=== PATIENT | male | born 1960 | race Caucasian/White ===

== ENCOUNTER 2023-08-04 08:33 | Emergency (ER) | payer BC, SELFPAY ==
[2023-08-04] VITALS (23 sets, daily range): BP systolic 127–156; BP diastolic 93–113; PULSE 116–134; RESP 20; TEMP 37.1; O2SAT 94–96; BMI 32.3
--- NOTE | 2023-08-04 09:11 | ED_ITS ---
HPI - Arrhythmia/Palpitations General Time Seen by Provider: 09:12 <Ena Yadav Filed: 08/04/23 13:41> Date Seen: 08/04/23 <Ena Yadav Filed: 08/04/23 13:41> Chief Complaint: Arrhythmia/Palpitations <Ena Yadav Filed: 08/04/23 13:41> Stated Complaint: irregular heartbeat,shortness of breath <Ena Yadav Filed: 08/04/23 13:41> Time Seen by Provider: 08/04/23 08:59 <Ena Yadav Filed: 08/04/23 13:41> Source: patient <Ena Yadav Filed: 08/04/23 13:41> Mode of arrival: ambulatory <Ena Yadav Filed: 08/04/23 13:41> Limitations: no limitations <Ena Yadav Filed: 08/04/23 13:41> History of Present Illness HPI narrative: Patient presents with sudden, consistent palpitations beginning this morning at 12:00 a.m, which are accompanied by shortness of breath and lightheadedness. He was not able to fall back asleep after this onset. Of note, patient had a positive at home COVID test 2 days ago and has had a productive cough and nasal/chest congestion since then. He notes 1 episode of pleuritic chest pain approximately 2 nights ago, which lasted from 10PM - 2 AM, but has since subsided. Patient denies any current chest pain, abdominal pain, fever, chills, unexpected weight loss, weakness, lower extremity swelling, nausea, vomiting, hematemesis, urinary changes, bowel changes, or any other complaints at this time. No syncopal events. He is not anticoagulated, but does have a history of cardioversion. He states he has not taken his blood pressure medication for 4 days. He is unsure what medication he is on. <Ena Yadav Filed: 08/04/23 13:41> Related Data Home Medications: Home Medications Medication Instructions Recorded Confirmed mirtazapine 7.5 mg tablet 7.5 mg PO QPM 08/04/23 08/04/23 sertraline 25 mg tablet 25 mg PO 08/04/23 tamsulosin 0.4 mg capsule 0.4 mg PO DAILY 08/04/23 08/04/23 Previous Rx's Medication Instructions Recorded nirmatrelvir 300 mg (150 mg See Rx Instructions PO .COMPLEX 08/04/23 x2)-ritonavir 100 mg tablet,dose #30 ea pack (Paxlovid) <[employer]Pixel Filed: 08/04/23 13:41> Allergies/Adverse Reactions: Allergies Allergy/AdvReac Type Severity Reaction Status Date / Time No Known Drug Allergies Allergy Verified 08/04/23 08:46 <[employer] Filed: 08/04/23 13:41> Review of Systems Status of ROS: Reports: 10 or more systems reviewed and unremarkable except as noted in History and below <[employer] Filed: 08/04/23 13:41> Const: Denies: fever, chills, fatigue or night sweats <[employer] Filed: 08/04/23 13:41> Eyes: Denies: change in vision or blurry vision <Remote Assistant Filed: 08/04/23 13:41> ENMT: Denies: throat pain, neck pain, throat swelling or difficulty swallowing <Remote Assistant Filed: 08/04/23 13:41> Cardio: Reports: chest pain, palpitations, lightheadedness, shortness of breath with exertion and shortness of breath when lying down; Denies: edema, swelling of feet/ankles or leg pain with exertion <[employer]Front [employer] Filed: 08/04/23 13:41> Resp: Reports: shortness of breath, cough (productive), pain on inspiration and chest congestion; Denies: wheezing, stridor, change in phlegm color or coughing up blood <Remote Assistant Filed: 08/04/23 13:41> GI: Denies: abdominal pain, nausea, vomiting, heartburn, diarrhea, constipation, difficulty swallowing, blood in stool or mucus in stool <[employer] Last Filed: 08/04/23 13:41> : Denies: painful urination, urinary frequency, urinary urgency or blood in urine <Remote Assistant Last Filed: 08/04/23 13:41> Musculo: Denies: back pain, neck pain, extremity pain or extremity swelling <Ena Hargrove Filed: 08/04/23 13:41> Integ/Breast: Denies: rash <Ena Hargrove Filed: 08/04/23 13:41> Neuro: Denies: headache, numbness in extremities, weakness in extremities or dizziness <Ena Hargrove Last Filed: 08/04/23 13:41> Psych: Denies: anxiety <Ena Hargrove Filed: 08/04/23 13:41> Endo: Denies: fatigue <Ena Hargrove Filed: 08/04/23 13:41> Allergy/Immuno: Denies: throat swelling or wheezing <Ena Hargrove Filed: 08/04/23 13:41> [facility] Social History: Social History Smoking Status: Never smoker Do you use any of these nicotine containing products: None How often do you have a drink containing alcohol: never How often do you have six or more drinks on one occasion: Never AUDIT-C Alcohol total score: 0 Non-prescribed substance use: denies use service: No <Ena Hargrove Filed: 08/04/23 13:41> Exam Narrative: Exam Narrative: General: Healthy-appearing, well-nourished with above average body (BMI 32.3) habitus, in no apparent distress. Able to answer questions without difficulty. HENMT: Normocephalic, atraumatic. Hearing grossly normal bilaterally. Moist oral mucous membranes with some nasal congestion. Face symmetric bilaterally. Eye: PERRL. EOMs intact bilaterally. Conjunctivae normal. Neck: Supple, no lymphadenopathy. No JVD. Full ROM. Chest/Cardio: Inspection normal. No tenderness to palpation. Tachycardic with normal rhythm, S1 and S2. No clicks, gallops, or murmurs noted. 2+ peripheral pulses bilaterally. Lung: No increased effort. No retractions, no use of accessory muscles. Clear auscultation bilaterally. GI: Normal to inspection. Normoactive bowel sounds. Soft, nontender, nondistended. No rebound tenderness or guarding. : No CVA tenderness. Extremities: Full range of motion. No pedal edema or unilateral swelling. Normal capillary refill. No calf tenderness. Neuro: No focal motor or sensory deficits noted. A&Ox3. Psych: Cooperative. Thought process normal. Speech appropriate. <Ena Yadav Filed: 08/04/23 13:41> Const: Vital Signs, click to edit/add: Vital Signs - 24 hr 08/04/23 08:38 08/04/23 10:55 08/04/23 11:00 Temperature 98.7 F Pulse Rate 124 H 123 H Pulse Rate [Pulse Oximeter] 134 H Respiratory Rate 20 Blood Pressure Blood Pressure [Le ft Upper Arm] 133/113 H Pulse Oximetry 95 95 94 Oxygen Delivery Me thod Room Air 08/04/23 11:02 08/04/23 11:15 08/04/23 11:30 Temperature Pulse Rate 116 H 125 H 127 H Pulse Rate [Pulse Oximeter] Respiratory Rate Blood Pressure 156/102 H Blood Pressure [Le ft Upper Arm] Pulse Oximetry 95 95 95 Oxygen Delivery Me thod 08/04/23 11:31 08/04/23 11:45 08/04/23 12:00 Temperature Pulse Rate 127 H 126 H 126 H Pulse Rate [Pulse Oximeter] Respiratory Rate Blood Pressure 127/93 H Blood Pressure [Le ft Upper Arm] Pulse Oximetry 96 95 94 Oxygen Delivery Me thod 08/04/23 12:01 08/04/23 12:15 08/04/23 12:30 Temperature Pulse Rate 126 H 120 H 124 H Pulse Rate [Pulse Oximeter] Respiratory Rate Blood Pressure 131/95 H Blood Pressure [Le ft Upper Arm] Pulse Oximetry 95 95 94 Oxygen Delivery Me thod 08/04/23 12:31 08/04/23 12:45 08/04/23 13:00 Temperature Pulse Rate 120 H 123 H Pulse Rate [Pulse Oximeter] Respiratory Rate Blood Pressure 139/113 H Blood Pressure [Le ft Upper Arm] Pulse Oximetry 95 95 Oxygen Delivery Me thod 08/04/23 13:05 08/04/23 13:15 08/04/23 13:30 Temperature Pulse Rate 122 H 117 H 123 H Pulse Rate [Pulse Oximeter] Respiratory Rate Blood Pressure Blood Pressure [Le ft Upper Arm] Pulse Oximetry 95 95 94 Oxygen Delivery Me thod 08/04/23 13:35 Temperature Pulse Rate 126 H Pulse Rate [Pulse Oximeter] Respiratory Rate Blood Pressure Blood Pressure [Le ft Upper Arm] Pulse Oximetry 95 Oxygen Delivery Me thod <Ena Gall - Last Filed: 08/04/23 13:41> Vital Signs, click to edit/add: Vital Signs - 24 hr 08/04/23 08:38 08/04/23 10:55 08/04/23 11:00 Temperature 98.7 F Pulse Rate 124 H 123 H Pulse Rate [Pulse Oximeter] 134 H Respiratory Rate 20 Blood Pressure Blood Pressure [Le ft Upper Arm] 133/113 H Pulse Oximetry 95 95 94 Oxygen Delivery Me thod Room Air 08/04/23 11:02 08/04/23 11:15 08/04/23 11:30 Temperature Pulse Rate 116 H 125 H 127 H Pulse Rate [Pulse Oximeter] Respiratory Rate Blood Pressure 156/102 H Blood Pressure [Le ft Upper Arm] Pulse Oximetry 95 95 95 Oxygen Delivery Me thod 08/04/23 11:31 08/04/23 11:45 08/04/23 12:00 Temperature Pulse Rate 127 H 126 H 126 H Pulse Rate [Pulse Oximeter] Respiratory Rate Blood Pressure 127/93 H Blood Pressure [Le ft Upper Arm] Pulse Oximetry 96 95 94 Oxygen Delivery Me thod 08/04/23 12:01 08/04/23 12:15 08/04/23 12:30 Temperature Pulse Rate 126 H 120 H 124 H Pulse Rate [Pulse Oximeter] Respiratory Rate Blood Pressure 131/95 H Blood Pressure [Le ft Upper Arm] Pulse Oximetry 95 95 94 Oxygen Delivery Me thod 08/04/23 12:31 08/04/23 12:45 08/04/23 13:00 Temperature Pulse Rate 120 H 123 H Pulse Rate [Pulse Oximeter] Respiratory Rate Blood Pressure 139/113 H Blood Pressure [Le ft Upper Arm] Pulse Oximetry 95 95 Oxygen Delivery Me thod 08/04/23 13:05 08/04/23 13:15 08/04/23 13:30 Temperature Pulse Rate 122 H 117 H 123 H Pulse Rate [Pulse Oximeter] Respiratory Rate Blood Pressure Blood Pressure [Le ft Upper Arm] Pulse Oximetry 95 95 94 Oxygen Delivery Me thod 08/04/23 13:35 Temperature Pulse Rate 126 H Pulse Rate [Pulse Oximeter] Respiratory Rate Blood Pressure Blood Pressure [Le ft Upper Arm] Pulse Oximetry 95 Oxygen Delivery Me thod <Rickey Mesa MD - Last Filed: 08/04/23 14:38> Documenting provider has reviewed patient's vital signs: yes <Ena Hargrove Tocagen Leif Filed: 08/04/23 13:41> Course Reevaluation(s) Time of Reevaluation #1: 11:18 <Ena Yadav Filed: 08/04/23 13:41> Reevaluation #1: Updated the patient on his lab and imaging results. He is doing well and is in no acute distress. He is accompanied by his son. Discussed how we will be doing a CTA based on his D-dimer results. Also discussed that his tachycardia could be result of his COVID, but wanted to r/o DVT/PE. <Ena Hargrove Tocagen Leif Filed: 08/04/23 13:41> Vital Signs Vital signs: Initial Vital Signs Temperature 98.7 F 08/04/23 08:38 Temperature Source Temporal Artery Scan 08/04/23 08:38 Pulse Rate 134 H 08/04/23 08:38 Respiratory Rate 20 08/04/23 08:38 Blood Pressure 133/113 H 08/04/23 08:38 Blood Pressure Mean 119 H 08/04/23 08:38 Blood Pressure Position Sitting 08/04/23 08:38 Pulse Oximetry 95 08/04/23 08:38 Oxygen Delivery Method Room Air 08/04/23 08:38 Vital Signs Temperature 98.7 F 08/04/23 08:38 Pulse Rate 134 H 08/04/23 08:38 Respiratory Rate 20 08/04/23 08:38 Blood Pressure 133/113 H 08/04/23 08:38 Pulse Oximetry 95 08/04/23 08:38 Oxygen Delivery Method Room Air 08/04/23 08:38 Temperature 98.7 F 08/04/23 08:38 Pulse Rate 126 H 08/04/23 13:35 Respiratory Rate 20 08/04/23 08:38 Blood Pressure 139/113 H 08/04/23 12:31 Pulse Oximetry 95 08/04/23 13:35 Oxygen Delivery Method Room Air 08/04/23 08:38 <Ena Hargrove Tocagen Leif Filed: 08/04/23 13:41> Initial Vital Signs Temperature 98.7 F 08/04/23 08:38 Temperature Source Temporal Artery Scan 08/04/23 08:38 Pulse Rate 134 H 08/04/23 08:38 Respiratory Rate 20 08/04/23 08:38 Blood Pressure 133/113 H 08/04/23 08:38 Blood Pressure Mean 119 H 08/04/23 08:38 Blood Pressure Position Sitting 08/04/23 08:38 Pulse Oximetry 95 08/04/23 08:38 Oxygen Delivery Method Room Air 08/04/23 08:38 Vital Signs Temperature 98.7 F 08/04/23 08:38 Pulse Rate 134 H 08/04/23 08:38 Respiratory Rate 20 08/04/23 08:38 Blood Pressure 133/113 H 08/04/23 08:38 Pulse Oximetry 95 08/04/23 08:38 Oxygen Delivery Method Room Air 08/04/23 08:38 Temperature 98.7 F 08/04/23 08:38 Pulse Rate 126 H 08/04/23 13:35 Respiratory Rate 20 08/04/23 08:38 Blood Pressure 139/113 H 08/04/23 12:31 Pulse Oximetry 95 08/04/23 13:35 Oxygen Delivery Method Room Air 08/04/23 08:38 <Rickey Mesa MD - Last Filed: 08/04/23 14:38> MDM - Arrhythmia/Palpitations MDM Narrative Medical decision making narrative: Patient is a 63-year-old male who presents with sudden palpitations beginning this morning at 12:00 a.m. with associated shortness of breath and lightheadedness. Patient notes 1 episode of pleuritic chest pain 2 nights ago, lasting approximately 4 hours, which has since subsided. Denies calf pain, unilateral lower extremity swelling, or any syncopal events. He was cardioverted approximately 3 years ago, he is not anticoagulated. Of note, patient had a positive at home COVID test approximately 2 days ago and has been having some associated nasal congestion, chest congestion, and a productive cough. On exam, patient is afebrile, tachycardic with a pulse of 134, and hypertensive at 133/113. Normal rhythm, no murmurs or gallops. No chest tenderness to palpation. No JVD. Lungs clear to auscultation bilaterally. Mildly tachypneic with respiratory rate of 20, no increased effort or retractions. No lower extremity swelling or calf tenderness. Physical exam is otherwise unremarkable. Per the Laclede Score patient is moderate risk group with result of 5. Workup will include BMP, CBC, D-dimer, EKG, POC troponin, and chest x-ray. Will repeat a viral swab of COVID/flu today, to confirm. Differential diagnosis includes, but is not limited to, palpitations, anxiety, sinus tachycardia, atrial fibrillation, SVT, IA, CAD, GERD, PUD, PE, DVT, viral upper respiratory infection, pneumonia, COPD, bronchitis, pericarditis, myocarditis, chest wall pain. Patient stopped taking his blood pressure medication approximately 4 days ago, he is unsure what medication he is on. We discussed how his tachycardia could very well be a side effect of stopping his blood pressure medication if he is normally on a beta-yolanda. Discussed the plan with the patient and his . They understand and are in agreement. IV placed. Point of care troponin was 0.00. CBC shows a mildly elevated hemoglobin, otherwise unremarkable. BMP shows an elevated nonfasting glucose, otherwise unremarkable. Chest x-ray shows no acute cardiopulmonary process; however, COVID is positive and D-dimer is elevated at 1.16, so subsequent CTA chest ordered, per PE protocol. Creatinine is within normal limits. Updated the patient on his lab and imaging results. Discussed further testing. Patient and his son, who is now accompanying him, understand and are in agreement. Repeat vitals show patient is still tachycardic with a pulse of 125 and he is still hypertensive with a similar blood pressure 156/102. <Ena Hargrove - Last Filed: 08/04/23 13:41> Patient is a 63-year-old male who presents with sudden palpitations beginning this morning at 12:00 a.m. with associated shortness of breath and lightheadedness. Patient notes 1 episode of pleuritic chest pain 2 nights ago, lasting approximately 4 hours, which has since subsided. Denies calf pain, unilateral lower extremity swelling, or any syncopal events. He was cardioverted approximately 3 years ago, he is not anticoagulated. Of note, patient had a positive at home COVID test approximately 2 days ago and has been having some associated nasal congestion, chest congestion, and a productive cough. On exam, patient is afebrile, tachycardic with a pulse of 134, and hypertensive at 133/113. Normal rhythm, no murmurs or gallops. No chest tenderness to palpation. No JVD. Lungs clear to auscultation bilaterally. Mildly tachypneic with respiratory rate of 20, no increased effort or retractions. No lower extremity swelling or calf tenderness. Physical exam is otherwise unremarkable. Per the Laclede Score patient is moderate risk group with result of 5. Workup will include BMP, CBC, D-dimer, EKG, POC troponin, and chest x-ray. Will repeat a viral swab of COVID/flu today, to confirm. Differential diagnosis includes, b ut is not limited to, palpitations, anxiety, sinus tachycardia, atrial fibrillation, SVT, IA, CAD, GERD, PUD, PE, DVT, viral upper respiratory infection, pneumonia, COPD, bronchitis, pericarditis, myocarditis, chest wall pain. Patient stopped taking his blood pressure medication approximately 4 days ago, he is unsure what medication he is on. We discussed how his tachycardia could very well be a side effect of stopping his blood pressure medication if he is normally on a beta-yolanda. Discussed the plan with the patient and his . They understand and are in agreement. IV placed. Point of care troponin was 0.00. CBC shows a mildly elevated hemoglobin, otherwise unremarkable. BMP shows an elevated nonfasting glucose, otherwise unremarkable. Chest x-ray shows no acute cardiopulmonary process; however, COVID is positive and D-dimer is elevated at 1.16, so subsequent CTA chest ordered, per PE protocol. Creatinine is within normal limits. Updated the patient on his lab and imaging results. Discussed further testing. Patient and his son, who is now accompanying him, understand and are in agreement. Repeat vitals show patient is still tachycardic with a pulse of 125 and he is still hypertensive with a similar blood pressure 156/102. Lab and imaging results are essentially unremarkable except for positive COVID test. His tachycardia has improved but he remains to be resting heart rate greater than 120. He is not showing any signs of respiratory distress or use of accessory muscles. I did discuss hospitalization but indicated no beds are available here and in most other places in the vicinity. The patient feels okay to return home. He did receive an IV dose of dexamethasone 10 mg. He was also prescribed Paxlovid. <Rickey Mesa MD - Last Filed: 08/04/23 14:38> Differential Diagnosis Differential diagnosis: Likely palpitations, anxiety, sinus tachycardia, artial fibrillation, ventricular premature beats, supraventricular tachycardia and WPW <Ena Hargrove - Last Filed: 08/04/23 13:41> Medical Records Attestation: I reviewed the patient's medical records. <Ena Hargrove - Last Filed: 08/04/23 13:41> Lab Data Attestation: I reviewed the patient's lab results. <Ena Hargrove - Last Filed: 08/04/23 13:41> Labs: Lab Results 08/04/23 08/04/23 Range/Units 09:14 09:28 WBC 9.16 (4.50-11.00) K/uL RBC 5.42 (4.30-5.90) m/uL Hgb 17.7 H (13.5-17.5) gm/dL Hct 52.5 (37.0-53.0) % MCV 97 (80-100) fL MCH 33 (26-34) pg MCHC 34 (32-36) gm/dL RDW Coeff of Nafisa 12.0 (11.5-15.5) % Plt Count 264 (140-440) K/uL Neut % (Auto) 70.7 (42.0-72.0) % Lymph % (Auto) 17.2 L (20-44) % Rosebud % (Auto) 11.0 (0.0-11.0) % Eos % (Auto) 0.3 (0.0-7.0) % Baso % (Auto) 0.3 (0.0-3.0) % Neut # (Auto) 6.46 (1.7-7.0) K/uL Lymph # (Auto) 1.60 (0.90-2.90) K/uL Rosebud # (Auto) 1.00 H (0.00-0.90) K/UL Eos # (Auto) 0.03 (0.00-0.50) K/uL Baso # (Auto) 0.03 (0.00-0.30) K/uL Abs Immat Gran (auto) 0.05 (0.00-0.30) K/uL Imm/Tot Granulo (auto) 0.5 % D-Dimer Quant (PE/DVT) 1.16 H (0.00-0.50) ug/ml Sodium 140 (135-149) mmol/L Potassium 3.8 (3.6-5.1) mmol/L Chloride 103 (96-114) mmol/L Carbon Dioxide 27 (20-32) mmol/L Anion Gap 10 (7-15) mEq/L BUN 15 (7-30) mg/dL Creatinine 1.1 (0.5-1.5) mg/dL Estimated Creat Clear 70.05 Estimated GFR 75 ml/min Glucose 142 H (60-115) mg/dL Calcium 9.5 (8.4-10.6) mg/dL SARS-CoV-2 (PCR) POSITIVE SARS-CoV-2 A (Negative) Influenza Type A (PCR) Negative PCR FLU A (Negative) Influenza Type B (PCR) Negative PCR FLU B (Negative) POC Troponin I 0.00 L (0.01-0.04) ng/ml <Ena Beena - Last Filed: 08/04/23 13:41> Lab Results 08/04/23 08/04/23 Range/Units 09:14 09:28 WBC 9.16 (4.50-11.00) K/uL RBC 5.42 (4.30-5.90) m/uL Hgb 17.7 H (13.5-17.5) gm/dL Hct 52.5 (37.0-53.0) % MCV 97 (80-100) fL MCH 33 (26-34) pg MCHC 34 (32-36) gm/dL RDW Coeff of Nafisa 12.0 (11.5-15.5) % Plt Count 264 (140-440) K/uL Neut % (Auto) 70.7 (42.0-72.0) % Lymph % (Auto) 17.2 L (20-44) % Rosebud % (Auto) 11.0 (0.0-11.0) % Eos % (Auto) 0.3 (0.0-7.0) % Baso % (Auto) 0.3 (0.0-3.0) % Neut # (Auto) 6.46 (1.7-7.0) K/uL Lymph # (Auto) 1.60 (0.90-2.90) K/uL Rosebud # (Auto) 1.00 H (0.00-0.90) K/UL Eos # (Auto) 0.03 (0.00-0.50) K/uL Baso # (Auto) 0.03 (0.00-0.30) K/uL Abs Immat Gran (auto) 0.05 (0.00-0.30) K/uL Imm/Tot Granulo (auto) 0.5 % D-Dimer Quant (PE/DVT) 1.16 H (0.00-0.50) ug/ml Sodium 140 (135-149) mmol/L Potassium 3.8 (3.6-5.1) mmol/L Chloride 103 (96-114) mmol/L Carbon Dioxide 27 (20-32) mmol/L Anion Gap 10 (7-15) mEq/L BUN 15 (7-30) mg/dL Creatinine 1.1 (0.5-1.5) mg/dL Estimated Creat Clear 70.05 Estimated GFR 75 ml/min Glucose 142 H (60-115) mg/dL Calcium 9.5 (8.4-10.6) mg/dL SARS-CoV-2 (PCR) POSITIVE SARS-CoV-2 A (Negative) Influenza Type A (PCR) Negative PCR FLU A (Negative) Influenza Type B (PCR) Negative PCR FLU B (Negative) POC Troponin I 0.00 L (0.01-0.04) ng/ml <Rickey Mesa MD - Last Filed: 08/04/23 14:38> Imaging Data Chest x-ray: Attestation: I have reviewed the pertinent imaging results. <Ena Hargrove - Last Filed: 08/04/23 13:41> Radiologist's impression: No acute cardiopulmonary process. <Rickey Mesa MD - Last Filed: 08/04/23 14:38> CT scan - chest: Radiologist's impression: No pulmonary embolism. No focal consolidations. <Rickey Mesa MD - Last Filed: 08/04/23 14:38> ECG Data Attestation: I personally reviewed and interpreted this ECG as follows: <Ena Hargrove - Last Filed: 08/04/23 13:41> ECG interpretation date: 08/04/23 <Ena Hargrove - Last Filed: 08/04/23 13:41> ECG interpretation time: 09:00 <Ena Hargrove - Last Filed: 08/04/23 13:41> Discharge Plan Discharge Clinical Impression: COVID-19, Tachycardia <Ena Hargrove - Last Filed: 08/04/23 13:41> Patient Disposition: Home, Self-Care <Ena Steve Last Filed: 08/04/23 13:41> Condition: Stable <Ena Hargrove Filed: 08/04/23 13:41> Additional Instructions: Take Paxlovid as prescribed and hold tamsulosin while taking this medicine. Use [id number] medicines as needed and directed. Follow up with MD return if worsening symptoms happen. <Ena Hargrove Last Filed: 08/04/23 13:41> Prescriptions: New Paxlovid 300 mg (150 mg x 2)-100 mg tablets,dose pack See Rx Instructions PO .COMPLEX Qty: 30 0RF Rx Instructions: take TWO 150 mg tablets of nirmatrelvir with ONE 100 mg tablet of ritonavir twice daily for 5 days No Action tamsulosin 0.4 mg capsule 0.4 mg PO DAILY sertraline 25 mg tablet 25 mg PO mirtazapine 7.5 mg tablet 7.5 mg PO QPM <Ena Hargrove Filed: 08/04/23 13:41> Follow Up/Referrals: Blane Peres MD [Primary Care Provider] - <Ena Steve Filed: 08/04/23 13:41> Stand Alone Forms: MyHealth Info Instructions <Ena Hargrove Filed: 08/04/23 13:41>
--- NOTE | 2023-08-04 09:12 | CRLHL7_ITS ---
For Patients: As a result of the Century Cures Act, medical imaging exams and procedure reports are released immediately into your electronic medical record. You may view this report before your referring provider. If you have questions, please contact your health care provider. INDICATION: Cough TECHNIQUE: Chest 2 views. COMPARISON: CTA chest report on 12/19/2020 FINDINGS: Cardiovascular and mediastinum: Heart size and vasculature are normal in caliber and appearance. Lungs and pleural spaces: No focal airspace consolidation, pleural effusion, or pneumothorax. Trace left lateral mid lung zone atelectasis/scarring. Bones and soft tissues: No significant findings. IMPRESSION: No acute cardiopulmonary process. Dictated by Mustapha Lawson MD @ 08/04/2023 9:55:22 AM (Electronically Signed)
[2023-08-04 09:43] LABS: Basophils Absolute Auto 0.03 K/uL (0.00-0.30); Basophils Percent Auto 0.3 % (0.0-3.0); Eosinophils Absolute Auto 0.03 K/uL (0.00-0.50); Eosinophils Percent Auto 0.3 % (0.0-7.0); Hematocrit 52.5 % (37.0-53.0); Hemoglobin* 17.7 gm/dL (13.5-17.5); Immature Granulocytes Abs Auto 0.05 K/uL (0.00-0.30); Immature Granulocytes Pct Auto 0.5 %; Lymphocytes Percent Auto 17.2 % (20-44); Mean Corpuscular HGB Conc 34 gm/dL (32-36); Mean Corpuscular Hemoglobin 33 pg (26-34); Mean Corpuscular Volume 97 fL (80-100); Neutrophils Absolute Auto 6.46 K/uL (1.7-7.0); Neutrophils Percent Auto 70.7 % (42.0-72.0); Platelet Count* 264 K/uL (140-440); Red Blood Count 5.42 m/uL (4.30-5.90); White Blood Count* 9.16 K/uL (4.50-11.00)
[2023-08-04 09:52] LABS: Slide Review Reflex No
[2023-08-04 10:11] LABS: Chloride* 103 mmol/L (96-114); Sodium* 140 mmol/L (135-149)
[2023-08-04 10:12] LABS: Potassium* 3.8 mmol/L (3.6-5.1)
[2023-08-04 10:14] LABS: Creatinine* 1.1 mg/dL (0.5-1.5); Est. Creatinine Clearance* 70.05; Estimated Glomerular Filt Rate 75 ml/min
[2023-08-04 10:15] LABS: Anion Gap 10 mEq/L (7-15); Blood Urea Nitrogen* 15 mg/dL (7-30); Calcium* 9.5 mg/dL (8.4-10.6); Carbon Dioxide* 27 mmol/L (20-32); Glucose* 142 mg/dL (60-115)
[2023-08-04 10:18] LABS: D Dimer Quantitative* 1.16 ug/ml (0.00-0.50)
[2023-08-04 10:21] LABS: PCR FLU A Negative PCR FLU A (Negative); PCR FLU B Negative PCR FLU B (Negative)
[2023-08-04 10:28] LABS: SARS PCR* POSITIVE SARS-CoV-2 (Negative)
--- NOTE | 2023-08-04 10:57 | CRLHL7_ITS ---
For Patients: As a result of the Century Cures Act, medical imaging exams and procedure reports are released immediately into your electronic medical record. You may view this report before your referring provider. If you have questions, please contact your health care provider. INDICATION: Elevated D-dimer. TECHNIQUE: CT chest PE was acquired with 95 cc Isovue 370 IV contrast. COMPARISON: None. FINDINGS: Heart and vasculature: Contrast opacification of the pulmonary arterial tree is adequate. No sign of pulmonary embolism. Heart size is normal. Coronary artery calcifications. Thoracic aorta and pulmonary artery are normal in caliber. Lungs and pleura: No suspicious nodules or infiltrates. No pleural effusions, pleural thickening, or pneumothorax. Lymph nodes/mediastinum: No mediastinal, hilar, or axillary adenopathy. Chest wall: No masses. Upper abdomen: No acute or significant findings. Bones: Unremarkable for age. IMPRESSION: No pulmonary embolism. No focal consolidations. Please note that all CT scans at this facility use dose modulation, iterative reconstruction, and/or weight-based dosing when appropriate to reduce radiation dose to as low as reasonably achievable. Dictated by Jaziel Ac MD @ 08/04/2023 1:52:37 PM (Electronically Signed)
[2023-08-04] MEDS: dexAMETHasone 4 MG/ML VIAL 10 MG IV (14:35)
== END 2023-08-04 14:49 | disposition home or self-care (01) ==
PROVIDERS: Emergency Provider Emergency Medicine Emergency Medical Services; PCP Surgery
DX: U07.1 COVID-19 (principal); R00.0 Tachycardia, unspecified
CPT/HCPCS: 36415; 71046; 71275; 80048; 84484; 85025; 85379; 87631; 99284; J1100; Q9967

== ENCOUNTER 2023-08-24 17:15 | Outpatient (CLI) | payer BC, SELFPAY | END 2023-08-24 17:16 | disposition home or self-care (01) | LOC: AMB 08-26 10:18 | PROVIDERS: PCP Surgery; Visit Provider Family Medicine | DX: R42 Dizziness and giddiness (principal) | CPT/HCPCS: A0425; A0427 ==

== ENCOUNTER 2023-08-24 17:49 | Inpatient (IN) | payer BC, SELFPAY ==
[2023-08-24] VITALS (31 sets, daily range): BP systolic 75–161; BP diastolic 50–111; PULSE 119–132; RESP 18–20; TEMP 36.5–37.1; O2SAT 90–96; BMI 26.6; BMI 33.9
--- NOTE | 2023-08-24 18:08 | CRLHL7_ITS ---
For Patients: As a result of the Century Cures Act, medical imaging exams and procedure reports are released immediately into your electronic medical record. You may view this report before your referring provider. If you have questions, please contact your health care provider. INDICATION: Syncope. TECHNIQUE: Portable AP chest. COMPARISON: 08/04/2023 chest x-ray. FINDINGS: Mild scarring in the mid left lung. Lungs otherwise clear. Normal heart size and pulmonary vascularity. No pleural effusion or pneumothorax. No acute findings and no significant change. Dictated by Jean Minor MD @ 08/24/2023 8:11:45 PM (Electronically Signed)
--- NOTE | 2023-08-24 18:08 | CRLHL7_ITS ---
For Patients: As a result of the Century Cures Act, medical imaging exams and procedure reports are released immediately into your electronic medical record. You may view this report before your referring provider. If you have questions, please contact your health care provider. INDICATION: Syncope TECHNIQUE: Head CT without contrast. COMPARISON: None FINDINGS: CSF spaces: Within normal limits for age. Brain parenchyma and extra-axial spaces: There are nonspecific low attenuation white matter changes consistent with chronic microvascular disease. No sign of mass, hemorrhage, or midline shift. Skull base and calvarium: The visualized paranasal sinuses and mastoid air cells demonstrate no acute or significant findings. The visualized orbits are grossly unremarkable. No skull fractures. IMPRESSION: No acute intracranial findings. Please note that all CT scans at this facility use dose modulation, iterative reconstruction, and/or weight-based dosing when appropriate to reduce radiation dose to as low as reasonably achievable. Dictated by Jean Minor MD @ 08/24/2023 7:24:27 PM (Electronically Signed)
[2023-08-24] MEDS: 0.9 % SODIUM CHLORIDE 1000 ml 1,000 ML IV ×2 (18:10→19:06)
--- NOTE | 2023-08-24 18:10 | ED.DIZZY ---
HPI - Dizziness General Chief Complaint: Syncope/Fainted Stated Complaint: Syncope Time Seen by Provider: 08/24/23 18:00 History of Present Illness HPI Narrative: Patient is a 63-year-old gentleman who has history of paroxysmal atrial fibrillation he not on anticoagulation who presents after feeling lightheaded this afternoon. Today is Linda stay in the patient was looking to get some early evening pudding as a snack. He in route to the kitchen became extremely lightheaded. Family caught him before he fell and helped him to the floor. Patient stated that he felt fine leading up to this event. He now feels fine although he has a pulse of 125 and a blood pressure of 74/40. Patient had COVID-19 approximately a month ago. He states that he is on stable medications including carvedilol mirtazapine sertraline and tamsulosin. No other recent symptoms. Patient describes no chest pain orthopnea no PND no nausea no vomiting. Related Data Home Medications Medication Instructions Recorded Confirmed mirtazapine 7.5 mg tablet 7.5 mg PO QPM 08/04/23 08/24/23 sertraline 25 mg tablet 25 mg PO 08/04/23 tamsulosin 0.4 mg capsule 0.4 mg PO DAILY 08/04/23 08/04/23 carvedilol 6.25 mg tablet 6.25 mg PO BID 08/24/23 08/24/23 Previous Rx's Medication Instructions Recorded nirmatrelvir 300 mg (150 mg See Rx Instructions PO .COMPLEX 08/04/23 x2)-ritonavir 100 mg tablet,dose #30 ea pack (Paxlovid) Allergies Allergy/AdvReac Type Severity Reaction Status Date / Time No Known Drug Allergies Allergy Verified 08/24/23 17:57 Review of Systems Status of ROS: Reports: 10 or more systems reviewed and unremarkable except as noted in History and below [facility] Medical History (Updated 08/24/23 @ 19:00 by Dom Osorio MD) BPH (benign prostatic hyperplasia) ?N40.0 - Benign prostatic hyperplasia without lower urinary tract symptoms (ICD-10) Paroxysmal atrial fibrillation ?I48.0 - Paroxysmal atrial fibrillation (ICD-10) Hypertension ?I10 - Essential (primary) hypertension (ICD-10) Social History Smoking Status: Never smoker Do you use any of these nicotine containing products: None How often do you have a drink containing alcohol: never How often do you have six or more drinks on one occasion: Never AUDIT-C Alcohol total score: 0 Non-prescribed substance use: marijuana (any form) service: No Exam Narrative: Exam Narrative: EXAM GENERAL: Patient appears comfortable and well although he is hypotensive and tachycardic. He is overweight. EYES: No scleral icterus. LYMPH: No supraclavicular or cervical lymphadenopathy. SKIN: Visible skin seen during exam normal or with benign process only. EXT: No dependent lower extremity pedal edema. HEART: Irregular tachycardic distant heart tones. LUNGS: Normal breath sounds bilaterally no wheezes crackles or rhonchi. ABD: Soft, non tender, non distended. PSYCH: Good eye contact, speech is not pressured. Const: Vital Signs, click to edit/add: Vital Signs - 24 hr 08/24/23 17:53 08/24/23 18:15 08/24/23 18:16 Temperature 98.8 F Pulse Rate 126 H 127 H Pulse Rate [Right Pulse Oximeter] 125 H Respiratory Rate 20 Blood Pressure 89/60 L Blood Pressure [Le ft Upper Arm] 75/50 L Pulse Oximetry 90 94 94 Oxygen Delivery Me thod Room Air 08/24/23 18:17 08/24/23 18:21 08/24/23 18:45 Temperature Pulse Rate 128 H Pulse Rate [Right Pulse Oximeter] 127 H Respiratory Rate 18 Blood Pressure 81/65 L Blood Pressure [Le ft Upper Arm] 106/62 Pulse Oximetry 94 93 94 Oxygen Delivery Me thod Room Air Course Course ED Course: Patient seen examined. 1 L normal saline given. CBC CMP troponin D-dimer lactate chest x-ray urinalysis urine drug screen ETOH collected. Vital Signs Vital signs: Initial Vital Signs Temperature 98.8 F 08/24/23 17:53 Temperature Source Temporal Artery Scan 08/24/23 17:53 Pulse Rate 125 H 08/24/23 17:53 Pulse Rhythm Regular 08/24/23 17:53 Respiratory Rate 20 08/24/23 17:53 Blood Pressure 75/50 L 08/24/23 17:53 Blood Pressure Mean 58 L 08/24/23 17:53 Blood Pressure Position Right Lateral 08/24/23 17:53 Pulse Oximetry 90 08/24/23 17:53 Oxygen Delivery Method Room Air 08/24/23 17:53 Vital Signs Temperature 98.8 F 08/24/23 17:53 Pulse Rate 125 H 08/24/23 17:53 Respiratory Rate 20 08/24/23 17:53 Blood Pressure 75/50 L 08/24/23 17:53 Pulse Oximetry 90 08/24/23 17:53 Oxygen Delivery Method Room Air 08/24/23 17:53 Temperature 98.8 F 08/24/23 17:53 Pulse Rate 127 H 08/24/23 18:45 Respiratory Rate 18 08/24/23 18:45 Blood Pressure 106/62 08/24/23 18:45 Pulse Oximetry 94 08/24/23 18:45 Oxygen Delivery Method Room Air 08/24/23 18:45 Medications Administered Medications: Generic Name Dose Route Start Last Admin Trade Name Freq PRN Reason Stop Dose Admin Sodium Chloride 1,000 mls @ 1,000 mls/hr 08/24/23 18:14 08/24/23 18:10 0.9 % Sodium Chloride 1000 Ml IV 08/24/23 19:13 1,000 mls/hr .Q1H CATRACHO Administration MDM - Dizziness MDM Narrative Medical decision making narrative: Patient is a 63-year-old gentleman who had a near syncopal episode at home. Patient has a history of atrial flutter as well as tachycardia induced cardiomyopathy. His most recent EF that I can find is in 2020 which was 45%. Patient arrived to the emergency room atrial flutter with rate of 130. He was hypotensive with a blood pressure of 70/40. After L and half normal saline he is now 108/60 as far as blood pressure but his pulse remained 130. I did call and consult with Dr. Seymour at [facility] due to the patient's history of cardiomyopathy and decreased ejection fraction he did not recommend consideration of cardioversion electronically except for the most extreme circumstances. He did recommend admitting the patient hospital with a digoxin bolus is 0.5 mg as well as 0.25 mg every 6 hours. He also recommended apixaban for anticoagulation. Depending on patient's blood pressure he may be a good candidate for Cardizem for rate control verses increasing his dose of Coreg. Care discussed with hospitalist patient admitted for further evaluation workup to this point has been unremarkable with the exception of the increasing creatinine from 1-2. Differential Diagnosis Differential diagnosis: Likely adverse reaction to drug, benign paroxysmal positional vertigo, orthostatic hypotension, vertebral basilar insufficiency, cerebrovascular accident, acute vestibular neuronitis and transient cerebral ischemia Lab Data Labs: Lab Results 08/24/23 Range/Units 18:10 WBC 9.30 (4.50-11.00) K/uL RBC 4.16 L (4.30-5.90) m/uL Hgb 13.5 (13.5-17.5) gm/dL Hct 41.0 (37.0-53.0) % MCV 99 (80-100) fL MCH 33 (26-34) pg MCHC 33 (32-36) gm/dL RDW Coeff of Nafisa 12.4 (11.5-15.5) % Plt Count 275 (140-440) K/uL Neut % (Auto) 82.0 H (42.0-72.0) % Lymph % (Auto) 11.5 L (20-44) % [place] % (Auto) 5.8 (0.0-11.0) % Eos % (Auto) 0.1 (0.0-7.0) % Baso % (Auto) 0.1 (0.0-3.0) % Neut # (Auto) 7.60 H (1.7-7.0) K/uL Lymph # (Auto) 1.10 (0.90-2.90) K/uL [place] # (Auto) 0.50 (0.00-0.90) K/UL Eos # (Auto) 0.01 (0.00-0.50) K/uL Baso # (Auto) 0.01 (0.00-0.30) K/uL Abs Immat Gran (auto) 0.05 (0.00-0.30) K/uL Imm/Tot Granulo (auto) 0.5 % D-Dimer Quant (PE/DVT) 0.64 H (0.00-0.50) ug/ml Sodium 137 (135-149) mmol/L Potassium 3.9 (3.6-5.1) mmol/L Chloride 100 (96-114) mmol/L Carbon Dioxide 21 (20-32) mmol/L Anion Gap 16 H (7-15) mEq/L BUN 29 (7-30) mg/dL Creatinine 2.0 H (0.5-1.5) mg/dL Estimated Creat Clear 36.10 Estimated GFR 37 ml/min Glucose 133 H (60-115) mg/dL Calcium 8.6 (8.4-10.6) mg/dL Total Bilirubin 0.4 (0.1-1.5) mg/dL AST 25 (12-35) U/L ALT 22 (4-50) U/L Alkaline Phosphatase 60 (40-150) U/L Troponin I 0.02 (0.01-0.04) ng/mL Total Protein 6.7 (6.0-8.3) g/dL Albumin 4.0 (3.3-5.0) g/dL Ethyl Alcohol 0.09 H (0.01-0.03) % POC Troponin I 0.02 (0.01-0.04) ng/ml Discharge Plan Discharge Clinical Impression: Atrial flutter Patient Disposition: Admitted As Inpatient Condition: Stable Activity Level: No Restrictions Discharge Diet: Regular Prescriptions: No Action tamsulosin 0.4 mg capsule 0.4 mg PO DAILY sertraline 25 mg tablet 25 mg PO mirtazapine 7.5 mg tablet 7.5 mg PO QPM Paxlovid 300 mg (150 mg x 2)-100 mg tablets,dose pack See Rx Instructions PO .COMPLEX Qty: 30 0RF Rx Instructions: take TWO 150 mg tablets of nirmatrelvir with ONE 100 mg tablet of ritonavir twice daily for 5 days carvedilol 6.25 mg tablet 6.25 mg PO BID Follow Up/Referrals: Blane Peres MD [Primary Care Provider] -
[2023-08-24 18:21] LABS: Basophils Absolute Auto 0.01 K/uL (0.00-0.30); Basophils Percent Auto 0.1 % (0.0-3.0); Eosinophils Absolute Auto 0.01 K/uL (0.00-0.50); Eosinophils Percent Auto 0.1 % (0.0-7.0); Hemoglobin* 13.5 gm/dL (13.5-17.5); Immature Granulocytes Abs Auto 0.05 K/uL (0.00-0.30); Immature Granulocytes Pct Auto 0.5 %; Lymphocytes Percent Auto 11.5 % (20-44); Mean Corpuscular HGB Conc 33 gm/dL (32-36); Mean Corpuscular Hemoglobin 33 pg (26-34); Mean Corpuscular Volume 99 fL (80-100); Monocytes Percent Auto 5.8 % (0.0-11.0); Platelet Count* 275 K/uL (140-440); RDW Coefficient of Variation % 12.4 % (11.5-15.5); Red Blood Count 4.16 m/uL (4.30-5.90)
[2023-08-24 18:23] LABS: Slide Review Reflex No
[2023-08-24 18:27] LABS: Troponin, Point-of-Care* 0.02 ng/ml (0.01-0.04)
[2023-08-24 18:40] LABS: Chloride* 100 mmol/L (96-114); Potassium* 3.9 mmol/L (3.6-5.1); Sodium* 137 mmol/L (135-149)
[2023-08-24 18:41] LABS: D Dimer Quantitative* 0.64 ug/ml (0.00-0.50)
[2023-08-24 18:42] LABS: Bilirubin Total* 0.4 mg/dL (0.1-1.5); Estimated Glomerular Filt Rate 37 ml/min
[2023-08-24 18:43] LABS: Alanine Aminotransferase* 22 U/L (4-50); Alkaline Phosphatase* 60 U/L (40-150); Anion Gap 16 mEq/L (7-15); Aspartate Amino Transferase* 25 U/L (12-35); Blood Urea Nitrogen* 29 mg/dL (7-30); Calcium* 8.6 mg/dL (8.4-10.6); Carbon Dioxide* 21 mmol/L (20-32); Glucose* 133 mg/dL (60-115); Total Protein* 6.7 g/dL (6.0-8.3)
[2023-08-24 18:44] LABS: Ethanol* 0.09 % (0.01-0.03)
[2023-08-24 18:54] LABS: Troponin I* 0.02 ng/mL (0.01-0.04)
--- NOTE | 2023-08-24 19:03 | ED.NURSE ---
Pt report given to oncdiana RN
--- NOTE | 2023-08-24 19:19 | ED.NURSE ---
patient going to CCU 2. nurse to nurse report given to kirk
[2023-08-24] MEDS: DIGOXIN 250 MCG/ML inj 500 MCG IV (19:33)
[2023-08-24] MEDS: APIXABAN 5 MG TABLET PO (19:33)
[2023-08-24 20:41] LABS: Appearance Urine Clear (Clear); Bilirubin Urine Negative (Negative); Blood Urine Negative (Negative); Color Urine Yellow (Yellow); Glucose Urine Negative (Negative); Ketones Urine Negative (Negative); Leukocyte Esterase Urine Negative (Negative); Nitrite Urine Negative (Negative); Protein Urine Negative (Negative); Urobilinogen Urine 0.2 (0.2-1.0)
[2023-08-24 20:52] LABS: Amphetamine Screen Urine Negative (Negative); Barbiturate Screen Urine Negative (Negative); Benzodiazepines Screen Urine Negative (Negative); Cannabinoid Screen Urine POSITIVE (Negative); Cocaine Screen Urine Negative (Negative); Methadone Screen Urine Negative (Negative); Methamphetamines Screen Urine Negative (Negative); Opiate Screen Urine Negative (Negative); Oxycodone Screen Urine Negative (Negative); Phencyclidine Screen Urine Negative (Negative); Tricyclic Antidepressant Urine Negative (Negative)
--- NOTE | 2023-08-24 20:56 | PM.IMHP1 ---
Hospitalist- H&P: HPI History of Present Illness Date Seen: 08/24/23 Chief complaint: Syncope Narrative: Antonio Sanatcruz is a 63 year old male with h/o afib for which he had an ablation, alcohol abuse who came down with covid 3 weeks ago and has had a HR in the 120s since then. At the time of covid diagnosis he was in the ER and a CTA chest was done (08/04/23); it showed no PE. EKG showed sinus tachycardia. He was started on Paxlovid, which he completed and followed up with a doctor at [facility]. He was still tachycardic in the 120s at that visit and had wheezes for which he was started on coreg and prednisone for those respective diagnoses. His other antihypertensive was discontinued. He continued to have fatigue, intolerance of any exertion, and occasional chest pain. His HR continued to be in the 120s despite taking these medications. He complains of chronic insomnia that was much worse over the past two days due to holiday travel and nocturia. Today he was celebrating Linda with his family and was woozy and almost fainted from standing in the kitchen. He felt very tired and laid down to nap for 45 minutes. When he got up, his daughter witnessed him become woozy, put his arms out to the wall to catch himself and then his eyes glazed over and he seemed to faint. Antonio says he did not lose consciousness, but his family says that with both episodes, he was not responding to them for a time. Notably, they describe his eyes open and glazed over. Antonio smoked pot with his son today and drank his usual amount of alcohol, about 5-6 eight ounce glasses of vodka. Antonio is not having any chest pain or SOB at present. He says he just feels very dry and exhausted. Review of Systems Status of ROS: Reports: 10 or more systems reviewed and unremarkable except as noted in History and below [facility] Medical History (Updated 08/24/23 @ 23:41 by Fiorella Lin MD) Abnormal echocardiogram ?R93.1 - Abnormal findings on diagnostic imaging of heart and coronary circulation (ICD-10) COVID-19 (~08/04/23) ?U07.1 - COVID-19 (ICD-10) Nonischemic cardiomyopathy ?I42.8 - Other cardiomyopathies (ICD-10) Chronic obstructive pulmonary disease ?J44.9 - Chronic obstructive pulmonary disease, unspecified (ICD-10) Chronic insomnia ?F51.04 - Psychophysiologic insomnia (ICD-10) SONIA (obstructive sleep apnea) ?G47.33 - Obstructive sleep apnea (adult) (pediatric) (ICD-10) Closed fracture of hyoid bone ?S12.8XXA - Fracture of other parts of neck, initial encounter (ICD-10) Alcohol abuse ?F10.10 - Alcohol abuse, uncomplicated (ICD-10) Anxiety ?F41.9 - Anxiety disorder, unspecified (ICD-10) Adenomatous colon polyp ?D12.6 - Benign neoplasm of colon, unspecified (ICD-10) Dysthymia ?F34.1 - Dysthymic disorder (ICD-10) Esophageal reflux ?K21.9 - Gastro-esophageal reflux disease without esophagitis (ICD-10) Diverticulosis of colon (without mention of hemorrhage) ?K57.30 - Diverticulosis of large intestine without perforation or abscess without bleeding (ICD-10) BPH (benign prostatic hyperplasia) ?N40.0 - Benign prostatic hyperplasia without lower urinary tract symptoms (ICD-10) Paroxysmal atrial fibrillation ?I48.0 - Paroxysmal atrial fibrillation (ICD-10) Hypertension ?I10 - Essential (primary) hypertension (ICD-10) Surgical History (Updated 08/24/23 @ 21:23 by Fiorella Lin MD) History of partial colectomy ?Z90.49 - Acquired absence of other specified parts of digestive tract (ICD-10) H/O esophagogastroduodenoscopy ?Z98.890 - Other specified postprocedural states (ICD-10) Hx of colonoscopy ?Z98.890 - Other specified postprocedural states (ICD-10) Family History (Updated 08/24/23 @ 21:28 by Fiorella Lin MD) Aunt Breast cancer Father Coronary artery disease Diabetes Blood clot in vein Sister Fibromyalgia Brother Blood clot in vein Social History (Updated 08/24/23 @ 21:32 by Fiorella Lin MD) Narrative: . Lives independently with . Three grown children. Drinks 5-6 glasses of vodka a day, 8oz vodka in each glass. Quit smoking in 2000. Smokes marijuana daily, sometimes several times a day. Last smoked marijuana today. Denies any other recreational drugs recently. Wishes to be FULL CODE. What is your current living situation?: I presently have a place to live Problems where you live: no known problems Problems where you live details: N/A In the past 12 months, utilities in danger of being shut off: no In past 12 months, lack of transportation kept you from medical appts, meetings, work, or getting things needed for daily living: no In the past 12 mos, have been you worried that your food would run out before you had money to buy more?: never true In the past 12 mos, the food you bought just didn't last and you didn't have money to buy more?: never true Smoking Status: Former smoker Do you use any of these nicotine containing products: None How often do you have a drink containing alcohol: 2-3 times a week Alcohol type: hard liquor How often do you have six or more drinks on one occasion: Weekly AUDIT-C Alcohol total score: 6 Non-prescribed substance use: marijuana (any form) Caffeine: No How often does anyone, including family, friends and others, physically hurt you: never How often does anyone, including family, friends and others, insult or talk down to you: never How often does anyone, including family, friends and others, threaten you with harm: never How often does anyone, including family, friends and others, scream or curse at you: never Gender Identity: male service: No Meds Home Medications and Allergies Home Medications Medication Instructions Recorded Confirmed Type mirtazapine 7.5 mg tablet 7.5 mg PO QPM 08/04/23 08/24/23 History sertraline 25 mg tablet 25 mg PO DAILY 08/04/23 08/24/23 History tamsulosin 0.4 mg capsule 0.4 mg PO DAILY 08/04/23 08/24/23 History carvedilol 6.25 mg tablet 6.25 mg PO BID 08/24/23 08/24/23 History gabapentin 300 mg capsule 300 mg PO BID 08/24/23 08/24/23 History Home Medication Comments: Patient and his family do not know his medications. List was obtained from [facility] medical record. Allergies Allergy/AdvReac Type Severity Reaction Status Date / Time No Known Drug Allergies Allergy Verified 08/24/23 17:57 Exam Narrative: Exam Narrative: General: Laying on his left side in the gurney, letting is family answer all the questions. Flushed. No respiratory distress. Awake alert oriented x3. HEENT: Normocephalic atraumatic, pupils equally round and reactive to light and accommodation. Oropharynx clear. Mucous membranes are moist. No cervical lymphadenopathy, thyromegaly or carotid bruits. No JVD. Cardiovascular: Tachycardic, regular. No murmurs, gallops, or rubs. Chest: No increased work of breathing. Clear to auscultation bilaterally. No crackles or wheezes. Abdomen: Bowel sounds present. Soft, protuberant, nontender. Difficult to palpate for hepatosplenomegaly or masses due to body habitus. Extremities: No edema, no cyanosis or clubbing. Legs are nontender to palpation. Skin: 2 linear abrasions with ecchymosis on right upper lateral arm. No jaundice, no pallor. Neuro: Grossly intact. No focal deficits. Const: Vital Signs, click to edit/add: Vital Signs - 24 hr 08/24/23 17:53 08/24/23 18:15 08/24/23 18:16 Temperature 98.8 F Pulse Rate 126 H 127 H Pulse Rate [Pulse Oximeter] Pulse Rate [Right Pulse Oximeter] 125 H Respiratory Rate 20 Blood Pressure 89/60 L Blood Pressure [Le ft Arm] Blood Pressure [Le ft Upper Arm] 75/50 L Pulse Oximetry 90 94 94 Oxygen Delivery Me thod Room Air 08/24/23 18:17 08/24/23 18:21 08/24/23 18:22 Temperature Pulse Rate 128 H 127 H Pulse Rate [Pulse Oximeter] Pulse Rate [Right Pulse Oximeter] Respiratory Rate Blood Pressure 81/65 L Blood Pressure [Le ft Arm] Blood Pressure [Le ft Upper Arm] Pulse Oximetry 94 93 93 Oxygen Delivery Me thod 08/24/23 18:44 08/24/23 18:45 08/24/23 18:45 Temperature Pulse Rate 128 H Pulse Rate [Pulse Oximeter] Pulse Rate [Right Pulse Oximeter] 127 H Respiratory Rate 18 Blood Pressure 82/55 L 106/62 Blood Pressure [Le ft Arm] Blood Pressure [Le ft Upper Arm] 106/62 Pulse Oximetry 94 94 Oxygen Delivery Me thod Room Air 08/24/23 18:46 08/24/23 18:51 08/24/23 18:52 Temperature Pulse Rate 128 H 132 H 124 H Pulse Rate [Pulse Oximeter] Pulse Rate [Right Pulse Oximeter] Respiratory Rate Blood Pressure 111/76 Blood Pressure [Le ft Arm] Blood Pressure [Le ft Upper Arm] Pulse Oximetry 95 94 95 Oxygen Delivery Me thod 08/24/23 19:00 08/24/23 19:01 08/24/23 19:11 Temperature Pulse Rate 131 H 129 H 124 H Pulse Rate [Pulse Oximeter] Pulse Rate [Right Pulse Oximeter] Respiratory Rate Blood Pressure 110/78 108/78 Blood Pressure [Le ft Arm] Blood Pressure [Le ft Upper Arm] Pulse Oximetry 95 94 93 Oxygen Delivery Me thod 08/24/23 19:15 08/24/23 19:21 08/24/23 19:30 Temperature Pulse Rate 123 H 124 H 125 H Pulse Rate [Pulse Oximeter] Pulse Rate [Right Pulse Oximeter] Respiratory Rate Blood Pressure 106/78 Blood Pressure [Le ft Arm] Blood Pressure [Le ft Upper Arm] Pulse Oximetry 94 94 94 Oxygen Delivery Me thod 08/24/23 19:32 08/24/23 19:33 08/24/23 19:41 Temperature Pulse Rate 125 H 124 H 125 H Pulse Rate [Pulse Oximeter] Pulse Rate [Right Pulse Oximeter] Respiratory Rate Blood Pressure 120/80 120/87 Blood Pressure [Le ft Arm] Blood Pressure [Le ft Upper Arm] Pulse Oximetry 94 93 Oxygen Delivery Me thod 08/24/23 19:53 Temperature 98.6 F Pulse Rate Pulse Rate [Pulse Oximeter] 124 H Pulse Rate [Right Pulse Oximeter] Respiratory Rate 20 Blood Pressure Blood Pressure [Le ft Arm] 134/106 H Blood Pressure [Le ft Upper Arm] Pulse Oximetry 92 Oxygen Delivery Me thod Room Air Hospitalist - H&P: Result Labs Labs: Short CBC 08/24/23 Range/Units 18:10 WBC 9.30 (4.50-11.00) K/uL Hgb 13.5 (13.5-17.5) gm/dL Hct 41.0 (37.0-53.0) % Plt Count 275 (140-440) K/uL BMP 08/24/23 18:10 Sodium 137 Potassium 3.9 Chloride 100 Carbon Dioxide 21 BUN 29 Creatinine 2.0 H Glucose 133 H Calcium 8.6 Cardiac Enzymes 08/24/23 Range/Units 18:10 Troponin I 0.02 (0.01-0.04) ng/mL Liver Function 08/24/23 Range/Units 18:10 Total Bilirubin 0.4 (0.1-1.5) mg/dL AST 25 (12-35) U/L ALT 22 (4-50) U/L Alkaline Phosphatase 60 (40-150) U/L Albumin 4.0 (3.3-5.0) g/dL Urine 08/24/23 Range/Units 20:24 Urine Color Yellow (Yellow) Urine Appearance Clear (Clear) Urine pH 6.0 (5.0-8.5) Ur Specific [place] 1.020 (1.000-1.030) Urine Protein Negative (Negative) Urine Glucose (UA) Negative (Negative) 08/24/23 6:07 p.m. EKG: Atrial flutter with 2:[address] depression, probably normal. 08/24/23 8:42 p.m. EKG: Atrial flutter with 2:1 AV conduction. Incomplete right bundle-branch block. Nonspecific ST abnormality. Ordering Physician: Dom Osorio M.D. Date of Service: 08/24/23 Procedure(s): XR chest 1V Accession Number(s): [id number] cc: Blane Peres M.D.; Dom sOorio M.D.~ For Patients: As a result of the Cures Act, medical imaging exams and procedure reports are released immediately into your electronic medical record. You may view this report before your referring provider. If you have questions, please contact your health care provider. INDICATION: Syncope. TECHNIQUE: Portable AP chest. COMPARISON: 08/04/2023 chest x-ray. FINDINGS: Mild scarring in the mid left lung. Lungs otherwise clear. Normal heart size and pulmonary vascularity. No pleural effusion or pneumothorax. No acute findings and no significant change. Dictated by Jean Minor MD @ 08/24/2023 8:11:45 PM (Electronically Signed) Ordering Physician: Dom Osorio M.D. Date of Service: 08/24/23 Procedure(s): CT head/brain wo con Accession Number(s): [id number] cc: Blane Peres M.D.; Dom Osorio M.D.~ For Patients: As a result of the 21st Century Cures Act, medical imaging exams and procedure reports are released immediately into your electronic medical record. You may view this report before your referring provider. If you have questions, please contact your health care provider. INDICATION: Syncope TECHNIQUE: Head CT without contrast. COMPARISON: None FINDINGS: CSF spaces: Within normal limits for age. Brain parenchyma and extra-axial spaces: There are nonspecific low attenuation white matter changes consistent with chronic microvascular disease. No sign of mass, hemorrhage, or midline shift. Skull base and calvarium: The visualized paranasal sinuses and mastoid air cells demonstrate no acute or significant findings. The visualized orbits are grossly unremarkable. No skull fractures. IMPRESSION: No acute intracranial findings. Please note that all CT scans at this facility use dose modulation, iterative reconstruction, and/or weight-based dosing when appropriate to reduce radiation dose to as low as reasonably achievable. Dictated by Jean Minor MD @ 08/24/2023 7:24:27 PM (Electronically Signed) Assessment and Plan Assessment and plan (1) Atrial flutter with rapid ventricular response: Problem comment: - 08/18/23 TSH was 6.95, repeat today 08/24 is wnl at 3.19. - This began with Covid diagnosis, but CTA chest at that time was negative for PE. May be worth repeating this when Cr is better, but he will be on apixaban for aflutter now anyway. - h/o low EF. Started digoxin in ER with no change in HR yet. BP has improved. Tried a diltiazem gtt briefly, but no change in HR and BP declined, so this was stopped. Continue with digoxin load, will need oral digoxin ordered for the next day. Will also try IV metoprolol as BP will allow. If cardioversion needed, he will need transfer for JUNI since he has not been on anticoagulation until today. Status: Acute (2) VERONICA (acute kidney injury): Problem comment: - 05/30/2020 Cr 0.91 - 08/04/2023 Cr 1.1 - 08/24/2023 Cr 2, suspect cardiorenal syndrome from chronic tachycardia/RVR and volume depletion. Giving gentle IVF, recheck in am. Status: Acute (3) Pre-syncope: Problem comment: - I suspect this was orthostatic due to tachycardia/RVR, volume depletion, heavy alcohol use and THC. Treat arrhythmia, start CIWA, give gentle IVF. Status: Acute (4) Alcohol abuse: Problem comment: - CIWA per protocol with IV/PO ativan. Status: Chronic (5) Alcohol intoxication: Problem comment: - 08/24/23 EDDIE 0.09% Status: Acute (6) SONIA (obstructive sleep apnea): Problem comment: 08/10/2019 AHI-36 Status: Chronic (7) Left hip pain: Problem comment: - Recently started gabapentin for this. - I have increased gabapentin since he was having more pain in the hip today. I have ordered Xray for tomorrow morning (waiting until he stabilizes). Status: Chronic (8) Left leg swelling: Problem comment: - Family reports this, but none seen on today's exam. He is started on apixaban for aflutter, so I think an US for DVT would be low yield and would not change plan of care. Status: Acute (9) Volume depletion: Problem comment: Giving cautious IVF due to h/o low EF. Status: Acute (10) COVID-19: Problem comment: - 08/04/2023 Covid 19 PCR positive, complete course of paxlovid Status: Resolved
[2023-08-24 21:47] LABS: INR 0.89 (0.91-1.10); Prothrombin Time 12.6 Seconds
[2023-08-24] MEDS: dilTIAZem HCL 125 MG in 0.9 % SODIUM CHLORIDE 100 ml 100 ML IVPB (21:47)
[2023-08-24] MEDS: SODIUM CHLORIDE 0.9 % (FLUSH) 10 ML SYRINGE 5 ML IVF (21:59)
[2023-08-24] MEDS: THIAMINE 250 MG in 0.9 % SODIUM CHLORIDE 100 ml 100 ML 102.5 MG IVPB (22:11)
[2023-08-24] MEDS: LACTATED RINGERS 1000 ML 1,000 ML 75 ML IV (22:11)
[2023-08-24] MEDS: THIAMINE 100 MG TABLET PO (22:13)
--- NOTE | 2023-08-24 23:09 | PC.NURSE ---
Admission-- Pleasant and cooperative, alert and oriented patient was admitted to med-surg from ED. Tachycardic with HR in 120s. Initially hypertensive but B/P currently WNL. Eupneic. Afebrile. SPO2 maintained >90% on RA. He denied any chest pain. Telemetry appeared regular and MD notified. EKG completed showing atrial flutter with RVR. Occasional scattered expiratory wheezes auscultated in lungs and pt c/o SOB that worsens with exertion. He denied nausea but has been NPO per MD. He was up to bedside with SBA and tolerated it well. He denied any dizziness. Diltiazem drip initiated at 5mg/hr with little change to HR noted and was increased to 10mg/hr then stopped per MD order. Pt voided approximately 500ml of clear yellow urine since arrival. Family was at bedside at admission and appear loving and supportive. Report to Tamy ZHOU.
[2023-08-24] MEDS: LACTATED RINGERS 1000 ML 1,000 ML 500 ML IV (23:46)
[2023-08-24] MEDS: METOPROLOL TARTRATE 1 MG/ML inj 5 MG IVP (23:57)
[2023-08-25] VITALS (19 sets, daily range): BP systolic 109–143; BP diastolic 79–98; PULSE 81–122; RESP 20; TEMP 36.2–36.9; O2SAT 94–99
[2023-08-25] MEDS: DIGOXIN 250 MCG/ML inj IV ×2 (00:53→06:39)
--- NOTE | 2023-08-25 06:00 | CRLHL7_ITS ---
For Patients: As a result of the Century Cures Act, medical imaging exams and procedure reports are released immediately into your electronic medical record. You may view this report before your referring provider. If you have questions, please contact your health care provider. Indication: Hip pain Technique: Pelvis and left hip 3 views Comparison: None Findings: No fracture is present. Mild narrowing and spurring of the left hip joint. Small chronic density adjacent to the greater trochanter. Intact pubic rami. Impression: Mild degenerative joint disease left hip. No fracture. Dictated by Adrián Shoemaker MD @ 08/25/2023 10:36:56 AM (Electronically Signed)
[2023-08-25 06:26] LABS: Basophils Absolute Auto 0.02 K/uL (0.00-0.30); Basophils Percent Auto 0.2 % (0.0-3.0); Eosinophils Absolute Auto 0.06 K/uL (0.00-0.50); Eosinophils Percent Auto 0.7 % (0.0-7.0); Hematocrit 39.6 % (37.0-53.0); Immature Granulocytes Pct Auto 1.2 %; Lymphocytes Absolute Auto 1.93 K/uL (0.90-2.90); Lymphocytes Percent Auto 24.1 % (20-44); Mean Corpuscular HGB Conc 33 gm/dL (32-36); Mean Corpuscular Hemoglobin 33 pg (26-34); Mean Corpuscular Volume 99 fL (80-100); Neutrophils Absolute Auto 5.11 K/uL (1.7-7.0); Neutrophils Percent Auto 63.8 % (42.0-72.0); Platelet Count* 208 K/uL (140-440); RDW Coefficient of Variation % 12.3 % (11.5-15.5); Red Blood Count 3.99 m/uL (4.30-5.90); White Blood Count* 8.02 K/uL (4.50-11.00)
[2023-08-25 06:41] LABS: Slide Review Reflex No
[2023-08-25 06:42] LABS: Albumin* 3.4 g/dL (3.3-5.0); Chloride* 106 mmol/L (96-114); Sodium* 136 mmol/L (135-149)
[2023-08-25 06:44] LABS: Creatinine* 1.1 mg/dL (0.5-1.5); Est. Creatinine Clearance* 67.84; Estimated Glomerular Filt Rate 75 ml/min
[2023-08-25 06:45] LABS: Alanine Aminotransferase* 20 U/L (4-50); Alkaline Phosphatase* 59 U/L (40-150); Anion Gap 9 mEq/L (7-15); Aspartate Amino Transferase* 23 U/L (12-35); Bilirubin Total* 0.6 mg/dL (0.1-1.5); Blood Urea Nitrogen* 23 mg/dL (7-30); Carbon Dioxide* 21 mmol/L (20-32); Glucose* 89 mg/dL (60-115); Total Protein* 6.1 g/dL (6.0-8.3)
--- NOTE | 2023-08-25 06:59 | PC.NURSE ---
[id number]: Patient talkative and cooperative. Denies chest pain. Acknowledges intermittent SOB that lasts for 4-5 breaths. Patient reports this is chronic. Horizon updated at 0145 regarding HR and MD verbally okayed a HR <120 for remainder of shift. HR jumped around from 90-120 throughout shift. CIWAs unremarkable. Denies dizziness. Utilized urinal to void to decrease movements. Intermittent chronic intermittent cough.
[2023-08-25 07:01] LABS: Calcium* 7.9 mg/dL (8.4-10.6)
[2023-08-25] MEDS: METOPROLOL TARTRATE 1 MG/ML inj 5 MG IVP (07:43)
[2023-08-25] MEDS: GABAPENTIN 300 MG CAPSULE PO ×2 (08:42→13:34)
[2023-08-25] MEDS: carvediloL 6.25 MG TABLET PO (08:42)
[2023-08-25] MEDS: SERTRALINE 50 MG TABLET 25 MG PO (08:42)
[2023-08-25] MEDS: APIXABAN 5 MG TABLET PO (08:43)
[2023-08-25] MEDS: FOLIC ACID 1 MG TABLET PO (08:43)
[2023-08-25] MEDS: MULTIVITAMIN/MINERALS 1 TABLET 1 TAB PO (08:43)
[2023-08-25] MEDS: TAMSULOSIN HCL 0.4 MG CAPSULE PO (08:43)
[2023-08-25] MEDS: SODIUM CHLORIDE 0.9 % (FLUSH) 10 ML SYRINGE 5 ML IVF (08:44)
--- NOTE | 2023-08-25 10:17 | P.DS_ITS ---
DS: Providers Provider Date Seen: 08/25/23 Date of admission: 08/24/23 21:02 Primary care physician: Blane Peres MD Admitting Clinician: Fiorella Lin MD Consults: 08/24/23 21:02 Consult to Occupational Therapy [CONS] Routine Comment: Reason(s) for OT Consult:: Evaluate and Treat Any Restrictions?:: No Restrictions Comment: MOCA Consult to Physical Therapy [CONS] Routine Comment: Reason(s) for PT Consult:: Evaluate and Treat Any Restrictions?:: No Restrictions Consult to Amusement Park Entertainer [CONS] Routine Comment: Reason for Consult:: Substance Abuse Screening Attending Physician on discharge: Aida Clark MD [facility] Date of Discharge: 08/25/23 DS: Diagnosis Discharge Diagnosis (1) Atrial flutter: Status: Acute Problem details: -digoxin loaded 08/24-08/25, improved rate control, improved blood pressure. would rx this for oral dosing at discharge -2 one-time doses of metoprolol added -restarted home Coreg dose am of 08/25 - gave a bump of 3.125mg in the afternoon of 08/26 -ECHO: Final Impressions: 1. Technically limited exam. 2. Normal LV size, mildly increased wall thickness, mildly reduced global systolic function with an estimated EF of 45 - 50%. The LV systolic function appears normal on longer RR intervals. 3. Right ventricular cavity size is normal, global systolic RV function is borderline reduced. 4. No significant functional valve disease detected. 5. The inferior vena cava is dilated, respiratory size variation greater than 50%. -anticoagulation initiated with apixaban 5 mg b.i.d. on 08/24 -etiologies: previous history with recent COVID infection, alcohol abuse with intoxication, dehydration, physical and emotional stress -discussed discharge planning while still in AFib as long as he is rate controlled with a normal blood pressure and anticoagulated. Outpatient cardioversion versus rate control can be discussed outside of the hospital. (2) VERONICA (acute kidney injury): Status: Acute Problem details: -back to baseline 08/25 (3) Alcohol abuse: Status: Chronic Problem details: - CIWA score has been negligible - admitted with etoh level of 0.09. hx of heavy alcohol use (daily vodka) -discussion regarding alcohol abstinence or harm reduction with decreased alcohol intake stressed to the patient and . (4) Pre-syncope: Status: Acute Problem details: - suspect this was orthostatic due to tachycardia/RVR, volume depletion, heavy alcohol use and THC. Treat arrhythmia, start CIWA, give gentle IVF. (5) Left hip pain: Status: Chronic Problem details: -xray reveals degenerative changes in the joint. No acute findings. -agree with increased with gabapentin (6) Volume depletion: Status: Acute Problem details: Euvolemic by assessment on 08/25. Creatinine has returned to normal. Patient feels much improved. (7) COVID-19: Status: Resolved Problem details: - 08/04/2023 Covid 19 PCR positive, complete course of paxlovid DS: Summary Hospital Course Hospital Course: FINAL DIAGNOSIS/FOLLOW UP ISSUES: 1. Discharge with rate controlled atrial flutter. He is on anticoagulation. Further management can be completed as an outpatient. Does he need cardioversion? Continued rate control with anticoagulation? [facility] consult placed. Last saw Dr. Paige in 01/18. Until then continue new meds: Digoxin, apixaban. Continue current dose of carvedilol 2. Alcohol abuse. Emphatically explain the importance of alcohol abstinence and harm reduction with limited alcohol intake. BRIEF HOSPITAL COURSE: Patient was admitted overnight. Synopsis of acute inpatient issues are outlined above. Chronic medical conditions with notable findings outlined above. He was much better rate controlled with stable blood pressure after interventions from the emergency room and our admitting hospitalist. Creatinine returned to normal. His heart rate was under 100. He remained in atrial flutter. He was anticoagulated. His echo showed . The question will he spontaneously convert back to sinus or will he need an outpatient cardioversion after adequate anticoagulation and/or continue rate control going forward. DISCHARGE MEDICATIONS: See Reconciled list - SIGNIFICANT CHANGES: Digoxin daily - 250mcg Apixaban 5 mg b.i.d. Continue Coreg 6.25mg BID all other meds the same Specific instructions to the patient and follow-up are outlined below. REVIEW OF SYSTEMS No new chest pain or dyspnea Pain controlled No voiding difficulties Tolerating diet challenge PHYSICAL EXAM: CONSTITUTIONAL: still mildly dyspneic with conversation. However much improved overnight. VITAL SIGNS: see record. HEENT: Normocephalic, atraumatic. PERRL, EOMI, conjunctivae pink, no scleral icterus. Ears and nose externally normal. Pharynx normal. NECK: No JVD. No carotid bruit, no thyromegaly, no adenopathy. CHEST: Clear to auscultation bilaterally. HEART: S1 and S2 normal. Irregularly irregular. Edema trace, 1+. ABDOMEN: Soft, nontender. Normal bowel sounds. MUSCULOSKELETAL: No gross joint deformity or swelling. NEURO: Cranial nerves intact. Grossly intact. No asymmetric findings. SKIN: No rashes, petechiae, concerning changes PSYCHIATRIC: Mood euthymic. DISPOSITION: Home with . Time spent on discharge 37 minutes. Alcohol 96187 >30 mins. We went over all the stigmata of alcoholism I see in this patient. I discussed the effects of chronic alcohol on the brain, liver, and heart. I recommended complete abstinence from alcohol and instructed on programs available at discharge from acute care. Status at Discharge Overall status at discharge: patient is not back to baseline Time Spent with Patient Time attestation: Total time spent providing and/or coordinating discharge services: Exam Const: Vital Signs, click to edit/add: Vital Signs - 24 hr 08/24/23 17:53 08/24/23 18:15 08/24/23 18:16 Temperature 98.8 F Pulse Rate 126 H 127 H Pulse Rate [Left P ulse Oximeter] Pulse Rate [Pulse Oximeter] Pulse Rate [Right Pulse Oximeter] 125 H Pulse Rate [Right Radial] Pulse Rate [orthos tatic lying Left P ulse Oximeter] Pulse Rate [orthos tatic sitting Puls e Oximeter] Respiratory Rate 20 Blood Pressure 89/60 L Blood Pressure [Le ft Arm] Blood Pressure [Le ft Upper Arm] 75/50 L Blood Pressure [or thostatic lying Le ft Arm] Blood Pressure [or thostatic sitting Left Arm] Blood Pressure [or thostatic standing Left Arm] Pulse Oximetry 90 94 94 Oxygen Delivery Me thod Room Air 08/24/23 18:17 08/24/23 18:21 08/24/23 18:22 Temperature Pulse Rate 128 H 127 H Pulse Rate [Left P ulse Oximeter] Pulse Rate [Pulse Oximeter] Pulse Rate [Right Pulse Oximeter] Pulse Rate [Right Radial] Pulse Rate [orthos tatic lying Left P ulse Oximeter] Pulse Rate [orthos tatic sitting Puls e Oximeter] Respiratory Rate Blood Pressure 81/65 L Blood Pressure [Le ft Arm] Blood Pressure [Le ft Upper Arm] Blood Pressure [or thostatic lying Le ft Arm] Blood Pressure [or thostatic sitting Left Arm] Blood Pressure [or thostatic standing Left Arm] Pulse Oximetry 94 93 93 Oxygen Delivery Me thod 08/24/23 18:44 08/24/23 18:45 08/24/23 18:45 Temperature Pulse Rate 128 H Pulse Rate [Left P ulse Oximeter] Pulse Rate [Pulse Oximeter] Pulse Rate [Right Pulse Oximeter] 127 H Pulse Rate [Right Radial] Pulse Rate [orthos tatic lying Left P ulse Oximeter] Pulse Rate [orthos tatic sitting Puls e Oximeter] Respiratory Rate 18 Blood Pressure 82/55 L 106/62 Blood Pressure [Le ft Arm] Blood Pressure [Le ft Upper Arm] 106/62 Blood Pressure [or thostatic lying Le ft Arm] Blood Pressure [or thostatic sitting Left Arm] Blood Pressure [or thostatic standing Left Arm] Pulse Oximetry 94 94 Oxygen Delivery Me thod Room Air 08/24/23 18:46 08/24/23 18:51 08/24/23 18:52 Temperature Pulse Rate 128 H 132 H 124 H Pulse Rate [Left P ulse Oximeter] Pulse Rate [Pulse Oximeter] Pulse Rate [Right Pulse Oximeter] Pulse Rate [Right Radial] Pulse Rate [orthos tatic lying Left P ulse Oximeter] Pulse Rate [orthos tatic sitting Puls e Oximeter] Respiratory Rate Blood Pressure 111/76 Blood Pressure [Le ft Arm] Blood Pressure [Le ft Upper Arm] Blood Pressure [or thostatic lying Le ft Arm] Blood Pressure [or thostatic sitting Left Arm] Blood Pressure [or thostatic standing Left Arm] Pulse Oximetry 95 94 95 Oxygen Delivery Me thod 08/24/23 19:00 08/24/23 19:01 08/24/23 19:11 Temperature Pulse Rate 131 H 129 H 124 H Pulse Rate [Left P ulse Oximeter] Pulse Rate [Pulse Oximeter] Pulse Rate [Right Pulse Oximeter] Pulse Rate [Right Radial] Pulse Rate [orthos tatic lying Left P ulse Oximeter] Pulse Rate [orthos tatic sitting Puls e Oximeter] Respiratory Rate Blood Pressure 110/78 108/78 Blood Pressure [Le ft Arm] Blood Pressure [Le ft Upper Arm] Blood Pressure [or thostatic lying Le ft Arm] Blood Pressure [or thostatic sitting Left Arm] Blood Pressure [or thostatic standing Left Arm] Pulse Oximetry 95 94 93 Oxygen Delivery Me thod 08/24/23 19:15 08/24/23 19:21 08/24/23 19:30 Temperature Pulse Rate 123 H 124 H 125 H Pulse Rate [Left P ulse Oximeter] Pulse Rate [Pulse Oximeter] Pulse Rate [Right Pulse Oximeter] Pulse Rate [Right Radial] Pulse Rate [orthos tatic lying Left P ulse Oximeter] Pulse Rate [orthos tatic sitting Puls e Oximeter] Respiratory Rate Blood Pressure 106/78 Blood Pressure [Le ft Arm] Blood Pressure [Le ft Upper Arm] Blood Pressure [or thostatic lying Le ft Arm] Blood Pressure [or thostatic sitting Left Arm] Blood Pressure [or thostatic standing Left Arm] Pulse Oximetry 94 94 94 Oxygen Delivery Me thod 08/24/23 19:32 08/24/23 19:33 08/24/23 19:41 Temperature Pulse Rate 125 H 124 H 125 H Pulse Rate [Left P ulse Oximeter] Pulse Rate [Pulse Oximeter] Pulse Rate [Right Pulse Oximeter] Pulse Rate [Right Radial] Pulse Rate [orthos tatic lying Left P ulse Oximeter] Pulse Rate [orthos tatic sitting Puls e Oximeter] Respiratory Rate Blood Pressure 120/80 120/87 Blood Pressure [Le ft Arm] Blood Pressure [Le ft Upper Arm] Blood Pressure [or thostatic lying Le ft Arm] Blood Pressure [or thostatic sitting Left Arm] Blood Pressure [or thostatic standing Left Arm] Pulse Oximetry 94 93 Oxygen Delivery Me thod 08/24/23 19:52 08/24/23 19:53 08/24/23 20:25 Temperature 98.6 F Pulse Rate 120 H Pulse Rate [Left P ulse Oximeter] Pulse Rate [Pulse Oximeter] 124 H Pulse Rate [Right Pulse Oximeter] Pulse Rate [Right Radial] Pulse Rate [orthos tatic lying Left P ulse Oximeter] Pulse Rate [orthos tatic sitting Puls e Oximeter] Respiratory Rate 20 20 Blood Pressure Blood Pressure [Le ft Arm] 134/106 H Blood Pressure [Le ft Upper Arm] Blood Pressure [or thostatic lying Le ft Arm] Blood Pressure [or thostatic sitting Left Arm] Blood Pressure [or thostatic standing Left Arm] Pulse Oximetry 92 92 Oxygen Delivery Me thod Room Air Room Air 08/24/23 21:05 08/24/23 21:30 08/24/23 22:00 Temperature 98.6 F Pulse Rate Pulse Rate [Left P ulse Oximeter] Pulse Rate [Pulse Oximeter] 122 H Pulse Rate [Right Pulse Oximeter] Pulse Rate [Right Radial] 121 H Pulse Rate [orthos tatic lying Left P ulse Oximeter] Pulse Rate [orthos tatic sitting Puls e Oximeter] Respiratory Rate 18 20 Blood Pressure Blood Pressure [Le ft Arm] 121/75 124/94 H Blood Pressure [Le ft Upper Arm] Blood Pressure [or thostatic lying Le ft Arm] Blood Pressure [or thostatic sitting Left Arm] Blood Pressure [or thostatic standing Left Arm] Pulse Oximetry 96 92 95 Oxygen Delivery Ar thod Room Air Room Air 08/24/23 22:00 08/24/23 22:15 08/24/23 22:30 Temperature 98.6 F 98.6 F Pulse Rate Pulse Rate [Left P ulse Oximeter] 125 H Pulse Rate [Pulse Oximeter] 121 H 121 H Pulse Rate [Right Pulse Oximeter] Pulse Rate [Right Radial] Pulse Rate [orthos tatic lying Left P ulse Oximeter] 123 H Pulse Rate [orthos tatic sitting Puls e Oximeter] 119 H Respiratory Rate 20 20 Blood Pressure Blood Pressure [Le ft Arm] 137/99 H 161/111 H Blood Pressure [Le ft Upper Arm] Blood Pressure [or thostatic lying Le ft Arm] 157/96 H Blood Pressure [or thostatic sitting Left Arm] 117/92 H Blood Pressure [or thostatic standing Left Arm] 129/90 H Pulse Oximetry 96 96 Oxygen Delivery Ar thod Room Air Room Air 08/24/23 22:45 08/24/23 23:00 08/24/23 23:00 Temperature Pulse Rate Pulse Rate [Left P ulse Oximeter] Pulse Rate [Pulse Oximeter] 124 H Pulse Rate [Right Pulse Oximeter] Pulse Rate [Right Radial] 122 H Pulse Rate [orthos tatic lying Left P ulse Oximeter] Pulse Rate [orthos tatic sitting Puls e Oximeter] Respiratory Rate 20 20 Blood Pressure Blood Pressure [Le ft Arm] 135/91 H Blood Pressure [Le ft Upper Arm] Blood Pressure [or thostatic lying Le ft Arm] Blood Pressure [or thostatic sitting Left Arm] Blood Pressure [or thostatic standing Left Arm] Pulse Oximetry 94 96 Oxygen Delivery Me thod Room Air Room Air 08/24/23 23:48 08/25/23 00:00 08/25/23 00:24 Temperature 97.7 F 97.7 F Pulse Rate 97 Pulse Rate [Left P ulse Oximeter] Pulse Rate [Pulse Oximeter] 121 H Pulse Rate [Right Pulse Oximeter] Pulse Rate [Right Radial] 122 H Pulse Rate [orthos tatic lying Left P ulse Oximeter] Pulse Rate [orthos tatic sitting Puls e Oximeter] Respiratory Rate 20 20 Blood Pressure Blood Pressure [Le ft Arm] 117/82 117/83 Blood Pressure [Le ft Upper Arm] Blood Pressure [or thostatic lying Le ft Arm] Blood Pressure [or thostatic sitting Left Arm] Blood Pressure [or thostatic standing Left Arm] Pulse Oximetry 94 95 Oxygen Delivery Me thod Room Air Room Air 08/25/23 00:53 08/25/23 01:21 08/25/23 01:58 Temperature 97.8 F 97.8 F Pulse Rate 120 H Pulse Rate [Left P ulse Oximeter] Pulse Rate [Pulse Oximeter] 98 98 Pulse Rate [Right Pulse Oximeter] Pulse Rate [Right Radial] 122 H Pulse Rate [orthos tatic lying Left P ulse Oximeter] Pulse Rate [orthos tatic sitting Puls e Oximeter] Respiratory Rate 20 20 Blood Pressure Blood Pressure [Le ft Arm] 134/94 H 134/94 H Blood Pressure [Le ft Upper Arm] Blood Pressure [or thostatic lying Le ft Arm] Blood Pressure [or thostatic sitting Left Arm] Blood Pressure [or thostatic standing Left Arm] Pulse Oximetry 96 96 Oxygen Delivery Me thod Room Air Room Air 08/25/23 03:03 08/25/23 03:10 08/25/23 03:21 Temperature 98.1 F Pulse Rate 106 H Pulse Rate [Left P ulse Oximeter] Pulse Rate [Pulse Oximeter] Pulse Rate [Right Pulse Oximeter] Pulse Rate [Right Radial] 100 100 Pulse Rate [orthos tatic lying Left P ulse Oximeter] Pulse Rate [orthos tatic sitting Puls e Oximeter] Respiratory Rate 20 Blood Pressure Blood Pressure [Le ft Arm] 135/87 Blood Pressure [Le ft Upper Arm] Blood Pressure [or thostatic lying Le ft Arm] Blood Pressure [or thostatic sitting Left Arm] Blood Pressure [or thostatic standing Left Arm] Pulse Oximetry 94 Oxygen Delivery Me thod Room Air 08/25/23 03:23 08/25/23 05:40 08/25/23 06:00 Temperature 98.1 F 97.2 F L 97.2 F L Pulse Rate Pulse Rate [Left P ulse Oximeter] Pulse Rate [Pulse Oximeter] 98 98 Pulse Rate [Right Pulse Oximeter] Pulse Rate [Right Radial] 100 118 H 118 H Pulse Rate [orthos tatic lying Left P ulse Oximeter] Pulse Rate [orthos tatic sitting Puls e Oximeter] Respiratory Rate 20 20 20 Blood Pressure Blood Pressure [Le ft Arm] 135/87 143/98 H 143/98 H Blood Pressure [Le ft Upper Arm] Blood Pressure [or thostatic lying Le ft Arm] Blood Pressure [or thostatic sitting Left Arm] Blood Pressure [or thostatic standing Left Arm] Pulse Oximetry 94 97 97 Oxygen Delivery Ar thod Room Air Room Air Room Air 08/25/23 06:39 08/25/23 07:00 08/25/23 07:00 Temperature Pulse Rate 107 H 106 H Pulse Rate [Left P ulse Oximeter] Pulse Rate [Pulse Oximeter] 106 H Pulse Rate [Right Pulse Oximeter] Pulse Rate [Right Radial] Pulse Rate [orthos tatic lying Left P ulse Oximeter] Pulse Rate [orthos tatic sitting Puls e Oximeter] Respiratory Rate 20 Blood Pressure Blood Pressure [Le ft Arm] Blood Pressure [Le ft Upper Arm] Blood Pressure [or thostatic lying Le ft Arm] Blood Pressure [or thostatic sitting Left Arm] Blood Pressure [or thostatic standing Left Arm] Pulse Oximetry Oxygen Delivery Me thod 08/25/23 07:00 08/25/23 08:00 Temperature 97.9 F Pulse Rate Pulse Rate [Left P ulse Oximeter] Pulse Rate [Pulse Oximeter] 106 H Pulse Rate [Right Pulse Oximeter] Pulse Rate [Right Radial] 106 H Pulse Rate [orthos tatic lying Left P ulse Oximeter] Pulse Rate [orthos tatic sitting Puls e Oximeter] Respiratory Rate 20 20 Blood Pressure Blood Pressure [Le ft Arm] 124/92 H Blood Pressure [Le ft Upper Arm] Blood Pressure [or thostatic lying Le ft Arm] Blood Pressure [or thostatic sitting Left Arm] Blood Pressure [or thostatic standing Left Arm] Pulse Oximetry 96 96 Oxygen Delivery Me thod Room Air Room Air DS: Data Data Completed and Pending Labs on day of discharge: Labs from last 24 hours 08/25/23 08/24/23 08/24/23 05:36 21:09 20:24 WBC 8.02 RBC 3.99 L Hgb 13.0 L Hct 39.6 MCV 99 MCH 33 MCHC 33 RDW Coeff of Nafisa 12.3 Plt Count 208 Neut % (Auto) 63.8 Lymph % (Auto) 24.1 [place] % (Auto) 10.0 Eos % (Auto) 0.7 Baso % (Auto) 0.2 Neut # (Auto) 5.11 Lymph # (Auto) 1.93 [place] # (Auto) 0.80 Eos # (Auto) 0.06 Baso # (Auto) 0.02 Abs Immat Gran (auto) 0.10 Imm/Tot Granulo (auto) 1.2 INR D-Dimer Quant (PE/DVT) Sodium 136 Potassium 4.0 Chloride 106 Carbon Dioxide 21 Anion Gap 9 BUN 23 Creatinine 1.1 Estimated Creat Clear 67.84 Estimated GFR 75 Glucose 89 Calcium 7.9 L Total Bilirubin 0.6 AST 23 ALT 20 Alkaline Phosphatase 59 Troponin I Total Protein 6.1 Albumin 3.4 TSH Urine Color Yellow Urine Appearance Clear Urine pH 6.0 Ur Specific [place] 1.020 Urine Protein Negative Urine Glucose (UA) Negative Urine Ketones Negative Urine Blood Negative Urine Nitrite Negative Urine Bilirubin Negative Urine Urobilinogen 0.2 Ur Leukocyte Esterase Negative Urine Opiates Screen Negative Ur Oxycodone Screen Negative Urine Methadone Screen Negative Ur Propoxyphene Screen Negative Ur Barbiturates Screen Negative U Tricyclic Antidepress Negative Ur Phencyclidine Scrn Negative Ur Amphetamines Screen Negative U Methamphetamines Scrn Negative U Benzodiazepines Scrn Negative Urine Cocaine Screen Negative U Marijuana (THC) Screen POSITIVE A Ur Drug Screen Comment See Note Ethyl Alcohol Lab Acknowledgement Test Added POC Troponin I 08/24/23 18:10 WBC 9.30 RBC 4.16 L Hgb 13.5 Hct 41.0 MCV 99 MCH 33 MCHC 33 RDW Coeff of Nafisa 12.4 Plt Count 275 Neut % (Auto) 82.0 H Lymph % (Auto) 11.5 L [place] % (Auto) 5.8 Eos % (Auto) 0.1 Baso % (Auto) 0.1 Neut # (Auto) 7.60 H Lymph # (Auto) 1.10 [place] # (Auto) 0.50 Eos # (Auto) 0.01 Baso # (Auto) 0.01 Abs Immat Gran (auto) 0.05 Imm/Tot Granulo (auto) 0.5 INR 0.89 L D-Dimer Quant (PE/DVT) 0.64 H Sodium 137 Potassium 3.9 Chloride 100 Carbon Dioxide 21 Anion Gap 16 H BUN 29 Creatinine 2.0 H Estimated Creat Clear 36.10 Estimated GFR 37 Glucose 133 H Calcium 8.6 Total Bilirubin 0.4 AST 25 ALT 22 Alkaline Phosphatase 60 Troponin I 0.02 Total Protein 6.7 Albumin 4.0 TSH 3.190 Urine Color Urine Appearance Urine pH Ur Specific [place] Urine Protein Urine Glucose (UA) Urine Ketones Urine Blood Urine Nitrite Urine Bilirubin Urine Urobilinogen Ur Leukocyte Esterase Urine Opiates Screen Ur Oxycodone Screen Urine Methadone Screen Ur Propoxyphene Screen Ur Barbiturates Screen U Tricyclic Antidepress Ur Phencyclidine Scrn Ur Amphetamines Screen U Methamphetamines Scrn U Benzodiazepines Scrn Urine Cocaine Screen U Marijuana (THC) Screen Ur Drug Screen Comment Ethyl Alcohol 0.09 H Lab Acknowledgement POC Troponin I 0.02 Discharge Plan Discharge Disposition: Home, Self-Care Date of Admission: 08/24/23 21:02 Primary Care Provider: Blane Peres Condition: Stable Anticipated Discharge Date/Time: 08/25/23 15:36 Discharge Medications: New gabapentin 300 mg Capsule 300 mg PO TID Qty: 30 0RF Eliquis 5 mg Tablet 5 mg PO BID Qty: 60 0RF folic acid 1 mg Tablet 1 mg PO DAILY Qty: 30 0RF digoxin 250 mcg (0.25 mg) tablet 250 mcg PO DAILY Qty: 30 2RF Continued tamsulosin 0.4 mg capsule 0.4 mg PO DAILY sertraline 25 mg tablet 50 mg PO DAILY Patient Comments: Patient now up to 50 mg daily mirtazapine 7.5 mg tablet 7.5 mg PO QPM carvedilol 6.25 mg tablet 6.25 mg PO BID gabapentin 300 mg capsule 300 mg PO BID Discharge Orders: Discharge Order (Routine); Ordered 08/25/23 Ordered By: Aida Clark Patient Education: Atrial Flutter (DC), Alcohol Dependence (DC), Blood Thinners (DC) Additional Instructions: 1. Back off your alcohol. Your limit is two 1.5oz shots a day or 24 ounces of beer daily @ a MAX. Try drinking only 2-3 days a week. 2. Take good care of yourself - good sleep, good hydration, eat a well balanced diet. 3. Take your new Atrial Flutter rate medication (DIGOXIN) daily until told otherwise. 4. Take your new blood thinner (to prevent stroke from atrial flutter) daily until told otherwise. 5. I've added folic acid daily for good health. It is a supplement. 6. Let's get you in with a Sales Special Agent so we can determine next steps (are you out of AFib/flutter? are you on the right for future control?) Activity Level: Activity as Tolerated Discharge Diet: Regular Follow Up Appointments: No [place] [Other] - 09/02/23 10:00 am [facility] [place] [Provider Group] - 09/08/23 (Re-establish care with Cardiology. Last seen by Dr. Paige in December 2020. Cardioverted in December 2020. Let's see if he can get in with someone in [place] or [place] in the next 1-3 weeks. ) Blane Peres MD [Primary Care Provider] - None (Is not available) Paramjit Riddle MD [Referring] - None () Berta Montano DO [Staff Physician] - 09/03/23 8:45 am Forms: [employer] [facility] Info Instructions
[2023-08-25] MEDS: carvediloL 6.25 MG TABLET 3.125 MG PO (14:21)
--- NOTE | 2023-08-25 15:10 | PC.NURSE ---
End of shift: patient alert and oriented x4. up independently in room to BR. ambulates hallway w/spouse at bedside. Tolerating a reg. diet. Patient 98% on RA. LS-inspiratory and expiratory wheezes heard on ausculatation. Patient voiding and had 2 bowel movements during shift. Patient off unit at 0930 and patient is showing A-Fib on Tele. BP elevated this AM and a one time dose of Metoprolol administered IVP with relief.
--- NOTE | 2023-08-25 17:12 | PC.NURSE ---
Patient discharged home self care accompanied by his via wheelchair. Patient denies any pain, nausea or SOB at time of discharge. Pt is afebrile, ambulatory and VSS with exception to elevated HR in the 100s-120s. TELE continues to read A. Fib. Pt independent in his room with BRP. Pt reports x2 bowel movements today. Discharge education and medication instructions reviewed with patient and his who both verbalized understanding. BP, HR and symptom monitoring education given with strict instruction to return to ED for worsening of symptoms. Patient was escorted to ER entrance door via wheelchair and assisted into his vehicle.
== END 2023-08-25 16:30 | disposition home or self-care (01) | DRG 201 ==
LOC: ED 19:00 → MEDSURG 19:47
PROVIDERS: Admitting Provider Family Medicine; Emergency Provider Internal Medicine; PCP Surgery; Visit Provider Family Medicine
DX: I48.92 Unspecified atrial flutter (principal); N17.9 Acute kidney failure, unspecified; F10.129 Alcohol abuse with intoxication, unspecified; Y90.4 Blood alcohol level of 80-99 mg/100 ml; F12.90 Cannabis use, unspecified, uncomplicated; G47.33 Obstructive sleep apnea (adult) (pediatric); I48.20 Chronic atrial fibrillation, unspecified; I95.1 Orthostatic hypotension; Z86.16 Personal history of COVID-19; M25.552 Pain in left hip; E86.9 Volume depletion, unspecified; J44.9 Chronic obstructive pulmonary disease, unspecified; Z79.01 Long term (current) use of anticoagulants; I42.8 Other cardiomyopathies; I10 Essential (primary) hypertension; F41.9 Anxiety disorder, unspecified; S40.811A Abrasion of right upper arm, initial encounter; N40.0 Benign prostatic hyperplasia without lower urinary tract symptoms
CPT/HCPCS: 36415; 70450; 71045; 73502; 80053; 80306; 81003; 82077; 84443; 84484; 85025; 85379; 85610; 93005; 93306; 94761; 97116; 97161; 99283; 99285; G0378; A9153; A9270; J1160; J3411; J3490; J7030; J7120

== ENCOUNTER 2023-09-08 02:19 | Emergency (ER) | payer OTHER, SELFPAY ==
[2023-09-08] VITALS (28 sets, daily range): BP systolic 125–176; BP diastolic 68–88; PULSE 58–82; RESP 18–28; TEMP 36.7; O2SAT 87–94; BMI 33.0
--- NOTE | 2023-09-08 02:27 | CRLHL7_ITS ---
For Patients: As a result of the Cures Act, medical imaging exams and procedure reports are released immediately into your electronic medical record. You may view this report before your referring provider. If you have questions, please contact your health care provider. INDICATION: Chest pain, shortness of breath off. TECHNIQUE: Chest 1 view. COMPARISON: 08/24/2023. FINDINGS: Cardiovascular and mediastinum: Stable cardiomediastinal silhouette. Lungs and pleural spaces: Left mid lung scarring, unchanged. No new focal consolidation. No pleural effusions or pneumothorax. Bones and soft tissues: No significant findings. IMPRESSION: No acute pulmonary process. Dictated by Pedro Yousif MD @ 09/08/2023 3:21:59 AM (Electronically Signed)
--- NOTE | 2023-09-08 02:29 | ED_ITS ---
HPI - General Adult General Date Seen: 09/08/23 Chief complaint: Chest Pain Stated complaint: Chest pain Time Seen by Provider: 09/08/23 02:21 Source: patient and family Mode of arrival: ambulatory Limitations: no limitations History of Present Illness HPI narrative: Patient is a 63-year-old male with a history of paroxysmal AFib on Eliquis, hypertension, COPD presenting to the emergency department for chest pain and shortness of breath. Symptoms started suddenly about 22:00. Since then they have been consistent with no changes in his symptoms. States this difficult for him to lie down because since makes him even more short of breath and states chest pain is a a pressure sensation in the midsternal chest. Denies ever having symptoms like this before. Does note he had COVID back in and has had 2 episodes of paroxysmal AFib. He has seen his shot hole shooter last week it sounds like he has seen an director of special events sometime later this month. Has not smoked in 30 years. Denies fevers, chills, lightheadedness, dizziness, abdominal pain, lower extremity edema, numbness, weakness. States this not feel like his COPD. No history of coronary artery disease. Related Data Home Medications Medication Instructions Recorded Confirmed mirtazapine 7.5 mg tablet 7.5 mg PO QPM 08/04/23 08/24/23 sertraline 25 mg tablet 50 mg PO DAILY 08/04/23 09/08/23 tamsulosin 0.4 mg capsule 0.4 mg PO DAILY 08/04/23 09/08/23 carvedilol 6.25 mg tablet 6.25 mg PO BID 08/24/23 09/08/23 gabapentin 300 mg capsule 300 mg PO BID 08/24/23 09/08/23 Previous Rx's Medication Instructions Recorded apixaban 5 mg tablet (Eliquis) 5 mg PO BID #60 tabs 08/25/23 digoxin 250 mcg (0.25 mg) tablet 250 mcg PO DAILY #30 tabs 08/25/23 folic acid 1 mg tablet 1 mg PO DAILY #30 tabs 08/25/23 gabapentin 300 mg capsule 300 mg PO TID #30 caps 08/25/23 prednisone 50 mg tablet 50 mg PO DAILY #5 tabs 09/08/23 Allergies Allergy/AdvReac Type Severity Reaction Status Date / Time No Known Drug Allergies Allergy Verified 08/24/23 17:57 Review of Systems Status of ROS: Reports: 10 or more systems reviewed and unremarkable except as noted in History and below [facility] Medical History Abnormal echocardiogram ?R93.1 - Abnormal findings on diagnostic imaging of heart and coronary circulation (ICD-10) COVID-19 (~08/04/23) ?U07.1 - COVID-19 (ICD-10) Nonischemic cardiomyopathy ?I42.8 - Other cardiomyopathies (ICD-10) Chronic obstructive pulmonary disease ?J44.9 - Chronic obstructive pulmonary disease, unspecified (ICD-10) Chronic insomnia ?F51.04 - Psychophysiologic insomnia (ICD-10) SONIA (obstructive sleep apnea) ?G47.33 - Obstructive sleep apnea (adult) (pediatric) (ICD-10) Closed fracture of hyoid bone ?S12.8XXA - Fracture of other parts of neck, initial encounter (ICD-10) Alcohol abuse ?F10.10 - Alcohol abuse, uncomplicated (ICD-10) Anxiety ?F41.9 - Anxiety disorder, unspecified (ICD-10) Adenomatous colon polyp ?D12.6 - Benign neoplasm of colon, unspecified (ICD-10) Dysthymia ?F34.1 - Dysthymic disorder (ICD-10) Esophageal reflux ?K21.9 - Gastro-esophageal reflux disease without esophagitis (ICD-10) Diverticulosis of colon (without mention of hemorrhage) ?K57.30 - Diverticulosis of large intestine without perforation or abscess without bleeding (ICD-10) BPH (benign prostatic hyperplasia) ?N40.0 - Benign prostatic hyperplasia without lower urinary tract symptoms (ICD-10) Paroxysmal atrial fibrillation ?I48.0 - Paroxysmal atrial fibrillation (ICD-10) Hypertension ?I10 - Essential (primary) hypertension (ICD-10) Surgical History History of partial colectomy ?Z90.49 - Acquired absence of other specified parts of digestive tract (ICD- 10) H/O esophagogastroduodenoscopy ?Z98.890 - Other specified postprocedural states (ICD-10) Hx of colonoscopy ?Z98.890 - Other specified postprocedural states (ICD-10) Family History Aunt Breast cancer Father Coronary artery disease Diabetes Blood clot in vein Sister Fibromyalgia Brother Blood clot in vein Social History Narrative: . Lives independently with . Three grown children. Drinks 5-6 glasses of vodka a day, 8oz vodka in each glass. Quit smoking in 2000. Smokes marijuana daily, sometimes several times a day. Last smoked marijuana today. Denies any other recreational drugs recently. Wishes to be FULL CODE. What is your current living situation?: I presently have a place to live Problems where you live: no known problems Problems where you live details: N/A In the past 12 months, utilities in danger of being shut off: no In past 12 months, lack of transportation kept you from medical appts, meetings, work, or getting things needed for daily living: no In the past 12 mos, have been you worried that your food would run out before you had money to buy more?: never true In the past 12 mos, the food you bought just didn't last and you didn't have money to buy more?: never true Smoking Status: Former smoker Do you use any of these nicotine containing products: None How often do you have a drink containing alcohol: 2-3 times a week Alcohol type: hard liquor How often do you have six or more drinks on one occasion: Weekly AUDIT-C Alcohol total score: 6 Non-prescribed substance use: marijuana (any form) Caffeine: No How often does anyone, including family, friends and others, physically hurt you : never How often does anyone, including family, friends and others, insult or talk down to you: never How often does anyone, including family, friends and others, threaten you with harm: never How often does anyone, including family, friends and others, scream or curse at you: never Gender Identity: male Exam Narrative: Exam Narrative: Const: Well-nourished, Well-developed, in moderate distress Eyes: PERRL, no conjunctival injection, and symmetrical lids HENT: Atraumatic external nose and ears. Moist mucous membranes. Neck: Symmetric, trachea midline, No thyromegaly. CVS: RRR, No murmurs or gallops. Peripheral pulses 2+ and equal in all extremities RESP: Increased respiratory effort. Mild wheezing throughout GI: Nontender/Nondistended, No rebound or guarding. MSK:Extremities w/o deformity, Normal Active ROM Skin: Warm, Dry. No rashes or lesions. Neuro: Normal Muscle tone, No focal neurological deficits. Psych: Awake, Alert, & Oriented x3. Appropriate mood and affect. Const: Vital Signs, click to edit/add: Vital Signs - 24 hr 09/08/23 02:36 09/08/23 02:37 09/08/23 02:37 Temperature 98.1 F Pulse Rate 74 80 Pulse Rate [Pulse Oximeter] 73 Respiratory Rate 28 H Blood Pressure 165/88 H Blood Pressure [Ri ght Upper Arm] 176/88 H Pulse Oximetry 91 93 92 [facility] 09/08/23 02:41 09/08/23 02:45 09/08/23 02:52 Temperature Pulse Rate 80 82 Pulse Rate [Pulse Oximeter] Respiratory Rate Blood Pressure 125/88 149/81 H Blood Pressure [Ri ght Upper Arm] Pulse Oximetry 91 94 [facility] 09[facility]08/[facility] 03:00 09/08/23 03:02 09/08/23 03:12 Temperature Pulse Rate 65 58 L 64 Pulse Rate [Pulse Oximeter] Respiratory Rate Blood Pressure 145/74 H 139/70 Blood Pressure [Ri ght Upper Arm] Pulse Oximetry 91 92 88 [facility] 09[facility]08/23 03:15 09/08/23 03:22 09/08/23 03:35 Temperature Pulse Rate 64 61 73 Pulse Rate [Pulse Oximeter] Respiratory Rate Blood Pressure 134/75 Blood Pressure [Ri ght Upper Arm] Pulse Oximetry 88 89 87 L [facility] 09[facility]08/23 03:45 09/08/23 04:00 09/08/23 04:04 Temperature Pulse Rate 69 72 70 Pulse Rate [Pulse Oximeter] Respiratory Rate Blood Pressure 151/83 H Blood Pressure [Ri ght Upper Arm] Pulse Oximetry 90 90 91 [facility] 09[facility]08/23 04:12 09/08/23 04:15 09/08/23 04:22 Temperature Pulse Rate 71 70 68 Pulse Rate [Pulse Oximeter] Respiratory Rate Blood Pressure 139/72 136/76 Blood Pressure [Ri ght Upper Arm] Pulse Oximetry 90 92 89 Oxygen Delivery Me thod 09/08/23 04:30 09/08/23 04:32 09/08/23 04:41 Temperature Pulse Rate 70 66 66 Pulse Rate [Pulse Oximeter] Respiratory Rate Blood Pressure 130/79 142/75 H Blood Pressure [Ri ght Upper Arm] Pulse Oximetry 92 93 91 Oxygen Delivery Me thod 09/08/23 04:45 09/08/23 04:52 09/08/23 05:00 Temperature Pulse Rate 67 67 70 Pulse Rate [Pulse Oximeter] Respiratory Rate Blood Pressure 127/73 Blood Pressure [Ri ght Upper Arm] Pulse Oximetry 90 92 89 Oxygen Delivery Me thod 09/08/23 05:02 09/08/23 05:03 09/08/23 05:16 Temperature Pulse Rate 70 69 67 Pulse Rate [Pulse Oximeter] Respiratory Rate Blood Pressure 129/68 Blood Pressure [Ri ght Upper Arm] Pulse Oximetry 89 91 91 Oxygen Delivery Me thod 09/08/23 05:25 09/08/23 05:30 Temperature Pulse Rate 67 62 Pulse Rate [Pulse Oximeter] Respiratory Rate Blood Pressure Blood Pressure [Ri ght Upper Arm] Pulse Oximetry 93 91 Oxygen Delivery Me thod Course Vital Signs Vital signs: Initial Vital Signs Pulse Rate 74 09/08/23 02:36 Blood Pressure 165/88 H 09/08/23 02:36 Blood Pressure Mean 113 H 09/08/23 02:36 Pulse Oximetry 91 09/08/23 02:36 Vital Signs Pulse Rate 74 09/08/23 02:36 Blood Pressure 165/88 H 09/08/23 02:36 Pulse Oximetry 91 09/08/23 02:36 Temperature 98.1 F 09/08/23 02:37 Pulse Rate 62 09/08/23 05:30 Respiratory Rate 28 H 09/08/23 02:37 Blood Pressure 129/68 09/08/23 05:02 Pulse Oximetry 91 09/08/23 05:30 Oxygen Delivery Method Room Air 09/08/23 02:37 Medications Administered Medications: Discontinued Medications Generic Name Dose Route Start Last Admin Trade Name Freq PRN Reason Stop Dose Admin Albuterol 2.5 mg 09/08/23 02:27 09/08/23 02:36 Albuterol Sulfate 2.5 Mg/3 Ml Vial.Neb NEB 09/08/23 02:28 2.5 mg ONCE ONE Administration Ketorolac Tromethamine 15 mg 09/08/23 03:43 09/08/23 04:04 Ketorolac 15 Mg/Ml Inj IVP 09/08/23 03:44 15 mg ONCE ONE Administration Morphine Sulfate 4 mg 09/08/23 02:53 09/08/23 03:00 Morphine 4 Mg/Ml Inj IVP 09/08/23 02:54 4 mg ONCE ONE Administration Nitroglycerin 0.4 mg 09/08/23 02:27 09/08/23 02:36 Nitroglycerin 0.4 Mg Tab.Subl SUBLINGUAL 09/08/23 02:28 0.4 mg ONCE ONE Administration Ondansetron HCl 4 mg 09/08/23 02:43 09/08/23 02:48 Ondansetron 2 Mg/Ml Inj IVP 09/08/23 02:44 4 mg ONCE ONE Administration Medical Decision Making MDM Narrative Medical decision making narrative: Patient is a 63-year-old male presenting to the emergency department for chest pain and shortness of breath. With based on his initial presentation my biggest concern is ACS. Initial EKG did not show obvious signs of a STEMI. Will order a chest pain workup including CBC, CMP, chest x-ray, troponin. Patient given nitro to see if it helps with pain. Will also order a BNP. He is on Eliquis but I am concerned for a PE considered his presentation and recent COVID diagnosis. He does have some mild wheezing increased respiratory effort so a COPD exacerbation is possible. Albuterol ordered. Seems unlikely to be aortic dissection at this time but it is on my differential chest x-ray ordered will help look for signs of pneumonia or pneumothorax. All his lab work returned showing no concerning abnormalities. EKG is also normal. Is not clear exactly was causing symptoms at this time. He I did do a CTA of the chest and the only abnormalities seen where a slightly enlarged heart and a small pericardial effusion. He did state that his chest pain did improve sitting up and leaning forward. Repeat troponin showed no concerning findings. With the small pericardial effusion and improvement with positioning I do believe he is having pericarditis. The morphine did not help the pain at all but the Toradol did. This further makes me think it is pericarditis and he states his symptoms are 90% improved. Of note I did not hear the friction rub. Patient will be discharged home told to take ibuprofen. I was unable is prescribed him colchicine because it states he we need a prior authorization. He was given steroids. He was informed to follow-up with his shot hole shooter in the morning. Him and his family are agreeable to this plan. Lab Data Labs: Lab Results 09/08/23 09/08/23 09/08/23 Range/Units 02:25 02:30 02:50 WBC 11.23 H (4.50-11.00) K/uL RBC 4.47 (4.30-5.90) m/uL Hgb 14.4 (13.5-17.5) gm/dL Hct 43.3 (37.0-53.0) % MCV 97 (80-100) fL MCH 32 (26-34) pg MCHC 33 (32-36) gm/dL RDW Coeff of Nafisa 12.0 (11.5-15.5) % Plt Count 292 (140-440) K/uL Neut % (Auto) 79.1 H (42.0-72.0) % Lymph % (Auto) 10.9 L (20-44) % [place] % (Auto) 8.0 (0.0-11.0) % Eos % (Auto) 1.1 (0.0-7.0) % Baso % (Auto) 0.4 (0.0-3.0) % Neut # (Auto) 8.90 H (1.7-7.0) K/uL Lymph # (Auto) 1.20 (0.90-2.90) K/uL [place] # (Auto) 0.90 (0.00-0.90) K/UL Eos # (Auto) 0.10 (0.00-0.50) K/uL Baso # (Auto) 0.00 (0.00-0.30) K/uL Abs Immat Gran (auto) 0.10 (0.00-0.30) K/uL Imm/Tot Granulo (auto) 0.5 % ESR 16 H (2-15) mm/hr VBG pH (7.32-7.43) VBG pCO2 (40-50) mmHG VBG pO2 (25-47) mmHG VBG HCO3 (21-28) mmol/L Sodium 143 (135-149) mmol/L Potassium 4.0 (3.6-5.1) mmol/L Chloride 108 (96-114) mmol/L Carbon Dioxide 23 (20-32) mmol/L Anion Gap 12 (7-15) mEq/L BUN 7 (7-30) mg/dL Creatinine 0.8 (0.5-1.5) mg/dL Estimated Creat Clear 77.06 Estimated GFR 99 ml/min Glucose 152 H (60-115) mg/dL Calcium 9.0 (8.4-10.6) mg/dL Total Bilirubin 0.5 (0.1-1.5) mg/dL AST 29 (12-35) U/L ALT 34 (4-50) U/L Alkaline Phosphatase 93 (40-150) U/L Troponin I < 0.01 L (0.01-0.04) ng/mL C-Reactive Protein 1.3 H (0.5-1.0) mg/dL NT-Pro-B Natriuret Pep 242 pg/mL Total Protein 7.2 (6.0-8.3) g/dL Albumin 4.2 (3.3-5.0) g/dL SARS-CoV-2 (PCR) Negative SARS-CoV-2 (Negative) Influenza Type A (PCR) Negative PCR FLU A (Negative) Influenza Type B (PCR) Negative PCR FLU B (Negative) RSV (PCR) Negative PCR RSV (Negative) Lab Acknowledgement POC Creatinine 0.9 (0.6-1.3) mg/dl POC Troponin I 0.00 L (0.01-0.04) ng/ml 09/08/23 09/08/23 09/08/23 Range/Units 03:20 03:48 04:35 WBC (4.50-11.00) K/uL RBC (4.30-5.90) m/uL Hgb (13.5-17.5) gm/dL Hct (37.0-53.0) % MCV (80-100) fL MCH (26-34) pg MCHC (32-36) gm/dL RDW Coeff of Nafisa (11.5-15.5) % Plt Count (140-440) K/uL Neut % (Auto) (42.0-72.0) % Lymph % (Auto) (20-44) % [place] % (Auto) (0.0-11.0) % Eos % (Auto) (0.0-7.0) % Baso % (Auto) (0.0-3.0) % Neut # (Auto) (1.7-7.0) K/uL Lymph # (Auto) (0.90-2.90) K/uL [place] # (Auto) (0.00-0.90) K/UL Eos # (Auto) (0.00-0.50) K/uL Baso # (Auto) (0.00-0.30) K/uL Abs Immat Gran (auto) (0.00-0.30) K/uL Imm/Tot Granulo (auto) % ESR (2-15) mm/hr VBG pH 7.392 (7.32-7.43) VBG pCO2 45 (40-50) mmHG VBG pO2 31.8 (25-47) mmHG VBG HCO3 28 (21-28) mmol/L Sodium (135-149) mmol/L Potassium (3.6-5.1) mmol/L Chloride (96-114) mmol/L Carbon Dioxide (20-32) mmol/L Anion Gap (7-15) mEq/L BUN (7-30) mg/dL Creatinine (0.5-1.5) mg/dL Estimated Creat Clear Estimated GFR ml/min Glucose (60-115) mg/dL Calcium (8.4-10.6) mg/dL Total Bilirubin (0.1-1.5) mg/dL AST (12-35) U/L ALT (4-50) U/L Alkaline Phosphatase (40-150) U/L Troponin I < 0.01 L (0.01-0.04) ng/mL C-Reactive Protein (0.5-1.0) mg/dL NT-Pro-B Natriuret Pep pg/mL Total Protein (6.0-8.3) g/dL Albumin (3.3-5.0) g/dL SARS-CoV-2 (PCR) (Negative) Influenza Type A (PCR) (Negative) Influenza Type B (PCR) (Negative) RSV (PCR) (Negative) Lab Acknowledgement Test Added POC Creatinine (0.6-1.3) mg/dl POC Troponin I (0.01-0.04) ng/ml Imaging Data Chest x-ray: Radiologist's impression: No acute pulmonary process. Dictated by Pedro Yousif MD @ 09/08/2023 3:21:59 AM CTA chest: Radiologist's impression: 1. No evidence of pulmonary embolus. No focal consolidation. 2. Moderate cardiomegaly. Coronary artery calcifications. 3. Small pericardial effusion. 4. Mild diffuse bronchial wall thickening, similar to prior exams. Please note that all CT scans at this facility use dose modulation, iterative reconstruction, and/or weight-based dosing when appropriate to reduce radiation dose to as low as reasonably achievable. Dictated by Ambrose Barnett MD @ 09/08/2023 4:10:13 AM ECG Data Attestation: I personally reviewed and interpreted this ECG as follows: Prior ECG tracings: available for review Interpretation: Normal sinus rhythm with a rate of 77 beats per minute, normal intervals, normal axis, no ST or T-wave abnormalities. Previous EKG showed a flutter, which is not seen on today's EKG Discharge Plan Discharge Clinical Impression: Pericarditis Qualifiers: Pericarditis type: unspecified type Chronicity: acute Qualified Code(s): I30.9 - Acute pericarditis, unspecified Patient Disposition: Home, Self-Care Condition: Improved Instructions: Acute Pericarditis (ED) Additional Instructions: Take ibuprofen 600 mg every 8 hours. If that is not helping add on colchicine 0.6 mg twice a day in addition to the ibuprofen. If that is not working switched to the steroid Call your heart doctor in the morning and let them know you were diagnosed with pericarditis in the emergency department and let him know you are unable to get prescribed colchicine because he needed a prior authorization in our system Prescriptions: New prednisone 50 mg tablet 50 mg PO DAILY Qty: 5 0RF No Action tamsulosin 0.4 mg capsule 0.4 mg PO DAILY sertraline 25 mg tablet 50 mg PO DAILY Patient Comments: Patient now up to 50 mg daily mirtazapine 7.5 mg tablet 7.5 mg PO QPM carvedilol 6.25 mg tablet 6.25 mg PO BID gabapentin 300 mg capsule 300 mg PO BID gabapentin 300 mg Capsule 300 mg PO TID Qty: 30 0RF Eliquis 5 mg Tablet 5 mg PO BID Qty: 60 0RF folic acid 1 mg Tablet 1 mg PO DAILY Qty: 30 0RF digoxin 250 mcg (0.25 mg) tablet 250 mcg PO DAILY Qty: 30 2RF Follow Up/Referrals: Blane Peres MD [Primary Care Provider] - Stand Alone Forms: [employer] Info Instructions
[2023-09-08] MEDS: NITROGLYCERIN 0.4 MG TAB.SUBL SUBLINGUAL (02:36)
[2023-09-08] MEDS: ALBUTEROL SULFATE 2.5 MG/3 ML VIAL.NEB NEB (02:36)
[2023-09-08 02:37] LABS: Basophils Percent Auto 0.4 % (0.0-3.0); Eosinophils Percent Auto 1.1 % (0.0-7.0); Hematocrit 43.3 % (37.0-53.0); Hemoglobin* 14.4 gm/dL (13.5-17.5); Immature Granulocytes Pct Auto 0.5 %; Lymphocytes Percent Auto 10.9 % (20-44); Mean Corpuscular HGB Conc 33 gm/dL (32-36); Mean Corpuscular Hemoglobin 32 pg (26-34); Mean Corpuscular Volume 97 fL (80-100); Neutrophils Percent Auto 79.1 % (42.0-72.0); Platelet Count* 292 K/uL (140-440); Red Blood Count 4.47 m/uL (4.30-5.90); White Blood Count* 11.23 K/uL (4.50-11.00)
[2023-09-08 02:38] LABS: Slide Review Reflex No
[2023-09-08] MEDS: ONDANSETRON 2 MG/ML inj 4 MG IVP (02:48)
[2023-09-08 02:50] LABS: Albumin* 4.2 g/dL (3.3-5.0); Chloride* 108 mmol/L (96-114)
[2023-09-08 02:51] LABS: Sodium* 143 mmol/L (135-149)
[2023-09-08 02:53] LABS: Creatinine, Point-of-Care* 0.9 mg/dl (0.6-1.3)
[2023-09-08 02:53] LABS: Anion Gap 12 mEq/L (7-15); Aspartate Amino Transferase* 29 U/L (12-35); Bilirubin Total* 0.5 mg/dL (0.1-1.5); Carbon Dioxide* 23 mmol/L (20-32); Creatinine* 0.8 mg/dL (0.5-1.5); Est. Creatinine Clearance* 77.06; Estimated Glomerular Filt Rate 99 ml/min; Total Protein* 7.2 g/dL (6.0-8.3)
--- NOTE | 2023-09-08 02:53 | CRLHL7_ITS ---
For Patients: As a result of the Century Cures Act, medical imaging exams and procedure reports are released immediately into your electronic medical record. You may view this report before your referring provider. If you have questions, please contact your health care provider. INDICATION: chest pain, sob TECHNIQUE: CT chest PE was acquired with 95 cc Isovue 370 IV contrast. COMPARISON: CT angio chest August 04, 2023. FINDINGS: Heart and vasculature: Contrast opacification of the pulmonary arterial tree is adequate. No sign of pulmonary embolism. Moderate cardiomegaly. Small pericardial effusion, measuring up to 4 mm. Thoracic aorta and pulmonary artery are normal in caliber. Coronary artery calcifications. Lungs and pleural: No suspicious nodules or infiltrates. Linear atelectasis within the left upper lobe is again noted. No pleural effusions, pleural thickening, or pneumothorax. Mild diffuse bronchial wall thickening, similar to prior exams. Lymph nodes/mediastinum: No mediastinal, hilar, or axillary adenopathy. Chest wall: No masses. Upper abdomen: No acute or significant findings. Bones: Mild multilevel degenerative spondylosis without acute fracture or aggressive osseous lesion. IMPRESSION: 1. No evidence of pulmonary embolus. No focal consolidation. 2. Moderate cardiomegaly. Coronary artery calcifications. 3. Small pericardial effusion. 4. Mild diffuse bronchial wall thickening, similar to prior exams. Please note that all CT scans at this facility use dose modulation, iterative reconstruction, and/or weight-based dosing when appropriate to reduce radiation dose to as low as reasonably achievable. Dictated by Ambrose Barnett MD @ 09/08/2023 4:10:13 AM (Electronically Signed)
[2023-09-08 02:54] LABS: Alanine Aminotransferase* 34 U/L (4-50); Alkaline Phosphatase* 93 U/L (40-150); Blood Urea Nitrogen* 7 mg/dL (7-30); Glucose* 152 mg/dL (60-115)
[2023-09-08] MEDS: MORPHINE 4 MG/ML INJ IVP (03:00)
[2023-09-08 03:04] LABS: NT Pro B Type NatriureticPept* 242 pg/mL
[2023-09-08 03:06] LABS: Troponin I* < 0.01 ng/mL (0.01-0.04)
[2023-09-08 03:24] LABS: HCO3 VBG 28 mmol/L (21-28); PCO2 VBG 45 mmHG (40-50); PO2 VBG 31.8 mmHG (25-47); pH VBG 7.392 (7.32-7.43)
[2023-09-08 03:34] LABS: PCR FLU A Negative PCR FLU A (Negative); PCR FLU B Negative PCR FLU B (Negative); PCR RSV Negative PCR RSV (Negative); SARS PCR* Negative SARS-CoV-2 (Negative)
--- OUTSIDE RECORDS SUMMARY | 2023-09-08 03:42 | XMS_ITS | Clinical Summary ---
Author Name Unknown Organization [facility] Address [place], [place] [address] Care Team Providers Care Cloth Mercerizer Back Tender Name Role Phone Blane Peres MD Primary Care Provider [phone] Allergies No known active allergies Medications Medication Sig Dispensed Refills Start Date End Date Status CPAPIndications:SONIA (obstructive sleep apnea) CPAP machine for home use at pressure 8 cmw, full face mask x1/3month with a full face cushion x1/mo 1 Each 11 04/30/2021 Active albuterol HFA (PRO-AIR; VENTOLIN; PROVENTIL) 90 mcg/actuation inhaler Inhale 1-2 Puffs by mouth every 4 hours if needed. 0 09/21/2020 Active mirtazapine (REMERON) 7.5 mg tabletIndications:C hronic insomnia Take 1 pill orally at night 10 hours before planning on waking up 90 Tablet 3 09/24/2022 Active tamsulosin (FLOMAX) 0.4 mg capsuleIndications: BPH with urinary obstruction TAKE 1 CAPSULE(0.4 MG) BY MOUTH EVERY DAY AFTER A MEAL 90 Capsule 0 06/18/2023 Active sertraline (ZOLOFT) 25 mg tabletIndications:C hronic insomnia Take 1 Tablet (25 mg) by mouth once daily. This may be increased to 2 pills or 50mg after 4 weeks 90 Tablet 1 07/13/2023 Active fluticasone propion-salmeteroL (Advair Diskus) 250-50 mcg/Dose diskus inhalerIndications: Chronic obstructive pulmonary disease, unspecified COPD type (HC) Inhale 1 Puff by mouth two times daily. 0 08/18/2023 Active gabapentin (NEURONTIN) 300 mg capsuleIndications: Hip pain, left Take 1 Capsule (300 mg) by mouth two times daily. 60 Capsule 2 08/18/2023 Active folic acid 1 mg tablet Take 1 mg by mouth once daily. 0 08/25/2023 Active Eliquis 5 mg tabletIndications:P aroxysmal atrial fibrillation (HC) Take 1 Tablet (5 mg) by mouth two times daily. 180 Tablet 2 09/02/2023 Active digoxin (LANOXIN) 250 mcg (0.25 mg) tabletIndications:P aroxysmal atrial fibrillation (HC) Take 1 Tablet (250 mcg) by mouth every morning. and every evening 30 Tablet 4 09/02/2023 Active sildenafiL, pulm.hypertension, (REVATIO) 20 mg tabletIndications:E rectile dysfunction, unspecified erectile dysfunction type Take 1 Tablet (20 mg) by mouth once daily if needed (sexual activity). Take 1-5 pills (start at lower dose and increase next time if needed) 30 mins prior to sexual intercourse 30 Tablet 1 09/03/2023 Active carvediloL (Coreg) 3.125 mg tabletIndications:P aroxysmal atrial fibrillation (HC),Nonischemic cardiomyopathy (HC) Take 1 Tablet (3.125 mg) by mouth two times daily. 180 Tablet 2 09/04/2023 Active sildenafiL, pulm.hypertension, (REVATIO) 20 mg tabletIndications:E rectile dysfunction, unspecified erectile dysfunction type Take 1-5 pills (start at lower dose and increase next time if needed) 30 mins prior to sexual intercourse 30 Tablet 1 04/04/2021 08/18/20 23 Discontinue d(*Patient states no longer taking) predniSONE (DELTASONE) 20 mg tabletIndications:C hronic obstructive pulmonary disease, unspecified COPD type (HC) Take 2 Tablets (40 mg) by mouth once daily with a meal for 5 days. 10 Tablet 0 08/18/2023 08/23/20 23 carvediloL (COREG) 6.25 mg tabletIndications:S inus tachycardia,Hyperte nsion Take 1 Tablet (6.25 mg) by mouth two times daily with meals. 60 Tablet 0 08/18/2023 09/02/19 24 Discontinue d(*Medicati on adjustment) Eliquis 5 mg tablet Take 5 mg by mouth two times daily. 0 08/25/2023 09/02/19 24 Discontinue d(Reorder (E-cancel not sent)) digoxin (LANOXIN) 250 mcg (0.25 mg) tablet Take 250 mcg by mouth every morning. and every evening 0 08/25/2023 09/02/19 24 Discontinue d(Reorder (E-cancel not sent)) carvediloL (Coreg) 3.125 mg tabletIndications:P aroxysmal atrial fibrillation (HC),Nonischemic cardiomyopathy (HC) Take 1 Tablet (3.125 mg) by mouth two times daily. 90 Tablet 2 09/02/2023 09/04/19 24 Discontinue d(Reorder (E-cancel not sent)) sildenafiL, pulm.hypertension, (REVATIO) 20 mg tabletIndications:E rectile dysfunction, unspecified erectile dysfunction type Take 1 Tablet (20 mg) by mouth once daily if needed (sexual activity). Take 1-5 pills (start at lower dose and increase next time if needed) 30 mins prior to sexual intercourse 30 Tablet 1 09/03/2023 09/03/19 24 Discontinue d(*Medicati on adjustment) Active Problems Problem Noted Date Diagnosed Date Nonischemic cardiomyopathy 08/18/2023 Paroxysmal atrial fibrillation 02/25/2021 Chronic obstructive pulmonary disease 10/12/2020 Chronic insomnia 10/17/2019 SONIA 08/10/2019 AHI-36 08/15/2019 Closed fracture of hyoid bone 08/27/2015 Hypertension 03/16/2014 Alcohol abuse, in remission 03/16/2014 Anxiety 12/01/2013 Adenomatous colon polyp 06/06/2013 Overview: Colonoscopy 05/2013 polyp repeat in 5 years Colonoscopy 10/2018 polyp, repeat in 5 years Dysthymia 04/12/2012 Diverticulosis of colon (without mention of hemo rrhage) 01/09/2009 Overview: Colonoscopy 12/2008 diverticulosis repeat in 10 years Esophageal reflux 01/09/2009 Overview: EGD 12/2008 reflux Encounters Date Type Department Care Team Description 09/04/2023 Telephone [email or web address] [address] [place] [address] Antoine Gardner MD Refill Request (Coreg - 90 day request) 09/03/2023 8:45 AM BRICK CATCHER Office Visit [facility] [address] [place] [address] Berta Montano, Follow Up (heart condition (a-fib). had one episode of syncope on 08/24) 09/02/2023 10:00 AM BRICK CATCHER Office Visit [facility] [address] [facility] [address] [place] [address] Antoine Gardner MD CV General Cardiology Est (F/U; ECHO 08/25 /Post ED [facility] /DX: I48.91 (ICD-10-CM) - Atrial fibrillation with RVR (HC) //PCP: Blane Peres MD/) 09/02/2023 Telephone [facility] [address] [facility] [address] [place] [phone] Antoine Gardner MD Appointment (EP Consult, KETAN) 09/02/2023 Travel 08/25/2023 1:00 PM BRICK CATCHER Orders Only [facility] [address] [place] [address] 2 scans: (2-Ord) ECHO TTE COMPLETE WO CONTRAST ([id number]) 08/25/2023 Orders Only [facility] Scanner 1 scan: (1-Ord) [facility], XR HIP LT MIN 2V, 08/25/2023 08/24/2023 Orders Only [facility] Scanner 1 scan: (1-Ord) [facility], CHEST, 08/24/2023 08/24/2023 Orders Only [facility] Scanner 1 scan: (1-Ord) [facility], HEAD/BRAIN WO CONTRAST, 08/24/2023 08/19/2023 Telephone [facility] [address] [place] [address] Paramjit Riddle MD Results 08/18/2023 3:45 PM BRICK CATCHER Office Visit [facility] [address] [place] [address] Paramjit Riddle MD Heart Problem (Heart rate fast) 08/18/2023 Travel 08/04/2023 Orders Only [facility] Scanner 1 scan: [facility]Ord[facility] ANGIO CHEST PE PROTOCOL, 08/04/2023 08/04/2023 Orders Only [facility] Scanner 1 scan: (1-Ord) [facility], XR CHEST 2V, 08/04/2023 07/27/2023 Nurse Triage [facility] [address] [place] [address] Yanci Molina, RN Refill Request (Triage requested for refill request from patient for Gabapentin. Can't Walk) 07/27/2023 Nurse Triage [facility] [address] [place] [address] Blane Peres MD Concerns 07/27/2023 Refill [facility] [address] [place] [address] Blane Peres MD Refill Request (gabapentin (NEURONTIN) 300 mg capsule ) 07/16/2023 Telephone [facility] [address] [place] [address] Fabian Samson MD Prior Authorization (sertraline (ZOLOFT) 25 mg tablet (PA NOT NEEDED/ NOT REQUIRED)) 07/13/[address] [address] Fabian Samson MD Refill Request (Sertraline) 06/18/2023 Refill [facility] [address] [place] [address] Farida Sanderson DO Refill Request (Tamsulosin) from Last 3 Months Immunizations Name Administration Dates Next Due COVID-19 vaccine (Moderna 100mcg/0.5mL) PFMDV 01/18/2021,12/20/2020 Td (Age >=7 Years) 10/05/2018 Tdap 03/01/2008 Family History Medical History Relation Name Comments Good Health Brother 2 Good Health Daughter 3 Good Health Daughter 4 Coronary artery disease Father Diabetes Father Cancer-breast Maternal Aunt Good Health Mother Other Sister 2 fibromyalgia Good Health Son 2 Relation Name Status Comments Brother 1 Alive Brother 2 Daughter 1 Alive Daughter 2 Alive Daughter 3 Daughter 4 Father Alive Maternal Aunt Mother Alive Sister 1 Alive Sister 2 Son 1 Alive Son 2 Social History Tobacco Use Types Packs/Day Years Used Date Smoking Tobacco: Former Cigarettes Q uit: 05/27/2001 Smokeless Tobacco: Never Tobacco Cessation:Counseling Given: Yes Alcohol Use Standard Drinks/Week Comments Not Currently 20 (1 standard drink = 0.6 oz pu re alcohol) none x 1 months PHQ-2 Answer Date Recorded PHQ-2 TOTAL SCORE 0 04/25/2021 Social Connections Answer Date Recorded Frequency of Communication with Friends and Fami ly 0 09/03/2023 Financial Resource Strain Answer Date R ecorded Difficulty of Paying Living Expenses 3 09/03/2023 Difficulty of Paying Living Expenses Not on file 09/03/2023 Food Insecurity Answer Date Recorded Worried About Running Out of Food in the Last Ye ar 1 09/03/2023 Transportation Needs Answer Date Record ed Lack of Transportation (Medical) 1 09/03/2023 Housing Stability Answer Date Recorded Unable to Pay for Housing in the Last Year 1 09/03/2023 Sex and Gender Information Value Date Recorded Sex Assigned at Not on file Gender Identity Not on file Sexual Orientation Not on file Obstetrics History Last Filed Vital Signs Vital Sign Reading Time Taken Comments Blood Pressure 146/88 09/03/2023 8:53 AM BRICK CATCHER Pulse 56 09/03/2023 9:00 AM BRICK CATCHER Temperature 36.7 ??C (98 ??F) 11/19/2021 9:40 AM CDT Respiratory Rate 18 11/19/2021 9:40 AM CDT Oxygen Saturation 96% 09/03/2023 8:53 AM BRICK CATCHER Inhaled Oxygen Concentration - - Weight 101.2 kg (223 lb) 09/03/2023 8:53 AM BRICK CATCHER Height 177.8 cm (5' 10) 09/02/2023 10:02 AM BRICK CATCHER Body Mass Index 32 09/02/2023 10:02 AM BRICK CATCHER Plan of Treatment Upcoming Encounters Date Type Department Care Team (Late st Contact Info) Description 11/10/2023 8:00 AM CDT Office Visit [facility] [address] [place] [address] Curtis Simeon MD [address] [place] [address] 11/20/2023 10:00 AM CDT Office Visit [facility] [address] [place] [phone] Antoine Gardner MD [address] [place] [address] Health Maintenance Due Date Last Done Comments Pneumococcal series for age 6-64 (1 of 2 - PCV) 1965 HIV for age 15-65 1974 Zoster (shingles) series for age 50+ (1 of 2) 2009 Depression screening for age 12+ 04/25/2022 04/25/2021, 01/04/2021, 01/01/2021, Additional history exists COVID-19 vaccine series (2022- season) 2023 05/22/2022, 01/18/2021, 12/20/2020 Influenza for age 50-64 05/01/2023 Lipids for age 45-75 10/05/2023 10/05/2018, 07/17/2017, 05/15/2016, Additional history exists Colonoscopy through age 75 11/17/202311/16, 11/15/2018, 11/15/2018, Additional history exists BMI (ht and wt on same day) for age 18+ 09/02/2024 09/02/2023, 09/24/2022, 11/19/2021, Additional history exists Tetanus booster 10/05/2028 10/05/2018, 03/01/2008 Tdap Completed 03/01/2008 Hepatitis C screening for ag e 18-79 Completed 05/15/2016 Procedures Procedure Name Priority Date/Time Associated Diagnosis Comments ECHO TTE COMPLETE WO CONTRAST Routine 08/25/2023 1:15 PM BRICK CATCHER Atrial fibrillation with RVR (HC) SCAN-RADIOLOGY REPORT 08/25/2023 12:00 AM BRICK CATCHER SCAN-RADIOLOGY REPORT 08/24/2023 12:00 AM BRICK CATCHER SCAN-CT INTERPRETATION 12:00 AM BRICK CATCHER T4,FREE Routine 08/18/2023 4:42 PM BRICK CATCHER Paroxysmal atrial fibrillation (HC) CBC WITH AUTO DIFFERENTIAL Routine 08/18/2023 4:42 PM BRICK CATCHER Paroxysmal atrial fibrillation (HC) CBC WITH AUTO DIFFERENTIAL Routine 08/18/2023 4:42 PM BRICK CATCHER Paroxysmal atrial fibrillation (HC) TSH WITH REFLEX Routine 08/18/2023 4:42 PM BRICK CATCHER Paroxysmal atrial fibrillation (HC) SCAN-CT INTERPRETATION 12:00 AM BRICK CATCHER SCAN-RADIOLOGY REPORT 08/04/2023 12:00 AM BRICK CATCHER from Last 3 Months Results * ECHO TTE COMPLETE WO CONTRAST (08/25/2023 1:15 PM BRICK CATCHER) AORTIC VALVE MEAN PG 4 mmHg EJECTION FRACTION 46 % LVEDD 5.1 cm EJECTION FRACTION 45 - 50% Anatomical Region Laterality Modality Ultrasound 08/25/2023 12:4 1 PM BRICK CATCHER Narrative 08/25/2023 2:21 PM BRICK CATCHER ECHOCARDIOGRAM ANTONIO MURGUIA ? Accession#: ?? [id number] : ?1960 63 years Study Date: ?? 08/25/2023 12:41:46 PM Gender: M ?BP: ? 131/96 mmHg Height: 178.00 cm ?BSA: ?2.20 m? ? ? Weight: 103.00 kg ?Tech: ? MHR ? Referring MD: LORENZA MARTIN Site: ? [facility] Reading Location: [facility] Patient Location: Inpatient. Procedure: 2D, Color Doppler and Spectral Doppler. Indication for study: atrial fibrillation w/ RVR Cardiac Rhythm: Atrial fibrillation.Study quality: Technically limited. Final Impressions: 1. Technically limited exam. 2. Normal LV size, mildly increased wall thickness, mildly reduced global systolic function with an estimated EF of 45 - 50%. The LV systolic function appears normal on longer RR intervals. 3. Right ventricular cavity size is normal, global systolic RV function is borderline reduced. 4. No significant functional valve disease detected. 5. The inferior vena cava is dilated, respiratory size variation greater than 50%. Comparison When compared to the prior study of 01/17/21, the patient is in atrial fibrillation. Chamber Sizes and Function Normal left ventricular size, mildly increased wall thickness, mildly reduced global systolic function with an estimated EF of 45 - 50%. Left atrial size is normal. Right ventricular cavity size is normal, global systolic RV function is borderline reduced. RV wall thickness is normal. The right atrium is moderately enlarged. Right atrial volume index is 17 ml/m? ? ?. Right atrial area is 13 cm? ? ?. The pulmonary artery is of normal size and origin. The sinus of Valsalva is normal sized. The ascending aorta is normal sized. Valves, RV Pressures and Diastolic Function The aortic valve is not well visualized , no stenosis and no regurgitation. The mitral valve is normal in structure, no mitral regurgitation. Indeterminate pattern of LV diastolic filling. The tricuspid valve is normal in structure. Tricuspid regurgitation is regurgitation is not evident. Unable to assess right ventricular systolic pressure. The pulmonic valve is not well visualized. No pulmonary regurgitation. Masses, Effusion, Shunts There is no pericardial effusion. The inferior vena cava is dilated, respiratory size variation greater than 50%. No left to right shunting was detected by limited color flow Doppler interrogation of the interatrial septum. MEASUREMENTS AND CALCULATIONS 2-D Measurements and LV Function: LVID (d) ?5.1 cm LV FS% (2D) ?? 13 % LVID (s) ?4.4 cm LVOT diameter 2.2 cm IVS (d) ? 1.2 cm HR ?91 bpm LVPW (d) ?1.6 cm LA Vol index ??22 ml/m2 Ao Sinus ?3.6 cm RA Vol index ??17 ml/m2 Ao ST junct 3.0 cm RA area ? 13 cm? ? ? Asc Ao ?3.3 cm RV Max 4C (d) 2.8 cm LA ?3.7 cm Aortic Valve: Vmax ? 1.3 m/s ??DIRK (V) ?? 1.97 cm? ? ? VTI ?0.21 m ?? DIRK (I) ?? 2.09 cm? ? ? LVOT V max 0.7 m/s ??Max PG ?7 mmHg LVOT VTI ?? 0.12 m ?? Mean PG ?? 4 mmHg SV ? 44 ml ?Dim Index 0.57 SV index ?? 20 ml/m? ? ? CO ?4.0 l/min ?CI ?1.8 l/min/m? ? ? . This study was interpreted by an PSYCHIATRIC accredited facility. CC: HIM (med records) [facility], Med/Surg - IP [facility]. ??Final ?? Procedure Note Christofer Mcgraw MD - 08/25/2023 ECHOCARDIOGRAM ANTONIO MURGUIA : 1960 63 years Study Date: 08/25/2023 12:41:46 PM Gender: M BP: 131/96 mmHg Height: 178.00 cm BSA: 2.20 m? ? ? Weight: 103.00 kg Tech: R Referring MD: LORENZA MARTIN Site: [facility] Reading Location: [facility] Patient Location: Inpatient. Procedure: 2D, Color Doppler and Spectral Doppler. Indication for study: atrial fibrillation w/ RVR Cardiac Rhythm: Atrial fibrillation.Study quality: Technically limited. Final Impressions: 1. Technically limited exam. 2. Normal LV size, mildly increased wall thickness, mildly reduced globalsystolic function with an estimated EF of 45 - 50%. The LV systolicfunction appears normal on longer RR intervals. 3. Right ventricular cavity size is normal, global systolic RV functionis borderline reduced. 4. No significant functional valve disease detected. 5. The inferior vena cava is dilated, respiratory size variation greaterthan 50%. Comparison When compared to the prior study of 01/17/21, the patient is in atrialfibrillation. Chamber Sizes and Function Normal left ventricular size, mildly increased wall thickness, mildlyreduced global systolic function with an estimated EF of 45 - 50%. Leftatrial size is normal. Right ventricular cavity size is normal, globalsystolic RV function is borderline reduced. RV wall thickness is normal.The right atrium is moderately enlarged. Right atrial volume index is 17ml/m? ? ?. Right atrial area is 13 cm? ? ?. The pulmonary artery is of normalsize and origin. The sinus of Valsalva is normal sized. The ascendingaorta is normal sized. Valves, RV Pressures and Diastolic Function The aortic valve is not well visualized , no stenosis and noregurgitation. The mitral valve is normal in structure, no mitralregurgitation. Indeterminate pattern of LV diastolic filling. Thetricuspid valve is normal in structure. Tricuspid regurgitation isregurgitation is not evident. Unable to assess right ventricular systolicpressure. The pulmonic valve is not well visualized. No pulmonaryregurgitation. Masses, Effusion, Shunts There is no pericardial effusion. The inferior vena cava is dilated,respiratory size variation greater than 50%. No left to right shunting wasdetected by limited color flow Doppler interrogation of the interatrialseptum. MEASUREMENTS AND CALCULATIONS 2-D Measurements and LV Function: LVID (d) 5.1 cm LV FS% (2D) 13 % LVID (s) 4.4 cm LVOT diameter 2.2 cm IVS (d) 1.2 cm HR 91 bpm LVPW (d) 1.6 cm LA Vol index 22 ml/m2 Ao Sinus 3.6 cm RA Vol index 17 ml/m2 Ao ST junct 3.0 cm RA area 13 cm? ? ? Asc Ao 3.3 cm RV Max 4C (d) 2.8 cm LA 3.7 cm Aortic Valve: Vmax 1.3 m/s DIRK (V) 1.97 cm? ? ? VTI 0.21 m DIRK (I) 2.09 cm? ? ? LVOT V max 0.7 m/s Max PG 7 mmHg LVOT VTI 0.12 m Mean PG 4 mmHg SV 44 ml Dim Index 0.57 SV index 20 ml/m? ? ? CO 4.0 l/min CI 1.8 l/min/m? ? ? . This study was interpreted by an PSYCHIATRIC accredited facility. CC: HIM (med records) [facility], Med/Surg - IP [facility]. Final Lorenza Martin MD ECHO ORD * SCAN-RADIOLOGY REPORT (08/25/2023 12:00 AM BRICK CATCHER) Only the most recent of3 resultswithin the time period is included. Anatomical Region Laterality Modality Other Scanner OTHER * SCAN-CT INTERPRETATION (08/24/2023 12:00 AM BRICK CATCHER) Only the most recent of2 resultswithin the time period is included. Anatomical Region Laterality Modality Other Scanner OTHER * (ABNORMAL) CBC WITH AUTO DIFFERENTIAL (08/18/2023 4:42 PM BRICK CATCHER) Pathologist [facility] WHITE BLOOD COUNT 10.0 4.5 - 11.0 thou/cu mm 08/18/2023 4:47 PM BRICK CATCHER [facility] RED BLOOD COUNT 4.27(L) 4.30 - 5.90 mil/cu mm 08/18/2023 4:47 PM BRICK CATCHER [facility] HEMOGLOBIN 14.4 13.5 - 17.5 g/dL 08/18/2023 4:47 PM BRICK CATCHER [facility] HEMATOCRIT 41.2 37.0 - 53.0 % 08/18/2023 4:47 PM [facility] MCV 97 80 - 100 fL 08/18/2023 4:47 PM [facility] MCH 33.7 26.0 - 34.0 pg 08/18/2023 4:47 PM [facility] MCHC 35.0 32.0 - 36.0 g/dL 08/18/2023 4:47 PM [facility] RDW 12.4 11.5 - 15.5 % 08/18/2023 4:47 PM [facility] PLATELET COUNT 287 140 - 440 thou/cu mm 08/18/2023 4:47 PM [facility] MPV 8.6 6.5 - 11.0 fL 08/18/2023 4:47 PM [facility] % NEUT 70.2 % 08/18/2023 4:47 PM [facility] % LYMPH 17.9 % 08/18/2023 4:47 PM [facility] % MONO 10.3 % 08/18/2023 4:47 PM [facility] % EOS 1.2 % 08/18/2023 4:47 PM [facility] % BASO 0.4 % 08/18/2023 4:47 PM [facility] ABSOLUTE NEUTROPHILS 7.0 1.7 - 7.0 thou/cu mm 08/18/2023 4:47 PM [facility] ABSOLUTE LYMPHOCYTES 1.8 0.9 - 2.9 thou/cu mm 08/18/2023 4:47 PM [facility] ABSOLUTE MONOCYTES 1.0(H) <0.9 thou/cu mm 08/18/2023 4:47 PM [facility] ABSOLUTE EOSINOPHILS 0.1 <0.5 thou/cu mm 08/18/2023 4:47 PM [facility] ABSOLUTE BASOPHILS 0.0 <0.3 thou/cu mm 08/18/2023 4:47 PM [facility] Blood BLOOD SPECIMEN / Unknown Venipuncture / Unknown 08/18/2023 4:42 PM BRICK CATCHER 08/18/2023 4:43 PM BRICK CATCHER Paramjit Riddle MD HEMATOLOGY Performing Organization Address City/[facility]/ZIP Co de Phone Number [facility] [address] [place] [address] * (ABNORMAL) TSH WITH REFLEX (08/18/2023 4:42 PM BRICK CATCHER) TSH 6.95(H) 0.27 - 4.20 uIU/mL 08/18/2023 9:49 PM BRICK CATCHER [facility] Blood BLOOD SPECIMEN / Unknown Venipuncture / Unknown 08/18/2023 4:42 PM BRICK CATCHER 08/18/2023 4:43 PM BRICK CATCHER Narrative [facility] - 08/18/2023 9:49 PM BRICK CATCHER In Adults, TSH values between 5.00 and 10.00 uIU/ml do not necessarily indicate the presence of Hypothyroidism. Correlation with clinical findings such as presence of goiter and/or Thyroperoxidase (TPO) Antibody may be helpful. For more information please refer to RAMA 2004; 291: 228-238. Paramjit Riddle MD CHEMISTRY Performing Organization Address [facility] Co de Phone Number [facility] [address] [place] [address], * T4,FREE (08/18/2023 4:42 PM BRICK CATCHER) T4,FREE 1.30 0.93 - 1.70 ng/dL 08/18/2023 10:46 PM BRICK CATCHER [facility] Blood BLOOD SPECIMEN / Unknown Venipuncture / Unknown 08/18/2023 4:42 PM BRICK CATCHER 08/18/2023 4:43 PM BRICK CATCHER Paramjit Riddle MD CHEMISTRY Performing Organization Address City/[facility]/ZIP Co de Phone Number [facility] [address] [place] [address], from Last 3 Months Advance Directives Latest Code Status on File Code Status Date Activated Date Inactivated Comments Full Code 01/04/2021 12:57 PM 01/04/2021 4:58 PM Question Answer Comments Code Status Discussion: Not Discussed Code Status History Code Status Date Activated Date Inactivated Comments Full Code 01/04/2021 12:57 PM 01/04/2021 12:57 PM Question Answer Comments Code Status Discussion: Not Discussed Full Code 01/04/2021 12:57 PM 01/04/2021 12:57 PM Question Answer Comments Code Status Discussion: Not Discussed Care Teams Cloth Mercerizer Back Tender Relationship Specialty Start Date End Date [place] [address] PCP - General Family Practice 06/03/14
[2023-09-08] MEDS: KETOROLAC 15 MG/ML inj IVP (04:04)
[2023-09-08 04:10] LABS: C Reactive Protein* 1.3 mg/dL (0.5-1.0)
[2023-09-08 04:50] LABS: Erythrocyte SedimentationRate* 16 mm/hr (2-15)
[2023-09-08 05:19] LABS: Troponin I* < 0.01 ng/mL (0.01-0.04)
== END 2023-09-08 05:46 | disposition home or self-care (01) ==
PROVIDERS: Emergency Provider Student in an Organized Health Care Education/Training Program; PCP Surgery
DX: I30.9 Acute pericarditis, unspecified (principal)
CPT/HCPCS: 36415; 71045; 71275; 80053; 82565; 82803; 83880; 84484; 85025; 85651; 86140; 87631; 93005; 94640; 96374; 96375; 99283; 99284; 99285; A9270; J1885; J2270; J2405; Q9967

== ENCOUNTER 2023-10-08 09:58 | Outpatient (CLI) | payer OTHER, SELFPAY ==
--- OUTSIDE RECORDS SUMMARY | 2023-10-08 10:05 | XMS_ITS | Clinical Summary ---
Author Name Unknown Organization [facility] Address [place], [place] [address] Care Team Providers Care Head Bone Grinder Name Role Phone Blane Peres MD Primary Care Provider [phone]- [phone] Allergies No known active allergies Medications Medication [...] times daily. 180 Tablet 2 09/04/2023 Active colchicine 0.6 mg tabletIndications:P ericarditis, unspecified chronicity, unspecified type Take 1 Tablet (0.6 mg) by mouth two times daily. 180 Tablet 0 10/01/2023 Active colchicine 0.6 mg tabletIndications:P ericarditis, unspecified chronicity, unspecified type Take 1 Tablet (0.6 mg) by mouth two times daily. 60 Tablet 0 09/09/2023 4 Discontinu ed(Reorder (E-cancel not sent)) colchicine 0.6 mg tabletIndications:P ericarditis, unspecified chronicity, unspecified type Take 1 Tablet (0.6 mg) by mouth two times daily. 60 Tablet 0 09/22/2023 4 Discontinu ed(Reorder (E-cancel not sent)) Active Problems Problem Noted Date Diagnosed Date [...] Encounters Date Type Department Care Team Description 10/08/2023 Telephone [facility] [address] [place] [address] No Nettles MD 10/01/2023 10:10 AM MULTIMEDIA PROJECT MANAGER Orders [place] [facility] [place] [address] [place] [address] Lab (/) 10/01/2023 9:30 AM MULTIMEDIA PROJECT MANAGER Office [place] [facility] [place] [address] [place] [address] No Nettles MD CV General Cardiology Est ([facility] f/u per Dr Gardner to see how pt is reacting to new medication /DX:I31.9 (ICD-10-CM) - Pericarditis, unspecified chronicity, unspecified type //PCP: Blane Peres MD/) 10/01/2023 Travel 10/01/2023 Telephone [facility] [place] [address] [place] [address] Antoine Gardner MD Cardiovascular Diagnostic Testing 09/21/2023 Telephone [facility] [place] [address] [place] [address] Antoine Gardner MD Concerns 09/10/2023 Telephone [facility] [address] [place] [address] Blane Peres MD Prior Authorization (colchicine 0.6 mg tablet (PA NOT NEEDED/ NOT REQUIRED)) 09/09/2023 Refill [facility] [address] [place] [address] Blane Peres MD Refill Request (Colchicine) 09/08/2023 Orders Only [facility] Scanner 1 scan: (1-Ord) [facility], CT ANGIO CHEST PE, 09/08/2023 09/08/2023 Orders Only [facility] Scanner 1 scan: (1-Ord) [facility], XR CHEST, 09/08/2023 09/08/2023 Telephone [facility] [address] [place] [address] Blane Peres MD Prior Authorization (Colchicine) 09/04/2023 Telephone [facility] [place] [address] [place] [address] Antoine Gardner MD Refill Request (Coreg - 90 day request) 09/03/2023 8:45 AM MULTIMEDIA PROJECT MANAGER Office Visit [facility] [address] [place] [address] Berta Montano, Follow Up (heart condition (a-fib). had one episode of syncope on 08/24) 09/02/2023 10:00 AM MULTIMEDIA PROJECT MANAGER [place] [facility] [place] [address] [place] [address] Antoine Gardner MD CV General Cardiology Est (F/U; ECHO 08/25 /Post ED [facility] /DX: I48.91 (ICD-10-CM) - Atrial fibrillation with RVR (HC) //PCP: Blane Peres MD/) 09/02/2023 Telephone [facility] [place] [address] [place] [address] Antoine Gardner MD Appointment (EP Consult, [facility]) 09/02/2023 Travel 08/25/2023 1:00 PM MULTIMEDIA PROJECT MANAGER Orders Only [facility] [address] [place] [address] 2 scans: (2-Ord) ECHO TTE COMPLETE WO CONTRAST ([id number]) 08/25/2023 Orders Only [facility] Scanner 1 scan: (1-Ord) [facility], XR HIP LT MIN 2V, 08/25/2023 08/24/2023 Orders Only [facility] Scanner 1 scan: (1-Ord) [facility], CHEST, 08/24/2023 08/24/2023 Orders Only [facility] Scanner 1 scan: (1-Ord) [facility], HEAD/BRAIN WO CONTRAST, 08/24/2023 08/19/[address] [address] Paramjit Riddle MD Results 08/18/2023 3:45 PM MULTIMEDIA PROJECT MANAGER Office Visit [address] [address] Paramjit Riddle MD Heart Problem (Heart rate fast) 08/18/2023 Travel 08/04/2023 Orders Only [facility] Scanner 1 scan: (1-Ord) [facility], ANGIO CHEST PE PROTOCOL, 08/04/2023 08/04/2023 Orders Only [facility] Scanner 1 scan: (1-Ord) [facility], XR CHEST 2V, 08/04/2023 07/27/2023 Nurse Triage [facility] [address] [place] [address] Yanci Molina, WINNIE Refill Request (Triage requested for refill request from patient for Gabapentin. Can't Walk) 07/27/2023 Nurse Triage [facility] [address] [place] [address] Blane Peres MD Concerns 07/27/2023 Refill [facility] [address] [place] [address] Blane Peres MD Refill Request (gabapentin (NEURONTIN) 300 mg capsule ) 07/16/2023 Telephone [facility] [address] [place] [address] Fabian Samson MD Prior Authorization (sertraline (ZOLOFT) 25 mg tablet (PA NOT NEEDED/ NOT REQUIRED)) 07/13/2023 Refill [facility] [address] [place] [address] Fabian Samson MD Refill Request (Sertraline) from Last 3 Months Immunizations Name Administration Dates Next Due COVID-19 vaccine (Moderna 100mcg/0.5mL) EVITA JOYA 01/18/2021,12/20/2020 Td (Age >=7 Years) 10/05/2018 Tdap [...] Sign Reading Time Taken Comments Blood Pressure 154/87 10/01/2023 9:34 AM MULTIMEDIA PROJECT MANAGER Pulse 57 10/01/2023 9:34 AM MULTIMEDIA PROJECT MANAGER Temperature 36.7 ??C (98 ??F) 11/19/2021 9:40 AM CDT Respiratory Rate 18 11/19/2021 9:40 AM CDT Oxygen Saturation 95% 10/01/2023 9:34 AM MULTIMEDIA PROJECT MANAGER Inhaled Oxygen Concentration - - Weight 99.8 kg (220 lb) 10/01/2023 9:34 AM MULTIMEDIA PROJECT MANAGER Height 177.8 cm (5' 10) 10/01/2023 9:34 AM MULTIMEDIA PROJECT MANAGER Body Mass Index 31.57 10/01/2023 9:34 AM MULTIMEDIA PROJECT MANAGER Plan of Treatment Upcoming Encounters Date Type Department Care Team (Late st Contact Info) Description 11/10/2023 8:00 AM CDT Office Visit [facility] [address] [facility] [address] [place] [address] Curtis Simeon MD [address] [address] 11/20/2023 10:00 AM CDT Office [place] [facility] [place] [address] [phone] Antoine Gardner MD [address] [address] 11/24/2023 1:30 PM CDT Appointment [facility] [address] [place] [address] Health Maintenance Due Date Last Done Comments Pneumococcal series for age 6-64 (1 of 2 - PCV) 1965 HIV for age 15-65 1974 Zoster (shingles) series for age 50+ (1 of 2) 2009 Depression screening for age 12+ 04/25/2022 04/25/2021, 01/04/2021, 01/01/2021, Additional history exists COVID-19 vaccine series (4 - 2023-24 season) 2023 05/22/2022, 01/18/2021, 12/20/2020 Influenza for age 50-64 05/01/2023 Lipids for age 45-75 10/05/2023 10/05/2018, 07/17/2017, 05/15/2016, Additional history exists Colonoscopy through age 75 11/17/202311/16, 11/15/2018, 11/15/2018, Additional history exists BMI (ht and wt on same day) for age 18+ 10/01/2024 10/01/2023, 09/02/2023, 09/24/2022, Additional history exists Tetanus booster 10/05/2028 10/05/2018, 03/01/2008 Tdap Completed 03/01/2008 Hepatitis C screening for ag e 18-79 Completed 05/15/2016 Procedures Procedure Name Priority Date/Time Associated Diagnosis Comments EKG 12 LEAD Routine 10/01/2023 9:51 AM MULTIMEDIA PROJECT MANAGER Pericarditis, unspecified chronicity, unspecified type SCAN-CT INTERPRETATION 12:00 AM MULTIMEDIA PROJECT MANAGER SCAN-RADIOLOGY REPORT 09/08/2023 12:00 AM MULTIMEDIA PROJECT MANAGER ECHO TTE COMPLETE WO CONTRAST Routine 08/25/2023 1:15 PM MULTIMEDIA PROJECT MANAGER Atrial fibrillation with RVR (HC) SCAN-RADIOLOGY REPORT 08/25/2023 12:00 AM MULTIMEDIA PROJECT MANAGER SCAN-RADIOLOGY REPORT 08/24/2023 12:00 AM MULTIMEDIA PROJECT MANAGER SCAN-CT INTERPRETATION 12:00 AM MULTIMEDIA PROJECT MANAGER T4,FREE Routine 08/18/2023 4:42 PM MULTIMEDIA PROJECT MANAGER Paroxysmal atrial fibrillation (HC) CBC WITH AUTO DIFFERENTIAL Routine 08/18/2023 4:42 PM MULTIMEDIA PROJECT MANAGER Paroxysmal atrial fibrillation (HC) CBC WITH AUTO DIFFERENTIAL Routine 08/18/2023 4:42 PM MULTIMEDIA PROJECT MANAGER Paroxysmal atrial fibrillation (HC) TSH WITH REFLEX Routine 08/18/2023 4:42 PM MULTIMEDIA PROJECT MANAGER Paroxysmal atrial fibrillation (HC) SCAN-CT INTERPRETATION 12:00 AM MULTIMEDIA PROJECT MANAGER SCAN-RADIOLOGY REPORT 08/04/2023 12:00 AM MULTIMEDIA PROJECT MANAGER from Last 3 Months Results * EKG 12 LEAD (10/01/2023 9:51 AM MULTIMEDIA PROJECT MANAGER) Interpretation Sinus bradycardia Incomplete right bundle branch block Borderline ECG Ventricular Rate 56 BPM Atrial Rate 56 BPM P-R Interval 184 ms QRS Duration 98 ms QT 436 ms QTc 420 ms P [place] 34 degrees R [place] 12 degrees T [place] 35 degrees 10/01/2023 9:51 AM MULTIMEDIA PROJECT MANAGER 10/02/2023 1:39 PM MULTIMEDIA PROJECT MANAGER No Nettles MD EKG ORD * SCAN-RADIOLOGY REPORT (09/08/2023 12:00 AM MULTIMEDIA PROJECT MANAGER) Only the most recent of4 resultswithin the time period is included. Anatomical Region Laterality Modality Other Scanner OTHER * SCAN-CT INTERPRETATION (09/08/2023 12:00 AM MULTIMEDIA PROJECT MANAGER) Only the most recent of3 resultswithin the time period is included. Anatomical Region Laterality Modality Other Scanner OTHER * ECHO TTE COMPLETE WO CONTRAST (08/25/2023 1:15 PM MULTIMEDIA PROJECT MANAGER) AORTIC VALVE MEAN PG 4 mmHg EJECTION FRACTION 46 % LVEDD 5.1 cm EJECTION FRACTION 45 - 50% Anatomical Region Laterality Modality Ultrasound 08/25/2023 12:4 1 PM MULTIMEDIA PROJECT MANAGER Narrative 08/25/2023 2:21 PM MULTIMEDIA PROJECT MANAGER ECHOCARDIOGRAM ANTONIO MURGUIA ? Accession#: ?? [id number] : ?1960 63 years Study Date: ?? 08/25/2023 12:41:46 PM Gender: M ?BP: ? 131/96 mmHg Height: 178.00 cm ?BSA: ?2.20 m? ? ? Weight: 103.00 kg ?Tech: ? MHR ? Referring MD: LORENZA MARTIN Site: ? [facility] Reading Location: [facility] Patient Location: Inpatient. Procedure: 2D, Color Doppler [...] . This study was interpreted by an [facility] accredited facility. CC: HIM (med records) [facility], Med/Surg - IP [facility]. ??Final ?? Procedure Note Christofer Mcgraw MD - 08/25/2023 ECHOCARDIOGRAM ANTONIO MURGUIA : 1960 63 years Study Date: 08/25/2023 12:41:46 PM Gender: M BP: 131/96 mmHg Height: 178.00 cm BSA: 2.20 m? ? ? Weight: 103.00 kg Tech: MHR Referring MD: LORENZA MARTIN Site: [facility] Reading Location: [facility] Patient Location: Inpatient. Procedure: 2D, Color [...] . This study was interpreted by an [facility] accredited facility. CC: HIM (med records) [facility], Med/Surg - IP [facility]. Final Lorenza Martin MD ECHO ORD * (ABNORMAL) CBC WITH AUTO DIFFERENTIAL (08/18/2023 4:42 PM MULTIMEDIA PROJECT MANAGER) WHITE BLOOD COUNT 10.0 4.5 - 11.0 thou/cu mm 08/18/2023 4:47 PM [facility] RED BLOOD COUNT 4.27(L) 4.30 - 5.90 mil/cu mm 08/18/2023 4:47 PM [facility] HEMOGLOBIN 14.4 13.5 - 17.5 g/dL 08/18/2023 4:47 PM [facility] HEMATOCRIT 41.2 37.0 - 53.0 % 08/18/2023 4:47 PM [facility] MCV 97 80 - 100 fL 08/18/2023 4:47 PM [facility] MCH 33.7 26.0 - 34.0 pg 08/18/2023 4:47 PM [facility] MCHC 35.0 32.0 - 36.0 g/dL 08/18/2023 4:47 PM [facility] RDW 12.4 11.5 - 15.5 % 08/18/2023 4:47 PM [facility] PLATELET COUNT 287 140 - 440 thou/cu mm 08/18/2023 4:47 PM [facility] MPV 8.6 6.5 - 11.0 fL 08/18/2023 4:47 PM [facility] % NEUT 70.2 % 08/18/2023 4:47 PM [facility] % LYMPH 17.9 % 08/18/2023 4:47 PM [facility] % MONO 10.3 % 08/18/2023 4:47 PM [facility] % EOS 1.2 % 08/18/2023 4:47 PM [facility] % BASO 0.4 % 08/18/2023 4:47 PM [facility] ABSOLUTE NEUTROPHILS 7.0 1.7 - 7.0 thou/cu mm 08/18/2023 4:47 PM [facility] ABSOLUTE LYMPHOCYTES 1.8 0.9 - 2.9 thou/cu mm 08/18/2023 4:47 PM [facility] ABSOLUTE MONOCYTES 1.0(H) <0.9 thou/cu mm 08/18/2023 4:47 PM [facility] ABSOLUTE EOSINOPHILS 0.1 <0.5 thou/cu mm 08/18/2023 4:47 PM [facility] ABSOLUTE BASOPHILS 0.0 <0.3 thou/cu mm 08/18/2023 4:47 PM [facility] Blood BLOOD SPECIMEN / Unknown Venipuncture / Unknown 08/18/2023 4:42 PM MULTIMEDIA PROJECT MANAGER 08/18/2023 4:43 PM MULTIMEDIA PROJECT MANAGER Paramjit Riddle MD HEMATOLOGY [facility] [address] [place] [address] * (ABNORMAL) TSH WITH REFLEX (08/18/2023 4:42 PM MULTIMEDIA PROJECT MANAGER) TSH 6.95(H) 0.27 - 4.20 uIU/mL 08/18/2023 9:49 PM MULTIMEDIA PROJECT MANAGER [facility] Blood BLOOD SPECIMEN / Unknown Venipuncture / Unknown 08/18/2023 4:42 PM MULTIMEDIA PROJECT MANAGER 08/18/2023 4:43 PM MULTIMEDIA PROJECT MANAGER Narrative [facility] - 08/18/2023 9:49 PM MULTIMEDIA PROJECT MANAGER In Adults, TSH values between 5.00 and 10.00 uIU/ml do not necessarily indicate the presence of Hypothyroidism. Correlation with clinical findings such as presence of goiter and/or Thyroperoxidase (TPO) Antibody may be helpful. For more information please refer to RAMA 2004; 291: 228-238. Paramjit Riddle MD CHEMISTRY Performing Organization Address [facility]/ZIP Co de Phone Number [facility] [address] [place] [address], * T4,FREE (08/18/2023 4:42 PM MULTIMEDIA PROJECT MANAGER) T4,FREE 1.30 0.93 - 1.70 ng/dL 08/18/2023 10:46 PM MULTIMEDIA PROJECT MANAGER [facility] Blood BLOOD SPECIMEN / Unknown Venipuncture / Unknown 08/18/2023 4:42 PM MULTIMEDIA PROJECT MANAGER 08/18/2023 4:43 PM MULTIMEDIA PROJECT MANAGER Paramjit Riddle MD CHEMISTRY [facility] [address] [place] [address], from Last 3 Months Advance Directives Latest [...] Code Status Discussion: Not Discussed Care Teams Head Bone Grinder Relationship Specialty Start Date End Date [place] [address] PCP - General Family Practice 06/03/14
== END 2023-10-08 09:59 | disposition home or self-care (01) ==
PROVIDERS: PCP Surgery; Visit Provider Internal Medicine
DX: I31.9 Disease of pericardium, unspecified (principal); I31.39 Other pericardial effusion (noninflammatory)
CPT/HCPCS: 93306

== ENCOUNTER 2023-11-25 08:30 | Emergency (ER) | payer OTHER, SELFPAY ==
[2023-11-25 08:33] VITALS: BP 168/108; PULSE 54; RESP 18; TEMP 36.7; O2SAT 94; BMI 29.5
--- NOTE | 2023-11-25 09:00 | ED_ITS ---
HPI - Fall General Chief Complaint: Fall/Minor Trauma Stated Complaint: fall- ripped nail off Time Seen by Provider: 11/25/23 08:42 History of Present Illness HPI Narrative: This 63-year-old male comes in with an injury to his right thumb. He was taking out the garbage this morning and slipped on ice and fell. He has somehow cause injury to the proximal portion of the nail of his right thumb. This portion is pulled up away from the nail bed but the distal portion of the nail is intact. He did not hit his head or have loss of consciousness. He does have a small bruise on his right knee. He is taking Eliquis for history of atrial fibrillation. He does not report any headache. He was able to get up and ambulate without difficulty. He comes in primarily because of the injury to his right thumb. Related Data Home Medications Medication Instructions Recorded Confirmed mirtazapine 7.5 mg tablet 7.5 mg PO QPM 08/04/23 11/25/23 sertraline 25 mg tablet 50 mg PO DAILY 08/04/23 11/25/23 tamsulosin 0.4 mg capsule 0.4 mg PO DAILY 08/04/23 11/25/23 carvedilol 6.25 mg tablet 6.25 mg PO BID 08/24/23 09/08/23 gabapentin 300 mg capsule 300 mg PO BID 08/24/23 11/25/23 colchicine 0.6 mg tablet mg PO 11/25/23 Previous Rx's Medication Instructions Recorded apixaban 5 mg tablet (Eliquis) 5 mg PO BID #60 tabs 08/25/23 digoxin 250 mcg (0.25 mg) tablet 250 mcg PO DAILY #30 tabs 08/25/23 folic acid 1 mg tablet 1 mg PO DAILY #30 tabs 08/25/23 gabapentin 300 mg capsule 300 mg PO TID #30 caps 08/25/23 prednisone 50 mg tablet 50 mg PO DAILY #5 tabs 09/08/23 Allergies Allergy/AdvReac Type Severity Reaction Status Date / Time No Known Drug Allergies Allergy Verified 11/25/23 08:38 Review of Systems Status of ROS: Reports: 10 or more systems reviewed and unremarkable except as noted in History and below Narrative: Constitutional: No fevers, no weight gain or loss. Eyes: No discharge. No vision changes. HENT: No congestion, no sore throat, no ear pain. Cardiovascular: No chest pain. Respiratory: No shortness of breath, no wheezes, no cough. Gastrointestinal: No abdominal pain, no vomiting, no diarrhea. Genitourinary: No dysuria, no hematuria. Musculoskeletal: Normal range of motion. Skin: No rashes, no pruritis. Neurological: No dizziness, weakness, sensory change, speech change. Endo/Heme/Allergies: No bruising or bleeding. No polydipsia. Pysch: no suicidality, no anxiety, no insomnia. All other systems reviewed and are negative. [facility] Medical History Abnormal echocardiogram ?R93.1 - Abnormal findings on diagnostic imaging of heart and coronary circulation (ICD-10) COVID-19 (~08/04/23) ?U07.1 - COVID-19 (ICD-10) Nonischemic cardiomyopathy ?I42.8 - Other cardiomyopathies (ICD-10) Chronic obstructive pulmonary disease ?J44.9 - Chronic obstructive pulmonary disease, unspecified (ICD-10) Chronic insomnia ?F51.04 - Psychophysiologic insomnia (ICD-10) SONIA (obstructive sleep apnea) ?G47.33 - Obstructive sleep apnea (adult) (pediatric) (ICD-10) Closed fracture of hyoid bone ?S12.8XXA - Fracture of other parts of neck, initial encounter (ICD-10) Alcohol abuse ?F10.10 - Alcohol abuse, uncomplicated (ICD-10) Anxiety ?F41.9 - Anxiety disorder, unspecified (ICD-10) Adenomatous colon polyp ?D12.6 - Benign neoplasm of colon, unspecified (ICD-10) Dysthymia ?F34.1 - Dysthymic disorder (ICD-10) Esophageal reflux ?K21.9 - Gastro-esophageal reflux disease without esophagitis (ICD-10) Diverticulosis of colon (without mention of hemorrhage) ?K57.30 - Diverticulosis of large intestine without perforation or abscess without bleeding (ICD-10) BPH (benign prostatic hyperplasia) ?N40.0 - Benign prostatic hyperplasia without lower urinary tract symptoms (ICD-10) Paroxysmal atrial fibrillation ?I48.0 - Paroxysmal atrial fibrillation (ICD-10) Hypertension ?I10 - Essential (primary) hypertension (ICD-10) Surgical History History of partial colectomy ?Z90.49 - Acquired absence of other specified parts of digestive tract (ICD- 10) H/O esophagogastroduodenoscopy ?Z98.890 - Other specified postprocedural states (ICD-10) Hx of colonoscopy ?Z98.890 - Other specified postprocedural states (ICD-10) Family History Aunt Breast cancer Father Coronary artery disease Diabetes Blood clot in vein Sister Fibromyalgia Brother Blood clot in vein Social History Narrative: . Lives independently with . Three grown children. Drinks 5-6 glasses of vodka a day, 8oz vodka in each glass. Quit smoking in 2000. Smokes marijuana daily, sometimes several times a day. Last smoked marijuana today. Denies any other recreational drugs recently. Wishes to be FULL CODE. What is your current living situation?: I presently have a place to live Problems where you live: no known problems Problems where you live details: N/A In the past 12 months, utilities in danger of being shut off: no In past 12 months, lack of transportation kept you from medical appts, meetings, work, or getting things needed for daily living: no In the past 12 mos, have been you worried that your food would run out before you had money to buy more?: never true In the past 12 mos, the food you bought just didn't last and you didn't have money to buy more?: never true Smoking Status: Former smoker Do you use any of these nicotine containing products: None How often do you have a drink containing alcohol: 2-3 times a week Alcohol type: hard liquor How often do you have six or more drinks on one occasion: Weekly AUDIT-C Alcohol total score: 6 Non-prescribed substance use: marijuana (any form) Caffeine: No How often does anyone, including family, friends and others, physically hurt you : never How often does anyone, including family, friends and others, insult or talk down to you: never How often does anyone, including family, friends and others, threaten you with harm: never How often does anyone, including family, friends and others, scream or curse at you: never Gender Identity: male Exam Narrative: Exam Narrative: Constitutional: Well-developed, well-nourished, no acute distress. HEENT: Normocephalic, atraumatic. Neck: Normal range of motion. Nontender. Supple. Heart: Intact distal pulses. Lungs: No chest discomfort. No wheezes, rhonchi, or rales. Abdomen: Nontender. Back: Normal range of motion. Extremities: Normal range of motion. The proximal portion of the right thumbnail is dislodged from its bed and the distal portion is intact. There is a small amount of bleeding present. Skin: Intact. No rash. Warm. No erythema or pallor. Neurologic: No altered sensation. No weakness. Alert and oriented. Psychiatric: No suicidality. No anxiety or depression. No insomnia. Nursing notes and vitals signs are reviewed. Const: Vital Signs, click to edit/add: Vital Signs - 24 hr 11/25/23 08:33 Temperature 98.1 F Pulse Rate [Right Pulse Oximeter] 54 L Respiratory Rate 18 Blood Pressure [Ri ght Upper Arm] 168/108 H Pulse Oximetry 94 Oxygen Delivery Me thod Room Air Course Vital Signs Vital signs: Initial Vital Signs Temperature 98.1 F 11/25/23 08:33 Temperature Source Temporal Artery Scan 11/25/23 08:33 Pulse Rate 54 L 11/25/23 08:33 Pulse Rhythm Regular 11/25/23 08:33 Respiratory Rate 18 11/25/23 08:33 Blood Pressure 168/108 H 11/25/23 08:33 Blood Pressure Mean 128 H 11/25/23 08:33 Blood Pressure Position Semi-Fowlers 11/25/23 08:33 Pulse Oximetry 94 11/25/23 08:33 Oxygen Delivery Method Room Air 11/25/23 08:33 Vital Signs Temperature 98.1 F 11/25/23 08:33 Pulse Rate 54 L 11/25/23 08:33 Respiratory Rate 18 11/25/23 08:33 Blood Pressure 168/108 H 11/25/23 08:33 Pulse Oximetry 94 11/25/23 08:33 Oxygen Delivery Method Room Air 11/25/23 08:33 Temperature 98.1 F 11/25/23 08:33 Pulse Rate 54 L 11/25/23 08:33 Respiratory Rate 18 11/25/23 08:33 Blood Pressure 168/108 H 11/25/23 08:33 Pulse Oximetry 94 11/25/23 08:33 Oxygen Delivery Method Room Air 11/25/23 08:33 MDM - Fall MDM Narrative Medical decision making narrative: This patient comes in with an injury to his right thumb. He is on anticoagulants but is not showing any sign of bleeding and did not hit his head or have loss of consciousness. His right thumb nail is avulsed in its proximal portion but laying in rather good position. The nail itself is intact otherwise. I did offer to remove the nail but indicated that it is acceptable to allow the and new nail that will grow will push out the old 1 over time. The patient declined having his nail removed. A pressure dressing was applied with tube gauze. Instructions were given regarding wound care. Discharge Plan Discharge Clinical Impression: Avulsion of nail of right thumb Patient Disposition: Home, Self-Care Condition: Stable Additional Instructions: Keep wound clean and dry. Use Tylenol as needed and directed for pain relief. Follow up with MD return if worsening. Prescriptions: No Action tamsulosin 0.4 mg capsule 0.4 mg PO DAILY sertraline 25 mg tablet 50 mg PO DAILY Patient Comments: Patient now up to 50 mg daily mirtazapine 7.5 mg tablet 7.5 mg PO QPM colchicine 0.6 mg tablet PO carvedilol 6.25 mg tablet 6.25 mg PO BID gabapentin 300 mg capsule 300 mg PO BID gabapentin 300 mg Capsule 300 mg PO TID Qty: 30 0RF Eliquis 5 mg Tablet 5 mg PO BID Qty: 60 0RF folic acid 1 mg Tablet 1 mg PO DAILY Qty: 30 0RF digoxin 250 mcg (0.25 mg) tablet 250 mcg PO DAILY Qty: 30 2RF prednisone 50 mg tablet 50 mg PO DAILY Qty: 5 0RF Follow Up/Referrals: Blane Peres MD [Primary Care Provider] - Stand Alone Forms: [employer] Info Instructions
--- NOTE | 2023-11-25 09:06 | ED.NURSE ---
Pt right thumb wrapped with Telfa, gauze and tape.
== END 2023-11-25 09:15 | disposition home or self-care (01) ==
PROVIDERS: Emergency Provider Emergency Medicine Emergency Medical Services; PCP Surgery
DX: S61.101A Unspecified open wound of right thumb with damage to nail, initial encounter (principal); W00.0XXA Fall on same level due to ice and snow, initial encounter
CPT/HCPCS: 99283; 99284

== ENCOUNTER 2024-04-18 13:05 | Emergency (ER) | payer MEDICARE, SELFPAY ==
[2024-04-18 13:13] VITALS: BP 116/72; PULSE 56; RESP 18; TEMP 36.8; O2SAT 95; BMI 29.5
--- NOTE | 2024-04-18 14:06 | CRLHL7_ITS ---
For Patients: As a result of the Cures Act, medical imaging exams and procedure reports are released immediately into your electronic medical record. You may view this report before your referring provider. If you have questions, please contact your health care provider. INDICATION: Facial injury. TECHNIQUE: CT maxillofacial without contrast. COMPARISON: None. FINDINGS: Facial bones: No fractures or bone lesions. Specifically the nasal bones, temporomandibular joints, maxilla and mandible appear intact. Orbits and globes: Unremarkable. Globes are intact. No sign of intraorbital hemorrhage or emphysema. Sinuses: No acute or significant findings. Soft tissues: Unremarkable. IMPRESSION: No maxillofacial injury. Please note that all CT scans at this facility use dose modulation, iterative reconstruction, and/or weight-based dosing when appropriate to reduce radiation dose to as low as reasonably achievable. Dictated by Jaziel Ac MD @ 04/18/2024 2:42:08 PM (Electronically Signed)
--- NOTE | 2024-04-18 14:06 | CRLHL7_ITS ---
For Patients: As a result of the Century Cures Act, medical imaging exams and procedure reports are released immediately into your electronic medical record. You may view this report before your referring provider. If you have questions, please contact your health care provider. INDICATION: Fall 9 days ago with right lower rib pain TECHNIQUE: CT chest without contrast. COMPARISON: Chest CT 09/08/2023 FINDINGS: Lungs and pleura: New lobulated solid right middle lobe opacity measuring 2.4 x 4.4 cm (). Stable left upper lobe triangular opacity measuring 0.3 cm (), may represent a pulmonary lymph node. No pleural effusions, pleural thickening, or pneumothorax. Heart and vasculature: Heart size is normal. Thoracic aorta and pulmonary artery are normal in caliber. Lymph nodes/mediastinum: No mediastinal, hilar, or axillary adenopathy. Chest wall: No masses. Upper abdomen: No significant findings. Bones: Unremarkable for age. IMPRESSION: 1. New lobulated solid right middle lobe opacity is indeterminate and may be infectious/inflammatory, however imaging follow-up to resolution is recommended to exclude malignancy. 2. No acute fracture. Please note that all CT scans at this facility use dose modulation, iterative reconstruction, and/or weight-based dosing when appropriate to reduce radiation dose to as low as reasonably achievable. Dictated by Kellie Jauregui MD @ 04/18/2024 2:57:31 PM (Electronically Signed)
--- NOTE | 2024-04-18 14:06 | CRLHL7_ITS ---
For Patients: As a result of the Cures Act, medical imaging exams and procedure reports are released immediately into your electronic medical record. You may view this report before your referring provider. If you have questions, please contact your health care provider. INDICATION: Fall. TECHNIQUE: CT head without contrast. COMPARISON: August 24 2023. FINDINGS: CSF spaces: Within normal limits for age. Brain parenchyma and extra-axial spaces: Mild chronic white matter ischemic disease. The camara-white differentiation is normal. No sign of mass, hemorrhage, or midline shift. No extra-axial fluid collection. Skull base and calvarium: The visualized paranasal sinuses and mastoid air cells demonstrate no acute or significant findings. The visualized orbits are grossly unremarkable. No skull fractures. IMPRESSION: No acute intracranial abnormality. Please note that all CT scans at this facility use dose modulation, iterative reconstruction, and/or weight-based dosing when appropriate to reduce radiation dose to as low as reasonably achievable. Dictated by Jaizel Ac MD @ 04/18/2024 2:40:02 PM (Electronically Signed)
--- NOTE | 2024-04-18 14:06 | CRLHL7_ITS ---
For Patients: As a result of the Cures Act, medical imaging exams and procedure reports are released immediately into your electronic medical record. You may view this report before your referring provider. If you have questions, please contact your health care provider. INDICATION: Trauma. TECHNIQUE: CT cervical spine without contrast. COMPARISON: None. FINDINGS: Vertebrae: Alignment is normal. There are no fractures or suspicious bony lesions. Discs and facet joints: There are diffuse degenerative changes in the disc spaces and facet joints. Extraspinal findings: Paraspinous soft tissues are unremarkable. IMPRESSION: 1. No sign of acute injury. 2. Multilevel degenerative spondylosis. Please note that all CT scans at this facility use dose modulation, iterative reconstruction, and/or weight-based dosing when appropriate to reduce radiation dose to as low as reasonably achievable. Dictated by Jaziel Ac MD @ 04/18/2024 2:36:03 PM (Electronically Signed)
--- OUTSIDE RECORDS SUMMARY | 2024-04-18 14:17 | XMS_ITS | Clinical Summary ---
Author Organization [facility] Address [place], [place] [address] Care Team Providers Care Skiving Machine Operator Name Role Phone Blane Peres MD Primary Care Provider [phone] Allergies No known active allergies Medications Medication Sig Dispensed Refills Start Date End Date Status albuterol HFA (PRO-AIR; VENTOLIN; PROVENTIL) 90 mcg/actuation inhaler Inhale 1-2 Puffs by mouth every 4 hours if needed. 09/21/2020 Active fluticasone propion-salmeteroL (Advair Diskus) 250-50 mcg/Dose diskus inhalerIndications:C hronic obstructive pulmonary disease, unspecified COPD type (HC) Inhale 1 Puff by mouth two times daily. 08/18/2023 Active sildenafiL, pulm.hypertension, (REVATIO) 20 mg tabletIndications:Er ectile dysfunction, unspecified erectile dysfunction type Take 1 Tablet (20 mg) by mouth once daily if needed (sexual activity). Take 1-5 pills (start at lower dose and increase next time if needed) 30 mins prior to sexual intercourse 30 Tablet 1 09/03/2023 Active gabapentin (NEURONTIN) 300 mg capsuleIndications:H ip pain, left TAKE 1 CAPSULE(300 MG) BY MOUTH TWICE DAILY 60 Capsule 2 11/21/2023 Active colchicine 0.6 mg tabletIndications:Pe ricarditis, unspecified chronicity, unspecified type Take 1 Tablet (0.6 mg) by mouth two times daily. 180 Tablet 12/01/2023 Active sertraline (ZOLOFT) 50 mg tabletIndications:Ch ronic insomnia Take 1 Tablet (50 mg) by mouth once daily. 90 Tablet 3 01/28/2024 Active mirtazapine (REMERON) 7.5 mg tabletIndications:Ch ronic insomnia Take 1 pill orally at night 10 hours before planning on waking up 90 Tablet 3 01/28/2024 Active tamsulosin (FLOMAX) 0.4 mg capsuleIndications:B PH with urinary obstruction TAKE 1 CAPSULE(0.4 MG) BY MOUTH EVERY DAY AFTER A MEAL 90 Capsule 02/08/2024 Active atorvastatin (LIPITOR) 20 mg tabletIndications:Co ronary artery disease, unspecified vessel or lesion type, unspecified whether angina present, unspecified whether inaja or transplanted heart Take 1 Tablet (20 mg) by mouth once daily. 90 Tablet 2 02/05/2024 Active carvediloL (Coreg) 3.125 mg tabletIndications:Pa roxysmal atrial fibrillation (HC),Nonischemic cardiomyopathy (HC) Take 1 Tablet (3.125 mg) by mouth two times daily. 180 Tablet 3 02/05/2024 Active Eliquis 5 mg tabletIndications:Pa roxysmal atrial fibrillation (HC) Take 1 Tablet (5 mg) by mouth two times daily. 180 Tablet 3 02/05/2024 Active Active Problems Problem Noted Date Diagnosed Date Alcoholic intoxication without complication 10/29 Depression, recurrent 11/10/2023 Nonischemic cardiomyopathy 08/18/2023 Paroxysmal atrial fibrillation 02/25/2021 [...] Encounters Date Type Department Care Team Description 04/18/2024 Nurse Triage [address] [place] [address] Blane Peres MD Head Injury 02/05/2024 8:30 AM CDT Office Visit [facility] [address] [place] [address] Antoine Gardner MD CV General Cardiology Est (2 MO GEN CARD F/U /DX:I48.0 (ICD-10-CM) - Paroxysmal atrial fibrillation (HC) /I42.8 (ICD-10-CM) - Nonischemic cardiomyopathy (HC) /I31.9 (ICD-10-CM) - Pericarditis, unspecified chronicity, unspecified type //PCP: Blane Peres MD/) 02/05/2024 Refill [facility] [address] [place] [address] Fabian Samson MD Refill Request (MIRTAZAPINE 7.5MG) 02/05/2024 Travel 02/05/2024 Refill [facility] [address] [place] [address] Farida Sanderson DO Refill Request (Tamsulosin) 01/28/2024 9:00 AM CDT Telemedicine [facility] [address] [place] [address] Fabian Samson MD Telehealth (Sleep follow up-medication management/) from Last 3 Months Immunizations Name Administration [...] Alcohol Use Standard Drinks/Week Comments Not Currently 10 (1 standard drink = 0.6 oz pu re alcohol) PHQ-2 Answer Date Recorded PHQ-2 TOTAL SCORE [...] Sign Reading Time Taken Comments Blood Pressure 138/85 02/05/2024 8:43 AM CDT Pulse 71 02/05/2024 8:43 AM CDT Temperature 36.7 ??C (98.1 ??F) 12/14/2023 4:25 PM CD T Respiratory Rate 21 12/14/2023 4:25 PM CDT Oxygen Saturation 92% 02/05/2024 8:43 AM CDT Inhaled Oxygen Concentration - - Weight 91.4 kg (201 lb 8 oz) 02/05/2024 8:43 AM CDT Height 175.3 cm (5' 9.02) 02/05/2024 8:43 AM CD T Body Mass Index 29.74 02/05/2024 8:43 AM CDT Plan of Treatment Health Maintenance Due Date Last Done Comments Pneumococcal series for age 65+ (1 of 2 - PCV) 1965 HIV for age 15-65 1974 Zoster (shingles) series for age 50+ (1 of 2) 2009 Depression screening for age 12+ 04/25/2022 04/25/2021, 01/04/2021, 01/01/2021, Additional history exists COVID-19 vaccine series ( season) 2023 05/22/2022, 01/18/2021, 12/20/2020 Lipids for age 45-75 10/05/2023 10/05/2018, 07/17/2017, 05/15/2016, Additional history exists Colonoscopy through age 75 11/17/202311/16, 11/15/2018, 11/15/2018, Additional history exists AAA screening age 65-74 2024 Influenza for age 65+ 05/01/2024 BMI (ht and wt on same day) for age 18+ 02/04/2025 02/05/2024, 12/01/2023, 11/10/2023, Additional history exists Tetanus booster 10/05/2028 10/05/2018, 03/01/2008 Tdap Completed 03/01/2008 Hepatitis C screening for ag e 18-79 Completed 05/15/2016 Procedures Procedure Name Priority Date/Time Associated Diagnosis Comments COLONOSCOPY SCREENING Routine 11/16/2018 12:00 PM CDT History of colon polyps LIPID PANEL Routine 10/05/2018 9:06 AM [facility] Screening, lipid ANTI HCV Routine 05/15/2016 2:38 PM CDT Need for hepatitis C screening test from Last 3 Months or Most Recently Relevant to Health Maintenance Results * COLONOSCOPY SCREENING (11/16/2018 12:00 PM CDT) Blane Peres MD GI PROCEDURE ORD * (ABNORMAL) LIPID PANEL (10/05/2018 9:06 AM [facility]) CHOLESTEROL,TOTAL 214(H) 100 - 199 mg/dL 10/05/2018 1:35 PM [facility] TRIGLYCERIDES 423(H) <150 mg/dL 10/05/2018 1:35 PM [facility] HDL CHOLESTEROL 52 >40 mg/dL 9 1:[address] [facility] [employer] [facility] NON-HDL CHOLESTEROL 162(H) <145 mg/dl 10/05/2018 1:[address] [facility] [employer] [facility] CHOL/HDL RATIO 4.12 <4.50 10/05/2018 1:35 PM [facility] LDL CHOLESTEROL 9 1:35 PM [facility] Comment:Invalid LDL when Tri g >400. PROVIDER ORDERED STATUS RANDOM 10/05/2018 1:35 PM [facility] Blood BLOOD SPECIMEN / Unknown Venipuncture / Unknown 10/05/2018 9:06 AM [facility] 10/05/2018 9:06 AM [facility] Blane Peres MD CHEMISTRY Performing Organization Address City/[facility]/ZIP Co de Phone Number [facility] [address] [place] [address], * ANTI HCV [08340.2] (05/15/2016 2:38 PM CDT) HEPATITIS C ANTIBODY Non-Reacti ve Non-Reacti ve 05/15/2016 8:09 PM CDT [facility] Blood BLOOD SPECIMEN / Unknown Venipuncture / Unknown 05/15/2016 2:38 PM CDT 05/15/2016 2:38 PM CDT Narrative [facility] - 05/15/2016 8:09 PM CDT Antibodies to HCV not detected; does not exclude the possibility of exposure to HCV. Blane Peres MD SEND OUTS Performing Organization Address [facility] Co de Phone Number [facility] [address] [place] [address], from Last 3 Months or Most Recently Relevant to Health Maintenance Advance Directives * Full Code (Latest Code Status on File) Date Activated Date Inactivated Comments 01/04/2021 12:57 PM 01/04/2021 4:58 PM Question Answer Comments Code Status Discussion: Not Discussed * Full Code Date Activated Date Inactivated Comments 01/04/2021 12:57 PM 01/04/2021 12:57 PM Question Answer Comments Code Status Discussion: Not Discussed * Full Code Date Activated Date Inactivated Comments 01/04/2021 12:57 PM 01/04/2021 12:57 PM Question Answer Comments Code Status Discussion: Not Discussed Care Teams Skiving Machine Operator Relationship Specialty Start Date End Date Blane Peres MD [address] [place] [address] PCP - General Family Practice 06/03/14
--- NOTE | 2024-04-18 14:48 | ED.FALL ---
HPI - Fall General Chief Complaint: Fall/Minor Trauma Stated Complaint: bruising, skin condition Time Seen by Provider: 04/18/24 13:44 Source: patient Mode of arrival: ambulatory Limitations: no limitations History of Present Illness HPI Narrative: Patient is a 64-year-old male presenting to the emergency department after a fall. He states 9 days ago he suddenly passed out while walking. He states he feels like he woke back up immediately after he fell. This falls with by family and they states he was acting normally after the fall. He does states he was was dealing with some viral illnesses at that time and has been having several episodes of lightheadedness. Has had 1 more episode since this fall but has not passed out at all. He feels like he is improving from the viral illness but does note he feels like he has something in his chest but denies any pain or shortness of breath. He was mostly concerned today because of increased bruising seen to his right thigh that is tender. Denies headache, vision changes, weakness, numbness, abdominal pain. Does have pain in his right lower lateral ribs that are tender but to palpation in hurt when he takes a deep breath but denies any midsternal chest pain. He is on Eliquis for a flutter. Related Data Home Medications ?Medication ?Instructions ?Recorded ?Confirmed mirtazapine 7.5 mg tablet 7.5 mg PO QPM 08/04/23 04/18/24 sertraline 25 mg tablet 50 mg PO DAILY 08/04/23 04/18/24 tamsulosin 0.4 mg capsule 0.4 mg PO DAILY 08/04/23 04/18/24 carvedilol 6.25 mg tablet 3.125 mg PO BID 08/24/23 04/18/24 gabapentin 300 mg capsule 300 mg PO BID 08/24/23 04/18/24 colchicine 0.6 mg tablet mg PO 11/25/23 atorvastatin 20 mg tablet 20 mg PO DAILY 04/18/24 04/18/24 Previous Rx's ?Medication ?Instructions ?Recorded apixaban 5 mg tablet (Eliquis) 5 mg PO BID #60 tabs 08/25/23 digoxin 250 mcg (0.25 mg) tablet 250 mcg PO DAILY #30 tabs 08/25/23 folic acid 1 mg tablet 1 mg PO DAILY #30 tabs 08/25/23 gabapentin 300 mg capsule 300 mg PO TID #30 caps 08/25/23 prednisone 50 mg tablet 50 mg PO DAILY #5 tabs 09/08/23 amoxicillin 875 mg-potassium 1 tab PO BID #10 tabs 04/18/24 clavulanate 125 mg tablet oxycodone 5 mg tablet 5 mg PO Q6H PRN pain #12 tabs 04/18/24 Allergies Allergy/AdvReac Type Severity Reaction Status Date / Time No Known Drug Allergies Allergy Verified 04/18/24 13:20 Review of Systems Status of ROS: Reports: 10 or more systems reviewed and unremarkable except as noted in History and below [facility] Medical History Abnormal echocardiogram ?R93.1 - Abnormal findings on diagnostic imaging of heart and coronary circulation (ICD-10) COVID-19 (~08/04/23) ?U07.1 - COVID-19 (ICD-10) Nonischemic cardiomyopathy ?I42.8 - Other cardiomyopathies (ICD-10) Chronic obstructive pulmonary disease ?J44.9 - Chronic obstructive pulmonary disease, unspecified (ICD-10) Chronic insomnia ?F51.04 - Psychophysiologic insomnia (ICD-10) SONIA (obstructive sleep apnea) ?G47.33 - Obstructive sleep apnea (adult) (pediatric) (ICD-10) Closed fracture of hyoid bone ?S12.8XXA - Fracture of other parts of neck, initial encounter (ICD-10) Alcohol abuse ?F10.10 - Alcohol abuse, uncomplicated (ICD-10) Anxiety ?F41.9 - Anxiety disorder, unspecified (ICD-10) Adenomatous colon polyp ?D12.6 - Benign neoplasm of colon, unspecified (ICD-10) Dysthymia ?F34.1 - Dysthymic disorder (ICD-10) Esophageal reflux ?K21.9 - Gastro-esophageal reflux disease without esophagitis (ICD-10) Diverticulosis of colon (without mention of hemorrhage) ?K57.30 - Diverticulosis of large intestine without perforation or abscess without bleeding (ICD-10) BPH (benign prostatic hyperplasia) ?N40.0 - Benign prostatic hyperplasia without lower urinary tract symptoms (ICD-10) Paroxysmal atrial fibrillation ?I48.0 - Paroxysmal atrial fibrillation (ICD-10) Hypertension ?I10 - Essential (primary) hypertension (ICD-10) Surgical History History of partial colectomy ?Z90.49 - Acquired absence of other specified parts of digestive tract (ICD-10) H/O esophagogastroduodenoscopy ?Z98.890 - Other specified postprocedural states (ICD-10) Hx of colonoscopy ?Z98.890 - Other specified postprocedural states (ICD-10) Family History Aunt Breast cancer Father Coronary artery disease Diabetes Blood clot in vein Sister Fibromyalgia Brother Blood clot in vein Social History Narrative: . Lives independently with . Three grown children. Drinks 5-6 glasses of vodka a day, 8oz vodka in each glass. Quit smoking in 2000. Smokes marijuana daily, sometimes several times a day. Last smoked marijuana today. Denies any other recreational drugs recently. Wishes to be FULL CODE. What is your current living situation?: I presently have a place to live Problems where you live: no known problems Problems where you live details: N/A In the past 12 months, utilities in danger of being shut off: no In past 12 months, lack of transportation kept you from medical appts, meetings, work, or getting things needed for daily living: no In the past 12 mos, have been you worried that your food would run out before you had money to buy more?: never true In the past 12 mos, the food you bought just didn't last and you didn't have money to buy more?: never true Smoking Status: Former smoker Do you use any of these nicotine containing products: None Second hand tobacco smoke exposure: No How often do you have a drink containing alcohol: 2-3 times a week Alcohol type: hard liquor How many standard drinks containing alcohol do you have on a typical day: 3 or 4 How often do you have six or more drinks on one occasion: Weekly AUDIT-C Alcohol total score: 7 Non-prescribed substance use: marijuana (any form) Caffeine: No How often does anyone, including family, friends and others, physically hurt you: never How often does anyone, including family, friends and others, insult or talk down to you: never How often does anyone, including family, friends and others, threaten you with harm: never How often does anyone, including family, friends and others, scream or curse at you: never Gender Identity: male service: No Exam Narrative: Exam Narrative: Const: Well-nourished, Well-developed, in mild distress Eyes: PERRL, no conjunctival injection, and symmetrical lids HENT: Atraumatic external nose and ears. Moist mucous membranes. Bruising noted just below right eye Neck: Symmetric, trachea midline, No thyromegaly. CVS: RRR, No murmurs or gallops. Peripheral pulses 2+ and equal in all extremities RESP: Unlabored respiratory effort. Clear to auscultation bilaterally. GI: Nontender/Nondistended, No rebound or guarding. MSK:Extremities w/o deformity, Normal Active ROM, large amount of bruising seen to the right upper half of the thigh. No midline spinal tenderness Skin: Warm, Dry. No rashes or lesions. Neuro: Normal Muscle tone, No focal neurological deficits. Psych: Awake, Alert, & Oriented x3. Appropriate mood and affect. Const: Vital Signs, click to edit/add: Vital Signs - 24 hr 04/18/24 13:13 Temperature 98.2 F Pulse Rate [Pulse Oximeter] 56 L Respiratory Rate 18 Blood Pressure [Ri ght Upper Arm] 116/72 Pulse Oximetry 95 Oxygen Delivery Me thod Room Air Course Vital Signs Vital signs: Initial Vital Signs Temperature 98.2 F 04/18/24 13:13 Temperature Source Temporal Artery Scan 04/18/24 13:13 Pulse Rate 56 L 04/18/24 13:13 Respiratory Rate 18 04/18/24 13:13 Blood Pressure 116/72 04/18/24 13:13 Blood Pressure Mean 86 04/18/24 13:13 Blood Pressure Position Sitting 04/18/24 13:13 Pulse Oximetry 95 04/18/24 13:13 Oxygen Delivery Method Room Air 04/18/24 13:13 Vital Signs Temperature 98.2 F 04/18/24 13:13 Pulse Rate 56 L 04/18/24 13:13 Respiratory Rate 18 04/18/24 13:13 Blood Pressure 116/72 04/18/24 13:13 Pulse Oximetry 95 04/18/24 13:13 Oxygen Delivery Method Room Air 04/18/24 13:13 Temperature 98.2 F 04/18/24 13:13 Pulse Rate 56 L 04/18/24 13:13 Respiratory Rate 18 04/18/24 13:13 Blood Pressure 116/72 04/18/24 13:13 Pulse Oximetry 95 04/18/24 13:13 Oxygen Delivery Method Room Air 04/18/24 13:13 MDM - Fall MDM Narrative Medical decision making narrative: Patient is 64-year-old male presenting to the emergency department for evaluation of a hematoma after fall that occurred [address] scan of his head, facial bones, cervical spine, chest. Is not having any midline spinal tenderness are abdominal pain and do not believe imaging of the abdomen and pelvis is necessary at this time. There is bruising to his right anterior upper thigh but I do not believe an x-ray would be beneficial at this time as I really do not believe he has any fractures. I will ultrasound the area with some point of care ultrasound. This was done and I do see hematoma in the area and there is small amounts of blood seen to the rest of the bruised area but no no other hematomas other than the main 1. Will also order a CBC, BMP, EKG, COVID/flu/RSV. CT scans return and they do not show any concerning abnormalities other than something in the right middle lobe of his chest. This is relatively consistent with where his pain is in after speaking to him again he does feel like the stated the pain is deeper than the ribs. This could be a contusion but could also be a developing pneumonia as he did have this recent viral syndrome. Lab work all returned showing no concerning abnormalities. Do not believe a repeat troponin is necessary as this happened 9 days ago but I will do orthostatic blood pressures. I spoke to him and his about starting on antibiotics versus watching and waiting at this time we will like to start on antibiotics which is reasonable. He orthostatic blood pressure show his blood pressure dropped from 154 systolic to 134 systolic between lying/sitting to standing but he was asymptomatic at this time. I do not believe this is a at concern at this time. 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 This bradycardia likely started after he had the ablation done for his a flutter. He is asking for some pain medication for sleeping oxycodone was prescribed. Do not want to prescribe any NSAIDs as they can cause worsening bleeding. He will be discharged he is agreeable to this plan. Lab Data Labs: Lab Results 04/18/24 04/18/24 Range/Units 14:25 14:40 WBC 7.22 (4.50-11.00) K/uL RBC 4.48 (4.30-5.90) m/uL Hgb 13.6 (13.5-17.5) gm/dL Hct 41.6 (37.0-53.0) % MCV 93 (80-100) fL MCH 30 (26-34) pg MCHC 33 (32-36) gm/dL RDW Coeff of Nafisa 13.5 (11.5-15.5) % Plt Count 247 (140-440) K/uL Neut % (Auto) 61.7 (42.0-72.0) % Lymph % (Auto) 24.0 (20-44) % [place] % (Auto) 10.0 (0.0-11.0) % Eos % (Auto) 2.8 (0.0-7.0) % Baso % (Auto) 0.4 (0.0-3.0) % Neut # (Auto) 4.46 (1.7-7.0) K/uL Lymph # (Auto) 1.73 (0.90-2.90) K/uL [place] # (Auto) 0.70 (0.00-0.90) K/UL Eos # (Auto) 0.20 (0.00-0.50) K/uL Baso # (Auto) 0.03 (0.00-0.30) K/uL Abs Immat Gran (auto) 0.08 (0.00-0.30) K/uL Imm/Tot Granulo (auto) 1.1 % Sodium 138 (135-149) mmol/L Potassium 4.4 (3.6-5.1) mmol/L Chloride 106 (96-114) mmol/L Carbon Dioxide 27 (20-32) mmol/L Anion Gap 5 L (7-15) mEq/L BUN 15 (7-30) mg/dL Creatinine 0.9 (0.5-1.5) mg/dL Estimated Creat Clear 73.65 Estimated GFR 95 ml/min Glucose 97 (60-115) mg/dL Calcium 9.2 (8.4-10.6) mg/dL Troponin I < 0.01 L (0.01-0.04) ng/mL SARS-CoV-2 (PCR) Negative SARS-CoV-2 (Negative) Influenza Type A (PCR) Negative PCR FLU A (Negative) Influenza Type B (PCR) Negative PCR FLU B (Negative) RSV (PCR) Negative PCR RSV (Negative) Imaging Data CT scan head: Attestation: I have reviewed the pertinent imaging results. Radiologist's impression: No acute intracranial abnormality. Please note that all CT scans at this facility use dose modulation, iterative reconstruction, and/or weight-based dosing when appropriate to reduce radiation dose to as low as reasonably achievable. Dictated by Jaziel Ac MD @ 04/18/2024 2:40:[address] scan face: Attestation: I have reviewed the pertinent imaging results. Radiologist's impression: No maxillofacial injury. Please note that all CT scans at this facility use dose modulation, iterative reconstruction, and/or weight-based dosing when appropriate to reduce radiation dose to as low as reasonably achievable. Dictated by Jaziel Ac MD @ 04/18/2024 2:42:[address] scan cervical spine: Attestation: I have reviewed the pertinent imaging results. Radiologist's impression: 1. No sign of acute injury. 2. Multilevel degenerative spondylosis. Please note that all CT scans at this facility use dose modulation, iterative reconstruction, and/or weight-based dosing when appropriate to reduce radiation dose to as low as reasonably achievable. Dictated by Jaziel Ac MD @ 04/18/2024 2:36:[address] scan chest: Attestation: I have reviewed the pertinent imaging results. Radiologist's impression: 1. New lobulated solid right middle lobe opacity is indeterminate and may be infectious/inflammatory, however imaging follow-up to resolution is recommended to exclude malignancy. 2. No acute fracture. Please note that all CT scans at this facility use dose modulation, iterative reconstruction, and/or weight-based dosing when appropriate to reduce radiation dose to as low as reasonably achievable. Dictated by Kellie Jauregui MD @ 04/18/2024 2:57:31 PM ECG Data Attestation: I personally reviewed and interpreted this ECG as follows: Prior ECG tracings: available for review Interpretation: Sinus bradycardia rate 45 beats per minute, incomplete right bundle branch block, normal RI interval, normal QTC, no ST or T-wave abnormalities Discharge Plan Discharge Clinical Impression: Hematoma Pneumonia Qualifiers: Pneumonia type: due to unspecified organism Laterality: right Lung location: middle lobe of lung Qualified Code(s): J18.9 - Pneumonia, unspecified organism Patient Disposition: Home, Self-Care Condition: Stable Instructions: Pneumonia (ED), Hematoma (ED) Additional Instructions: The hematoma should slowly improve on its own. 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 I will treat you for possible pneumonia but you need to follow-up with your primary care provider to make sure this area is getting better because been CT definitively rule out tumor at this time. Return to emergency department for new or worsening symptoms. take the oxycodone as needed for pain. Prescriptions: New amoxicillin-pot clavulanate 875-125 mg tablet 1 tab PO BID Qty: 10 0RF oxycodone 5 mg tablet 5 mg PO Q6H PRN (Reason: pain) Qty: 12 0RF No Action tamsulosin 0.4 mg capsule 0.4 mg PO DAILY sertraline 25 mg tablet 50 mg PO DAILY Patient Comments: Patient now up to 50 mg daily mirtazapine 7.5 mg tablet 7.5 mg PO QPM colchicine 0.6 mg tablet PO atorvastatin 20 mg tablet 20 mg PO DAILY carvedilol 6.25 mg tablet 3.125 mg PO BID gabapentin 300 mg capsule 300 mg PO BID gabapentin 300 mg Capsule 300 mg PO TID Qty: 30 0RF Eliquis 5 mg Tablet 5 mg PO BID Qty: 60 0RF folic acid 1 mg Tablet 1 mg PO DAILY Qty: 30 0RF digoxin 250 mcg (0.25 mg) tablet 250 mcg PO DAILY Qty: 30 2RF prednisone 50 mg tablet 50 mg PO DAILY Qty: 5 0RF Follow Up/Referrals: Blaen Peres MD [Primary Care Provider] - Stand Alone Forms: [employer] [facility] Info Instructions
[2024-04-18 14:53] LABS: Basophils Percent Auto 0.4 % (0.0-3.0); Eosinophils Percent Auto 2.8 % (0.0-7.0); Hematocrit 41.6 % (37.0-53.0); Hemoglobin* 13.6 gm/dL (13.5-17.5); Mean Corpuscular HGB Conc 33 gm/dL (32-36); Mean Corpuscular Hemoglobin 30 pg (26-34); Mean Corpuscular Volume 93 fL (80-100); Neutrophils Percent Auto 61.7 % (42.0-72.0); Platelet Count* 247 K/uL (140-440); RDW Coefficient of Variation % 13.5 % (11.5-15.5); Red Blood Count 4.48 m/uL (4.30-5.90); White Blood Count* 7.22 K/uL (4.50-11.00)
[2024-04-18 14:54] LABS: Basophils Absolute Auto 0.03 K/uL (0.00-0.30); Immature Granulocytes Abs Auto 0.08 K/uL (0.00-0.30); Immature Granulocytes Pct Auto 1.1 %; Lymphocytes Absolute Auto 1.73 K/uL (0.90-2.90); Neutrophils Absolute Auto 4.46 K/uL (1.7-7.0)
[2024-04-18 15:08] LABS: Chloride* 106 mmol/L (96-114); Potassium* 4.4 mmol/L (3.6-5.1); Sodium* 138 mmol/L (135-149)
[2024-04-18 15:09] LABS: Slide Review Reflex No
[2024-04-18 15:10] LABS: Creatinine* 0.9 mg/dL (0.5-1.5); Est. Creatinine Clearance* 73.65; Estimated Glomerular Filt Rate 95 ml/min
[2024-04-18 15:11] LABS: Anion Gap 5 mEq/L (7-15); Blood Urea Nitrogen* 15 mg/dL (7-30); Carbon Dioxide* 27 mmol/L (20-32); Glucose* 97 mg/dL (60-115)
[2024-04-18 15:12] LABS: Calcium* 9.2 mg/dL (8.4-10.6)
[2024-04-18 15:24] LABS: Troponin I* < 0.01 ng/mL (0.01-0.04)
[2024-04-18 15:26] LABS: PCR FLU A Negative PCR FLU A (Negative); PCR FLU B Negative PCR FLU B (Negative); PCR RSV Negative PCR RSV (Negative); SARS PCR* Negative SARS-CoV-2 (Negative)
[2024-04-18 15:52] VITALS: BP 134/83; BP 154/103; BP 154/87; PULSE 46; PULSE 58; PULSE 65
== END 2024-04-18 16:06 | disposition home or self-care (01) ==
PROVIDERS: Emergency Provider Student in an Organized Health Care Education/Training Program; PCP Surgery
DX: S70.11XA Contusion of right thigh, initial encounter (principal); J18.9 Pneumonia, unspecified organism; W19.XXXA Unspecified fall, initial encounter
CPT/HCPCS: 36415; 70450; 70486; 71250; 72125; 80048; 84484; 85025; 87631; 93005; 99283; 99284; 99285

== ENCOUNTER 2024-05-16 09:49 | Emergency (ER) | payer MEDICARE, BC, SELFPAY ==
--- OUTSIDE RECORDS SUMMARY | 2024-05-16 09:52 | XMS_ITS | Clinical Summary ---
Author Organization [facility] Address [place], [place] [address] Care Team Providers Care Solderer Name Role Phone Blane Peres MD Primary Care Provider [phone] Allergies No known active allergies Medications Medication Sig Dispensed Refills Start Date End Date Status sildenafiL, pulm.hypertension, (REVATIO) 20 mg tabletIndications: Erectile dysfunction, unspecified erectile dysfunction type Take 1 Tablet (20 mg) by mouth once daily if needed (sexual activity). Take 1-5 pills (start at lower dose and increase next time if needed) 30 mins prior to sexual intercourse 30 Tablet 1 4 Active sertraline (ZOLOFT) 50 mg tabletIndications: Chronic insomnia Take 1 Tablet (50 mg) by mouth once daily. 90 Tablet 3 4 Active mirtazapine (REMERON) 7.5 mg tabletIndications: Chronic insomnia Take 1 pill orally at night 10 hours before planning on waking up 90 Tablet 3 4 Active atorvastatin (LIPITOR) 20 mg tabletIndications: Coronary artery disease, unspecified vessel or lesion type, unspecified whether angina present, unspecified whether [place] or transplanted heart Take 1 Tablet (20 mg) by mouth once daily. 90 Tablet 2 4 Active carvediloL (Coreg) 3.125 mg tabletIndications: Paroxysmal atrial fibrillation (HC),Nonischemic cardiomyopathy (HC) Take 1 Tablet (3.125 mg) by mouth two times daily. 180 Tablet 3 4 Active Eliquis 5 mg tabletIndications: Paroxysmal atrial fibrillation (HC) Take 1 Tablet (5 mg) by mouth two times daily. 180 Tablet 3 4 Active albuterol HFA (PRO-AIR; VENTOLIN; PROVENTIL) 90 mcg/actuation inhalerIndications :Chronic obstructive pulmonary disease, unspecified COPD type (HC) Inhale 1-2 Puffs by mouth every 4 hours if needed for Shortness Of Breath or Wheezing. 16 g 3 4 Active gabapentin (NEURONTIN) 300 mg capsuleIndications :Hip pain, left Take 1 Capsule (300 mg) by mouth three times daily. 90 Capsule 1 4 Active tamsulosin (FLOMAX) 0.4 mg capsuleIndications :BPH with urinary obstruction TAKE 1 CAPSULE(0.4 MG) BY MOUTH EVERY DAY AFTER A MEAL 30 Capsule 4 Active albuterol HFA (PRO-AIR; VENTOLIN; PROVENTIL) 90 mcg/actuation inhaler Inhale 1-2 Puffs by mouth every 4 hours if needed. 1 024 Discontinued(Re order (E-cancel not sent)) fluticasone propion-salmeteroL (Advair Diskus) 250-50 mcg/Dose diskus inhalerIndications :Chronic obstructive pulmonary disease, unspecified COPD type (HC) Inhale 1 Puff by mouth two times daily. 3 024 Discontinued(*P atient states no longer taking) gabapentin (NEURONTIN) 300 mg capsuleIndications :Hip pain, left TAKE 1 CAPSULE(300 MG) BY MOUTH TWICE DAILY 60 Capsule 2 4 024 Discontinued colchicine 0.6 mg tabletIndications: Pericarditis, unspecified chronicity, unspecified type Take 1 Tablet (0.6 mg) by mouth two times daily. 180 Tablet 4 024 Discontinued(*P atient states no longer taking) tamsulosin (FLOMAX) 0.4 mg capsuleIndications :BPH with urinary obstruction TAKE 1 CAPSULE(0.4 MG) BY MOUTH EVERY DAY AFTER A MEAL 90 Capsule 4 024 Discontinued gabapentin (NEURONTIN) 300 mg capsuleIndications :Hip pain, left TAKE 1 CAPSULE(300 MG) BY MOUTH TWICE DAILY 60 Capsule 4 024 Discontinued(*M edication adjustment) Active Problems Problem Noted Date Diagnosed Date Alcoholic intoxication without complication 10/29 Depression, recurrent 11/10/2023 Nonischemic cardiomyopathy 08/18/2023 Paroxysmal atrial fibrillation 02/25/2021 Chronic obstructive pulmonary disease 10/12/2020 Chronic insomnia 10/17/2019 SONIA 08/10/2019 AHI-36 08/15/2019 Closed fracture of hyoid bone 08/27/2015 Hypertension 03/16/2014 Alcohol abuse, in remission 03/16/2014 Anxiety 12/01/2013 Adenomatous colon polyp 06/06/2013 Overview (11/16/2018): Colonoscopy 05/2013 polyp repeat in 5 years Colonoscopy 10/2018 polyp, repeat in 5 years Dysthymia 04/12/2012 Diverticulosis of colon (without mention of hemo rrhage) 01/09/2009 Overview (01/09/2009): Colonoscopy 12/2008 diverticulosis repeat in 10 years Esophageal reflux 01/09/2009 Overview (01/09/2009): EGD 12/2008 reflux Encounters Date Type Department Care Team Description 05/11/2024 Refill [facility] [place] [address] Blane Peres MD Refill Request (Tamsulosin) 05/08/[address] [address] Farida Sanderson DO Refill Request (Tamsulosin) 05/06/2024 11:30 AM CDT Ancillary Procedure [address] [place] [address] 05/06/2024 10:05 AM CDT Office Visit [address] [place] [address] Blane Peres MD Hip Pain/problem (Left hip pain/Started to come back about 6 months ago/No injury/Has been on going /Waking him up in the middle of the night) 05/06/2024 Travel 04/26/2024 Telephone [facility] [address] [place] [address] Blane Peres MD Appointment 04/25/2024 Refill [facility] [address] [place] [address] Blane Peres MD Refill Request (Gabapentin) 04/18/2024 Orders Only [facility] Scanner 1 scan: (1-Ord) [facility], CT CHEST WO CONTRAST, 04/18/2024 04/18/2024 Orders Only [facility] Scanner 1 scan: (1-Ord) [place], CT FACIAL BONES WO CON, 04/18/2024 04/18/2024 Orders Only [facility] Scanner 1 scan: (1-Ord) [facility], CT HEAD/BRAIN WO CON , 04/18/2024 04/18/2024 Orders Only [facility] Scanner 1 scan: (1-Ord) [facility], CERVICAL SPINE W/O CONT, 04/18/2024 04/18/2024 Nurse Triage [facility] [address] [place] [address] Blane Peres MD Head Injury from Last 3 Months Immunizations Name Administration Dates Next Due COVID-19 vaccine (Moderna 100mcg/0.5mL) EVITA JOYA 01/18/2021,12/20/2020 Td (Age >=7 Years) 10/05/2018 Tdap 05/02/2024,03/01/2008 Family History Medical History Relation Name Comments [...] Given: Yes Alcohol Use Standard Drinks/Week Comments Yes 10 (1 standard drink = 0.6 oz pu re alcohol) PHQ-2 Answer Date Recorded PHQ-2 TOTAL SCORE 0 05/06/2024 Social Connections Answer Date Recorded Frequency of [...] Sign Reading Time Taken Comments Blood Pressure 129/78 05/06/2024 10:14 AM CDT Pulse 67 05/06/2024 10:14 AM CDT Temperature 36.7 ??C (98.1 ??F) 12/14/2023 4:25 PM CD T Respiratory Rate 21 12/14/2023 4:25 PM CDT Oxygen Saturation 98% 05/06/2024 10:14 AM CDT Inhaled Oxygen Concentration - - Weight 90.7 kg (200 lb) 05/06/2024 10:14 AM CDT Height 175.3 cm (5' 9.02) 02/05/2024 8:43 AM CD T Body Mass Index 29.52 02/05/2024 8:43 AM CDT Plan of Treatment Upcoming Encounters Date Type Department Care Team (Late st Contact Info) Description 05/17/2024 10:05 AM CDT Office Visit [facility] [address] [place] [address] Blane Peres MD [address] [place] [address] 05/17/2024 11:00 AM CDT Ancillary Procedure [facility] [address] [address] Health Maintenance Due Date Last Done Comments Pneumococcal series for age 65+ (1 of 2 - PCV) 1965 HIV for age 15-65 1974 Zoster (shingles) series for age 50+ (1 of 2) 2009 Lipids for age 45-75 10/05/2023 10/05/2018, 07/17/2017, 05/15/2016, Additional history exists Colonoscopy through age 75 11/17/202311/16, 11/15/2018, 11/15/2018, Additional history exists AAA screening age 65-74 2024 COVID-19 vaccine series ( season) 2024 05/22/2022, 01/18/2021, 12/20/2020 Influenza for age 65+ 05/01/2024 BMI (ht and wt on same day) for age 18+ 02/04/2025 02/05/2024, 12/01/2023, 11/10/2023, Additional history exists Depression screening for age 12+ 05/06/2025 05/06/2024, 04/25/2021, 01/04/2021, Additional history exists Tetanus booster 05/02/2034 05/02/2024, 12/2018, 03/01/2008 Hepatitis C screening for ag e 18-79 Completed 05/15/2016 Tdap Completed 05/02/2024, 03/01/2008 Procedures Procedure Name Priority Date/Time Associated Diagnosis Comments XR HIP 1 VIEW W PELVIS LEFT Routine 05/06/2024 11:49 AM CDT Hip pain, left SCAN-CT INTERPRETATION 4 12:00 AM CDT SCAN-CT INTERPRETATION 4 12:00 AM CDT SCAN-CT INTERPRETATION 4 12:00 AM CDT SCAN-CT INTERPRETATION 4 12:00 AM CDT COLONOSCOPY SCREENING Routine 11/16/2018 12:00 PM CDT History of colon polyps LIPID PANEL Routine 10/05/2018 9:06 AM SWITCH ADJUSTER Screening, lipid ANTI HCV Routine 05/15/2016 2:38 PM CDT Need for hepatitis C screening test from Last 3 Months or Most Recently Relevant to Health Maintenance Results * XR HIP 1 VIEW W PELVIS LEFT (05/06/2024 11:49 AM CDT) Anatomical Region Laterality Modality HIPS, HIPL, Pelvis Computed Radi ography 05/06/2024 3:51 PM CDT Narrative 05/06/2024 3:51 PM CDT For Patients: ??As a result of the Cures Act, medical imaging exams and procedure reports are released immediately into your electronic medical record. ??You may view this report before your referring provider. ??If you have questions, please contact your health care provider. Indication: Hip pain Technique: Pelvis and left hip 2 views Comparison: 03/17/2017 Findings: Mild joint space narrowing and spurring at both hips. There is no fracture. SI joints maintained. Spurring at the iliac crests. Impression: Mild degenerative joint disease left hip. Dictated by Adrián Shoemaker MD @ 05/06/2024 3:51:48 PM (Electronically Signed) Procedure Note Adrián Shoemaker MD - 05/06/2024 For Patients: As a result of the Cures Act, medical imagingexams and procedure reports are released immediately into your electronicmedical record. You may view this report before your referring provider.If you have questions, please contact your health care provider. Indication: Hip pain Technique: Pelvis and left hip 2 views Comparison: 03/17/2017 Findings: Mild joint space narrowing and spurring at both hips. There is nofracture. SI joints maintained. Spurring at the iliac crests. Impression: Mild degenerative joint disease left hip. Dictated by Adrián Shoemaker MD @ 05/06/2024 3:51:48 PM (Electronically Signed) Blane Peres MD GENERAL IMAGING * SCAN-CT INTERPRETATION (04/18/2024 12:00 AM CDT) Only the most recent of4 resultswithin the time period is included. Anatomical Region Laterality Modality Other Scanner OTHER * COLONOSCOPY SCREENING (11/16/2018 12:00 PM CDT) Blane Peres MD GI PROCEDURE ORD * (ABNORMAL) LIPID PANEL (10/05/2018 9:06 AM SWITCH ADJUSTER) CHOLESTEROL,TOTAL 214(H) 100 - 199 mg/dL 10/05/2018 1:35 PM SWITCH ADJUSTER [facility] TRIGLYCERIDES 423(H) <150 mg/dL 10/05/2018 1:35 PM [email or web address] TR[facility] HDL CHOLESTEROL 52 >40 mg/dL 9 1:35 PM SWITCH ADJUSTER [facility] NON-HDL CHOLESTEROL 162(H) <145 mg/dl 10/05/2018 1:35 PM [email or web address] CHOL/HDL RATIO 4.12 <4.50 10/05/2018 1:35 PM [email or web address] LDL CHOLESTEROL 9 1:35 PM [facility] [[email or web address] Comment:Invalid LDL when Tri g >400. PROVIDER ORDERED STATUS RANDOM 10/05/2018 1:35 PM [email or web address] TR[facility]ATORY Blood BLOOD SPECIMEN / Unknown Venipuncture / Unknown 10/05/2018 9:06 AM SWITCH ADJUSTER 10/05/2018 9:06 AM SWITCH ADJUSTER Blane Peres MD CHEMISTRY [facility] [address] [place] [address], [place] * ANTI HCV [61634.2] (05/15/2016 2:38 PM CDT) HEPATITIS C ANTIBODY Non-Reacti ve Non-Reacti ve 05/15/2016 8:09 PM CDT [facility] Blood BLOOD SPECIMEN / Unknown Venipuncture / Unknown 05/15/2016 2:38 PM CDT 05/15/2016 2:38 PM CDT Narrative [facility] - 05/15/2016 8:09 PM CDT Antibodies to HCV not detected; does not exclude the possibility of exposure to HCV. Blane Peres MD SEND OUTS [facility] [address] [place] [address], [place] from Last 3 Months or Most Recently [...] Code Status Discussion: Not Discussed Care Teams Solderer Relationship Specialty Start Date End Date Blane Peres MD [address] [address] PCP - General Family Practice 06/03/14
[2024-05-16 09:57] VITALS: BP 132/76; PULSE 62; RESP 18; O2SAT 94; BMI 29.5
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
--- OUTSIDE RECORDS SUMMARY | 2024-05-16 11:41 | XMS_ITS | Clinical Summary ---
Author Organization [employer] [facility] [employer] [facility] Address [place], [place] [address] Care Team Providers Care Artificial Breeding Distributor Name Role Phone Blane Peres MD Primary Care Provider [phone]- [phone] Allergies No known active allergies Medications Medication [...] type, unspecified whether angina present, unspecified whether [place] or transplanted heart Take 1 Tablet (20 [...] Type Department Care Team Description 05/11/2024 Refill [facility] [place] [address] Blane Peers MD Refill Request (Tamsulosin) 05/08/[address] [address] Farida Sanderson DO Refill Request (Tamsulosin) 05/06/2024 11:30 AM CDT Ancillary Procedure [address] [place] [address] 05/06/2024 10:05 AM CDT Office Visit [address] [place] [address] Blane Peres MD Hip Pain/problem (Left hip pain/Started to come back about 6 months ago/No injury/Has been on going /Waking him up in the middle of the night) 05/06/2024 Travel 04/26/2024 Telephone [facility] [address] [place] [address] Blane Peres MD Appointment 04/25/2024 Refill [facility] [address] [place] [address] Blane Peres MD Refill Request (Gabapentin) 04/18/2024 Orders Only [facility] Scanner 1 scan: (1-Ord) [facility], CT CHEST WO CONTRAST, 04/18/2024 04/18/2024 Orders Only [facility] Scanner 1 scan: (1-Ord) [place], CT FACIAL BONES WO CON, 04/18/2024 04/18/2024 Orders Only [facility] Scanner 1 scan: (1-Ord) [facility], CT HEAD/BRAIN WO CON , 04/18/2024 04/18/2024 Orders Only [facility] Scanner 1 scan: (1-Ord) [facility], CERVICAL SPINE W/O CONT, 04/18/2024 04/18/2024 Nurse Triage [facility] [address] [place] [address] Blane Peres MD Head Injury from Last [...] Description 05/17/2024 10:05 AM CDT Office Visit [facility] [address] [place] [address] Blane Peres MD [address] [place] [address] 05/17/2024 11:00 AM CDT Ancillary Procedure [facility] [address] [place] [address] Health Maintenance Due Date Last Done Comments [...] polyps LIPID PANEL Routine 10/05/2018 9:06 AM ORDER TRACER Screening, lipid ANTI HCV Routine 05/15/2016 2:38 [...] * (ABNORMAL) LIPID PANEL (10/05/2018 9:06 AM ORDER TRACER) CHOLESTEROL,TOTAL 214(H) 100 - 199 mg/dL 10/05/2018 1:35 PM ORDER TRACER [facility] TRIGLYCERIDES 423(H) <150 mg/dL 10/05/2018 1:35 PM [facility] HDL CHOLESTEROL 52 >40 mg/dL 9 1:35 PM ORDER TRACER [facility] NON-HDL CHOLESTEROL 162(H) <145 mg/dl 10/05/2018 1:35 PM [facility] CHOL/HDL RATIO 4.12 <4.50 10/05/2018 1:35 PM [facility] LDL CHOLESTEROL 9 1:35 PM [facility] Comment:Invalid LDL when Tri g >400. PROVIDER ORDERED STATUS RANDOM 10/05/2018 1:35 PM [facility] Blood BLOOD SPECIMEN / Unknown Venipuncture / Unknown 10/05/2018 9:06 AM ORDER TRACER 10/05/2018 9:06 AM ORDER TRACER Blane Peres MD CHEMISTRY [facility] [address] [place] [address], [place] * ANTI HCV [76535.2] (05/15/2016 2:38 PM CDT) HEPATITIS C ANTIBODY Non-Reacti ve Non-Reacti ve 05/15/2016 8:09 PM CDT [facility] Blood BLOOD SPECIMEN / Unknown Venipuncture / Unknown 05/15/2016 2:38 PM CDT 05/15/2016 2:38 PM CDT Narrative [facility] - 05/15/2016 8:09 PM CDT Antibodies to HCV not detected; does not exclude the possibility of exposure to HCV. Blane Peres MD SEND OUTS [facility] [address] [place] [address], [place] from Last 3 Months or Most [...] Code Status Discussion: Not Discussed Care Teams Artificial Breeding Distributor Relationship Specialty Start Date End Date Blane Peres MD [address] [place] [address] PCP - General Family Practice 06/03/14
[2024-05-16 11:44] VITALS: BP 146/78; PULSE 52; RESP 16; O2SAT 96
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
== END 2024-05-16 11:46 | disposition home or self-care (01) ==
LOC: ED 11:40
PROVIDERS: Emergency Provider Family Medicine; PCP Surgery
DX: S81.802A Unspecified open wound, left lower leg, initial encounter (principal); V49.9XXA Car occupant (driver) (passenger) injured in unspecified traffic accident, initial encounter
CPT/HCPCS: 99283

== ENCOUNTER 2024-05-17 12:52 | Outpatient (CLI) | payer MEDICARE, BC, SELFPAY ==
--- OUTSIDE RECORDS SUMMARY | 2024-05-17 12:54 | XMS_ITS | Clinical Summary ---
Author Organization [employer] [facility] [employer] [facility] Address [place], [place] [address] Care Team Providers Care Clinical Data Management Manager Name Role Phone Blane Peres MD Primary Care Provider +1- [phone] Allergies No known active allergies Medications Medication [...] type, unspecified whether angina present, unspecified whether [place] or transplanted heart Take 1 Tablet (20 [...] EVERY DAY AFTER A MEAL 90 Capsule 3 4 Active albuterol HFA (PRO-AIR; VENTOLIN; [...] 60 Capsule 4 024 Discontinued(*M edication adjustment) tamsulosin (FLOMAX) 0.4 mg capsuleIndications :BPH with urinary obstruction TAKE 1 CAPSULE(0.4 MG) BY MOUTH EVERY DAY AFTER A MEAL 30 Capsule 024 Discontinued Active Problems Problem Noted Date Diagnosed Date [...] Encounters Date Type Department Care Team Description 05/17/2024 11:00 AM CDT Ancillary Procedure [address] [address] Arrived 05/17/2024 10:05 AM CDT Office Visit [address] [address] Blane Peres MD Medication Management; Immunization/Injecti on (COVID-19 vaccine) 05/17/2024 Travel 05/11/2024 Refill [facility] [address] [place] [address] Blane Peres MD Refill Request (Tamsulosin) 05/08/2024 Refill [facility] [address] [place] [address] Farida Sanderson DO Refill Request (Tamsulosin) 05/06/2024 11:30 AM CDT Ancillary Procedure [facility] [address] [place] [address] 05/06/2024 10:05 AM CDT Office Visit [facility] [address] [place] [address] Blane Peres MD Hip Pain/problem (Left hip pain/Started to come back about 6 months ago/No injury/Has been on going /Waking him up in the middle of the night) 05/06/2024 Travel 04/26/2024 Telephone [facility] [address] [place] [address] Blane Peres MD Appointment 04/25/2024 Refill [facility] [address] [place] [address] Blane Peres MD Refill Request (Gabapentin) 04/18/2024 Orders Only [facility] Scanner 1 scan: (1-Ord) [facility], CT CHEST WO CONTRAST, 04/18/2024 04/18/2024 Orders Only [facility] Scanner 1 scan: (1-Ord) [place], CT FACIAL BONES WO CON, 04/18/2024 04/18/2024 Orders Only [facility] Scanner 1 scan: (1-Ord) [facility], CT HEAD/BRAIN WO CON , 04/18/2024 04/18/2024 Orders Only [facility] Scanner 1 scan: (1-Ord) [facility], CERVICAL SPINE W/O CONT, 04/18/2024 04/18/2024 Nurse Triage [facility] [address] [place] [address] Blane Peres MD Head Injury from Last [...] Sign Reading Time Taken Comments Blood Pressure 119/76 05/17/2024 10:23 AM CDT Pulse 54 05/17/2024 10:23 AM CDT Temperature 36.7 ??C (98.1 ??F) 12/14/2023 4:25 PM CD T Respiratory Rate 21 12/14/2023 4:25 PM CDT Oxygen Saturation 96% 05/17/2024 10:23 AM CDT Inhaled Oxygen Concentration - - Weight 92.1 kg (203 lb 1.6 oz) 05/17/2024 10:23 AM CDT Height 175.3 cm (5' 9.02) 02/05/2024 8:43 AM CD T Body Mass Index 29.98 02/05/2024 8:43 AM CDT Plan of Treatment Upcoming Encounters Date Type Department Care Team (Late st Contact Info) Description 06/14/2024 1:10 PM CDT Office Visit [facility] [address] [place] [address] Blane Peres MD [address] [place] [address] Health Maintenance Due Date Last Done Comments [...] Additional history exists Tetanus booster 05/02/2034 05/02/2024, 0212/2018, 03/01/2008 Hepatitis C screening for ag e [...] polyps LIPID PANEL Routine 10/05/2018 9:06 AM ENGINEERING SURVEYOR Screening, lipid ANTI HCV Routine 05/15/2016 2:38 [...] * (ABNORMAL) LIPID PANEL (10/05/2018 9:06 AM ENGINEERING SURVEYOR) CHOLESTEROL,TOTAL 214(H) 100 - 199 mg/dL 10/05/2018 1:35 PM ENGINEERING SURVEYOR [facility] TRIGLYCERIDES 423(H) <150 mg/dL 10/05/2018 1:35 PM ENGINEERING SURVEYOR [facility] TRAL LABORATORY HDL CHOLESTEROL 52 >40 mg/dL 9 1:35 PM ENGINEERING SURVEYOR [facility] NON-HDL CHOLESTEROL 162(H) <145 mg/dl 10/05/2018 1:35 PM ENGINEERING SURVEYOR [facility] TRAL LABORATORY CHOL/HDL RATIO 4.12 <4.50 10/05/2018 1:35 PM ENGINEERING SURVEYOR [facility] TRAL LABORATORY LDL CHOLESTEROL 9 1:35 PM ENGINEERING SURVEYOR [facility] TRAL LABOR[facility]ORY Comment:Invalid LDL when Tri g >400. PROVIDER ORDERED STATUS RANDOM 10/05/2018 1:35 PM ENGINEERING SURVEYOR [facility] TRAL LABORATORY Blood BLOOD SPECIMEN / Unknown Venipuncture / Unknown 10/05/2018 9:06 AM ENGINEERING SURVEYOR 10/05/2018 9:06 AM ENGINEERING SURVEYOR Blane Peres MD CHEMISTRY [facility] [address] [place] [address], * ANTI HCV [27625.2] (05/15/2016 2:38 PM CDT) HEPATITIS C ANTIBODY Non-Reacti ve Non-Reacti ve 05/15/2016 8:09 PM CDT [facility] TRAL LABORATORY Blood BLOOD SPECIMEN / Unknown Venipuncture / Unknown 05/15/2016 2:38 PM CDT 05/15/2016 2:38 PM CDT Narrative [facility] - 05/15/2016 8:09 PM CDT Antibodies to HCV not detected; does not exclude the possibility of exposure to HCV. Blane Peres MD SEND OUTS [facility] LAB[facility] [address] [place] [address], from Last 3 Months or Most Recently [...] Code Status Discussion: Not Discussed Care Teams Clinical Data Management Manager Relationship Specialty Start Date End Date Blane Peres MD [address] [place] [address] PCP - General Family Practice 06/03/14
== END 2024-05-17 12:53 | disposition home or self-care (01) ==
LOC: WOUND 12:53
PROVIDERS: PCP Surgery; Visit Provider Nurse Practitioner Family
DX: S81.802A Unspecified open wound, left lower leg, initial encounter (principal); S80.12XA Contusion of left lower leg, initial encounter; W23.0XXA Caught, crushed, jammed, or pinched between moving objects, initial encounter; I87.2 Venous insufficiency (chronic) (peripheral)
CPT/HCPCS: 11043; 11046; 87070; 96372; G0463; J0696

== ENCOUNTER 2024-05-24 12:59 | Outpatient (CLI) | payer MEDICARE, BC, SELFPAY ==
--- OUTSIDE RECORDS SUMMARY | 2024-05-24 13:01 | XMS_ITS | Clinical Summary ---
Author Organization [facility] [facility] Address [place], [place] [address] Care Team Providers Care Electromechanic Name Role Phone Blane Peres MD Primary Care Provider [phone]- [phone] Allergies No known active allergies Medications Medication [...] type, unspecified whether angina present, unspecified whether prairie band or transplanted heart Take 1 Tablet (20 [...] Encounters Date Type Department Care Team Description 05/24/2024 Transcribe Orders [facility] [address] [place] [address] [facility] 05/19/2024 Transcribe Orders [facility] [address] [place] [address] [facility] 05/17/2024 11:00 AM CDT Ancillary Procedure [facility] [address] [place] [address] 05/17/2024 10:05 AM CDT Office Visit [facility] [address] [place] [address] Blane Peres MD Medication Management; Immunization/Injecti on (COVID-19 vaccine) 05/17/2024 Nurse Triage [facility] [address] [place] [address] Blane Peres MD Pain; Medication Management 05/17/2024 Travel 05/11/2024 Refill [facility] [address] [place] [address] Blane Peres MD Refill Request (Tamsulosin) 05/08/2024 Refill [facility] [address] [place] [address] Farida Sanderson DO Refill Request (Tamsulosin) 05/06/2024 11:30 AM CDT Ancillary Procedure [facility] [address] [place] [address] 05/06/2024 10:05 AM CDT Office Visit [facility] [address] [place] [address] Blane Peers MD Hip Pain/problem (Left hip pain/Started to come back about 6 months ago/No injury/Has been on going /Waking him up in the middle of the night) 05/06/2024 Travel 04/26/2024 Telephone [facility] [address] [place] [address] Blane Peres MD Appointment 04/25/2024 Refill [facility] [address] [place] [address] Blane Peres MD Refill Request (Gabapentin) 04/18/2024 Orders Only [facility] Scanner 1 scan: (1-Ord) [facility], CT CHEST WO CONTRAST, 04/18/2024 04/18/2024 Orders Only [facility] Scanner 1 scan: (1-Ord) [place], CT FACIAL BONES WO CON, 04/18/2024 04/18/2024 Orders Only [facility] Scanner 1 scan: (1-Ord) [facility], CT HEAD/BRAIN WO CON , 04/18/2024 04/18/2024 Orders Only [facility] Scanner 1 scan: (1-Ord) [facility], CERVICAL SPINE W/O CONT, 04/18/2024 04/18/2024 Nurse Triage [facility] [address] [place] [address] Blane Peres MD Head Injury from Last 3 Months Immunizations Name Administration Dates Next Due COVID-19 vaccine (Moderna 100mcg/0.5mL) PF, MDV 01/18/2021,12/20/2020 Td (Age >=7 Years) 10/05/2018 Tdap [...] Description 06/14/2024 1:10 PM CDT Office Visit [facility] [address] [place] [address] Blane Peres MD [address] [facility] [address] Health Maintenance Due Date Last Done Comments Pneumococcal series for age 65+ (1 of 2 - PCV) 1965 HIV for age 15-65 1974 Zoster (shingles) series for age 50+ (1 of 2) 2009 Colonoscopy through age 75 11/17/202311/16, 11/15/2018, 11/15/2018, Additional history exists AAA screening age 65-74 2024 COVID-19 vaccine series ( season) 2024 05/22/2022, 01/18/2021, 12/20/2020 Influenza for age 65+ 05/01/2024 BMI (ht and wt on same day) for age 18+ 02/04/2025 02/05/2024, 12/01/2023, 11/10/2023, Additional history exists Depression screening for age 12+ 05/06/2025 05/06/2024, 04/25/2021, 01/04/2021, Additional history exists Lipids for age 45-75 05/17/2029 05/17/2024, 10/05/2018, 07/17/2017, Additional history exists Tetanus booster 05/02/2034 05/02/2024, 0212/2018, 03/01/2008 Hepatitis C screening for ag e 18-79 Completed 05/15/2016 Tdap Completed 05/02/2024, 03/01/2008 Procedures Procedure Name Priority Date/Time Associated Diagnosis Comments PSA (TOTAL) ([facility]) Routine 05/17/2024 1 2:04 PM CDT Screening for prostate cancer BASIC METABOLIC PANEL Routine 05/17/2024 12:04 PM CDT Alcohol abuse LIPID PANEL W REFLEX MEASURED LDL Routine 05/17/2024 12:04 PM CDT Screening for lipid disorders HIV 1/2 ANTIGEN/ANTIBODY FOURTH GENERATION W/RFL ([facility]) Routine 05/17/2024 12:04 PM CDT Encounter for screening for HIV HEPATIC FUNCTION PANEL Routine 4 12:[address] CHEST WO Routine 05/17/2024 11:27 AM CDT Mass of right lung XR HIP 1 VIEW W PELVIS LEFT Routine 05/06/2024 11:49 AM CDT Hip pain, left SCAN-CT INTERPRETATION 4 12:00 AM CDT SCAN-CT INTERPRETATION 4 12:00 AM CDT SCAN-CT INTERPRETATION 4 12:00 AM CDT SCAN-CT INTERPRETATION 4 12:00 AM CDT COLONOSCOPY SCREENING Routine 11/16/2018 12:00 PM CDT History of colon polyps ANTI HCV Routine 05/15/2016 2:38 PM CDT Need for hepatitis C screening test from Last 3 Months or Most Recently Relevant to Health Maintenance Results * PSA (TOTAL) ([facility]) (05/17/2024 12:04 PM CDT) PSA, TOTAL 3.64 < OR = 4.00 ng/mL [facility] Comment: The total PSA value from this assay system is standardized against the WHO standard. The test result will be approximately 20% lower when compared to the equimolar-standardized total PSA (Francy Izzy). Comparison of serial PSA results should be interpreted with this fact in mind. This test was performed using the Siemens chemiluminescent method. Values obtained from different assay methods cannot be used interchangeably. PSA levels, regardless of value, should not be interpreted as absolute evidence of the presence or absence of disease. Blood BLOOD SPECIMEN / Unknown 05/17/2024 12:04 PM CDT 05/17/2024 12:06 PM CDT Blane Peres MD SEND OUTS Performing Organization Address [facility] de Phone Number [email or web address] [facility] [address] [place] [address], [facility] [address] [place] [address] * HIV 1/2 ANTIGEN/ANTIBODY FOURTH GENERATION W/RFL ([facility]) (05/17/2024 12:04 PM CDT) HIV AG/AB, 4TH GEN NON-REACT MYRA NON-REACT MYRA [facility] Comment: HIV-1 antigen and HIV-1/HIV-2 antibodies were not detected. There is no laboratory evidence of HIV infection. PLEASE NOTE: This information has been disclosed to you from records whose confidentiality may be protected by state law. ??If your state requires such protection, then the state law prohibits you from making any further disclosure of the information without the specific written consent of the person to whom it pertains, or as otherwise permitted by law. A general authorization for the release of medical or other information is NOT sufficient for this purpose. ?? For additional information please refer to http://education.Protenus.IntenseDebate/faq/GUP100 (This link is being provided for informational/ educational purposes only.) The performance of this assay has not been clinically validated in patients less than 2 years old. Blood BLOOD SPECIMEN / Unknown 05/17/2024 12:04 PM CDT 05/17/2024 12:06 PM CDT Blane Peres MD SEND OUTS Performing Organization Address [facility]/ZIP Co de Phone Number [email or web address] [facility] [address] [place] [address], [place] [phone] [facility] [address] [place] [address] * (ABNORMAL) LIPID PANEL W REFLEX MEASURED LDL [[id number]] (05/17/2024 12:04 PM CDT) CHOLESTEROL, TOTAL 156 <200 mg/dL [facility] HDL CHOLESTEROL 44 > OR = 40 mg/dL [facility] TRIGLYCERIDES 159(H) <150 mg/dL [facility] LDL-CHOLESTEROL 86 mg/dL (calc) [facility] Comment: Reference range: <100 Desirable range <100 mg/dL for primary prevention; ?? <70 mg/dL for patients with CHD or diabetic patients with > or = 2 CHD risk factors. LDL-C is now calculated using the Landen-Megan calculation, which is a validated novel method providing better accuracy than the Friedewald equation in the estimation of LDL-C. Landen HASKINS et al. RAMA. 2013;310(19): 0686-1350 (http://education.Limbo/faq/DWB605) CHOL/HDLC RATIO 3.5 <5.0 (calc) [facility] NON HDL CHOLESTEROL 112 <130 mg/dL (calc) [facility] Comment: For patients with diabetes plus 1 major ASCVD risk factor, treating to a non-HDL-C goal of <100 mg/dL (LDL-C of <70 mg/dL) is considered a therapeutic option. Blood BLOOD SPECIMEN / Unknown 05/17/2024 12:04 PM CDT 05/17/2024 12:06 PM CDT Blane Peres MD CHEMISTRY [email or web address] [facility] [address] [place] [address], [place] [phone] [facility] [address] [place] [address] * BASIC METABOLIC PANEL (05/17/2024 12:04 PM CDT) Pathologist [facility] GLUCOSE 94 65 - 99 mg/dL [facility] Comment: ? Fasting reference interval UREA NITROGEN (BUN) 16 7 - 25 mg/dL [facility] CREATININE 0.94 0.70 - 1.35 mg/dL [facility] EGFR 90 > OR = 60 mL/min/1. 73m2 [facility] BUN/CREATININE RATIO SEE NOTE: (calc) [facility] Comment: ?? Not Reported: BUN and Creatinine are within ?? reference range. ? SODIUM 139 135 - 146 mmol/L [facility] POTASSIUM 4.5 3.5 - 5.3 mmol/L [facility] CHLORIDE 105 98 - 110 mmol/L [facility] CARBON DIOXIDE 27 20 - 32 mmol/L [facility] ELECTROLYTE BALANCE 7 7 - 17 mmol/L (calc) [facility] CALCIUM 9.3 8.6 - 10.3 mg/dL [facility] Blood BLOOD SPECIMEN / Unknown 05/17/2024 12:04 PM CDT 05/17/2024 12:06 PM CDT Blane Peres MD CHEMISTRY apta[employer]me [facility] [address] [place] [address], [facility] [address] [place] [address] * (ABNORMAL) HEPATIC FUNCTION PANEL (05/17/2024 12:02 PM CDT) Pathologist [facility] PROTEIN, TOTAL 6.8 6.1 - 8.1 g/dL [facility] ALBUMIN 4.1 3.6 - 5.1 g/dL [facility] GLOBULIN 2.7 1.9 - 3.7 g/dL (calc) [facility] ALBUMIN/GLOBULIN RATIO 1.5 1.0 - 2.5 (calc) [facility] BILIRUBIN, TOTAL 1.5(H) 0.2 - 1.2 mg/dL [facility] BILIRUBIN, DIRECT 0.2 < OR = 0.2 mg/dL [facility] BILIRUBIN, INDIRECT 1.3(H) 0.2 - 1.2 mg/dL (calc) [facility] ALKALINE PHOSPHATASE 85 35 - 144 U/L [facility] AST 16 10 - 35 U/L [facility] ALT 7(L) 9 - 46 U/L [facility] Blood BLOOD SPECIMEN / Unknown 05/17/2024 12:02 PM CDT 05/17/2024 12:02 PM CDT Blane Peres MD CHEMISTRY [email or web address] [facility] [address] [place] [address], [facility] [address] [place] [address] * CT CHEST WO (05/17/2024 11:27 AM CDT) Anatomical Region Laterality Modality CHEST, THORAX, HEART Computed To mography 05/17/2024 8:13 PM CDT Narrative 05/17/2024 8:13 PM CDT For Patients: ??As a result of the 21st Century Cures Act, medical imaging exams and procedure reports are released immediately into your electronic medical record. ??You may view this report before your referring provider. ??If you have questions, please contact your health care provider. Indication: Mass of lung Technique: Noncontrast CT chest Please note that all CT scans at this facility use dose modulation, iterative reconstruction, and/or weight-based dosing when appropriate to reduce radiation dose to as low as reasonably achievable. Comparison: Outside CT 04/18/2024 Findings: Peribronchial wall thickening with associated volume loss in the right middle lobe noted without suspicious nodularity or mass. Bronchial wall thickening also present in the perihilar and lower lobe airways. Mild linear subsegmental scarring elsewhere within the lung bases. No pleural effusion or pulmonary edema. No pneumothorax. No enlarged lymph nodes. Vascular calcifications. Old left-sided rib fracture. Multilevel degenerative changes throughout the thoracic spine. Mild paraseptal emphysematous changes. Impression: Chronic scarring in the right middle lobe with volume loss and bronchial wall thickening. Changes of chronic bronchitis and paraseptal emphysema. Please note that all CT scans at this facility use dose modulation, iterative reconstruction, and/or weight-based dosing when appropriate to reduce radiation dose to as low as reasonably achievable. Dictated by Adrián Shoemaker MD @ 05/17/2024 8:13:02 PM (Electronically Signed) Procedure Note Adrián Shoemaker MD - 05/17/2024 For Patients: As a result of the Cures Act, medical imagingexams and procedure reports are released immediately into your electronicmedical record. You may view this report before your referring provider.If you have questions, please contact your health care provider. Indication: Mass of lung Technique: Noncontrast CT chest Please note that all CT scans at this facility use dose modulation,iterative reconstruction, and/or weight-based dosing when appropriate toreduce radiation dose to as low as reasonably achievable. Comparison: Outside CT 04/18/2024 Findings: Peribronchial wall thickening with associated volume loss in the rightmiddle lobe noted without suspicious nodularity or mass. Bronchial wallthickening also present in the perihilar and lower lobe airways. Mildlinear subsegmental scarring elsewhere within the lung bases. No pleuraleffusion or pulmonary edema. No pneumothorax. No enlarged lymph nodes.Vascular calcifications. Old left-sided rib fracture. Multileveldegenerative changes throughout the thoracic spine. Mild paraseptalemphysematous changes. Impression: Chronic scarring in the right middle lobe with volume loss and bronchialwall thickening. Changes of chronic bronchitis and paraseptal emphysema. Please note that all CT scans at this facility use dose modulation,iterative reconstruction, and/or weight-based dosing when appropriate toreduce radiation dose to as low as reasonably achievable. Dictated by Adrián Shoemaker MD @ 05/17/2024 8:13:02 PM (Electronically Signed) Blane Peres MD CT * XR HIP 1 VIEW W PELVIS [...] Blane Peres MD GI PROCEDURE ORD * ANTI HCV [04226.2] (05/15/2016 2:38 PM CDT) HEPATITIS C ANTIBODY Non-Reacti ve Non-Reacti ve 05/15/2016 8:09 PM CDT [facility] Blood BLOOD SPECIMEN / Unknown Venipuncture / Unknown 05/15/2016 2:38 PM CDT 05/15/2016 2:38 PM CDT Narrative [facility] - 05/15/2016 8:09 PM CDT Antibodies to HCV not detected; does not exclude the possibility of exposure to HCV. Blane Peres MD SEND OUTS [facility] [address] [place] [address], from Last 3 Months or Most Recently [...] Code Status Discussion: Not Discussed Care Teams Electromechanic Relationship Specialty Start Date End Date Blane [place] [address] [place] [address] PCP - General Family Practice 06/03/14
== END 2024-05-24 13:00 | disposition home or self-care (01) ==
LOC: WOUND 12:59
PROVIDERS: PCP Surgery; Visit Provider Nurse Practitioner Family
DX: I87.2 Venous insufficiency (chronic) (peripheral) (principal); S81.812A Laceration without foreign body, left lower leg, initial encounter
CPT/HCPCS: 11043; 11046; 97605

== ENCOUNTER 2024-05-30 08:35 | Outpatient (CLI) | payer MEDICARE, BC, SELFPAY ==
--- OUTSIDE RECORDS SUMMARY | 2024-05-30 08:37 | XMS_ITS | Clinical Summary ---
Author Organization [facility] Address [place], [place] [address] Care Team Providers Care Piano Tuner Name Role Phone Blane Peres MD Primary Care Provider [phone] [facility] [place] Unavailable [phone] Allergies No known active allergies Medications Medication [...] type, unspecified whether angina present, unspecified whether belkofski or transplanted heart Take 1 Tablet (20 [...] A MEAL 90 Capsule 3 4 Active rx amoxicillin-clavul anate (AUGMENTIN) 875-125 mg tablet (ED DC MED) Take 875 mg by mouth every 12 hours. Take one pill by mouth every 12 hours. Active acetaminophen (TYLENOL EXTRA STRGTH) 500 mg tablet Take 500 mg by mouth every 6 hours if needed for Pain. Take 1-2 tablets by mouth as needed for pain. Do not exceed 4000mg in 24 hours. Active albuterol HFA (PRO-AIR; VENTOLIN; PROVENTIL) 90 mcg/actuation inhaler Inhale 1-2 Puffs by mouth every 4 hours if needed. 1 024 Discontinued(Re order (E-cancel not sent)) fluticasone propion-salmeteroL (Advair Diskus) 250-50 mcg/Dose diskus inhalerIndications :Chronic obstructive pulmonary disease, unspecified COPD type (HC) Inhale 1 Puff by mouth two times daily. 3 024 Discontinued(*P atient states no longer taking) colchicine 0.6 mg tabletIndications: Pericarditis, unspecified chronicity, [...] DAY AFTER A MEAL 30 Capsule 4 024 Discontinued Active Problems Problem Noted Date [...] Encounters Date Type Department Care Team Description 05/28/2024 9:30 AM CDT Home Care Visit [facility] [address] [place] [address] Poppy Allen RN SN - LONG VISIT (>90 MINUTES) 05/27/2024 12:15 AM CDT Home Care Visit [facility] [address] [place] [address] Adrián Block RN SN - WOUND/OSTOMY CHART CONSULT 05/26/2024 11:15 AM CDT Home Care Visit [facility] [address] [place] [address] Jeanine Penn, RN SN - OASIS START OF CARE 05/26/2024 Telephone [facility] [address] [place] [address] Jeanine Penn food and beverage service manager (Admission) 05/26/2024 Plan of Care Documentation [facility] [address] [place] [address] 05/24/2024 Transcribe Orders [facility] [address] [place] [address] [facility] 05/19/2024 Transcribe Orders [facility] [address] [place] [address] [facility] 05/17/2024 11:00 AM CDT Ancillary Procedure [facility] [address] [place] [address] 05/17/2024 10:05 AM CDT Office Visit [facility] [address] [place] [address] Blane Peres MD Medication Management; Immunization/Injec tion (COVID-19 vaccine) 05/17/2024 Nurse Triage [facility] [address] [place] [address] Blane Peres MD Pain; Medication Management 05/17/2024 Travel 05/11/2024 Refill [facility] [address] [place] [address] Blane Peres MD Refill Request (Tamsulosin) 05/08/2024 Refill [facility] [address] [place] [address] Farida Sanderson DO Refill Request (Tamsulosin) 05/06/2024 11:30 AM CDT Ancillary Procedure [facility] [address] [place] [address] 05/06/2024 10:05 AM CDT Office Visit [facility] [address] [address] Blane Peres MD Hip Pain/problem (Left hip pain/Started to come back about 6 months ago/No injury/Has been on going /Waking him up in the middle of the night) 05/06/2024 Travel 04/26/2024 Telephone [facility] [address] [place] [address] Blane Peres MD Appointment 04/25/2024 Refill [facility] [address] [place] [address] Blane Peres MD Refill Request (Gabapentin) 04/18/2024 Orders Only [facility] Scanner 1 scan: (1-Ord) [facility], CT CHEST WO CONTRAST, 04/18/2024 04/18/2024 Orders Only [facility] Scanner 1 scan: (1-Ord) [place], CT FACIAL BONES WO CON, 04/18/2024 04/18/2024 Orders Only [facility] Scanner 1 scan: (1-Ord) [facility], CT HEAD/BRAIN WO CON , 04/18/2024 04/18/2024 Orders Only [facility] Scanner 1 scan: (1-Ord) [facility], CERVICAL SPINE W/O CONT, 04/18/2024 04/18/2024 Nurse Triage [facility] [address] [place] [address] Blane Peres MD Head Injury from Last [...] Sign Reading Time Taken Comments Blood Pressure 132/70 05/28/2024 11:03 AM CDT Pulse 59 05/28/2024 11:03 AM CDT Temperature 36.4 ??C (97.6 ??F) 05/28/2024 11:03 AM C DT Respiratory Rate 18 05/28/2024 11:03 AM CDT Oxygen Saturation 96% 05/28/2024 11:03 AM CDT Inhaled Oxygen Concentration - - Weight 90.7 kg (200 lb) 05/26/2024 11:41 AM CDT Height 175.3 cm (5' 9) 05/26/2024 11:41 AM CDT Body Mass Index 29.53 05/26/2024 11:41 AM CDT Plan of Treatment Upcoming Encounters Date Type Department Care Team (Late st Contact Info) Description 06/01/2024 4:00 AM CDT Home Care [facility] [address] [facility] [address] Nina Mart RN 06/03/2024 4:00 AM CDT Home Care Visit [facility] [address] [place] [phone] Nina Mart, WINNIE 06/08/2024 4:00 AM CDT Home Care Visit [facility] [address] [place] [phone] Nina Mart, WINNIE 06/10/2024 4:00 AM CDT Home Care Visit [facility] [address] [place] [phone] Nina Mart, WINNIE 06/14/2024 1:10 PM CDT Office Visit [facility] [address] [place] [address] Blane Peres MD [address] [place] [address] 06/15/2024 4:00 AM CDT Home Care Visit [facility] [address] [place] [phone] Nina Mart, WINNIE 06/17/2024 4:00 AM CDT Home Care Visit [facility] [id number] [place] [phone] Nina Mart, WINNIE 06/17/2024 5:00 AM CDT Home Care Visit [facility] [id number] [place] [phone] Adrián Block, RN [address] [place] [address] 06/22/2024 4:00 AM CDT Home Care Visit [facility] [address] [place] [phone] Nina Mart, WINNIE 06/24/2024 4:00 AM CDT Home Care Visit [facility] [address] [place] [phone] Nina Mart, WINNIE 06/29/2024 4:00 AM CDT Home Care Visit [facility] [address] [place] [address] Nina Mart, WINNIE 07/01/2024 4:00 AM CDT Home Care Visit [facility] [address] [place] [address], [place] [address] Nina Mart, WINNIE 07/06/2024 4:00 AM EMPLOYMENT SECURITY OFFICER Home Care Visit [facility] [address] [place] [address], [place] [address] Nina Mart, WINNIE 07/08/2024 4:00 AM EMPLOYMENT SECURITY OFFICER Home Care Visit [facility] [address] [place] [address], [place] [address] Nina Mart, WINNIE 07/13/2024 4:00 AM EMPLOYMENT SECURITY OFFICER Home Care Visit [facility] [address] [place] [phone] Nina Mart, WINNIE 07/15/2024 4:00 AM EMPLOYMENT SECURITY OFFICER Home Care Visit [facility] [address] [place] [address], [place] [address] Nina Mart, WINNIE 07/20/2024 4:00 AM EMPLOYMENT SECURITY OFFICER Home Care Visit [facility] [address] [place] [address], [place] [phone] Nina Mart, WINNIE 07/22/2024 4:00 AM EMPLOYMENT SECURITY OFFICER Appointment [facility] [address] [place] [phone] Nina Mart, RN Health Maintenance Due Date Last Done Comments Pneumococcal series for age 65+ (1 of 2 - PCV) 1965 HIV for age 15-65 1974 Zoster (shingles) series for age 50+ (1 of 2) 2009 Colonoscopy through age 75 11/17/202311/16, 11/15/2018, 11/15/2018, Additional history exists AAA screening age 65-74 2024 Medicare Wellness for age 65+ 2024 COVID-19 vaccine series ( season) 2024 [...] TOTAL 3.64 < OR = 4.00 ng/mL [facility] Comment: The total PSA value [...] PM CDT Blane Peres MD SEND OUTS [employer] [facility] [address] [place] [address], [facility] [address] [place] [address] * HIV 1/2 ANTIGEN/ANTIBODY FOURTH GENERATION W/RFL ([facility]) (05/17/2024 12:04 PM CDT) HIV AG/AB, 4TH GEN NON-REACT MYRA NON-REACT MYRA [facility] Comment: HIV-1 antigen and HIV-1/HIV-2 antibodies were [...] ?? For additional information please refer to http://Inbilin.onefinestay/faq/FSA958 (This link is being provided for informational/ educational purposes only.) The performance of this assay has not been clinically validated in patients less than 2 years old. Blood BLOOD SPECIMEN / Unknown 05/17/2024 12:04 PM CDT 05/17/2024 12:06 PM CDT Blane Peres MD SEND OUTS [employer] [facility] [address] [place] [address], [facility] [address] [place] [address] * (ABNORMAL) LIPID PANEL W REFLEX MEASURED LDL [[id number]] (05/17/2024 12:04 PM CDT) CHOLESTEROL, TOTAL 156 <200 mg/dL [facility] HDL CHOLESTEROL 44 > OR = 40 mg/dL [facility] TRIGLYCERIDES 159(H) <150 mg/dL [facility] LDL-CHOLESTEROL 86 mg/dL (calc) [facility] Comment: Reference range: <100 Desirable range <100 mg/dL for primary prevention; ?? <70 mg/dL for patients with CHD or diabetic patients with > or = 2 CHD risk factors. LDL-C is now calculated using the Zabrina calculation, which is a validated novel method providing better accuracy than the Friedewald equation in the estimation of LDL-C. Landen SS et al. RAMA. 2013;310(19): 2963-4910 (http://Inbilin.Qwalytics/faq/YNB213) CHOL/HDLC RATIO 3.5 <5.0 (calc) [facility] NON HDL CHOLESTEROL 112 <130 mg/dL (calc) [facility] Comment: For patients with diabetes plus 1 major ASCVD risk factor, treating to a non-HDL-C goal of <100 mg/dL (LDL-C of <70 mg/dL) is considered a therapeutic option. Blood BLOOD SPECIMEN / Unknown 05/17/2024 12:04 PM CDT 05/17/2024 12:06 PM CDT Blane Peres MD CHEMISTRY [employer] [facility] [address] [place] [address], [facility] [address] [place] [address] * BASIC METABOLIC PANEL (05/17/2024 12:04 PM CDT) [facility] GLUCOSE 94 65 - 99 mg/dL [facility] Comment: ? Fasting reference interval UREA NITROGEN (BUN) 16 7 - 25 mg/dL [facility] CREATININE 0.94 0.70 - 1.35 mg/dL [facility] EGFR 90 > OR = 60 mL/min/1. 73m2 [facility] BUN/CREATININE RATIO SEE NOTE: 6 - 22 (calc) [facility] Comment: ?? [...] 12:06 PM CDT Blane Peres MD CHEMISTRY [facility] [address] [facility] [address], [place] [phone] [facility] [address] [place] [address] * (ABNORMAL) HEPATIC FUNCTION PANEL (05/17/2024 12:02 PM CDT) PROTEIN, TOTAL 6.8 6.1 - 8.1 g/dL [facility] ALBUMIN 4.1 3.6 - 5.1 g/dL [facility] GLOBULIN 2.7 1.9 - 3.7 g/dL (calc) [...] 12:02 PM CDT Blane Peres MD CHEMISTRY [facility] [address] [facility] [place] [address], [place] [phone] [facility] [address] [facility] [place] [place] [address] * CT CHEST WO (05/17/2024 11:27 AM [...] MD GI PROCEDURE ORD * ANTI HCV [01055.2] (05/15/2016 2:38 PM CDT) HEPATITIS C ANTIBODY Non-Reacti ve Non-Reacti ve 05/15/2016 8:09 PM CDT [facility] Blood BLOOD SPECIMEN / Unknown Venipuncture / Unknown 05/15/2016 2:38 PM CDT 05/15/2016 2:38 PM CDT Narrative [facility] - 05/15/2016 8:09 PM CDT Antibodies to HCV not detected; does not exclude the possibility of exposure to HCV. Blane Peres MD SEND OUTS [facility] [address] [place] [address], [place] from Last 3 Months or Most [...] Code Status Discussion: Not Discussed Care Teams Piano Tuner Relationship Specialty Start Date End Date Blane Peres MD [address] [place] [address] PCP - General Family Practice 06/03/14 [facility] [address] [address] 05/24/24
== END 2024-05-30 08:36 | disposition home or self-care (01) ==
LOC: WOUND 08:35
PROVIDERS: PCP Surgery; Visit Provider Nurse Practitioner Family
DX: S81.812A Laceration without foreign body, left lower leg, initial encounter (principal); S80.12XA Contusion of left lower leg, initial encounter; I87.2 Venous insufficiency (chronic) (peripheral)
CPT/HCPCS: 11042

== ENCOUNTER 2024-06-06 11:59 | Outpatient (CLI) | payer MEDICARE, BC, SELFPAY ==
--- OUTSIDE RECORDS SUMMARY | 2024-06-06 12:01 | XMS_ITS | Clinical Summary ---
Author Organization [employer] [facility] Address [place], [place] [address] Care Team Providers Care Inker Machine Name Role Phone Blane Peres MD Primary Care Provider [phone] [facility], [place] Unavailable [phone] Allergies No known active allergies Medications Medication Sig Dispensed Refills Start Date End Date Status sildenafiL, pulm.hypertension, (REVATIO) 20 mg tabletIndications:E rectile dysfunction, unspecified erectile dysfunction type Take 1 Tablet (20 mg) by mouth once daily if needed (sexual activity). Take 1-5 pills (start at lower dose and increase next time if needed) 30 mins prior to sexual intercourse 30 Tablet 1 4 Active sertraline (ZOLOFT) 50 mg tabletIndications:C hronic insomnia Take 1 Tablet (50 mg) by mouth once daily. 90 Tablet 3 4 Active mirtazapine (REMERON) 7.5 mg tabletIndications:C hronic insomnia Take 1 pill orally at night 10 hours before planning on waking up 90 Tablet 3 4 Active atorvastatin (LIPITOR) 20 mg tabletIndications:C oronary artery disease, unspecified vessel or lesion type, unspecified whether angina present, unspecified whether [place] or transplanted heart Take 1 Tablet (20 mg) by mouth once daily. 90 Tablet 2 4 Active carvediloL (Coreg) 3.125 mg tabletIndications:P aroxysmal atrial fibrillation (HC),Nonischemic cardiomyopathy (HC) Take 1 Tablet (3.125 mg) by mouth two times daily. 180 Tablet 3 4 Active Eliquis 5 mg tabletIndications:P aroxysmal atrial fibrillation (HC) Take 1 Tablet (5 mg) by mouth two times daily. 180 Tablet 3 4 Active albuterol HFA (PRO-AIR; VENTOLIN; PROVENTIL) 90 mcg/actuation inhalerIndications: Chronic obstructive pulmonary disease, unspecified COPD type (HC) Inhale 1-2 Puffs by mouth every 4 hours if needed for Shortness Of Breath or Wheezing. 16 g 3 4 Active gabapentin (NEURONTIN) 300 mg capsuleIndications: Hip pain, left Take 1 Capsule (300 mg) by mouth three times daily. 90 Capsule 1 4 Active tamsulosin (FLOMAX) 0.4 mg capsuleIndications: BPH with urinary obstruction TAKE 1 CAPSULE(0.4 MG) BY MOUTH EVERY DAY AFTER A MEAL 90 Capsule 3 4 Active rx amoxicillin-clavula cody (AUGMENTIN) 875-125 mg tablet (ED DC MED) Take 875 mg by mouth every 12 hours. Take one pill by mouth every 12 hours. Active acetaminophen (TYLENOL EXTRA STRGTH) 500 mg tablet Take 500 mg by mouth every 6 hours if needed for Pain. Take 1-2 tablets by mouth as needed for pain. Do not exceed 4000mg in 24 hours. Active oxyCODONE (ROXICODONE) 5 mg immediate release tabletIndications:L eg hematoma, left, sequela Take 1 Tablet (5 mg) by mouth once daily if needed for Pain. 7 Tablet 4 Active tamsulosin (FLOMAX) 0.4 mg capsuleIndications: BPH with urinary obstruction TAKE 1 CAPSULE(0.4 MG) BY MOUTH EVERY DAY AFTER A MEAL 90 Capsule 4 05/11/20 24 Discontinued tamsulosin (FLOMAX) 0.4 mg capsuleIndications: BPH with urinary obstruction TAKE 1 CAPSULE(0.4 MG) BY MOUTH EVERY DAY AFTER A MEAL 30 Capsule 4 05/17/20 24 Discontinued Active Problems Problem Noted Date Diagnosed [...] Encounters Date Type Department Care Team Description 06/03/2024 9:00 AM CDT Home Care Visit Replaced By [facility] [address] [place] [address] Nina Mart RN SN - LONG VISIT (>90 MINUTES) 06/01/2024 9:00 AM CDT Home Care Visit Replaced By [facility] [address] [place] [address] Nina Mart RN SN - LONG VISIT (>90 MINUTES) 05/28/2024 9:30 AM CDT Home Care Visit Replaced By [facility] [address] [place] [phone] Poppy Allen RN SN - LONG VISIT (>90 MINUTES) 05/27/2024 12:15 AM CDT Home Care Visit Replaced By [facility] [address] [place] [phone] Adrián Block RN SN - WOUND/OSTOMY CHART CONSULT 05/26/2024 11:15 AM CDT Home Care Visit Replaced By [facility] [address] [place] [phone] Jeanine Penn RN SN - OASIS START OF CARE 05/26/2024 Telephone Replaced By [facility] [address] [place] [address] Jeanine Penn, traveling representative (Admission) 05/26/2024 Plan of Care Documentation Replaced By [facility] [address] [place] [address] 05/24/2024 Transcribe Orders Replaced By [facility] [address] [place] [address] [facility] 05/19/2024 Transcribe Orders Replaced By [facility] [address] [place] [address] [facility] 05/17/2024 11:00 AM CDT Ancillary Procedure [facility] [address] [place] [address] 05/17/2024 10:05 AM CDT Office Visit [facility] [address] [place] [address] Blane Peres MD Medication Management; Immunization/Injec tion (COVID-19 vaccine) 05/17/2024 Nurse Triage [facility] [address] [place] [address] Blane Peres MD Pain; Medication Management 05/17/2024 Travel 05/11/2024 Refill [facility] [address] [place] [address] Blane Peres MD Refill Request (Tamsulosin) 05/08/2024 Refill [facility] [address] [place] [address] Farida Sanderson DO Refill Request (Tamsulosin) 05/06/2024 11:30 AM CDT Ancillary Procedure [facility] [address] [place] [address] 05/06/2024 10:05 AM CDT Office Visit [facility] [address] [place] [address] Blane Peres MD Hip Pain/problem (Left hip pain/Started to come back about 6 months ago/No injury/Has been on going /Waking him up in the middle of the night) 05/06/2024 Travel 04/26/2024 Telephone [facility] [address] [place] [address] Blane Peres MD Appointment 04/25/2024 Refill [facility] [address] [place] [address] Blane Peres MD Refill Request (Gabapentin) 04/18/2024 Orders Only [facility] Scanner 1 scan: (1-Ord) [facility], CT CHEST WO CONTRAST, 04/18/2024 04/18/2024 Orders Only [facility] Scanner 1 scan: (1-Ord) [place], CT FACIAL BONES WO CON, 04/18/2024 04/18/2024 Orders Only [facility] Scanner 1 scan: (1-Ord) [facility], CT HEAD/BRAIN WO CON , 04/18/2024 04/18/2024 Orders Only [facility] Scanner 1 scan: (1-Ord) [facility], CERVICAL SPINE W/O CONT, 04/18/2024 04/18/2024 Nurse Triage [facility] [address] [place] [address] Blane Peres MD Head Injury from Last [...] Sign Reading Time Taken Comments Blood Pressure 150/87 06/03/2024 9:55 AM CDT Pulse 66 06/03/2024 9:55 AM CDT Temperature 36.8 ??C (98.3 ??F) 06/03/2024 9:55 AM CD T Respiratory Rate 18 06/03/2024 9:55 AM CDT Oxygen Saturation 97% 06/03/2024 9:55 AM CDT Inhaled Oxygen Concentration - - Weight 90.7 kg (200 lb) 05/26/2024 11:41 AM CDT Height 175.3 cm (5' 9) 05/26/2024 11:41 AM CDT Body Mass Index 29.53 05/26/2024 11:41 AM CDT Plan of Treatment Upcoming Encounters Date Type Department Care Team (Late st Contact Info) Description 06/08/2024 9:00 AM CDT Home Care Visit Replaced By [facility] [address] [place] [address] Nina Mart RN 06/10/2024 4:00 AM CDT Home Care Visit Replaced By [facility] [address] [place] [address] Nina Mart RN 06/14/2024 1:10 PM CDT [address] [address] Blane Peres MD [address] [place] [address] 06/15/2024 4:00 AM CDT Home Care Visit Replaced By [facility] [address] [place] [phone] Nina Mart, WINNIE 06/17/2024 5:00 AM CDT Home Care Visit [facility] [address] [place] [phone] Adrián Block, RN [address] [place] [address] 06/17/2024 7:00 AM CDT Home Care Visit [facility] [address] [place] [phone] Nina Mart, WINNIE 06/22/2024 4:00 AM CDT Home Care Visit [facility] [address] [place] [phone] Nina Mart, WINNIE 06/24/2024 4:00 AM CDT Home Care Visit [facility] [address] [place] [phone] Nina Mart, WINNIE 06/29/2024 4:00 AM CDT Home Care Visit [facility] [address] [place] [phone] Nina Mart, WINNIE 07/01/2024 4:00 AM CDT Home Care Visit [facility] [address] [place] [phone] Nina Mart, WINNIE 07/06/2024 4:00 AM 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 Home Care Visit Replaced By [facility] [address] [place] [phone] Nina Mart, RN 07/08/2024 4:00 AM STANDARD MACHINE STITCHER Home Care Visit Replaced By [facility] [address] [place] [phone] Nina Mart, WINNIE 07/13/2024 4:00 AM STANDARD MACHINE STITCHER Home Care Visit Replaced By [facility] [address] [place] [address] Nina Mart, WINNIE 07/15/2024 4:00 AM STANDARD MACHINE STITCHER Home Care Visit Replaced By [facility] [address] [place] [address] Nina Mart, WINNIE 07/20/2024 4:00 AM STANDARD MACHINE STITCHER Home Care Visit Replaced By [facility] [address] [place] [address] Nina Mart, WINNIE 07/22/2024 4:00 AM STANDARD MACHINE STITCHER Appointment Replaced By [facility] [address] [place] [address] Nina Mart, RN Health Maintenance Due Date Last Done Comments Pneumococcal series for age 65+ (1 of 2 - PCV) 1965 Zoster (shingles) series for age 50+ (1 [...] 18-79 Completed 05/15/2016 Tdap Completed 05/02/2024, 03/01/2008 HIV for age 15-65 Completed 05/17/2024 Procedures Procedure Name Priority Date/Time Associated Diagnosis [...] TOTAL 3.64 < OR = 4.00 ng/mL [facility] Comment: The total PSA value from this assay system is standardized against the WHO standard. The test result will be approximately 20% lower when compared to the equimolar-standardized total PSA (Francy Humptulips). Comparison of serial PSA results should be [...] Peres MD SEND OUTS Performing Organization Address [facility]/ZIP Co de Phone Number [email or web address] [address] [place] [address], [facility] [address] [place] [address] * HIV 1/2 ANTIGEN/ANTIBODY FOURTH GENERATION W/RFL ([facility]) (05/17/2024 12:04 PM CDT) HIV AG/AB, 4TH GEN NON-REACT MYRA NON-REACT MYRA [facility] Comment: HIV-1 antigen and HIV-1/HIV-2 antibodies were [...] ?? For additional information please refer to http://education.[employer]/faq/YJD193 (This link is being provided for informational/ educational purposes only.) The performance of this assay has not been clinically validated in patients less than 2 years old. Blood BLOOD SPECIMEN / Unknown 05/17/2024 12:04 PM CDT 05/17/2024 12:06 PM CDT Blane Peres MD SEND OUTS [facility] [address] [place] [address], [place] [phone] [facility] [address] [place] [address] * (ABNORMAL) LIPID PANEL W REFLEX MEASURED LDL [ZXY0010] (05/17/2024 12:04 PM CDT) CHOLESTEROL, TOTAL 156 <200 mg/dL [facility] HDL CHOLESTEROL 44 > OR = 40 mg/dL [facility] TRIGLYCERIDES 159(H) <150 mg/dL [facility] LDL-CHOLESTEROL 86 mg/dL (calc) [facility] Comment: Reference range: <100 Desirable range <100 mg/dL for primary prevention; ?? <70 mg/dL for patients with CHD or diabetic patients with > or = 2 CHD risk factors. LDL-C is now calculated using the Landen-Guzman calculation, which is a validated novel method providing better accuracy than the Friedewald equation in the estimation of LDL-C. Landen SS et al. RAMA. 2013;310(19): 4821-5989 (http://education.[employer]/faq/QIE109) CHOL/HDLC RATIO 3.5 <5.0 (calc) [facility] NON HDL CHOLESTEROL 112 <130 mg/dL (calc) [facility] Comment: For patients with diabetes plus 1 major ASCVD risk factor, treating to a non-HDL-C goal of <100 mg/dL (LDL-C of <70 mg/dL) is considered a therapeutic option. Blood BLOOD SPECIMEN / Unknown 05/17/2024 12:04 PM CDT 05/17/2024 12:06 PM CDT Blane Peres MD CHEMISTRY [facility] [address] [place] [address], [place] [phone] [facility] [address] [place] [address] * BASIC METABOLIC PANEL (05/17/2024 12:04 PM CDT) Pathologist [facility] GLUCOSE 94 65 - 99 mg/dL [facility] Comment: ? Fasting reference interval UREA NITROGEN (BUN) 16 7 - 25 mg/dL [facility] CREATININE 0.94 0.70 - 1.35 mg/dL [facility] EGFR 90 > OR = 60 mL/min/1. 73m2 [facility] BUN/CREATININE RATIO SEE NOTE: 6 [...] 12:06 PM CDT Blane Peres MD CHEMISTRY [facility] [address] [place] [address], [facility] [address] [place] [address] * (ABNORMAL) HEPATIC FUNCTION PANEL (05/17/2024 12:02 PM CDT) Pathologist [facility] PROTEIN, TOTAL 6.8 6.1 - 8.1 g/dL [...] 12:02 PM CDT Blane Peres MD CHEMISTRY [facility] [address] [place] [address], [facility] [address] [place] [address] * CT CHEST WO (05/17/2024 11:27 AM [...] MD GI PROCEDURE ORD * ANTI HCV [85451.2] (05/15/2016 2:38 PM CDT) HEPATITIS C ANTIBODY Non-Reacti ve Non-Reacti ve 05/15/2016 8:09 PM CDT [facility] Blood BLOOD SPECIMEN / Unknown Venipuncture / Unknown 05/15/2016 2:38 PM CDT 05/15/2016 2:38 PM CDT Narrative [facility] - 05/15/2016 8:09 PM CDT Antibodies to HCV not detected; does not exclude the possibility of exposure to HCV. Blane Peres MD SEND OUTS [facility] [address] [place] [address], from Last 3 Months or Most Recently [...] Code Status Discussion: Not Discussed Care Teams Inker Machine Relationship Specialty Start Date End Date Blane Peres MD [address] [place] [address] PCP - General Family Practice 06/03/[address] [address] 05/24/24
== END 2024-06-06 12:00 | disposition home or self-care (01) ==
LOC: WOUND 12:00
PROVIDERS: PCP Surgery; Visit Provider Nurse Practitioner Family
DX: S81.812A Laceration without foreign body, left lower leg, initial encounter (principal); S80.12XA Contusion of left lower leg, initial encounter; I87.2 Venous insufficiency (chronic) (peripheral)
CPT/HCPCS: 11042; 97605

== ENCOUNTER 2024-06-13 11:27 | Outpatient (CLI) | payer MEDICARE, BC, SELFPAY ==
--- OUTSIDE RECORDS SUMMARY | 2024-06-13 11:29 | XMS_ITS | Clinical Summary ---
Author Organization [employer] [facility] Address [place], [place] [address] Care Team Providers Care [employer] Agent Name Role Phone Blane Peres MD Primary Care Provider [phone] [facility], [place] Unavailable Allergies No known active allergies Medications Medication [...] type, unspecified whether angina present, unspecified whether [place] or transplanted heart Take 1 Tablet (20 [...] A MEAL 90 Capsule 3 4 Active acetaminophen (TYLENOL EXTRA STRGTH) 500 mg tablet Take 500 mg by mouth every 6 hours if needed for Pain. Take 1-2 tablets by mouth as needed for pain. Do not exceed 4000mg in 24 hours. Active oxyCODONE (ROXICODONE) 5 mg immediate release tabletIndications: Leg hematoma, left, sequela Take 1 Tablet (5 mg) by mouth once daily if needed for Pain. 7 Tablet 4 Active tamsulosin (FLOMAX) 0.4 mg capsuleIndications :BPH with urinary obstruction TAKE 1 CAPSULE(0.4 MG) BY MOUTH EVERY DAY AFTER A MEAL 30 Capsule 4 024 Discontinued rx amoxicillin-clavul anate (AUGMENTIN) 875-125 mg tablet (ED DC MED) Take 875 mg by mouth every 12 hours. Take one pill by mouth every 12 hours. 024 Discontinued(*M ed complete/Regime n complete/Level of care change) Active Problems Problem Noted Date Diagnosed Date [...] Encounters Date Type Department Care Team Description 06/10/2024 9:00 AM CDT Home Care Visit [address] [phone] Nina Mart RN SN - LONG VISIT (>90 MINUTES) 06/08/2024 9:00 AM CDT Home Care Visit [address] [address] Nina Mart RN SN - LONG VISIT (>90 MINUTES) 06/08/2024 Orders Only [facility] [address] [place] [address] Nina Mart RN <No scans attached> 06/03/2024 9:00 AM CDT Home Care Visit [address] [phone] Nina Mart RN SN - LONG VISIT (>90 MINUTES) 06/01/2024 9:00 AM CDT Home Care Visit [address] [address] Nina Mart RN SN - LONG VISIT (>90 MINUTES) 05/28/2024 9:30 AM CDT Home Care Visit [address] [address] Poppy Allen RN SN - LONG VISIT (>90 MINUTES) 05/27/2024 12:15 AM CDT Home Care Visit [place] [address] [place] [address] Adrián Block, RN SN - WOUND/OSTOMY CHART CONSULT 05/26/2024 11:15 AM CDT Home Care Visit [facility] [address] [place] [address] Jeanine Penn, RN SN - OASIS START OF CARE 05/26/2024 Telephone [facility] [address] [place], [place] [phone] Jeanine Penn RN Home Care (Admission) 05/26/2024 Plan of Care Documentation [address] [phone] 05/24/2024 Transcribe Orders [address] [address] [facility] 05/19/2024 Transcribe Orders [address] [address] [facility] 05/17/2024 11:00 AM CDT Ancillary Procedure [facility] [address] [place] [address] 05/17/2024 10:05 AM CDT Office Visit [facility] [address] [place] [address] Blane Peres MD Medication Management; Immunization/Injec tion (COVID-19 vaccine) 05/17/2024 Nurse Triage [facility] [address] [place] [address] Blane Peres MD Pain; Medication Management 05/17/2024 Travel 05/11/2024 Refill [facility] [address] [place] [address] Blane Peres MD Refill Request (Tamsulosin) 05/08/2024 Refill [facility] [address] [place] [address] Farida Sanderson DO Refill Request (Tamsulosin) 05/06/2024 11:30 AM CDT Ancillary Procedure [facility] [address] [facility] [place] [address] 05/06/2024 10:05 AM CDT Office Visit [facility] [address] [facility] [address] Blane Peres MD Hip Pain/problem (Left hip pain/Started to come back about 6 months ago/No injury/Has been on going /Waking him up in the middle of the night) 05/06/2024 Travel 04/26/2024 Telephone [facility] [address] [place] [address] Blane Peres MD Appointment 04/25/2024 Refill [facility] [address] [place] [address] Blane Peres MD Refill Request (Gabapentin) 04/18/2024 Orders Only [facility] Scanner 1 scan: (1-Ord) [facility], CT CHEST WO CONTRAST, 04/18/2024 04/18/2024 Orders Only [facility] Scanner 1 scan: (1-Ord) [place], CT FACIAL BONES WO CON, 04/18/2024 04/18/2024 Orders Only [facility] Scanner 1 scan: (1-Ord) [facility], CT HEAD/BRAIN WO CON , 04/18/2024 04/18/2024 Orders Only [facility] Scanner 1 scan: (1-Ord) [facility], CERVICAL SPINE W/O CONT, 04/18/2024 04/18/2024 Nurse Triage [facility] [address] [place] [address] Blane Peres MD Head Injury from Last [...] Sign Reading Time Taken Comments Blood Pressure 168/91 06/10/2024 9:14 AM CDT Pulse 72 06/10/2024 9:14 AM CDT Temperature 36.3 ??C (97.4 ??F) 06/10/2024 9:14 AM CD T Respiratory Rate 18 06/10/2024 9:14 AM CDT Oxygen Saturation 97% 06/10/2024 9:14 AM CDT Inhaled Oxygen Concentration - - Weight 90.7 kg (200 lb) 05/26/2024 11:41 AM CDT Height 175.3 cm (5' 9) 05/26/2024 11:41 AM CDT Body Mass Index 29.53 05/26/2024 11:41 AM CDT Plan of Treatment Upcoming Encounters Date Type Department Care Team (Late st Contact Info) Description 06/14/2024 1:10 PM CDT Office Visit [facility] [address] [place] [address] Blane Peres MD [address] [place] [address] 06/15/2024 4:00 AM CDT Home Care Visit [facility] [address] [place] [phone] 06/17/2024 5:00 AM CDT Home Care Visit [facility] [address] [place] [phone] Adrián Block, RN [address] [place] [address] 06/17/2024 7:00 AM CDT Home Care Visit [place] [address] [place] [phone] Nina Mart, RN 06/22/2024 4:00 AM CDT Home Care Visit [place] [address] [place] [phone] 06/24/2024 4:00 AM CDT Home Care Visit [place] [address] [place] [phone] Nina Mart, WINNIE 06/29/2024 4:00 AM CDT Home Care Visit [place] [address] [place] [phone] Nina Mart, RN 07/01/2024 4:00 AM CDT Home Care Visit [facility] [address] [place] [phone] Nina Mart, RN 07/06/2024 4:00 AM MACHINE 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 MOLDER Home Care Visit [place] [address] [place] [phone] Nina Mart, RN 07/08/2024 4:00 AM MACHINE CANDLE MOLDER Home Care Visit [place] [address] [place] [phone] Nina Mart, WINNIE 07/13/2024 4:00 AM MACHINE CANDLE MOLDER Home Care Visit [facility] [address] [facility] [place] [address] Nina Mart, WINNIE 07/15/2024 4:00 AM MACHINE CANDLE MOLDER Home Care Visit [facility] [address] [facility] [place] [address] Nina Mart, WINNIE 07/20/2024 4:00 AM MACHINE CANDLE MOLDER Home Care Visit [facility] [address] [facility] [place] [address] Nina Mart, WINNIE 07/22/2024 4:00 AM MACHINE CANDLE MOLDER Appointment [facility] [address] [facility] [place] [address] Nina Mart, RN Health Maintenance Due Date [...] TOTAL 3.64 < OR = 4.00 ng/mL [facility] Comment: The total PSA value from this assay system is standardized against the WHO standard. The test result will be approximately 20% lower when compared to the equimolar-standardized total PSA (Francy [place]). Comparison of serial PSA results should be [...] PM CDT Blane Peres MD SEND OUTS [facility] [address] [place] [address], [facility] [address] [place] [address] * HIV 1/2 ANTIGEN/ANTIBODY FOURTH GENERATION W/RFL (QUEST) (05/17/2024 12:04 PM CDT) HIV AG/AB, 4TH GEN NON-REACT MYRA NON-REACT MYRA [facility] Comment: HIV-1 antigen and HIV-1/HIV-2 antibodies [...] ?? For additional information please refer to http://education.Dropifi.quitchen/faq/DHQ510 (This link is being provided for informational/ educational purposes only.) The performance of this assay has not been clinically validated in patients less than 2 years old. Blood BLOOD SPECIMEN / Unknown 05/17/2024 12:04 PM CDT 05/17/2024 12:06 PM CDT Blane Peres MD SEND OUTS [facility] [address] [place] [address], [place] [phone] [facility] [address] [place] [address] * (ABNORMAL) LIPID PANEL W REFLEX MEASURED LDL [[id number]] (05/17/2024 12:04 PM CDT) [facility] Signature CHOLESTEROL, TOTAL 156 <200 mg/dL [facility] HDL CHOLESTEROL 44 > OR = 40 mg/dL [facility] TRIGLYCERIDES 159(H) <150 mg/dL [facility] LDL-CHOLESTEROL 86 mg/dL (calc) [facility] Comment: Reference range: <100 Desirable range <100 mg/dL for primary prevention; ?? <70 mg/dL for patients with CHD or diabetic patients with > or = 2 CHD risk factors. LDL-C is now calculated using the Landen-Megan calculation, which is a validated novel method providing better accuracy than the Friedewald equation in the estimation of LDL-C. Landen SS et al. RAMA. 2013;310(19): 7438-4776 (http://education.CareerStarter/faq/AGA840) CHOL/HDLC RATIO 3.5 <5.0 (calc) [facility] NON HDL CHOLESTEROL 112 <130 mg/dL (calc) [facility] Comment: For patients with diabetes plus 1 major ASCVD risk factor, treating to a non-HDL-C goal of <100 mg/dL (LDL-C of <70 mg/dL) is considered a therapeutic option. Blood BLOOD SPECIMEN / Unknown 05/17/2024 12:04 PM CDT 05/17/2024 12:06 PM CDT lBane Peres MD CHEMISTRY [facility] [address] [place] [address], [place] [phone] [facility] [address] [place] [address] * BASIC METABOLIC PANEL (05/17/2024 12:04 PM CDT) Pathologist [facility] GLUCOSE 94 65 - 99 mg/dL [facility] Comment: ? Fasting reference interval [...] Nathaniel CALCIUM 9.3 8.6 - 10.3 mg/dL [facility] Blood BLOOD SPECIMEN / Unknown 05/17/2024 12:04 PM CDT 05/17/2024 12:06 PM CDT Blane Peres MD CHEMISTRY [facility] [address] [place] [address], [facility] [address] [place] [address] * (ABNORMAL) HEPATIC FUNCTION PANEL (05/17/2024 12:02 PM CDT) Pathologist [facility] PROTEIN, TOTAL 6.8 6.1 - 8.1 g/dL [...] 12:02 PM CDT Blane Peres MD CHEMISTRY [facility] [address] [place] [address], [facility] [address] [place] [address] * CT CHEST WO (05/17/2024 11:27 AM [...] MD GI PROCEDURE ORD * ANTI HCV [60482.2] (05/15/2016 2:38 PM CDT) HEPATITIS C ANTIBODY Non-Reacti ve Non-Reacti ve 05/15/2016 8:09 PM CDT [facility] Blood BLOOD SPECIMEN / Unknown Venipuncture / Unknown 05/15/2016 2:38 PM CDT 05/15/2016 2:38 PM CDT Narrative [facility] - 05/15/2016 8:09 PM CDT Antibodies to HCV not detected; does not exclude the possibility of exposure to HCV. Blane Peres MD SEND OUTS [facility] [address] [place] [address], from Last 3 Months or Most Recently [...] Code Status Discussion: Not Discussed Care Teams [employer] Agent Relationship Specialty Start Date End Date Blane Peres MD [address] [place] [address] PCP - General Family Practice 06/03/[address] [address] 05/24/24
== END 2024-06-13 11:28 | disposition home or self-care (01) ==
LOC: WOUND 11:27
PROVIDERS: PCP Surgery; Visit Provider Nurse Practitioner Family
DX: I87.312 Chronic venous hypertension (idiopathic) with ulcer of left lower extremity (principal); I87.2 Venous insufficiency (chronic) (peripheral); L97.228 Non-pressure chronic ulcer of left calf with other specified severity
CPT/HCPCS: 11042; 97605

== ENCOUNTER 2024-06-20 10:58 | Outpatient (CLI) | payer MEDICARE, BC, SELFPAY ==
--- OUTSIDE RECORDS SUMMARY | 2024-06-20 11:05 | XMS_ITS | Clinical Summary ---
Author Organization [facility] Address [place], [place] [address] Care Team Providers Care [employer] Name Role Phone Blane Peres MD Primary Care Provider [phone] [facility] [place] Unavailable Allergies No known active allergies Medications [...] sexual intercourse 30 Tablet 1 09/03/2023 Active sertraline (ZOLOFT) 50 mg tabletIndications:C hronic insomnia Take 1 Tablet (50 mg) by mouth once daily. 90 Tablet 3 01/28/2024 Active mirtazapine (REMERON) 7.5 mg tabletIndications:C hronic insomnia Take 1 pill orally at night 10 hours before planning on waking up 90 Tablet 3 01/28/2024 Active atorvastatin (LIPITOR) 20 mg tabletIndications:C oronary artery disease, unspecified vessel or lesion type, unspecified whether angina present, unspecified whether [place] or transplanted heart Take 1 Tablet (20 mg) by mouth once daily. 90 Tablet 2 02/05/2024 Active carvediloL (Coreg) 3.125 mg tabletIndications:P aroxysmal atrial fibrillation (HC),Nonischemic cardiomyopathy (HC) Take 1 Tablet (3.125 mg) by mouth two times daily. 180 Tablet 3 02/05/2024 Active Eliquis 5 mg tabletIndications:P aroxysmal atrial fibrillation (HC) Take 1 Tablet (5 mg) by mouth two times daily. 180 Tablet 3 02/05/2024 Active albuterol HFA (PRO-AIR; VENTOLIN; PROVENTIL) 90 mcg/actuation inhalerIndications: Chronic obstructive pulmonary disease, unspecified COPD type (HC) Inhale 1-2 Puffs by mouth every 4 hours if needed for Shortness Of Breath or Wheezing. 16 g 3 05/06/2024 Active gabapentin (NEURONTIN) 300 mg capsuleIndications: Hip pain, left Take 1 Capsule (300 mg) by mouth three times daily. 90 Capsule 1 05/06/2024 Active tamsulosin (FLOMAX) 0.4 mg capsuleIndications: BPH with urinary obstruction TAKE 1 CAPSULE(0.4 MG) BY MOUTH EVERY DAY AFTER A MEAL 90 Capsule 3 05/17/2024 Active acetaminophen (TYLENOL EXTRA STRGTH) 500 mg tablet Take 500 mg by mouth every 6 hours if needed for Pain. Take 1-2 tablets by mouth as needed for pain. Do not exceed 4000mg in 24 hours. Active oxyCODONE (ROXICODONE) 5 mg immediate release tabletIndications:L eg hematoma, left, sequela Take 1 Tablet (5 mg) by mouth once daily if needed for Pain. 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 100 g 06/14/2024 Active rx amoxicillin-clavula cody (AUGMENTIN) 875-125 mg tablet (ED DC MED) Take 875 mg by mouth every 12 hours. Take one pill by mouth every 12 hours. 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 06/15/2024 12:00 PM CDT Home Care Visit [facility] [address] [place] [phone] Terri Brenner LPN BRACELET MAKER NOVELTY - LONG VISIT (>90 MINUTES) 06/15/2024 Travel 06/14/2024 1:10 PM CDT Office Visit [facility] [address] [place] [address] Blane Peres MD Medicare FIRST ANNUAL Visit (64 yr old male); Immunization/Injec tion (COVID-19 vaccine) 06/14/2024 9:15 AM CDT Home Care Visit [facility] [address] [place] [phone] Adrián Block, RN SN - WOUND/OSTOMY CHART CONSULT 06/14/2024 Travel 06/10/2024 9:00 AM CDT Home Care Visit [facility] [address] [place] [phone] Nina Mart RN SN - LONG VISIT (>90 MINUTES) 06/08/2024 9:00 AM CDT Home Care Visit [facility] [address] [place] [phone] Nina Mart RN SN - LONG VISIT (>90 MINUTES) 06/08/2024 Orders Only [facility] [address] [place] [address] Nina Mart RN <No scans attached> 06/03/2024 9:00 AM CDT Home Care Visit [facility] [address] [place] [phone] Nina Mart RN SN - LONG VISIT (>90 MINUTES) 06/01/2024 9:00 AM CDT Home Care Visit [address] [phone] Nina Mart RN SN - LONG VISIT (>90 MINUTES) 05/28/2024 9:30 AM CDT Home Care Visit [facility] [id number] [place] [phone] Poppy Allen RN SN - LONG VISIT (>90 MINUTES) 05/27/2024 12:15 AM CDT Home Care Visit [address] [phone] Adrián Block RN SN - WOUND/OSTOMY CHART CONSULT 05/26/2024 11:15 AM CDT Home Care Visit [address] [phone] Jeanine Penn RN SN - OASIS START OF CARE 05/26/2024 Telephone [facility] [address] [place] [address] Jeanine Penn chucking and sawing 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 operator (Admission) 05/26/2024 Plan of Care Documentation [address] [phone] 05/24/2024 Transcribe Orders [facility] [address] [place] [address] [facility] 05/19/2024 Transcribe Orders [facility] [address] [place], [place] [address] [facility] 05/17/2024 11:00 AM CDT Ancillary Procedure [facility] [address] [place] [address] 05/17/2024 10:05 AM CDT Office Visit [facility] [address] [place] [address] Blane Peres MD Medication Management; Immunization/Injec tion (COVID-19 vaccine) 05/17/2024 Nurse Triage [facility] [address] [place] [address] Blane Peres MD Pain; Medication Management 05/17/2024 Travel 05/11/2024 Refill [facility] [address] [place] [address] Blane Peres MD Refill Request (Tamsulosin) 05/08/2024 Refill [facility] [address] [place] [address] Farida Sanderson DO Refill Request (Tamsulosin) 05/06/2024 11:30 AM CDT Ancillary Procedure [facility] [address] [place] [address] 05/06/2024 10:05 AM CDT Office Visit [address] [address] Blane Peres MD Hip Pain/problem (Left hip pain/Started to come back about 6 months ago/No injury/Has been on going /Waking him up in the middle of the night) 05/06/2024 Travel 04/26/2024 Telephone [facility] [address] [place] [address] Blane Peres MD Appointment 04/25/2024 Refill [facility] [address] [place] [address] Blane Peres MD Refill Request (Gabapentin) 04/18/2024 Orders Only [facility] Scanner 1 scan: (1-Ord) [facility], CT CHEST WO CONTRAST, 04/18/2024 04/18/2024 Orders Only [facility] Scanner 1 scan: (1-Ord) [place], CT FACIAL BONES WO CON, 04/18/2024 04/18/2024 Orders Only [facility] Scanner 1 scan: (1-Ord) [facility], CT HEAD/BRAIN WO CON , 04/18/2024 04/18/2024 Orders Only [facility] Scanner 1 scan: (1-Ord) [facility], CERVICAL SPINE W/O CONT, 04/18/2024 04/18/2024 Nurse Triage [facility] [address] [place] [address] Blane Peres MD Head Injury from Last 3 Months Immunizations Name Administration Dates Next Due COVID-19 VACCINE SPIKEVAX (M ODERNA 50MCG/0.5ML) 12YO+ PFS 06/14/2024 COVID-19 vaccine (Moderna 100mcg/0.5mL) PFMDV 01/18/2021,12/20/2020 Td [...] Answer Date Recorded PHQ-2 TOTAL SCORE 0 06/14/2024 Social Connections Answer Date Recorded Frequency of Communication with Friends and Fami ly 0 09/03/2023 Financial Resource Strain Answer Date R ecorded Difficulty of Paying Living Expenses 3 09/03/2023 Difficulty of Paying Living Expenses Not on file 09/03/2023 Food Insecurity Answer Date Recorded Do you worry your food will run out before you are able to buy more? 1 09/03/2023 Transportation Needs Answer Date Record ed Lack of Transportation (Medical) 1 09/03/2023 Housing Stability Answer Date Recorded What is your housing situation today? 1 09/03/2023 Sex and Gender Information Value Date Recorded Sex Assigned at Not on file Gender Identity Not on file Sexual Orientation Not on file Obstetrics History Last Filed Vital Signs Vital Sign Reading Time Taken Comments Blood Pressure 163/96 06/17/2024 9:03 AM CDT Pulse 68 06/17/2024 9:03 AM CDT Temperature 36.9 ??C (98.5 ??F) 06/17/2024 9:03 AM CD T Respiratory Rate 16 06/17/2024 9:03 AM CDT Oxygen Saturation 97% 06/17/2024 9:03 AM CDT Inhaled Oxygen Concentration - - Weight 93.5 kg (206 lb 1.6 oz) 06/14/2024 1:14 P M CDT Height 172 cm (5' 7.72) 06/14/2024 1:14 PM CDT Body Mass Index 31.6 06/14/2024 1:14 PM CDT Plan of Treatment Upcoming Encounters Date Type Department Care Team (Late st Contact Info) Description 06/22/2024 4:00 AM CDT Home Care Visit [facility] [address] [place] [phone] 06/24/2024 9:00 AM CDT Home Care Visit [facility] [address] [place] [phone] Nina Mart, WINNIE 06/28/2024 4:00 AM CDT Home Care Visit [facility] [address] [place] [phone] Adrián Block, RN [address] [place] [address] 06/29/2024 4:00 AM CDT Home Care Visit [facility] [id number] [place] [phone] Nina Mart, WINNIE 07/01/2024 4:00 AM CDT Home Care Visit [place] [facility] [id number] [place] [phone] Nina Mart, WINNIE 07/04/2024 7:15 AM 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 Ancillary Procedure [facility] [address] [place] [address] 07/04/2024 8:15 AM 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 Ancillary Procedure [facility] [address] [place] [address] 07/06/2024 4:00 AM 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 Home Care Visit [address] [phone] Nina Mart, WINNIE 07/08/2024 4:00 AM 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 Home Care Visit [address] [phone] Nina Mart, WINNIE 07/13/2024 4:00 AM 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 Home Care Visit [address] [phone] Nina Mart, WINNIE 07/15/2024 4:00 AM 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 Home Care Visit [address] [phone] Nina Mart, WINNIE 07/20/2024 4:00 AM 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 Home Care Visit [address] [phone] Nina Mart, WINNIE 07/22/2024 4:00 AM 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 Appointment [facility] [id number] [place] [phone] Nina Mart, RN Health Maintenance Due Date Last Done Comments Pneumococcal series for age 65+ (1 of 2 - PCV) 1965 Zoster (shingles) series for age 50+ (1 of 2) 2009 Colonoscopy through age 75 11/17/202311/16, 11/15/2018, 11/15/2018, Additional history exists AAA screening age 65-74 2024 Influenza for age 65+ 05/01/2024 BMI (ht and wt on same day) for age 18+ 06/14/2025 06/14/2024, 02/05/2024, 12/01/2023, Additional history exists Medicare Wellness for age 65+ 06/15/2025 06/14/2024 Depression screening for age 12+ 06/17/2025 06/17/2024, 06/14/2024, 05/06/2024, Additional history exists Lipids for age 45-75 05/17/2029 05/17/2024, 10/05/2018, 07/17/2017, Additional history exists Tetanus booster 05/02/2034 05/02/2024, 12/2018, 03/01/2008 Hepatitis C screening for ag e 18-79 Completed 05/15/2016 Tdap Completed 05/02/2024, 03/01/2008 HIV for age 15-65 Completed 05/17/2024 COVID-19 vaccine series Completed 06/14/20 24, 05/22/2022, 01/18/2021, Additional history exists Procedures Procedure Name Priority Date/Time Associated Diagnosis [...] screening for HIV HEPATIC FUNCTION PANEL Routine 12:[address] CHEST [...] to Health Maintenance Results * PSA (TOTAL) ([facility]) (05/17/2024 12:04 PM CDT) PSA, TOTAL 3.64 < OR = 4.00 ng/mL [facility] Comment: The total PSA value from this assay system is standardized against the WHO standard. The test result will be approximately 20% lower when compared to the equimolar-standardized total PSA (Francy Courtland). Comparison of serial PSA results should be [...] PM CDT Blane Peres MD SEND [employer]S [employer] [facility] [address] [place] [address], [facility] [address] [place] [address] * HIV 1/2 ANTIGEN/ANTIBODY FOURTH GENERATION W/RFL ([facility]) (05/17/2024 12:04 PM CDT) Pathologist [facility] HIV AG/AB, 4TH GEN NON-REACT MYRA NON-REACT MYRA [facility] Comment: HIV-1 antigen and HIV-1/HIV-2 antibodies were [...] ?? For additional information please refer to http://education.Goodpatch/faq/LTM066 (This link is being provided for informational/ educational purposes only.) The performance of this assay has not been clinically validated in patients less than 2 years old. Blood BLOOD SPECIMEN / Unknown 05/17/2024 12:04 PM CDT 05/17/2024 12:06 PM CDT Blane Prees MD [employer] [facility] [address] [place] [address], [facility] [address] [place] [address] * (ABNORMAL) LIPID PANEL W REFLEX MEASURED LDL [BCS6412] (05/17/2024 12:04 PM CDT) Pathologist [facility] CHOLESTEROL, TOTAL 156 <200 mg/dL [facility] HDL CHOLESTEROL 44 > OR = 40 mg/dL [facility] TRIGLYCERIDES 159(H) <150 mg/dL [facility] LDL-CHOLESTEROL 86 mg/dL (calc) [facility] Comment: Reference range: <100 Desirable range <100 mg/dL for primary prevention; ?? <70 mg/dL for patients with CHD or diabetic patients with > or = 2 CHD risk factors. LDL-C is now calculated using the Landen-Guzman calculation, which is a validated novel method providing better accuracy than the Friedewald equation in the estimation of LDL-C. Landen SS et al. RAMA. 2013;310(19): 4335-9061 (http://education.TMS/faq/IKF956) CHOL/HDLC RATIO 3.5 <5.0 (calc) [facility] NON HDL CHOLESTEROL 112 <130 mg/dL (calc) [facility] Comment: For patients with diabetes plus 1 major ASCVD risk factor, treating to a non-HDL-C goal of <100 mg/dL (LDL-C of <70 mg/dL) is considered a therapeutic option. Blood BLOOD SPECIMEN / Unknown 05/17/2024 12:04 PM CDT 05/17/2024 12:06 PM CDT Blane Peres MD CHEMISTRY [employer] [facility] [address] [place] [address], [facility] [address] * BASIC METABOLIC PANEL (05/17/2024 12:04 PM CDT) [facility] GLUCOSE 94 65 - 99 mg/dL [employer] [facility] Comment: ? Fasting reference interval UREA NITROGEN (BUN) 16 7 - 25 mg/dL [employer] [facility] CREATININE 0.94 0.70 - 1.35 mg/dL [facility] EGFR 90 > OR = 60 mL/min/1. 73m2 [facility] BUN/CREATININE RATIO SEE NOTE: 6 - 22 (calc) [facility] Comment: ?? Not Reported: BUN and Creatinine are within ?? reference range. ? SODIUM 139 135 - 146 mmol/L [facility] POTASSIUM 4.5 3.5 - 5.3 mmol/L [facility] CHLORIDE 105 98 - 110 mmol/L [facility] CARBON DIOXIDE 27 20 - 32 mmol/L [facility] ELECTROLYTE BALANCE 7 7 - 17 mmol/L (calc) [facility] CALCIUM 9.3 8.6 - 10.3 mg/dL [facility] Blood BLOOD SPECIMEN / Unknown 05/17/2024 12:04 PM CDT 05/17/2024 12:06 PM CDT Blane Peres MD CHEMISTRY [facility] [address] [place] [address], [facility] [address] [place] [address] * (ABNORMAL) HEPATIC FUNCTION PANEL (05/17/2024 12:02 [...] 12:02 PM CDT Blane Peres MD CHEMISTRY [employer] [facility] [address] [place] [address], [facility] [address] [place] [address] * CT CHEST WO (05/17/2024 11:27 AM [...] MD GI PROCEDURE ORD * ANTI HCV [77324.2] (05/15/2016 2:38 PM CDT) HEPATITIS C ANTIBODY Non-Reacti ve Non-Reacti ve 05/15/2016 8:09 PM CDT [facility] Blood BLOOD SPECIMEN / Unknown Venipuncture / Unknown 05/15/2016 2:38 PM CDT 05/15/2016 2:38 PM CDT Narrative [facility] - 05/15/2016 8:09 PM CDT Antibodies to HCV not detected; does not exclude the possibility of exposure to HCV. Blane Peres MD [facility] [address] [place] [address], [place] from Last 3 Months or Most [...] Code Status Discussion: Not Discussed Care Teams [employer] Teacher Relationship Specialty Start Date End Date Blane Peres MD [address] [place] [address] [place] [address] PCP - General Family Practice [facility]03[facility] [address] [place] [address] 05/24/24
== END 2024-06-20 10:59 | disposition home or self-care (01) ==
LOC: WOUND 10:59
PROVIDERS: PCP Surgery; Visit Provider Nurse Practitioner Family
DX: I87.312 Chronic venous hypertension (idiopathic) with ulcer of left lower extremity (principal); I87.2 Venous insufficiency (chronic) (peripheral); L97.228 Non-pressure chronic ulcer of left calf with other specified severity
CPT/HCPCS: 11042

== ENCOUNTER 2024-06-27 11:25 | Outpatient (CLI) | payer MEDICARE, BC, SELFPAY ==
--- OUTSIDE RECORDS SUMMARY | 2024-06-27 11:27 | XMS_ITS | Clinical Summary ---
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 rob left hip pain Apply 4 g [...] Encounters Date Type Department Care Team Description 06/24/2024 9:00 AM CDT Home Care Visit [facility] [address] [place] [phone] Nina Mart RN SN - HOME VISIT 06/22/2024 11:00 AM CDT Home Care Visit [facility] [address] [place] [phone] Terri Brenner LPN BARREL PLATER - HOME VISIT 06/17/2024 9:15 AM CDT Home Care Visit [facility] [address] [place] [phone] Nina Mart RN SN - LONG VISIT (>90 MINUTES) 06/17/2024 Telephone [facility] [address] [place] [phone] Nina Mart RN Home Care 06/15/2024 12:00 PM CDT Home Care Visit [facility] [address] [place] [phone] Terri Brenner LPN BARREL PLATER - LONG VISIT (>90 MINUTES) 06/15/2024 Travel 06/14/2024 1:10 PM CDT Office Visit [facility] [address] [place] [address] Blane Peres MD Medicare FIRST ANNUAL Visit (64 yr old male); Immunization/Injec tion (COVID-19 vaccine) 06/14/2024 9:15 AM CDT Home Care Visit [facility] [id number] [place] [phone] Adrián Block, RN SN - WOUND/OSTOMY CHART CONSULT 06/14/2024 Travel 06/10/2024 9:00 AM CDT Home Care Visit [facility] [id number] [place] [phone] Nina Mart RN SN - LONG VISIT (>90 MINUTES) 06/08/2024 9:00 AM CDT Home Care Visit [address] [phone] Nina Mart RN SN - LONG VISIT (>90 MINUTES) 06/08/2024 Orders Only [facility] [address] [place] [address] Nina Mart RN <No scans attached> 06/03/2024 9:00 AM CDT Home Care Visit [address] [phone] Nina Mart RN SN - LONG VISIT (>90 MINUTES) 06/01/2024 9:00 AM CDT Home Care Visit [address] [phone] Nina Mart RN SN - LONG VISIT (>90 MINUTES) 05/28/2024 9:30 AM CDT Home Care Visit [address] [phone] Poppy Allen RN SN - LONG VISIT (>90 MINUTES) 05/27/2024 12:15 AM CDT Home Care Visit [address] [phone] Adrián Block, RN SN - WOUND/OSTOMY CHART CONSULT 05/26/2024 11:15 AM CDT Home Care Visit [address] [phone] Jeanine Penn, RN SN - OASIS START OF CARE 05/26/2024 Telephone [facility] [address] [place] [address] Jeanine Penn, manager hospital (Admission) 05/26/2024 Plan of Care Documentation [facility] [address] [facility] [place] [address] 05/24/2024 Transcribe Orders [facility] [address] [place] [address] [facility] 05/19/2024 Transcribe Orders [facility] [address] [place] [address] [facility] 05/17/2024 11:00 AM CDT Ancillary Procedure [facility] [address] [place] [address] 05/17/2024 10:05 AM CDT Office Visit [facility] [address] [place] [address] Blane Peres MD Medication Management; Immunization/Injec tion (COVID-19 vaccine) 05/17/2024 Nurse Triage [facility] [address] [place] [address] Blane Peres MD Pain; Medication Management 05/17/2024 Travel 05/11/2024 Refill [facility] [address] [place] [address] Blane Peres MD Refill Request (Tamsulosin) 05/08/[address] [address] Farida Sanderson DO Refill Request (Tamsulosin) 05/06/2024 11:30 AM CDT Ancillary Procedure [facility] [address] [place] [address] 05/06/2024 10:05 AM CDT Office Visit [facility] [address] [place] [address] Blane Peres MD Hip Pain/problem (Left hip pain/Started to come back about 6 months ago/No injury/Has been on going /Waking him up in the middle of the night) 05/06/2024 Travel 04/26/2024 Telephone [facility] [address] [place] [address] Blane Peres MD Appointment 04/25/2024 Refill [facility] [address] [place] [address] Blane Peres MD Refill Request (Gabapentin) 04/18/2024 Orders Only [facility] Scanner 1 scan: (1-Ord) [facility], CT CHEST WO CONTRAST, 04/18/2024 04/18/2024 Orders Only [facility] Scanner 1 scan: (1-Ord) [place], CT FACIAL BONES WO CON, 04/18/2024 04/18/2024 Orders Only [facility] Scanner 1 scan: (1-Ord) [facility], CT HEAD/BRAIN WO CON , 04/18/2024 04/18/2024 Orders Only [facility] Scanner 1 scan: (1-Ord) [facility], CERVICAL SPINE W/O CONT, 04/18/2024 04/18/2024 Nurse Triage [facility] [address] [place] [address] Blane Peres MD Head Injury from Last 3 Months Immunizations Name Administration Dates Next Due COVID-19 VACCINE SPIKEVAX (M ODERNA 50MCG/0.5ML) 12YO+ PFS 06/14/2024 COVID-19 vaccine (Moderna 100mcg/0.5mL) EVITA JOYA 01/18/2021,12/20/2020 [...] 0 06/14/2024 Social Connections Answer Date Recorded Do you often feel lonely or isolated from those around you? 0 09/03/2023 Financial Resource Strain Answer Date R ecorded Difficulty of Paying Living Expenses 3 09/03/2023 Difficulty of Paying Living Expenses Not on file 09/03/2023 Food Insecurity Answer Date Recorded Do you worry your food will run out before you are able to buy more? 1 09/03/2023 Transportation Needs Answer Date Record ed Does lack of transportation keep you from medica l appointments? 1 09/03/2023 Does lack of transportation keep you from work, meetings or getting things that you need? 1 09/03/2023 Housing Stability Answer Date Recorded What is your housing situation today? 1 09/03/2023 Sex and Gender Information Value Date Recorded Sex Assigned at Not on file Gender Identity Not on file Sexual Orientation Not on file Obstetrics History Last Filed Vital Signs Vital Sign Reading Time Taken Comments Blood Pressure 177/90 06/24/2024 9:14 AM CDT Pulse 62 06/24/2024 9:14 AM CDT Temperature 36.8 ??C (98.2 ??F) 06/24/2024 9:14 AM CD T Respiratory Rate 18 06/24/2024 9:14 AM CDT Oxygen Saturation 97% 06/24/2024 9:14 AM CDT Inhaled Oxygen Concentration - - Weight 93.5 kg (206 lb 1.6 oz) 06/14/2024 1:14 P M CDT Height 172 cm (5' 7.72) 06/14/2024 1:14 PM CDT Body Mass Index 31.6 06/14/2024 1:14 PM CDT Plan of Treatment Upcoming Encounters Date Type Department Care Team (Late st Contact Info) Description 06/28/2024 4:00 AM CDT Home Care Visit [facility] [address] [place] [address] Adrián Block, RN [address] [place], [place] [phone] 06/29/2024 9:00 AM CDT Home Care Visit [facility] [address] [place] [address] Nina Mart, WINNIE 07/01/2024 9:00 AM CDT Home Care Visit [facility] [address] [place] [phone] Nina Mart, WINNIE 07/04/2024 7:15 AM [employer]LE [employer] Ancillary Procedure [facility] [address] [place] [address] 07/04/2024 8:15 AM [employer] Ancillary Procedure [facility] [address] [place] [address] 07/06/2024 4:00 AM [employer] Home Care Visit [facility] [address] [place] [phone] Nina Mart, RN 07/08/2024 4:00 AM [employer] Home Care Visit [facility] [address] [place] [phone] Nina Mart, WINNIE 07/13/2024 4:00 AM [employer] Home Care Visit [facility] [address] [place] [phone] Nina Mart, WINNIE 07/15/2024 4:00 AM [employer] Home Care Visit [facility] [address] [place] [phone] Nina Mart, WINNIE 07/20/2024 4:00 AM [employer] Home Care Visit [facility] [address] [place] [phone] Nina Mart, WINNIE 07/22/2024 4:00 AM [employer] Appointment [facility] [address] [place] [phone] Nina Mart, RN Health Maintenance Due Date [...] TOTAL 3.64 < OR = 4.00 ng/mL [employer] Comment: The total PSA value from [...] PM CDT Blane Peres MD SEND OUTS [employer] [facility] [address] [place] [address], [facility] [address] [place] [address] * HIV 1/2 ANTIGEN/ANTIBODY FOURTH GENERATION W/RFL ([facility]) (05/17/2024 12:04 PM CDT) HIV AG/AB, 4TH GEN NON-REACT MYRA NON-REACT MYRA [facility] Comment: HIV-1 antigen and HIV-1/HIV-2 antibodies were [...] ?? For additional information please refer to http://education.Rpptrip.com/faq/AZJ356 (This link is being provided for informational/ educational purposes only.) The performance of this assay has not been clinically validated in patients less than 2 years old. Blood BLOOD SPECIMEN / Unknown 05/17/2024 12:04 PM CDT 05/17/2024 12:06 PM CDT Blane Peres MD S[employer] OUTS [employer] [facility] [address] [place] [address], [facility] [address] [place] [address] * (ABNORMAL) LIPID PANEL W REFLEX MEASURED LDL [[id number]] (05/17/2024 12:04 PM CDT) CHOLESTEROL, TOTAL 156 [...] LDL-C. Landen HASKINS et al. RAMA. 2013;310(19): 4274-5369 (http://education.Amtec/faq/UVT576) CHOL/HDLC RATIO 3.5 <5.0 (calc) [facility] [facility] NON HDL CHOLESTEROL 112 <130 mg/dL (calc) [employer] [facility] Nathaniel Comment: For patients with diabetes plus 1 major ASCVD risk factor, treating to a non-HDL-C goal of <100 mg/dL (LDL-C of <70 mg/dL) is considered a therapeutic option. Blood BLOOD SPECIMEN / Unknown 05/17/2024 12:04 PM CDT 05/17/2024 12:06 PM CDT Blane Peres MD CHEMISTRY [employer] [address] [place] [address], [facility] [address] [place] [address] * BASIC METABOLIC PANEL (05/17/2024 12:04 PM CDT) [facility] GLUCOSE 94 65 - 99 mg/dL [employer] [facility] Comment: ? Fasting reference interval UREA NITROGEN (BUN) 16 7 - 25 mg/dL [employer] [facility] CREATININE 0.94 0.70 - 1.35 mg/dL [facility] EGFR 90 > OR = 60 mL/min/1. 73m2 [employer] BUN/CREATININE RATIO SEE NOTE: 6 - (calc) [employer] Comment: ?? Not Reported: BUN [...] 12:06 PM CDT Blane Peres MD CHEMISTRY [employer] [address] [place] [address], [facility] [address] [place] [address] * (ABNORMAL) HEPATIC FUNCTION PANEL (05/17/2024 12:02 [...] 12:02 PM CDT Blane Peres MD CHEMISTRY [employer] [facility] [address] [facility] [place] [address], [facility] [address] [place] [address] * CT CHEST WO (05/17/2024 11:27 AM [...] MD @ 05/17/2024 8:13:02 PM (Electronically Signed) Blaen Peres MD CT * XR HIP 1 [...] MD GI PROCEDURE ORD * ANTI HCV [22986.2] (05/15/2016 2:38 PM CDT) HEPATITIS C ANTIBODY Non-Reacti ve Non-Reacti ve 05/15/2016 8:09 PM CDT [facility] Blood BLOOD SPECIMEN / Unknown Venipuncture / Unknown 05/15/2016 2:38 PM CDT 05/15/2016 2:38 PM CDT Narrative [facility] - 05/15/2016 8:09 PM CDT Antibodies to HCV not detected; does not exclude the possibility of exposure to HCV. Blane Peres MD SEND OUT[employer] [facility] [address] [place] [address], from Last 3 Months or Most Recently [...] Code Status Discussion: Not Discussed Care Teams Chief Solution Architect Relationship Specialty Start Date End Date Blane Peres MD [facility] [place] [address] PCP - General Family Practice 06/03/14 [facility] [id number] [place] [address] 05/24/24
== END 2024-06-27 11:26 | disposition home or self-care (01) ==
LOC: WOUND 11:25
PROVIDERS: PCP Surgery; Visit Provider Nurse Practitioner Family
DX: I87.312 Chronic venous hypertension (idiopathic) with ulcer of left lower extremity (principal); I87.2 Venous insufficiency (chronic) (peripheral); L97.228 Non-pressure chronic ulcer of left calf with other specified severity
CPT/HCPCS: 11042

== ENCOUNTER 2024-07-04 11:29 | Outpatient (CLI) | payer MEDICARE, BC, SELFPAY ==
--- OUTSIDE RECORDS SUMMARY | 2024-07-04 11:32 | XMS_ITS | Clinical Summary ---
Author Organization [employer] [facility] Address [place], [place] [address] Care Team Providers Care Pharmacy Cashier Name Role Phone Blane Peres MD Primary Care Provider [phone] [facility] [place] Unavailable Allergies No known active allergies Medications [...] type, unspecified whether angina present, unspecified whether ekuk or transplanted heart Take 1 Tablet (20 [...] 05/30/2024 Active diclofenac topical (VOLTAREN) 1 % gelIndications:Hyperion Essbase Developer rob left hip pain Apply 4 g [...] Encounters Date Type Department Care Team Description 07/04/2024 8:15 AM DIABETOLOGIST Ancillary Procedure [facility] [address] [place] [address] Arrived 07/04/2024 Travel 06/29/2024 9:00 AM CDT Home Care Visit [facility] [address] [place] [phone] Nina Mart RN SN - OASIS DISCHARGE 06/28/2024 Telephone [facility] [address] [place] [address] Blane Peres MD Appointment (3 WEEK) 06/27/2024 4:00 PM CDT Home Care Visit [facility] [address] [place] [phone] Adrián Block, RN SN - WOUND/OSTOMY CHART CONSULT 06/24/2024 9:00 AM CDT Home Care Visit [facility] [address] [place] [phone] Nina Mart, WINNIE SN - HOME VISIT 06/22/2024 11:00 AM CDT Home Care Visit [facility] [address] [place] [phone] Terri Brenner LPN VAMP PRESSER - HOME VISIT 06/17/2024 9:15 AM CDT Home Care Visit [facility] [address] [place] [phone] Nina Mart RN SN - LONG VISIT (>90 MINUTES) 06/17/2024 Telephone [facility] [address] [place] [address] Nina Mart RN Home Care 06/15/2024 12:00 PM CDT Home Care Visit [place] [address] [place] [phone] Terri Brenner LPN VAMP PRESSER - LONG VISIT (>90 MINUTES) 06/15/2024 Travel 06/14/2024 1:10 PM CDT Office Visit [facility] [address] [place] [address] Blane Peres MD Medicare FIRST ANNUAL Visit (64 yr old male); Immunization/Injec tion (COVID-19 vaccine) 06/14/2024 9:15 AM CDT Home Care Visit [address] [phone] Adrián Block RN SN - WOUND/OSTOMY CHART CONSULT 06/14/2024 Travel 06/10/2024 9:00 AM CDT Home Care Visit [address] [phone] Nina Mart RN SN - LONG VISIT (>90 MINUTES) 06/08/2024 9:00 AM CDT Home Care Visit [address] [phone] Nina Mart RN SN - LONG VISIT (>90 MINUTES) 06/08/2024 Orders Only [facility] [address] [place] [address] Nina Mart RN <No scans attached> 06/03/2024 9:00 AM CDT Home Care Visit [address] [phone] Nina Mart RN SN - LONG VISIT (>90 MINUTES) 06/01/2024 9:00 AM CDT Home Care Visit [facility] [address] [place] [address], [place] [phone] Nina Mart, WINNIE SN - LONG VISIT (>90 MINUTES) 05/28/2024 9:30 AM CDT Home Care Visit [facility] [address] [place] [phone] Poppy Allen RN SN - LONG VISIT (>90 MINUTES) 05/27/2024 12:15 AM CDT Home Care Visit [facility] [address] [place] [phone] Adrián Blcok RN SN - WOUND/OSTOMY CHART CONSULT 05/26/2024 11:15 AM CDT Home Care Visit [place] [address] [place] [phone] Jeanine Penn RN SN - OASIS START OF CARE 05/26/2024 Telephone [facility] [address] [place] [phone] Jeanine Penn, die attaching machine tender (Admission) 05/26/2024 Plan of Care Documentation [address] [phone] 05/24/2024 Transcribe Orders [address] [phone] [facility] 05/19/2024 Transcribe Orders [address] [phone] [facility] 05/17/2024 11:00 AM CDT Ancillary Procedure [facility] [address] [place] [address] 05/17/2024 10:05 AM CDT Office Visit [facility] [address] [place] [address] Blane Peres MD Medication Management; Immunization/Injec tion (COVID-19 vaccine) 05/17/2024 Nurse Triage [facility] [address] [place] [address] Blane Peres MD Pain; Medication Management 05/17/2024 Travel 05/11/2024 Refill [facility] [address] [place] [address] Blane Peres MD Refill Request (Tamsulosin) 05/08/2024 Refill [facility] [address] [place] [address] Farida Sanderson DO Refill Request (Tamsulosin) 05/06/2024 11:30 AM CDT Ancillary Procedure [facility] [address] [place] [address] 05/06/2024 10:05 AM CDT Office Visit [facility] [address] [place] [address] Blane Peres MD Hip Pain/problem (Left hip pain/Started to come back about 6 months ago/No injury/Has been on going /Waking him up in the middle of the night) 05/06/2024 Travel 04/26/2024 Telephone [facility] [address] [place] [address] Blane Peres MD Appointment 04/25/2024 Refill [facility] [address] [place] [address] Blane Peres MD Refill Request (Gabapentin) 04/18/2024 Orders Only [facility] Scanner 1 scan: (1-Ord) [facility], CT CHEST WO CONTRAST, 04/18/2024 04/18/2024 Orders Only [facility] Scanner 1 scan: (1-Ord) [place], CT FACIAL BONES WO CON, 04/18/2024 04/18/2024 Orders Only [facility] Scanner 1 scan: (1-Ord) [facility], CT HEAD/BRAIN WO CON , 04/18/2024 04/18/2024 Orders Only [facility] Scanner 1 scan: (1-Ord) [facility], CERVICAL SPINE W/O CONT, 04/18/2024 04/18/2024 Nurse Triage [facility] [address] [place] [address] Blane Peres MD Head Injury from Last 3 Months Immunizations Name Administration Dates Next Due COVID-19 VACCINE SPIKEVAX (M ODERNA 50MCG/0.5ML) 12YO+ PFS 06/14/2024 COVID-19 vaccine (Moderna 100mcg/0.5mL) PF, MDV 01/18/2021,12/20/2020 [...] Sign Reading Time Taken Comments Blood Pressure 175/100 06/29/2024 9:02 AM CDT Pulse 55 06/29/2024 9:02 AM CDT Temperature 36.9 ??C (98.5 ??F) 06/29/2024 9:02 AM CD T Respiratory Rate 18 06/29/2024 9:02 AM CDT Oxygen Saturation 96% 06/29/2024 9:02 AM CDT Inhaled Oxygen Concentration - - Weight 93.5 kg (206 lb 1.6 oz) 06/14/2024 1:14 P M CDT Height 172 cm (5' 7.72) 06/14/2024 1:14 PM CDT Body Mass Index 31.6 06/14/2024 1:14 PM CDT Plan of Treatment Upcoming Encounters Date Type Department Care Team (Late st Contact Info) Description 07/04/2024 1:15 PM DIABETOLOGIST Ancillary Procedure [facility] [address] [place] [address] 07/11/2024 12:35 PM DIABETOLOGIST Office Visit [facility] [address] [place] [address] Blane Peres MD [address] [place] [address] Health Maintenance Due Date Last Done Comments Pneumococcal series for age 65+ (1 of 2 - PCV) 1965 Zoster (shingles) series for age 50+ (1 of 2) 2009 Colonoscopy through age 75 11/17/202311/16, 11/15/2018, 11/15/2018, Additional history exists Influenza for age 65+ 05/01/2024 BMI (ht [...] 06/14/20 24, 05/22/2022, 01/18/2021, Additional history exists AAA screening age 65-74 Completed 07/04/2024 Procedures Procedure Name Priority Date/Time Associated Diagnosis Comments US ABD AORTA SCREENING Routine 4 8:39 AM DIABETOLOGIST Screening for AAA (aortic abdominal aneurysm) PSA (TOTAL) ([facility]) Routine 05/17/2024 1 2:04 [...] Recently Relevant to Health Maintenance Results * US ABD AORTA SCREENING [[id number]] (07/04/2024 8:39 AM DIABETOLOGIST) Anatomical Region Laterality Modality Abdomen, AORTA Ultrasound 07/04/2024 11:1 1 AM DIABETOLOGIST Impressions 07/04/2024 11:11 AM DIABETOLOGIST No aneurysm. Dictated by Domingo Farrar MD @ 07/04/2024 11:11:13 AM (Electronically Signed) Narrative 07/04/2024 11:11 AM DIABETOLOGIST For Patients: ??As a result of the Cures Act, medical imaging exams and procedure reports are released immediately into your electronic medical record. ??You may view this report before your referring provider. ??If you have questions, please contact your health care provider. INDICATION: Screening for abdominal aortic aneurysm. TECHNIQUE: Ultrasound aorta with color Doppler. COMPARISON: None. FINDINGS: The proximal abdominal aorta measures 2.8 cm (measured in the anteroposterior plane from outer wall to outer wall), mid aorta measures 2.3 cm, distal aorta measures 2.2 cm, right common iliac artery measures 1.4 cm, and the left common iliac artery measures 1.4 cm. Procedure Note Domingo Farrar MD - 07/04/2024 For Patients: As a result of the Cures Act, medical imagingexams and procedure reports are released immediately into your electronicmedical record. You may view this report before your referring provider.If you have questions, please contact your health care provider. INDICATION: Screening for abdominal aortic aneurysm. TECHNIQUE: Ultrasound aorta with color Doppler. COMPARISON: None. FINDINGS: The proximal abdominal aorta measures 2.8 cm (measured in theanteroposterior plane from outer wall to outer wall), mid aorta measures2.3 cm, distal aorta measures 2.2 cm, right common iliac artery measures1.4 cm, and the left common iliac artery measures 1.4 cm. IMPRESSION: No aneurysm. Dictated by Domingo Farrar MD @ 07/04/2024 11:11:13 AM (Electronically Signed) Blane Peres MD * PSA (TOTAL) ([facility]) (05/17/2024 12:04 PM CDT) PSA, TOTAL 3.64 < OR = 4.00 ng/mL [facility] Comment: The total PSA value from this assay system is standardized against the WHO standard. The test result will be approximately 20% lower when compared to the equimolar-standardized total PSA (Fran[place]). Comparison of serial PSA results should be [...] 12:04 PM CDT 05/17/2024 12:06 PM CDT Balne Peres MD [employer] [facility] [address] [place] [address], [facility] [address] [place] [address] * HIV 1/2 ANTIGEN/ANTIBODY FOURTH GENERATION W/RFL ([facility]) (05/17/2024 12:04 PM CDT) HIV AG/AB, 4TH GEN NON-REACT MYRA NON-REACT MYRA [facility] [place] Comment: HIV-1 antigen and HIV-1/HIV-2 antibodies were [...] ?? For additional information please refer to http://education.Crossbar/faq/WTH050 (This link is being provided for informational/ educational purposes only.) The performance of this assay has not been clinically validated in patients less than 2 years old. Blood BLOOD SPECIMEN / Unknown 05/17/2024 12:04 PM CDT 05/17/2024 12:06 PM CDT Blane Peres MD [employer] [facility] [address] [place] [address], [facility] [address] [place] [address] * (ABNORMAL) LIPID PANEL W REFLEX MEASURED LDL [[id number]] (05/17/2024 12:04 PM CDT) CHOLESTEROL, TOTAL 156 <200 mg/dL [facility] HDL CHOLESTEROL 44 > OR = 40 mg/dL [facility] TRIGLYCERIDES 159(H) <150 mg/dL [facility] LDL-CHOLESTEROL 86 mg/dL (calc) [facility] Comment: Reference range: <100 Desirable range <100 mg/dL for primary prevention; ?? <70 mg/dL for patients with CHD or diabetic patients with > or = 2 CHD risk factors. LDL-C is now calculated using the Landen-Megan calculation, which is a validated novel method providing better accuracy than the Friedewald equation in the estimation of LDL-C. Landen HASKINS et al. RAMA. 2013;310(19): 8802-4808 (http://education.[employer].evly/faq/DHN417) CHOL/HDLC RATIO 3.5 <5.0 (calc) [facility] NON HDL CHOLESTEROL 112 <130 mg/dL (calc) [facility] Comment: For patients with diabetes plus 1 major ASCVD risk factor, treating to a non-HDL-C goal of <100 mg/dL (LDL-C of <70 mg/dL) is considered a therapeutic option. Blood BLOOD SPECIMEN / Unknown 05/17/2024 12:04 PM CDT 05/17/2024 12:06 PM CDT Blane Peres MD CHEMISTRY Performing Organization Address City/[facility]/ZIP Co de Phone Number [facility] [employer] [facility] [address] [place] [address], [place] [phone] [facility] [address] [place] [address] * BASIC METABOLIC PANEL (05/17/2024 12:04 PM CDT) [facility] GLUCOSE 94 65 - 99 mg/dL [facility] [...] 12:06 PM CDT Blane Peres MD CHEMISTRY Performing Organization Address [facility]/ZIP Co de Phone Number [employer] [facility] [address] [place] [address], [place] [phone] [facility] [address] [place] [address] * (ABNORMAL) HEPATIC FUNCTION PANEL (05/17/2024 12:02 [...] 12:02 PM CDT Blane Peres MD CHEMISTRY [employer] [facility] [address] [place] [address], [facility] [address] [place] [address] * CT CHEST WO (05/17/2024 11:27 AM [...] MD GI PROCEDURE ORD * ANTI HCV [80590.2] (05/15/2016 2:38 PM CDT) HEPATITIS C ANTIBODY Non-Reacti ve Non-Reacti ve 05/15/2016 8:09 PM CDT [facility] Blood BLOOD SPECIMEN / Unknown Venipuncture / Unknown 05/15/2016 2:38 PM CDT 05/15/2016 2:38 PM CDT Narrative [facility] - 05/15/2016 8:09 PM CDT Antibodies to HCV not detected; does not exclude the possibility of exposure to HCV. Blane Peres MD [employer] [facility] [address] [place] [address], [place] from Last 3 Months or Most [...] Code Status Discussion: Not Discussed Care Teams Pharmacy Cashier Relationship Specialty Start Date End Date Blane Peres MD [address] [place] [address] PCP - General Family Practice 06/03/14 [place] [id number] [address] 05/24/24
== END 2024-07-04 11:30 | disposition home or self-care (01) ==
LOC: WOUND 11:30
PROVIDERS: PCP Surgery; Visit Provider Family Medicine
DX: I87.312 Chronic venous hypertension (idiopathic) with ulcer of left lower extremity (principal); I87.2 Venous insufficiency (chronic) (peripheral); L97.222 Non-pressure chronic ulcer of left calf with fat layer exposed
CPT/HCPCS: 11042

== ENCOUNTER 2024-07-11 10:34 | Outpatient (CLI) | payer MEDICARE, BC, SELFPAY ==
--- OUTSIDE RECORDS SUMMARY | 2024-07-11 10:36 | XMS_ITS | Clinical Summary ---
Author Organization [facility] Address [place], [place] [address] Care Team Providers Care Yarn Handler Name Role Phone Blane Peres MD Primary Care Provider [phone]- [phone] Allergies No known active allergies Medications Medication Sig Dispensed Refills Start Date End Date Status sildenafiL, pulm.hypertension, (REVATIO) 20 mg tabletIndications:Er ectile dysfunction, unspecified erectile dysfunction type Take 1 Tablet (20 mg) by mouth once daily if needed (sexual activity). Take 1-5 pills (start at lower dose and increase next time if needed) 30 mins prior to sexual intercourse 30 Tablet 1 09/03/2023 Active sertraline (ZOLOFT) 50 mg tabletIndications:Ch ronic insomnia Take 1 Tablet (50 mg) by mouth once daily. 90 Tablet 3 01/28/2024 Active mirtazapine (REMERON) 7.5 mg tabletIndications:Ch ronic insomnia Take 1 pill orally at night 10 hours before planning on waking up 90 Tablet 3 01/28/2024 Active atorvastatin (LIPITOR) 20 mg tabletIndications:Co ronary artery disease, unspecified vessel or lesion type, unspecified whether angina present, unspecified whether [place] or transplanted heart Take 1 Tablet (20 [...] albuterol HFA (PRO-AIR; VENTOLIN; PROVENTIL) 90 mcg/actuation inhalerIndications:C hronic obstructive pulmonary disease, unspecified COPD type (HC) Inhale 1-2 Puffs by mouth every 4 hours if needed for Shortness Of Breath or Wheezing. 16 g 3 05/06/2024 Active gabapentin (NEURONTIN) 300 mg capsuleIndications:H ip pain, left Take 1 Capsule (300 mg) by mouth three times daily. 90 Capsule 1 05/06/2024 Active tamsulosin (FLOMAX) 0.4 mg capsuleIndications:B PH [...] Active oxyCODONE (ROXICODONE) 5 mg immediate release tabletIndications:Le g hematoma, left, sequela Take 1 Tablet (5 mg) by mouth once daily if needed for Pain. 7 Tablet 05/30/2024 Active diclofenac topical (VOLTAREN) 1 % gelIndications:Chron ic left hip pain Apply 4 g topically to affected area(s) four times daily. 100 g 06/14/2024 Active Active Problems Problem Noted Date Diagnosed [...] Encounters Date Type Department Care Team Description 07/05/2024 Orders Only [facility] [address] [facility] [place] [address] Blane Peres MD <No scans attached> 07/04/2024 1:15 PM ARMAMENT MECHANIC Ancillary Procedure [facility] [address] [facility] [place] [address] 07/04/2024 8:15 AM ARMAMENT MECHANIC Ancillary Procedure [facility] [address] [facility] [address] 07/04/2024 Travel 06/29/2024 9:00 AM CDT Home Care Visit [facility] [address] [place] [address] Nina Mart RN SN - OASIS DISCHARGE 06/28/2024 Telephone [facility] [address] [facility] [place] [address] Blane Peres MD Appointment (3 WEEK) 06/27/2024 4:00 PM CDT Home Care Visit [facility] [address] [place] [address] Adrián Block, RN SN - WOUND/OSTOMY CHART CONSULT 06/24/2024 9:00 AM CDT Home Care Visit [facility] [address] [place] [address] Nina Mart, WINNIE SN - HOME VISIT 06/22/2024 11:00 AM CDT Home Care Visit [facility] [address] [place] [phone] Terri Brenner LPN PHYSICIAN GENERAL PRACTICE - HOME VISIT 06/17/2024 9:15 AM CDT Home Care Visit [facility] [address] [place] [phone] Nina Mart RN SN - LONG VISIT (>90 MINUTES) 06/17/2024 Telephone [facility] [address] [facility] [place] [address] Nina Mart RN Home Care 06/15/2024 12:00 PM CDT Home Care Visit [facility] [address] [place] [address] Terri Brenner LPN PHYSICIAN GENERAL PRACTICE - LONG VISIT (>90 MINUTES) 06/15/2024 Travel 06/14/2024 1:10 PM CDT Office Visit [facility] [address] [place] [address] Blane Peres MD Medicare FIRST ANNUAL Visit (64 yr old male); Immunization/Injec tion (COVID-19 vaccine) 06/14/2024 9:15 AM CDT Home Care Visit [facility] [address] [place] [phone] Adrián Block RN SN - WOUND/OSTOMY CHART CONSULT 06/14/2024 Travel 06/10/2024 9:00 AM CDT Home Care Visit [facility] [address] [place] [phone] Nina Mart RN SN - LONG VISIT (>90 MINUTES) 06/08/2024 9:00 AM CDT Home Care Visit [facility] [address] [place] [phone] Nina Mart RN SN - LONG VISIT (>90 MINUTES) 06/08/2024 Orders Only [facility] [address] [place] [address] Nina Mart RN <No scans attached> 06/03/2024 9:00 AM CDT Home Care Visit [facility] [address] [place] [address] Nina Mart RN SN - LONG VISIT (>90 MINUTES) 06/01/2024 9:00 AM CDT Home Care Visit [facility] [address] [place] [address], [place] [address] Nina Mart, WINNIE SN - LONG VISIT (>90 MINUTES) 05/28/2024 9:30 AM CDT Home Care Visit [facility] [facility] [id number] [place] [phone] Poppy Allen RN SN - LONG VISIT (>90 MINUTES) 05/27/2024 12:15 AM CDT Home Care Visit [facility] [address] [place] [phone] Adrián Block RN SN - WOUND/OSTOMY CHART CONSULT 05/26/2024 11:15 AM CDT Home Care Visit [place] [id number] [place] [phone] Jeanine Penn RN SN - OASIS START OF CARE 05/26/2024 Telephone [facility] [address] [place], [place] [phone] Jeanine Penn, labor employment associate (Admission) 05/26/2024 Plan of Care Documentation [address] [phone] 05/24/2024 Transcribe Orders [address] [phone] [facility] 05/19/2024 Transcribe Orders [address] [phone] [facility] 05/17/2024 11:00 AM CDT Ancillary Procedure [facility] [address] [place] [address] 05/17/2024 10:05 AM CDT Office Visit [facility] [address] [place] [address] Blane Peres MD Medication Management; Immunization/Injec tion (COVID-19 vaccine) 05/17/2024 Nurse Triage [facility] [address] [facility] [place] [address] Blane Peres MD Pain; Medication Management 05/17/2024 Travel 05/11/2024 Refill [facility] [address] [place] [address] Blane Peres MD Refill Request (Tamsulosin) 05/08/2024 Refill [facility] [address] [place] [address] Farida Sanderson DO Refill Request (Tamsulosin) 05/06/2024 11:30 AM CDT Ancillary Procedure [facility] [address] [place] [address] 05/06/2024 10:05 AM CDT Office Visit [facility] [address] [place] [address] Blane Peres MD Hip Pain/problem (Left hip pain/Started to come back about 6 months ago/No injury/Has been on going /Waking him up in the middle of the night) 05/06/2024 Travel 04/26/2024 Telephone [facility] [address] [place] [address] Blane Peres MD Appointment 04/25/2024 Refill [facility] [address] [place] [address] Blane Peres MD Refill Request (Gabapentin) 04/18/2024 Orders Only [facility] Scanner 1 scan: (1-Ord) [facility], CT CHEST WO CONTRAST, 04/18/2024 04/18/2024 Orders Only [facility] Scanner 1 scan: (1-Ord) [place], CT FACIAL BONES WO CON, 04/18/2024 04/18/2024 Orders Only [facility] Scanner 1 scan: (1-Ord) [facility], CT HEAD/BRAIN WO CON , 04/18/2024 04/18/2024 Orders Only [facility] Scanner 1 scan: (1-Ord) [facility], CERVICAL SPINE W/O CONT, 04/18/2024 04/18/2024 Nurse Triage [facility] [address] [place] [address] Blane Peres MD Head Injury [...] Care Team (Late st Contact Info) Description 07/11/2024 12:35 PM ARMAMENT MECHANIC Office Visit [facility] [address] [place] [address] Blane Peres MD [address] [place] [address] Health Maintenance Due Date Last Done Comments [...] 15-65 Completed 05/17/2024 COVID-19 vaccine series Completed 06/14/20, 05/22/2022, 01/18/2021, Additional history exists AAA screening age 65-74 Completed 07/04/2024 Procedures Procedure Name Priority Date/Time Associated Diagnosis Comments MR HIP LEFT WO Routine 07/04/2024 1:57 PM ARMAMENT MECHANIC Chronic left hip pain US ABD AORTA SCREENING Routine 4 8:39 AM ARMAMENT MECHANIC Screening for AAA (aortic abdominal aneurysm) PSA [...] Recently Relevant to Health Maintenance Results * MR HIP LEFT WO CONTRAST (07/04/2024 1:57 PM ARMAMENT MECHANIC) Anatomical Region Laterality Modality HIPL Magnetic Resonan ce 07/05/2024 8:56 AM ARMAMENT MECHANIC Impressions 07/05/2024 8:56 AM ARMAMENT MECHANIC 1. Degenerative arthrosis of the left hip. 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 Probable adjacent degenerative labral tearing. Mild femoral head cartilage wear. No hip joint effusion. 2. Degenerative arthrosis of the right hip with grade 4 acetabular chondromalacia acetabular bone marrow edema, high-grade femoral head cartilage wear and extensive degenerative labral tearing. 3. No fracture or AVN. 4. Degenerative changes of the spine with degenerative endplate changes about the lumbosacral junction. 5. Tendinosis of the distal left gluteus minimus tendon with chronic partial tearing. Mild peritrochanteric edema present. 6. Enlarged prostate. Dictated by Kimo Fernando MD @ 07/05/2024 8:56:27 AM (Electronically Signed) Narrative 07/05/2024 8:56 AM ARMAMENT MECHANIC For Patients: ??As a result of the Century Cures Act, medical imaging exams and procedure reports are released immediately into your electronic medical record. ??You may view this report before your referring provider. ??If you have questions, please contact your health care provider. CLINICAL INDICATION: Chronic left hip pain. COMPARISON IMAGING STUDIES: Radiographs 05/06/2024. CT abdomen pelvis from 01/20/2011. TECHNICAL: Axial, sagittal and coronal PDFS small field of view images of the left hip. ??Coronal and axial T1 and PDFS large field of view images of the entire pelvis. ??1.5 Sarah MR scanner. ?? FINDINGS: LEFT HIP: There is cam morphology of the left proximal femur. Decreased acetabular anteversion superiorly. Subchondral cystic changes present within the posterior superior acetabular periphery and implies that there is underlying full-thickness grade 4 cartilage abnormality involving the acetabular periphery. Mild thinning of the femoral head articular cartilage (grade 2). Probable degenerative tearing of the posterior superior labrum. No left hip joint effusion. RIGHT HIP: Cam morphology of the right proximal femur. There is extensive degenerative acetabular labral tearing. Subchondral cystic change involves the superolateral to posterosuperior acetabular periphery and likely indicates grade 4 acetabular chondromalacia. Mild bone marrow edema is present within the acetabulum. There is high-grade femoral head cartilage wear superolaterally (grade 3). No right hip joint effusion. OSSEOUS STRUCTURES: No acute fracture or avascular necrosis. There are degenerative endplate changes about the lumbosacral junction. MUSCULOTENDINOUS STRUCTURES AND BURSAE: On the left, there is tendinosis and partial tearing of the distal gluteus minimus tendon. Mild peritrochanteric edema is present. Right-sided distal gluteal tendons are intact. Common hamstring tendons are intact. Distal iliopsoas tendons are intact. OTHER FINDINGS: Degenerative changes of the pubic symphysis and sacroiliac joints. Degenerative changes within the spine. INTRAPELVIC CONTENTS: Colonic diverticulosis. Enlarged prostate. Procedure Note Kimo Fernando MD - 07/05/2024 For Patients: As a result of the Cures Act, medical imagingexams and procedure reports are released immediately into your electronicmedical record. You may view this report before your referring provider.If you have questions, please contact your health care provider. CLINICAL INDICATION: Chronic left hip pain. COMPARISON IMAGING STUDIES: Radiographs 05/06/2024. CT abdomen pelvis from 01/20/2011. TECHNICAL: Axial, sagittal and coronal PDFS small field of view images of the lefthip. Coronal and axial T1 and PDFS large field of view images of theentire pelvis. 1.5 Sarah MR scanner. FINDINGS: LEFT HIP: There is cam morphology of the left proximal femur. Decreased acetabularanteversion superiorly. Subchondral cystic changes present within theposterior superior acetabular periphery and implies that there isunderlying full-thickness grade 4 cartilage abnormality involving theacetabular periphery. Mild thinning of the femoral head articularcartilage (grade 2). Probable degenerative tearing of the posteriorsuperior labrum. No left hip joint effusion. RIGHT HIP: Cam morphology of the right proximal femur. There is extensivedegenerative acetabular labral tearing. Subchondral cystic change involvesthe superolateral to posterosuperior acetabular periphery and likelyindicates grade 4 acetabular chondromalacia. Mild bone marrow edema ispresent within the acetabulum. There is high-grade femoral head cartilagewear superolaterally (grade 3). No right hip joint effusion. OSSEOUS STRUCTURES: No acute fracture or avascular necrosis. There are degenerative endplatechanges about the lumbosacral junction. MUSCULOTENDINOUS STRUCTURES AND BURSAE: On the left, there is tendinosis and partial tearing of the distal gluteusminimus tendon. Mild peritrochanteric edema is present. Right-sided distalgluteal tendons are intact. Common hamstring tendons are intact. Distaliliopsoas tendons are intact. OTHER FINDINGS: Degenerative changes of the pubic symphysis and sacroiliac joints.Degenerative changes within the spine. INTRAPELVIC CONTENTS: Colonic diverticulosis. Enlarged prostate. IMPRESSION: 1. Degenerative arthrosis of the left hip. Grade 4 acetabularchondromalacia involving the posterior superior acetabular periphery.Probable adjacent degenerative labral tearing. Mild femoral head cartilagewear. No hip joint effusion. 2. Degenerative arthrosis of the right hip with grade 4 acetabularchondromalacia acetabular bone marrow edema, high-grade femoral headcartilage wear and extensive degenerative labral tearing. 3. No fracture or AVN. 4. Degenerative changes of the spine with degenerative endplate changesabout the lumbosacral junction. 5. Tendinosis of the distal left gluteus minimus tendon with chronicpartial tearing. Mild peritrochanteric edema present. 6. Enlarged prostate. Dictated by Kimo Fernando MD @ 07/05/2024 8:56:27 AM (Electronically Signed) Blane Peres MD MR * US ABD AORTA SCREENING [[id number]] (07/04/2024 8:39 AM ARMAMENT MECHANIC) Anatomical Region Laterality Modality Abdomen, AORTA Ultrasound 07/04/2024 11:1 1 AM ARMAMENT MECHANIC Impressions 07/04/2024 11:11 AM ARMAMENT MECHANIC No aneurysm. Dictated by Domingo Farrar MD @ 07/04/2024 11:11:13 AM (Electronically Signed) Narrative 07/04/2024 11:11 AM ARMAMENT MECHANIC For Patients: ??As a result of the [...] 11:11:13 AM (Electronically Signed) Blane Peres MD US * PSA (TOTAL) ([facility]) (05/17/2024 12:04 PM CDT) PSA, TOTAL 3.64 < OR = 4.00 ng/mL [facility] Comment: The total PSA value from this assay system is standardized against the WHO standard. The test result will be approximately 20% lower when compared to the equimolar-standardized total PSA (Francy Leawood). Comparison of serial PSA results should be [...] Peres MD SEND OUTS Performing Organization Address [facility] Co de Phone Number [employer]Generator [facility] [address] [place] [address], [facility] [address] [place] [address] * HIV 1/2 ANTIGEN/ANTIBODY FOURTH GENERATION W/RFL ([facility]) (05/17/2024 12:04 PM CDT) [facility] HIV AG/AB, 4TH GEN NON-REACT MYRA NON-REACT MYRA [facility] [place] Comment: HIV-1 antigen and HIV-1/HIV-2 antibodies were [...] ?? For additional information please refer to http://education.Fwd: Power.Kapitall/faq/CFS540 (This link is being provided for informational/ educational purposes only.) The performance of this assay has not been clinically validated in patients less than 2 years old. Blood BLOOD SPECIMEN / Unknown 05/17/2024 12:04 PM CDT 05/17/2024 12:06 PM CDT Blane Peres MD SEND OUTS Performing Organization Address [facility]/ZIP Co de Phone Number [employer] [facility] [address] [place] [address], [facility] [address] [place] [address] * (ABNORMAL) LIPID PANEL W REFLEX MEASURED LDL [[id number]] (05/17/2024 12:04 PM CDT) CHOLESTEROL, TOTAL 156 [...] LDL-C. Landen HASKINS et al. RAMA. 2013;310(19): 5522-4582 (http://education.[address]/faq/RRW136) CHOL/HDLC RATIO 3.5 <5.0 (calc) [facility] NON HDL CHOLESTEROL 112 <130 mg/dL (calc) [facility] Comment: For patients with diabetes plus 1 major ASCVD risk factor, treating to a non-HDL-C goal of <100 mg/dL (LDL-C of <70 mg/dL) is considered a therapeutic option. Blood BLOOD SPECIMEN / Unknown 05/17/2024 12:04 PM CDT 05/17/2024 12:06 PM CDT Blane Peres MD CHEMISTRY [facility] [address] [place] [address], [facility] [place] [address] [place] [address] * BASIC METABOLIC PANEL (05/17/2024 12:04 PM CDT) GLUCOSE 94 65 - 99 mg/dL [facility] Comment: ? Fasting reference interval UREA NITROGEN [...] [facility]iel CALCIUM 9.3 8.6 - 10.3 mg/dL [facility] Blood BLOOD SPECIMEN / Unknown 05/17/2024 12:04 PM CDT 05/17/2024 12:06 PM CDT Blane Peres MD CHEMISTRY [facility] [address] [place] [address], [facility] [address] [place] [phone] * (ABNORMAL) HEPATIC FUNCTION PANEL (05/17/2024 12:02 PM CDT) PROTEIN, TOTAL 6.8 6.1 - 8.1 g/dL [facility] ALBUMIN 4.1 3.6 - 5.1 g/dL [facility] GLOBULIN 2.7 1.9 - 3.7 g/dL (calc) [facility] ALBUMIN/GLOBULIN RATIO 1.5 1.0 - 2.5 (calc) [facility] BILIRUBIN, TOTAL 1.5(H) 0.2 [...] 12:02 PM CDT Blane Peres MD CHEMISTRY [facility] [address] [place] [address], [facility] [address] [place] [address] * CT CHEST WO (05/17/2024 11:27 AM CDT) Anatomical Region Laterality Modality CHEST, THORAX, HEART Computed To mography 05/17/2024 8:13 PM CDT Narrative 05/17/2024 8:13 PM CDT For Patients: ??As a result of the Century Cures Act, medical imaging exams and [...] low as reasonably achievable. Dictated by Adrián Shomeaker MD @ 05/17/2024 8:13:02 PM (Electronically Signed) Procedure Note Adrián Shoemaker MD - 05/17/2024 For Patients: As a result of the Century Cures Act, medical imagingexams and procedure reports [...] MD GI PROCEDURE ORD * ANTI HCV [[id number]] (05/15/2016 2:38 PM CDT) HEPATITIS C ANTIBODY Non-Reacti ve Non-Reacti ve 05/15/2016 8:09 PM CDT [facility] Blood BLOOD SPECIMEN / Unknown Venipuncture / Unknown 05/15/2016 2:38 PM CDT 05/15/2016 2:38 PM CDT Narrative [facility] - 05/15/2016 8:09 PM CDT Antibodies to HCV not detected; does not exclude the possibility of exposure to HCV. Blane Peres MD SEND OUTS [facility] [address] [place] [address], from Last 3 Months or Most Recently [...] Code Status Discussion: Not Discussed Care Teams Yarn Handler Relationship Specialty Start Date End Date Blane Peres MD [address] [place] [address] PCP - General Family Practice 06/03/14
== END 2024-07-11 10:35 | disposition home or self-care (01) ==
LOC: WOUND 10:34
PROVIDERS: PCP Surgery; Visit Provider Family Medicine
DX: I87.312 Chronic venous hypertension (idiopathic) with ulcer of left lower extremity (principal); I87.2 Venous insufficiency (chronic) (peripheral); L97.222 Non-pressure chronic ulcer of left calf with fat layer exposed
CPT/HCPCS: 11042

== ENCOUNTER 2024-07-18 09:55 | Outpatient (CLI) | payer MEDICARE, BC, SELFPAY ==
--- OUTSIDE RECORDS SUMMARY | 2024-07-18 09:58 | XMS_ITS | Clinical Summary ---
Author Organization [facility] Address [place], [place] [address] Care Team Providers Care Rehab Therapist Name Role Phone Blane Peres MD Primary Care Provider [phone]- [phone] Allergies No known active allergies Medications Medication Sig Dispensed Refills Start Date End Date Status sertraline (ZOLOFT) 50 mg tabletIndications:C hronic insomnia [...] type, unspecified whether angina present, unspecified whether [place] or transplanted heart Take 1 Tablet (20 [...] times daily. 180 Tablet 3 02/05/2024 Active gabapentin (NEURONTIN) 300 mg capsuleIndications: Hip [...] not exceed 4000mg in 24 hours. 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 100 g 06/14/2024 Active albuterol HFA (PRO-AIR; VENTOLIN; PROVENTIL) 90 mcg/actuation inhalerIndications: Chronic obstructive pulmonary disease, unspecified COPD type (HC) Inhale 1-2 Puffs by mouth every 4 hours if needed for Shortness Of Breath or Wheezing. 16 g 3 07/11/2024 Active sildenafiL, pulm.hypertension, (REVATIO) 20 mg tabletIndications:E rectile dysfunction, unspecified erectile dysfunction type Take 1 Tablet (20 mg) by mouth once daily if needed (sexual activity). Take 1-5 pills (start at lower dose and increase next time if needed) 30 mins prior to sexual intercourse 30 Tablet 1 07/11/2024 Active sildenafiL, pulm.hypertension, (REVATIO) 20 mg tabletIndications:E rectile dysfunction, unspecified erectile dysfunction type Take 1 Tablet (20 mg) by mouth once daily if needed (sexual activity). Take 1-5 pills (start at lower dose and increase next time if needed) 30 mins prior to sexual intercourse 30 Tablet 1 09/03/2023 4 Discontinu ed(Reorder (E-cancel not sent)) albuterol HFA (PRO-AIR; VENTOLIN; PROVENTIL) 90 mcg/actuation inhalerIndications: Chronic obstructive pulmonary disease, unspecified COPD type (HC) Inhale 1-2 Puffs by mouth every 4 hours if needed for Shortness Of Breath or Wheezing. 16 g 3 05/06/2024 4 Discontinu ed(Reorder (E-cancel not sent)) oxyCODONE (ROXICODONE) 5 mg immediate release tabletIndications:L eg hematoma, left, sequela Take 1 Tablet (5 mg) by mouth once daily if needed for Pain. 7 Tablet 05/30/2024 Discontinu ed(*Patien t states no longer taking) Active Problems Problem Noted Date Diagnosed Date [...] Encounters Date Type Department Care Team Description 07/11/2024 12:35 PM [facility] Office Visit [facility] [place] [address] [place] [address] Blane Peres MD Follow Up 07/11/2024 Travel 07/05/2024 Orders Only [facility] [place] [place] [address] Blane Peres MD <No scans attached> 07/04/2024 1:15 PM [facility] Ancillary Procedure [facility] [place] [address] [address] 07/04/2024 8:15 AM [facility] Ancillary Procedure [facility] [place] [address] [address] 07/04/2024 Travel 06/29/2024 9:00 AM CDT Home Care Visit [facility] [address] [facility] [address] Nina Mart RN SN - OASIS DISCHARGE 06/28/2024 Telephone [facility] [address] [facility] [place] [address] Blane Peres MD Appointment (3 WEEK) 06/27/2024 4:00 PM CDT Home Care Visit [facility] [address] [place] [address] Adrián Block RN SN - WOUND/OSTOMY CHART CONSULT 06/24/2024 9:00 AM CDT Home Care Visit [facility] [address] [place] [address] Nina Mart RN SN - HOME VISIT 06/22/2024 11:00 AM CDT Home Care Visit [facility] [address] [place] [address] ENGINEER - HOME VISIT 06/17/2024 9:15 AM CDT Home Care Visit [facility] [address] [place] [address] Nina Mart RN SN - LONG VISIT (>90 MINUTES) 06/17/2024 Telephone [facility] [address] [place] [address] Nina Mart RN Home Care 06/15/2024 12:00 PM CDT Home Care Visit [facility] [address] [place] [phone] ENGINEER - LONG VISIT (>90 MINUTES) 06/15/2024 Travel 06/14/2024 1:10 PM CDT Office Visit [facility] [address] [facility] [place] [address] Blane Peres MD Medicare FIRST ANNUAL Visit (64 yr old male); Immunization/Injec tion (COVID-19 vaccine) 06/14/2024 9:15 AM CDT Home Care Visit [facility] [address] [place] [phone] Adrián Block, RN SN - WOUND/OSTOMY CHART CONSULT 06/14/2024 Travel 06/10/2024 9:00 AM CDT Home Care Visit [facility] [address] [place] [phone] Nina Mart RN SN - LONG VISIT (>90 MINUTES) 06/08/2024 9:00 AM CDT Home Care Visit [facility] [address] [place] [phone] Nina Mart RN SN - LONG VISIT (>90 MINUTES) 06/08/2024 Orders Only [facility] [address] [place], [place] [phone] Nina Mart RN <No scans attached> 06/03/2024 9:00 AM CDT Home Care Visit [place] [id number] [place] [phone] Nina Mart RN SN - LONG VISIT (>90 MINUTES) 06/01/2024 9:00 AM CDT Home Care Visit [place] [address] [place] [phone] Nina Mart RN SN - LONG VISIT (>90 MINUTES) 05/28/2024 9:30 AM CDT Home Care Visit [address] [phone] Poppy Allen RN SN - LONG VISIT (>90 MINUTES) 05/27/2024 12:15 AM CDT Home Care Visit [address] [address] Adrián Block, RN SN - WOUND/OSTOMY CHART CONSULT 05/26/2024 11:15 AM CDT Home Care Visit [address] [address] Jeanine Penn RN SN - OASIS START OF CARE 05/26/2024 Telephone [facility] [address] [place] [address] Jeanine Penn, hide mill man (Admission) 05/26/2024 Plan of Care Documentation [facility] [address] [facility] [place] [address] 05/24/2024 Transcribe Orders [facility] [address] [facility] [place] [address] [facility] [place] 05/19/2024 Transcribe Orders [facility] [address] [place] [address] [facility] [place] 05/17/2024 11:00 AM CDT Ancillary Procedure [facility] [address] [place] [address] 05/17/2024 10:05 AM CDT Office Visit [facility] [address] [place] [address] Blane Peres MD Medication Management; Immunization/Injec tion (COVID-19 vaccine) 05/17/2024 Nurse Triage [facility] [address] [place] [address] Blane Peres MD Pain; Medication Management 05/17/2024 Travel 05/11/2024 Refill [facility] [address] [place] [address] Blane Peres MD Refill Request (Tamsulosin) 05/08/2024 Refill [facility] [address] [place] [address] Farida Sanderson DO Refill Request (Tamsulosin) 05/06/2024 11:30 AM CDT Ancillary Procedure [address] [address] 05/06/2024 10:05 AM CDT Office Visit [facility] [address] [place] [address] Blnae Peres MD Hip Pain/problem (Left hip pain/Started to come back about 6 months ago/No injury/Has been on going /Waking him up in the middle of the night) 05/06/2024 Travel 04/26/2024 Telephone [facility] [address] [place] [address] Blane Peres MD Appointment 04/25/2024 Refill [facility] [address] [place] [address] Blane Peres MD Refill Request (Gabapentin) 04/18/2024 Orders Only [facility] Scanner 1 scan: (1-Ord) [facility], CT CHEST WO CONTRAST, 04/18/2024 04/18/2024 Orders Only [facility] Scanner 1 scan: (1-Ord) [place], CT FACIAL BONES WO CON, 04/18/2024 04/18/2024 Orders Only [facility] Scanner 1 scan: (1-Ord) [facility], CT HEAD/BRAIN WO CON , 04/18/2024 04/18/2024 Orders Only [facility] Scanner 1 scan: (1-Ord) [facility], CERVICAL SPINE W/O CONT, 04/18/2024 04/18/2024 Nurse Triage [facility] [address] [place] [address] Blane Peres MD Head Injury from Last 3 Months Immunizations Name Administration Dates Next Due COVID-19 VACCINE SPIKEVAX (M ODERNA 50MCG/0.5ML) 12YO+ PFS 06/14/2024 COVID-19 vaccine (Moderna 100mcg/0.5mL) PF, MDV 01/18/2021,12/20/2020 Influenza, Inactivated IIV3 (Age 65+ Years) Preserv Free 07/11/2024 Td (Age >=7 Years) 10/05/2018 Tdap 05/02/2024,03/01/2008 [...] Sign Reading Time Taken Comments Blood Pressure 126/80 07/11/2024 12:40 PM [facility] Pulse 61 07/11/2024 12:40 PM [facility] Temperature 36.9 C (98.5 F) 06/29/2024 9:02 AM CDT Respiratory Rate 18 06/29/2024 9:02 AM CDT Oxygen Saturation 97% 07/11/2024 12:37 PM [facility] Inhaled Oxygen Concentration - - Weight 93.2 kg (205 lb 6.4 oz) 07/11/2024 12:37 PM [facility] Height 172 cm (5' 7.72) 06/14/2024 1:14 PM CDT Body Mass Index 31.49 06/14/2024 1:14 PM CDT Plan of Treatment Health Maintenance Due [...] exists AAA screening age 65-74 Completed 07/04/2024 Influenza for age 65+ Completed 07/11/2024 Procedures Procedure Name Priority Date/Time Associated Diagnosis Comments MR HIP LEFT WO Routine 07/04/2024 1:57 PM [facility] Chronic left hip pain US ABD AORTA SCREENING Routine 8:39 AM [facility] Screening for AAA (aortic abdominal aneurysm) PSA [...] HIP LEFT WO CONTRAST (07/04/2024 1:57 PM [facility]) Anatomical Region Laterality Modality HIPL Magnetic Resonan ce 07/05/2024 8:56 AM [facility] Impressions 07/05/2024 8:56 AM [facility] 1. Degenerative arthrosis of the left hip. [...] AM (Electronically Signed) Narrative 07/05/2024 8:56 AM [facility] For Patients: As a result of the Century Cures Act, medical imaging exams and procedure reports are released immediately into your electronic medical record. You may view this report before your referring provider. If you have questions, please contact your health care provider. CLINICAL INDICATION: Chronic left hip pain. COMPARISON IMAGING STUDIES: Radiographs 05/06/2024. CT abdomen pelvis from 01/20/2011. TECHNICAL: Axial, sagittal and coronal PDFS small field of view images of the left hip. Coronal and axial T1 and PDFS large field of view images of the entire pelvis. 1.5 Sarah MR scanner. FINDINGS: LEFT [...] MD MR * US ABD AORTA SCREENING [[id number]] (07/04/2024 8:39 AM [facility]) Anatomical Region Laterality Modality Abdomen, AORTA Ultrasound 07/04/2024 11:1 1 AM [facility] Impressions 07/04/2024 11:11 AM [facility] No aneurysm. Dictated by Domingo Farrar MD @ 07/04/2024 11:11:13 AM (Electronically Signed) Narrative 07/04/2024 11:11 AM [facility] For Patients: As a result of the Cures Act, medical imaging exams and procedure reports are released immediately into your electronic medical record. You may view this report before your referring provider. If you have questions, please contact your health [...] TOTAL 3.64 < OR = 4.00 ng/mL [facility] Comment: The total PSA value [...] PM CDT Blane Peres MD SEND OUTS Possible Web [facility] [address] [place] [address], [facility] [address] [place] [address] * HIV 1/2 ANTIGEN/ANTIBODY FOURTH GENERATION W/RFL ([facility]) (05/17/2024 12:04 PM CDT) HIV AG/AB, 4TH GEN NON-REACT MYRA NON-REACT MYRA [facility] Comment: HIV-1 antigen and HIV-1/HIV-2 antibodies were not detected. There is no laboratory evidence of HIV infection. PLEASE NOTE: This information has been disclosed to you from records whose confidentiality may be protected by state law. If your state requires such protection, then the state law prohibits you from making any further disclosure of the information without the specific written consent of the person to whom it pertains, or as otherwise permitted by law. A general authorization for the release of medical or other information is NOT sufficient for this purpose. For additional information please refer to http://education.In[employer]ama.[employer]/faq/GZM174 (This link is being provided for informational/ educational purposes only.) The performance of this assay has not been clinically validated in patients less than 2 years old. Blood BLOOD SPECIMEN / Unknown 05/17/2024 12:04 PM CDT 05/17/2024 12:06 PM CDT Blane Peres MD SEND OUTS Possible Web [facility] [address] [place] [address], [facility] [address] [place] [address] * (ABNORMAL) LIPID PANEL W REFLEX MEASURED LDL [[id number]] (05/17/2024 12:04 PM CDT) CHOLESTEROL, TOTAL 156 <200 mg/dL [facility] HDL CHOLESTEROL 44 > OR = 40 mg/dL [facility] TRIGLYCERIDES 159(H) <150 mg/dL [facility] LDL-CHOLESTEROL 86 mg/dL (calc) [facility] Comment: Reference range: <100 Desirable range <100 mg/dL for primary prevention; <70 mg/dL for patients with CHD or diabetic patients with > or = 2 CHD risk factors. LDL-C is now calculated using the Landen-Megan calculation, which is a validated novel method providing better accuracy than the Friedewald equation in the estimation of LDL-C. Landen SS et al. RAMA. 2013;310(19): 3071-0274 (http://education.[employer]/faq/UEK017) CHOL/HDLC RATIO 3.5 <5.0 (calc) [facility] NON HDL CHOLESTEROL 112 <130 mg/dL (calc) [facility] Comment: For patients with diabetes plus 1 major ASCVD risk factor, treating to a non-HDL-C goal of <100 mg/dL (LDL-C of <70 mg/dL) is considered a therapeutic option. Blood BLOOD SPECIMEN / Unknown 05/17/2024 12:04 PM CDT 05/17/2024 12:06 PM CDT Blane Peres MD CHEMISTRY [facility] [address] [facility] [address], [place] [phone] [facility] [address] [facility] [place] [address] * BASIC METABOLIC PANEL (05/17/2024 12:04 PM CDT) [facility] GLUCOSE 94 65 - 99 mg/dL [facility] Comment: Fasting reference interval UREA NITROGEN (BUN) 16 7 - 25 mg/dL [facility] CREATININE 0.94 0.70 - 1.35 mg/dL [facility] EGFR 90 > OR = 60 mL/min/1. 73m2 [facility] BUN/CREATININE RATIO SEE NOTE: 6 - 22 (calc) [facility] Comment: Not Reported: BUN and Creatinine are within reference range. SODIUM 139 135 - 146 mmol/L [facility] [...] 12:06 PM CDT Blane Peres MD CHEMISTRY Possible Web [facility] [address] [facility] [place] [address], [place] [phone] [facility] [address] [facility] [place] [address] * (ABNORMAL) HEPATIC FUNCTION PANEL (05/17/2024 12:02 [...] 12:02 PM CDT Blane Peres MD CHEMISTRY Possible Web [facility] [address] [place] [address], [facility] [address] [place] [address] * CT CHEST WO (05/17/2024 11:27 AM CDT) Anatomical Region Laterality Modality CHEST, THORAX, HEART Computed To mography 05/17/2024 8:13 PM CDT Narrative 05/17/2024 8:13 PM CDT For Patients: As a result of the Century Cures Act, medical imaging exams and procedure reports are released immediately into your electronic medical record. You may view this report before your referring provider. If you have questions, please contact your health [...] Narrative 05/06/2024 3:51 PM CDT For Patients: As a result of the Cures Act, medical imaging exams and procedure reports are released immediately into your electronic medical record. You may view this report before your referring provider. If you have questions, please contact your health [...] MD GI PROCEDURE ORD * ANTI HCV [[id number]] (05/15/2016 2:38 PM CDT) HEPATITIS C ANTIBODY Non-Reacti ve Non-Reacti ve 05/15/2016 8:09 PM CDT [facility] Blood BLOOD SPECIMEN / Unknown Venipuncture / Unknown 05/15/2016 2:38 PM CDT 05/15/2016 2:38 PM CDT Narrative [facility] - 05/15/2016 8:09 PM CDT Antibodies to HCV not detected; does not exclude the possibility of exposure to HCV. Blane Peres MD SEND OUTS [facility] [address] [place] [address], from Last 3 Months or Most Recently [...] Code Status Discussion: Not Discussed Care Teams Rehab Therapist Relationship Specialty Start Date End Date [place] [address] [place] [address] PCP - General Family Practice 06/03/14
== END 2024-07-18 09:56 | disposition home or self-care (01) ==
LOC: WOUND 09:55
PROVIDERS: PCP Surgery; Visit Provider Nurse Practitioner Family
DX: I87.302 Chronic venous hypertension (idiopathic) without complications of left lower extremity (principal); I87.2 Venous insufficiency (chronic) (peripheral)
CPT/HCPCS: G0463

== ENCOUNTER 2025-02-14 12:17 | Emergency (ER) | payer MEDICARE, BC, SELFPAY ==
--- OUTSIDE RECORDS SUMMARY | 2025-02-14 12:20 | XMS_ITS | Clinical Summary ---
Author Organization [facility] Address [address] [place] [address] Care Team Providers Care Tariff Clerk Name Role Phone Blane Peres MD Primary Care Provider [phone] Allergies No known active allergies Medications sertraline (ZOLOFT) 50 mg tabletIndications: Chronic insomnia Take 1 Tablet (50 mg) by mouth once daily. 90 Tablet 3 01/28/20 24 Active Additional Information Patient taking differently:50 mg OralDAILY EVENING, Reported on 02/14/2025 atorvastatin (LIPITOR) 20 mg tabletIndications: Coronary artery disease, unspecified vessel or lesion type, unspecified whether angina present, unspecified whether minto or transplanted heart Take 1 Tablet (20 mg) by mouth once daily. 90 Tablet 2 02/05/20 24 Active carvediloL (Coreg) 3.125 mg tabletIndications: Paroxysmal atrial fibrillation (HC),Nonischemic cardiomyopathy (HC) Take 1 Tablet (3.125 mg) by mouth two times daily. 180 Tablet 3 02/05/20 24 Active tamsulosin (FLOMAX) 0.4 mg capsuleIndications :BPH with urinary obstruction TAKE 1 CAPSULE(0.4 MG) BY MOUTH EVERY DAY AFTER A MEAL 90 Capsule 3 05/17/20 24 Active acetaminophen (TYLENOL EXTRA STRGTH) 500 mg [...] Of Breath or Wheezing. 16 g 3 07/11/20 24 Active sildenafiL, pulm.hypertension, (REVATIO) 20 mg tabletIndications: Erectile dysfunction, unspecified erectile dysfunction type Take 1 Tablet (20 mg) by mouth once daily if needed (sexual activity). Take 1-5 pills (start at lower dose and increase next time if needed) 30 mins prior to sexual intercourse 30 Tablet 1 07/11/20 24 Active gabapentin (NEURONTIN) 300 mg capsuleIndications :Hip pain, left TAKE 1 CAPSULE BY MOUTH THREE TIMES DAILY. 270 Capsule 09/02/19 25 Active Additional Information Patient taking differently:300 mg OralBID, Reported on 01/31/2025 mirtazapine 7.5 mg tabletIndications: Chronic insomnia Take 1 pill orally at night 10 hours before planning on waking up 30 Tablet 3 01/12/20 25 Active aspirin 81 mg enteric coated tabletIndications: Paroxysmal atrial fibrillation (HC) Take 1 Tablet (81 mg) by mouth once daily with a meal. 90 Tablet 3 02/02/20 25 Active clopidogreL (Plavix) 75 mg tabletIndications: Paroxysmal atrial fibrillation (HC) Take 1 Tablet (75 mg) by mouth once daily. 90 Tablet 3 02/02/20 25 Active Eliquis 5 mg tabletIndications: Paroxysmal atrial fibrillation (HC) Take 1 Tablet (5 mg) by mouth two times daily. 180 Tablet 3 02/05/20 24 025 Discontin ued(*Med complete/ Regimen complete/ Level of care change) Active Problems Problem Noted [...] Encounters Date Type Department Care Team Description 02/14/2025 11:05 AM CDT Office Visit [facility] [address] [place] [address] Salma Nelson PA Fall (02/05- mainly on the side) 02/14/2025 Travel 02/01/2025 9:[address] [facility] [address] [place] [address] Winnie Cage PA 01/30/2025 9:00 AM CDT Ancillary Procedure [facility] [address] [place] [address] 01/30/2025 Travel 01/10/2025 Refill [facility] [address] [place] [address] Fabian Samson MD Refill Request (Mirtazapine 7.5) 12/19/2024 11:25 AM CDT Office Visit [facility] [address] [place] [address] Farida Sanderson DO Hospital F/U 12/19/2024 Travel 12/14/2024 Patient Outreach [facility] [address] [place] [address] Phuong Kang, WINNIE Primary RN Care Management; Hospital F/U (LACE 26) 12/13/2024 7:47 AM CDT Anesthesia Event [facility] [address] [place] [address] Martin Ervin MD 12/13/2024 6:08 AM CDT - 12/13/2024 2:38 PM CDT Hospital Encounter [facility] [address] [place] [address] José Caba MD, PhD Martin Ervin MD Atrial fibrillation, unspecified type (HC) Discharge Disposition: Home Self Care 12/13/2024 Travel 12/05/2024 Telephone [facility] [address] [place] [address] Chelsie Dhillon RN Pre Procedure 11/29/[address] [address] Blane Peres MD Follow Up 11/28/2024 1:00 PM CDT Office Visit [address] [address] Blane Peres MD Pre-Op Exam (Implant of a watch man in the next 30 days at [facility]) 11/28/2024 Travel 11/25/[address] [address] Blane Peres MD Appointment Request (Follow up ) 11/22/2024 9:45 AM CDT Ancillary Procedure [address] [address] 11/22/2024 8:50 AM CDT Office Visit [address] [address] Blane Peres MD Medication Management; Cough (Started about 5 months shortness of breath ); Back Pain (Started 5 months ago lower back/No injury) 11/22/2024 Travel 11/15/2024 Nurse Triage [address] [address] Blane Peres MD Cough from Last 3 Months Immunizations Immunization Administration Dates Next Due COVID-19 VACCINE SPIKEVAX [...] or isolated from those around you? 0 11/22/2024 Financial Resource Strain Answer Date R ecorded Difficulty of Paying Living Expenses 3 11/22/2024 Difficulty of Paying Living Expenses Not on file 11/22/2024 Food Insecurity Answer Date Recorded Do you worry your food will run out before you are able to buy more? 1 11/22/2024 Transportation Needs Answer Date Record ed Does lack of transportation keep you from medica l appointments? 1 11/22/2024 Does lack of transportation keep you from work, meetings or getting things that you need? 1 11/22/2024 Housing Stability Answer Date Recorded What is your housing situation today? 1 11/22/2024 Interpersonal Safety Answer Date Record ed Are you being hit, kicked, p ushed or yelled at (see row info)? No 12/24/2023 Interpersonal Safety Abuse 12 - 18 Not on file 12/24/2023 Interpersonal Safety Ambulatory Vulnerability No t on file 12/24/2023 Utilities Answer Date Recorded Do you have trouble paying f or utilities (for example, heat, electricity, water, phone)? 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 Not on file Not on file Not on cinthia e Obstetrics History Last Filed Vital Signs Vital Sign Reading Time Taken Comments Blood Pressure 215/109 02/14/2025 11:17 AM CDT Pulse 66 02/14/2025 11:17 AM CDT Temperature 37 C (98.6 F) 02/14/2025 11:17 AM CDT Respiratory Rate 24 02/14/2025 11:17 AM CDT Oxygen Saturation 97% 02/14/2025 11:17 AM CDT Inhaled Oxygen Concentration - - Weight 95.3 kg (210 lb) 02/14/2025 11:17 AM CDT Height 175.3 cm (5' 9) 01/31/2025 1:39 PM CDT Body Mass Index 31.01 01/31/2025 1:39 PM CDT Plan of Treatment Upcoming Encounters Date Type Department Care Team (Late st Contact Info) Description 02/20/2025 11:00 AM CDT Office Visit [facility] [address] [place] [address] Fabian Samson MD [address] [place] [address] Health Maintenance Due Date Last Done Comments Pneumococcal series for age 50+ (1 of 2 - PCV) 1978 Zoster (shingles) series for age 50+ (1 of 2) 2009 RSV vaccine for adults or (1 - Risk 60-74 years 1-dose series) 2019 Colonoscopy through age 75 11/17/202311/16, 11/15/2018, 11/15/2018, Additional history exists COVID-19 vaccine series ( season) 2024 06/14/2024, 05/22/2022, 01/18/2021, Additional history exists Medicare Wellness for age 65+ 06/15/2025 06/14/2024 Depression screening for age 12+ 06/17/2025 06/17/2024, 06/14/2024, 05/06/2024, Additional history exists BMI (ht and wt on same day) for age 18+ 01/31/2026 01/31/2025, 10/10/2024, 09/28/2024, Additional history exists Lipids for age 45-75 05/17/2029 05/17/2024, 10/05/2018, 07/17/2017, Additional history exists Tetanus booster 05/02/2034 05/02/2024, 12/2018, 03/01/2008 Hepatitis C screening for age 18-79 Completed 05/15/2016 Tdap Completed 05/02/2024, 03/01/2008 HIV for age 15-65 Completed 05/17/2024 AAA screening age 65-74 Completed 07/04/2024 Influenza Vaccine Completed 07/11/2024 Hepatitis B series for 19+ Aged Out N o longer eligible based on patient's age to complete this topic Procedures Procedure Name Priority Date/Time Associated Diagnosis Comments CT CARDIAC MORPHOLOGY W CV DUAL READ Routine 01/30/2025 10:06 AM CDT Paroxysmal atrial fibrillation (HC) Presence of Watchman left atrial appendage closure device CT CARDIAC MORPHOLOGY W RAD DUAL READ Routine 01/30/2025 10:06 AM CDT Paroxysmal atrial fibrillation (HC) Presence of Watchman left atrial appendage closure device ECHO JUNI TRANSCATHETER INTRAOP PROCEDURE Routine 12/13/2024 2:16 PM CDT Atrial fibrillation, unspecified type (HC) HCHG ACTIVATED CLOTTING TM CV Timed 12/13/2024 9:22 AM CDT CV PROCEDURE TO BE PERFORMED Routine 12/13/2024 9:04 AM CDT HCHG ACTIVATED CLOTTING TM CV Timed 12/13/2024 8:53 AM CDT HCHG ACTIVATED CLOTTING TM CV Timed 12/13/2024 8:37 AM CDT ENDOTRACHEAL TUBE Routine 12/13/2024 8:2 3 AM CDT ENDOTRACHEAL TUBE Routine 12/13/2024 8:2 3 AM CDT ENDOTRACHEAL TUBE Routine 12/13/2024 8:2 3 AM CDT EP OTHER PROCEDURE Routine 12/13/2024 8: 22 AM CDT HCHG KIT PR5 Routine 12/13/2024 7:19 AM CDT HCHG DRSG PR5 Routine 12/13/2024 7:19 AM CDT HCHG DRSG PR1 Routine 12/13/2024 7:19 AM CDT HCHG TUBING PR20 Routine 12/13/2024 7:1 9 AM CDT HCHG TUBING PR1 Routine 12/13/2024 7:19 AM CDT HC ANES ARTERIAL CATH FOR SAMPLE MONITOR TRANS Routine 12/13/2024 7:19 AM CDT HCHG CATH PR5 Routine 12/13/2024 7:19 AM CDT BEDSIDE US STUDY ARCHIVE Routine 12/13/2024 6:38 AM CDT BASIC METABOLIC PANEL Preop 12/13/2024 6:38 AM CDT CBC W PLT NO DIFF Preop 12/13/2024 6:3 8 AM CDT EXTRA TUBE GOLD/SST Today 12/13/2024 6 :37 AM CDT EKG 12 LEAD Preop 12/13/2024 6:23 AM CDT SCAN-CARDIAC STRIP 12/13/2024 12 :00 AM CDT XR CHEST 2 VIEWS PA AND LATERAL Routine 11/22/2024 9:47 AM CDT Dyspnea, unspecified type US ABD AORTA SCREENING Routine 07/04/2024 8:39 AM FINANCIAL AID Screening for AAA (aortic abdominal aneurysm) HIV 1/2 ANTIGEN/ANTIBODY FOURTH GENERATION W/RFL (QUEST) Routine 05/17/2024 12:04 PM CDT Encounter for screening for HIV LIPID PANEL W REFLEX MEASURED LDL Routine 05/17/2024 12:04 PM CDT Screening for lipid disorders COLONOSCOPY SCREENING Routine 11/16/2018 12:00 PM CDT History of colon polyps ANTI HCV Routine 05/15/2016 2:38 PM CDT Need for hepatitis C screening test from Last 3 Months or Most Recently Relevant to Health Maintenance Results * CT CARDIAC MORPHOLOGY W CV DUAL READ (01/30/2025 10:06 AM CDT) Anatomical Region Laterality Modality HEART Computed Tomogra phy Narrative 01/30/2025 1:26 PM CDT STUDY: CT CARDIAC MORPHOLOGY Study date: 01/30/2025 Indication: 64 year-old male status post Watchman percutaneous atrial appendage occluder device implantation has been referred for evaluation of device position and presence of device-related thrombus. STUDY PARAMETERS: Scanner: Siemens Definition Force Contrast: 80 ml of Omnipaque 350 Scan protocol: Gated sequential for first-pass arterial contrast phase and Gated sequential for delayed phase Radiation dose length product: 295 Image quality: Good FINAL IMPRESSIONS: Well-seated Watchman occluder device with no evidence of katherine-device leak. No device associated thrombus. Borderline dilated aortic sinuses: 40 x 39 x 39 mm maximum ywmz-fy-zjku and area height ratio 6.9 cm2/m. Please see separate radiology report for noncardiac findings. FINDINGS: Main left atrial chamber: Normal contrast opacification. Appendage: Occluder appears well seated. No device-related hypoattenuated tissue. Pulmonary veins: Normal anatomy with 2 right-sided and 2 left-sided veins. No evidence of stenosis. Pericardium: Normal without effusion. Esophagus: Positioned directly posterior to the centerline of the left atrial body. Thoracic aorta: No atheromatous disease in the visualized entire thoracic aorta. Maximum cross-sectional dimensions in visualized aorta are: Aortic sinus: 40 x 39 x 39 mm maximum qxhx-lg-wmnd and area height ratio 6.9 cm2/m. Ascending aorta: 38 x 38 mm. Descending thoracic aorta: 27 x 27 mm. Coronary arteries: Calcification noted in the course of the LAD FOR PATIENT: Results are automatically released to your [employer] account once available, in compliance with federal regulations. This means that you may see your results before your provider has had a chance to review them. Please allow 2-3 business days for your provider to comment on the results. Russell Sanchez MD General Alumnae Secretary Curtis Kang MD Cardiology José Caba MD, PhD CT Fin al Result * CT CARDIAC MORPHOLOGY W RAD DUAL READ (01/30/2025 10:06 AM CDT) Anatomical Region Laterality Modality HEART Computed Tomogra phy 01/30/2025 5:58 PM CDT Narrative 01/30/2025 5:58 PM CDT For Patients: As a result of the Century Cures Act, medical imaging exams and procedure reports are released immediately into your electronic medical record. You may view this report before your referring provider. If you have questions, please contact your health care provider. THIS IS THE RADIOLOGY OVER READ REPORT OF A DUAL READ STUDY. READ THE SEPARATE CARDIOLOGY REPORT FOR CARDIOVASCULAR FINDINGS. REPORTS MAY BE FINALIZED AT DIFFERENT TIMES. COMPARISON : CT chest May 17, 2024 TECHNIQUE : Please see cardiology report for technical information. This exam is being performed in conjunction with the services provided by the [facility] ([facility]). INDICATION: Cardiac over-read. FINDINGS: Aorta: This is reported by cardiology. Mediastinum: No adenopathy. Pulmonary arteries: Bolus timing may limit evaluation. Visualized/opacified pulmonary arteries demonstrate no filling defects. Lungs and pleural structures: Clear with no pleural effusions or suspicious nodules. Miscellaneous: No acute or suspicious skeletal or upper abdominal imaging abnormality. IMPRESSION : 1. See separate cardiology report for cardiac findings. 2. No new extra cardiac imaging abnormality Please note that all CT scans at this facility use dose modulation, iterative reconstruction, and/or weight-based dosing when appropriate to reduce radiation dose to as low as reasonably achievable. Dictated by Martin Freire MD @ 01/30/2025 5:58:48 PM (Electronically Signed) Procedure Note Martin Freire MD - 01/30/2025 For Patients: As a result of the 21st Century Cures Act, medical imagingexams and procedure reports are released immediately into your electronicmedical record. You may view this report before your referring provider.If you have questions, please contact your health care provider. THIS IS THE RADIOLOGY OVER READ REPORT OF A DUAL READ STUDY. READ THESEPARATE CARDIOLOGY REPORT FOR CARDIOVASCULAR FINDINGS. REPORTS MAY BEFINALIZED AT DIFFERENT TIMES. COMPARISON : CT chest May 17, 2024 TECHNIQUE : Please see cardiology report for technical information. This exam is being performed in conjunction with the services provided bythe [facility] ([facility]). INDICATION: Cardiac over-read. FINDINGS: Aorta: This is reported by cardiology. Mediastinum: No adenopathy. Pulmonary arteries: Bolus timing may limit evaluation. Visualized/opacified pulmonary arteriesdemonstrate no filling defects. Lungs and pleural structures: Clear with no pleural effusions orsuspicious nodules. Miscellaneous: No acute or suspicious skeletal or upper abdominal imagingabnormality. IMPRESSION : 1. See separate cardiology report for cardiac findings. 2. No new extra cardiac imaging abnormality Please note that all CT scans at this facility use dose modulation,iterative reconstruction, and/or weight-based dosing when appropriate toreduce radiation dose to as low as reasonably achievable. Dictated by Martin Freire MD @ 01/30/2025 5:58:48 PM (Electronically Signed) José Caba MD, PhD CT Fin al Result * ECHO JUNI TRANSCATHETER INTRAOP PROCEDURE (12/13/2024 2:16 PM CDT) EJECTION FRACTION 55 - 60% Anatomical Region Laterality Modality HEART Computed Radiogr aphy 12/13/2024 8:17 AM CDT Narrative 12/13/2024 2:15 PM CDT TRANSESOPHAGEAL ECHOCARDIOGRAM ANTONIO MURGUIA : 1960 64 years Study Date: 12/13/2024 8:17:13 AM Gender: M BP: 140/83 mmHg Height: 175.00 cm BSA: 2.11 m Weight: 95.60 kg Tech: LOUIS Weller MD: JOSÉ CABA Site: [facility] Reading Location: [facility] Patient Location: Outpatient. Procedure: JUNI, Spectral Doppler and Color Doppler. Indication for study: WATCHMAN Cardiac Rhythm: .Study quality: Good. Final Impressions: 1. PRE-PROCEDURE: Normal biventricular systolic function. No pericardial effusion. No RAJESH thrombus. RAJESH orifice width/depth at 0, 45, 90, and 135 degrees were 1.7/2.0 cm, 1.5/2.0 cm, 2.2/2.5 cm, and 1.9/1.3 cm respectively. Hrntn-yr-hvyry pericardial effusion present. 2. INTRA-PROCEDURE: Transseptal puncture was guided by 2D/3D imaging. WATCHMAN delivery catheter was positioned within the RAJESH. A 31 mm WATCHMAN device was positioned using 2D/3D guidance. Anchoring was confirmed with a tug test. Size of the device was appropriate with >20% compression. Seal was confirmed with no katherine- device leak on color Doppler. The device was released and the cruvazrk-fe-ciuvegjx diameter at 0, 45, 90, and 135 degrees were 2.3 cm, 2.3 cm, 2.3 cm, and 2.2 cm respectively. 3. POST-PROCEDURE: Dxjtf-dr-oqyuu pericardial effusion slightly prominent post procedure [communicated to Dr. Caba]. There was a small defect in the interatrial septum with zcpj-qk-alwyv shunt related to septostomy. Procedure comments: Indications, goals, risks and alternatives of the procedure were discussed with the patient and informed consent was obtained. The patient received oral Lidocaine to anesthetized the posterior oropharynx and general anesthesia. See procedural record for anesthesia details. Prior to performance of procedure, time out was called to accurately identify the patient and procedure. The Juliett probe was passed without difficulty. JUNI, Spectral Doppler and Color Doppler was performed. The patient developed no apparent complications during the procedure. Estimated Blood Loss: 0 ml Versed: Specimen Collected: Proceduralist: Elías Sandoval MD Post Procedure Findings Chamber Sizes and Function Normal left ventricular size, normal global systolic function with an estimated EF of 55 - 60%. No resting regional wall motion abnormality visualized. Left atrial size is mildly enlarged. The left atrial appendage is well visualized and there is no evidence of thrombus present. Not well visualized left atrial appendage flow velocities. Right ventricular cavity size is normal, global systolic RV function is normal. The right atrium is not well visualized. The pulmonary artery is not well visualized. The sinus of Valsalva is not well visualized. The ascending aorta is not well visualized. Aortic arch is not well visualized. Descending aorta is not well visualized. Valves, RV Pressures and Diastolic Function The aortic valve is normal in structure and trileaflet, no stenosis and no regurgitation. The mitral valve is normal in structure, trace mitral regurgitation. The tricuspid valve is normal in structure. Tricuspid regurgitation is not evident. The pulmonic valve is not well visualized. Trace pulmonic regurgitation is present on color flow. Pulmonary vein flow not well visualized. Masses, Effusion, Shunts Ifsih-fc-crawl pericardial effusion. Atrial septum is intact. MEASUREMENTS AND CALCULATIONS 2-D Measurements and LV Function: HR 62 bpm . Final (Updated) Procedure Note Elías Sandoval MD - 12/13/2024 TRANSESOPHAGEAL ECHOCARDIOGRAM ANTONIO MURGUIA : 1960 64 years Study Date: 12/13/2024 8:17:13 AM Gender: M BP: 140/83 mmHg Height: 175.00 cm BSA: 2.11 m Weight: 95.60 kg Tech: LOUIS Weller MD: JOSÉ CABA Site: [facility] Reading Location: [facility] Patient Location: Outpatient. Procedure: JUNI, Spectral Doppler and Color Doppler. Indication for study: WATCHMAN Cardiac Rhythm: .Study quality: Good. Final Impressions: 1. PRE-PROCEDURE: Normal biventricular systolic function. No pericardialeffusion. No RAEJSH thrombus. RAJESH orifice width/depth at 0, 45, 90, and 135degrees were 1.7/2.0 cm, 1.5/2.0 cm, 2.2/2.5 cm, and 1.9/1.3 cmrespectively. Scxbb-gv-rkyme pericardial effusion present. 2. INTRA-PROCEDURE: Transseptal puncture was guided by 2D/3D imaging.WATCHMAN delivery catheter was positioned within the RAJESH. A 31 mm WATCHMANdevice was positioned using 2D/3D guidance. Anchoring was confirmed with atug test. Size of the device was appropriate with >20% compression. Sealwas confirmed with no katherine- device leak on color Doppler. The device wasreleased and the nxjhuaeu-uh-bwssdrul diameter at 0, 45, 90, and 135degrees were 2.3 cm, 2.3 cm, 2.3 cm, and 2.2 cm respectively. 3. POST-PROCEDURE: Zvwqs-es-txuuh pericardial effusion slightly prominentpost procedure [communicated to Dr. Caba]. There was a small defect inthe interatrial septum with pxww-nb-udjsi shunt related to septostomy. Procedure comments: Indications, goals, risks and alternatives of theprocedure were discussed with the patient and informed consent wasobtained. The patient received oral Lidocaine to anesthetized theposterior oropharynx and general anesthesia. See procedural record foranesthesia details. Prior to performance of procedure, time out was calledto accurately identify the patient and procedure. The Juliett probe waspassed without difficulty. JUNI, Spectral Doppler and Color Doppler wasperformed. The patient developed no apparent complications during theprocedure. Estimated Blood Loss: 0 ml Versed: Specimen Collected: Proceduralist: Elías Sandoval MD Post Procedure Findings Chamber Sizes and Function Normal left ventricular size, normal global systolic function with anestimated EF of 55 - 60%. No resting regional wall motion abnormalityvisualized. Left atrial size is mildly enlarged. The left atrial appendageis well visualized and there is no evidence of thrombus present. Not wellvisualized left atrial appendage flow velocities. Right ventricular cavitysize is normal, global systolic RV function is normal. The right atrium isnot well visualized. The pulmonary artery is not well visualized. Thesinus of Valsalva is not well visualized. The ascending aorta is not wellvisualized. Aortic arch is not well visualized. Descending aorta is notwell visualized. Valves, RV Pressures and Diastolic Function The aortic valve is normal in structure and trileaflet, no stenosis and noregurgitation. The mitral valve is normal in structure, trace mitralregurgitation. The tricuspid valve is normal in structure. Tricuspidregurgitation is not evident. The pulmonic valve is not well visualized.Trace pulmonic regurgitation is present on color flow. Pulmonary vein flownot well visualized. Masses, Effusion, Shunts Laxpm-ro-naocj pericardial effusion. Atrial septum is intact. MEASUREMENTS AND CALCULATIONS 2-D Measurements and LV Function: HR 62 bpm . Final (Updated) José Caba MD, PhD ECHO ORD Elie matthew Result - Final * ACTIVATED CLOTTING TIME [id number] ACT (12/13/2024 9:22 AM CDT) Only the most recent of3 resultswithin the time period is included. [facility] Signature ACTIVATED CLOTTING TIME, POCT 121 74 - 125 sec 12/13/2024 11:04 AM CDT [facility] Blood BLOOD SPECIMEN / Unknown 12/13/2024 9:22 AM CDT 12/13/2024 11:04 AM CDT José Caba MD, PhD HEMATOLOGY Fin al Result [facility] [address] [place] [address], [place] * EP Procedure to be Performed (12/13/2024 9:04 AM CDT) Narrative José Caba MD, PhD - 12/13/2024 9:04 AM CDT José Caba MD, PhD 12/13/2024 9:07 AM DATE OF SERVICE: 12/13/24 OPERATORS: 1. José Caba MD, PhD, interventional cardiology, lever operator 2. Elías Sandoval MD, interventional echocardiography. 3. Romy Perry MD, structural heart disease fellow DIAGNOSIS: Paroxysmal atrial fibrillation. PROCEDURE: Watchman implantation, double curve guide, 31 mm Watchman FLX Pro device. This was a general anesthesia procedure. We accessed with the ultrasound guidance the left and right femoral vein. Left access was used for central access with a 7-Japanese, right access 8-Japanese. We then started full-dose anticoagulation with heparin, goal ACT above 250 seconds. We then performed the transseptal procedure using a Moreno sheath and a [place] C0 needle. Under the support of a large curve Safari wire, we then inserted the double curve guide and engaged the left atrial appendage with a pigtail catheter. We decided to use a 31 mm FLX Pro device based on echocardiography and fluoroscopy. We then deployed the device in a total of one attempts. PASS criteria were all fulfilled and the device released. No complication was noted. Anticoagulation was reversed with protamine, see hemo log for details. [id number] stitch on the right femoral vein, manual pressure on the left. José Caba MD, PhD, [facility] Laminator [facility] [address], [address] [place] [address] O: [phone] F: [phone] us José Caba MD, PhD CLERK FUNERAL DETAIL ORD Fin al Result * HCHG TUBE PR1, HCHG STYLET PR1, HCHG MOUTHPIECE PR1 (12/13/2024 8:23 AM CDT) Narrative Johanna Adams CRNA - 12/13/2024 8:23 AM CDT Johanna Adams CRNA 12/13/2024 8:23 AM Procedure: ETT Patient location during procedure: OR ETT Properties Mask Ventilation: easy Final Technique: direct laryngoscopy Type: straight Location: oral Cuffed: yes Tube Size: 7.5 mm Stylet: yes Laryngoscope Blade: Mac Blade Size: 4 Cormack-Lehane Grade View: 1 Insertion Attempts: 1 Placement Verification: auscultation, end tidal CO2, symmetrical chest wall movement and cuff palpation Assessment: pharynx clear, dentition unchanged and atraumatic Secured at: 22 Measured From: lips Tooth guard used and removed: yes Difficulty: 0 (not difficult) us Martin Ervin MD ANESTHESIA PX NOTE JOHN SPARROW Final Result * EP OTHER PROCEDURE (12/13/2024 8:22 AM CDT) Anatomical Region Laterality Modality X-Ray Angiograph y, X-Ray Angiography 12/13/2024 8:22 AM CDT Narrative Transcriptions José Caba MD, PhD - 12/13/2024 4:36 PM CDT [facility] Electrophysiology Implant Report Name: ANTONIO MURGUIA Event Date: 12/13/2024 Excellian ID #: [id number] Date: 1960 Gender: Male Age: 64 [facility] #: [id number] Procedure Performed By: JOSÉ CABA [facility] Referring Physician: Implant Procedure Type Other RAJESH Closure Device EP Implant Summary / Conclusions VASCULAR ACCESS * Using ultrasound guidance and a percutaneous technique, the rightfemoral vein was accessed. Ultrasound was used to confirm vessel patency,localizing needle into the lumen of the vessel. For safety purposes, apicture was saved for the medical record. * Using ultrasound guidance and a percutaneous technique, the left femoralvein was accessed. Ultrasound was used to confirm vessel patency,localizing needle into the lumen of the vessel. For safety purposes, apicture was saved for the medical record. PROCEDURE Successful placement of a Watchman FLX Pro 31mm Consent & [place] Protocol [place] protocol was followed. TIME OUT conducted just prior tostarting procedure confirmed patient identity, site/side, procedure,patient position, and availability of correct equipment and implants (ifapplicable). Procedure(s) Performed ? Left Atrial Appendage Occluder Implant Procedure Detail Estimated Blood Loss: < 50 ml Specimen Collected: None Level of Sedation Achieved: See Anesthesia Note Total Fluoro Time: 6.0 PARTS ASSEMBLER Total Fluoro Dose: 232 mGy Contrast: Omnipaque, 4 ml Omnipaque, 9 ml Staff Name Role José Caba Implanting Jean Echeverria RN Nurse Dereje Perez CVT Scrub Olena Singer EPT School Inspector Jamie Pritchett School Inspector Shane Gonsalves EPT School Inspector Martin Ervin Anesthesiologist Medications Ordered and Administered Start Time Stop Time Medication Dose Units Route Ordered By Given By 08:23 1% Lidocaine Hydrochloride 10 mL None Siobhan Lucas MD 08:24 0.25% Bupivicaine 10 mL None MD Willian Lucas MD 08:26 Heparin 8000 Units IV MD Jean Lucas, WINNIE 08:38 Heparin 2000 Units IV MD Jean Lucas, RN The anesthesia service monitored the patient?s conscious sedation duringthe procedure. The medications listed above were verbally ordered by me and read back tome as documented above. Refer to the hemodynamic procedure log report for additional casedetails. electronically signed on 12/13/2024 4:36:59 PM with status of Final José Caba MD Implanting Chief Cruiser [facility] [address] [place] [address] (p) [phone](f) José Caba MD, PhD CV IMAGING Elie matthew Result - Final * HCHG CATH PR5, HCHG ANES ARTERIAL CATH FOR SAMPLE MONITOR TRANS, HCHG TUBING PR1, HCHG TUBING PR20,HCHG DRSG PR1, HCHG DRSG PR5, HCHG KIT PR5 (12/13/2024 7:19 AM CDT) Narrative Martin Ervin MD - 12/13/2024 7:19 AM CDT Martin Ervin MD 12/13/2024 7:19 AM Arterial Line Patient location during procedure: pre-op Start time: 12/13/2024 6:55 AM End time: 12/13/2024 6:59 AM Indications: lab sampling and monitoring Requesting provider: José Caba MD, PhD Staffing Preanesthetic Checklist Completed: patient identified, risks and benefits discussed, consent obtained and timeout performed Arterial Line Patient position: supine. Comment:. Laterality: left Site: radial Local Anesthetic: lidocaine 1%. Securement/dressing: Biopatch applied, dressing applied. Comment: Supplemental O2: supplemental oxygen. Comment:. Vessel Driver License Examiner Additional supplies used to locate vessel: no Needle Catheter size: 20 G. Comment:. Catheter length: 4.5 cm. Comment: Events: no complications. us Martin Ervin MD ANESTHESIA PX NOTE JOHN SPARROW Final Result * CBC with Platelets no Differential (12/13/2024 6:38 AM CDT) WHITE BLOOD COUNT 8.1 4.5 - 11.0 thou/cu mm 12/13/2024 6:57 AM CDT [facility] RED BLOOD COUNT 4.67 4.30 - 5.90 mil/cu mm 12/13/2024 6:57 AM CDT [facility] HEMOGLOBIN 14.9 13.5 - 17.5 g/dL 12/13/2024 6:57 AM CDT [facility] HEMATOCRIT 44.6 37.0 - 53.0 % 12/13/2024 6:57 AM CDT [facility] MCV 96 80 - 100 fL 12/13/2024 6:57 AM CDT [facility] MCH 31.9 26.0 - 34.0 pg 12/13/2024 6:57 AM CDT [facility] MCHC 33.4 32.0 - 36.0 g/dL 12/13/2024 6:57 AM CDT [facility] RDW 12.8 11.5 - 15.5 % 12/13/2024 6:57 AM CDT [facility] PLATELET COUNT 172 140 - 440 thou/cu mm 12/13/2024 6:57 AM CDT [facility] MPV 9.5 6.5 - 11.0 fL 12/13/2024 6:57 AM CDT [facility] NRBC 0.0 % 12/13/2024 6:57 AM CDT [facility] ABS NRBC 0.0 thou /cu mm 12/13/2024 6:57 AM CDT [facility] Blood BLOOD SPECIMEN / Unknown Venipuncture / Unknown 12/13/2024 6:38 AM CDT 12/13/2024 6:49 AM CDT José Caba MD, PhD HEMATOLOGY Fin al Result [facility] [address] [place] [address], * (ABNORMAL) Basic Metabolic Panel (12/13/2024 6:38 AM CDT) SODIUM 140 136 - 145 mmol/L 12/13/2024 7:17 AM CDT [facility] POTASSIUM 4.2 3.5 - 5.1 mmol/L 12/13/2024 7:17 AM CDT [facility] CHLORIDE 105 98 - 107 mmol/L 12/13/2024 7:17 AM CDT [facility] CO2,TOTAL 23 22 - 29 mmol/L 12/13/2024 7:17 AM CDT [facility] ANION GAP 12 5 - 18 12/13/2024 7:17 AM CDT [facility] GLUCOSE 114(H) 70 - 99 mg/dL 12/13/2024 7:17 AM CDT [facility] CALCIUM 8.8 8.8 - 10.4 mg/dL 12/13/2024 7:17 AM T [facility] Comment: Reference ranges for this test were updated on 07/05/2024 to reflect our healthy population more accurately. Reference range changes are not retroactively applied to results, but previous results using the same methodology can be interpreted in the context of the new reference range. BUN 15 8 - 23 mg/dL 12/13/2024 7:17 AM CDT [facility] CREATININE 1.00 0.70 - 1.20 mg/dL 12/13/2024 7:17 AM CDT [facility] BUN/CREAT RATIO 15 10 - 20 7:17 AM T [facility] eGFR 84(L) >90 mL/min/1. 73m2 12/13/2024 7:17 AM CDT [facility] Comment:As of 2021, eG FR is calculated by the CKD-EPI creatinine equation without race adjustment. eGFR can be influenced by muscle mass, exercise, and diet. The reported eGFR is an estimation only and is only applicable if the renal function is stable. Blood BLOOD SPECIMEN / Unknown Venipuncture / Unknown 12/13/2024 6:38 AM CDT 12/13/2024 6:49 AM CDT us José Caba MD, PhD CHEMISTRY Fin al Result Performing Organization Address [facility] Co de Phone Number [facility] [address] [place] [phone], [place] * EXTRA TUBE GOLD/SST (12/13/2024 6:37 AM CDT) Blood BLOOD SPECIMEN / Unknown Extra Tube / Unknown 12/13/2024 6:37 AM CDT 12/13/2024 6:52 AM CDT us José Caba MD, PhD LABORATORY Fin al Result Performing Organization Address [facility] de Phone Number [facility] [address] [place] [address], [place] * 12 Lead EKG (12/13/2024 6:23 AM CDT) Interpretation Normal sinus rhythm Possible Anterior infarct , age undetermined Abnormal ECG When compared with ECG of 28-Sep-2024 10:46, No significant change was found BEYOND NOW Ventricular Rate 61 BPM BEYOND NOW Atrial Rate 61 BPM BEYOND NOW P-R Interval 178 ms BEYOND NOW QRS Duration 94 ms BEYOND NOW QT 450 ms BEYOND NOW QTc 453 ms BEYOND NOW P [place] 69 degrees BEYOND NOW R [place] 41 degrees BEYOND NOW T [place] 41 degrees BEYOND NOW 12/13/2024 6:23 AM CDT 12/13/2024 6:35 PM CDT us José Caba MD, PhD EKG ORD Fin al Result Performing Organization Address [facility] de Phone Number BEYOND NOW [place], [place] * SCAN-CARDIAC STRIP (12/13/2024 12:00 AM CDT) Narrative 12/13/2024 12:00 AM CDT Ordered by an unspecified provider. us Other Clinical Staff OTHER Final Resul t * XR CHEST 2 VIEWS PA AND LATERAL (11/22/2024 9:47 AM CDT) Anatomical Region Laterality Modality CHEST, THORAX, Lung, HEART Compu matthew Radiography 11/22/2024 9:58 AM CDT Narrative 11/22/2024 9:58 AM CDT For Patients: As a result of the Cures Act, medical imaging exams and procedure reports are released immediately into your electronic medical record. You may view this report before your referring provider. If you have questions, please contact your health care provider. INDICATION: Dyspnea, unspecified type. TECHNIQUE: Two-view chest x-ray. COMPARISON: May 30, 2020. Correlation is made with the chest CT May 17, 2024. FINDINGS: Minor linear fibrosis or atelectasis left upper lobe and right middle lobe. No pneumothorax. No focal or diffuse infiltrate. Overall heart size and pulmonary vascularity are within normal limits. There is hypertrophic spurring of the thoracic spine. Old posterolateral left 8th rib fracture. IMPRESSION : No acute cardiopulmonary process identified. No significant change. Dictated by Curtis Torres MD @ 11/22/2024 9:58:56 AM (Electronically Signed) Procedure Note Curtis Torres MD - 11/22/2024 For Patients: As a result of the s Act, medical imagingexams and procedure reports are released immediately into your electronicmedical record. You may view this report before your referring provider.If you have questions, please contact your health care provider. INDICATION: Dyspnea, unspecified type. TECHNIQUE: Two-view chest x-ray. COMPARISON: May 30, 2020. Correlation is made with the chest CT May 17, 2024. FINDINGS: Minor linear fibrosis or atelectasis left upper lobe and right middlelobe. No pneumothorax. No focal or diffuse infiltrate. Overall heart size and pulmonary vascularity are within normal limits. There is hypertrophic spurring of the thoracic spine. Old posterolateralleft 8th rib fracture. IMPRESSION : No acute cardiopulmonary process identified. No significant change. Dictated by Curtis Torres MD @ 11/22/2024 9:58:56 AM (Electronically Signed) us Blane Peres MD GENERAL IMAGING Final Resu lt * US ABD AORTA SCREENING [[id number]] (07/04/2024 8:39 AM FINANCIAL AID) Anatomical Region Laterality Modality Abdomen, AORTA Ultrasound 07/04/2024 11:1 1 AM FINANCIAL AID Impressions 07/04/2024 11:11 AM FINANCIAL AID No aneurysm. Dictated by Domingo Farrar MD @ 07/04/2024 11:11:13 AM (Electronically Signed) Narrative 07/04/2024 11:11 AM FINANCIAL AID For Patients: As a result of the [...] MD @ 07/04/2024 11:11:13 AM (Electronically Signed) us Blane Peres MD US Final Resu lt * HIV 1/2 ANTIGEN/ANTIBODY FOURTH GENERATION W/RFL ([facility]) (05/17/2024 12:04 PM CDT) HIV AG/AB, 4TH GEN NON-REACT MYRA NON-REACT MYRA [facility] Comment: HIV-1 antigen and HIV-1/HIV-2 antibodies were [...] purpose. For additional information please refer to http://education.[employer]/faq/ZZC671 (This link is being provided for informational/ educational purposes only.) The performance of this assay has not been clinically validated in patients less than 2 years old. Blood BLOOD SPECIMEN / Unknown 05/17/2024 12:04 PM CDT 05/17/2024 12:06 PM CDT Blane Peres MD SEND OUTS Final Resu lt [facility] [address] [place] [address], [facility] [address] [place] [address] * (ABNORMAL) LIPID PANEL W REFLEX MEASURED LDL [[id number]] (05/17/2024 12:04 PM CDT) CHOLESTEROL, TOTAL 156 [...] LDL-C. Landen HASKINS et al. RAMA. 2013;310(19): 9000-5108 (http://education.[employer]/faq/VEP308) CHOL/HDLC RATIO 3.5 <5.0 (calc) [facility] NON HDL CHOLESTEROL 112 <130 mg/dL (calc) [facility] Comment: For patients with diabetes plus 1 major ASCVD risk factor, treating to a non-HDL-C goal of <100 mg/dL (LDL-C of <70 mg/dL) is considered a therapeutic option. Blood BLOOD SPECIMEN / Unknown 05/17/2024 12:04 PM CDT 05/17/2024 12:06 PM CDT Blane Peres MD CHEMISTRY Final Resu lt [facility] [address], [facility] [address] * COLONOSCOPY SCREENING (11/16/2018 12:00 PM CDT) Blane Peres MD GI PROCEDURE ORD Final Res ult * ANTI HCV [32222.2] (05/15/2016 2:38 PM CDT) HEPATITIS C ANTIBODY Non-Reacti ve Non-Reacti ve 05/15/2016 8:09 PM CDT [facility] Blood BLOOD SPECIMEN / Unknown Venipuncture / Unknown 05/15/2016 2:38 PM CDT 05/15/2016 2:38 PM CDT Narrative [facility] - 05/15/2016 8:09 PM CDT Antibodies to HCV not detected; does not exclude the possibility of exposure to HCV. us Blane Peres MD SEND OUTS Final Resu lt [facility] [address] [place] [address], [place] from Last 3 Months or Most Recently Relevant to Health Maintenance Insurance [employer] BLUE MR PB ONLY MEDICARE PART B HB ONLY MEDICARE PART A HB ONLY [employer] [place] [place] [address] MEDICARE PPS [employer] BLUE HB ONLY Advance Directives * Full Code (Latest Code Status on File) Date Activated Date Inactivated Comments 12/13/2024 8:54 AM 12/13/2024 4:43 PM Question Answer Comments Code Status Discussion: Reviewed Preferences * Full Code Date Activated Date Inactivated [...] Code Status Discussion: Not Discussed Care Teams Tariff Clerk Relationship Specialty Start Date End Date Blane Peres MD [address] [facility] [address] PCP - General Family Practice 06/03/14
--- NOTE | 2025-02-14 12:29 | CRLHL7_ITS ---
For Patients: As a result of the Cures Act, medical imaging exams and procedure reports are released immediately into your electronic medical record. You may view this report before your referring provider. If you have questions, please contact your health care provider. INDICATION: : Pain COMPARISON: None TECHNIQUE: Frontal view of the chest and frontal and oblique views of the left ribs. FINDINGS/IMPRESSION: Nondisplaced fracture of the left lateral 6th, 7th, and 8th ribs. The heart is normal in size. Left atrial appendage occlusion device. There is no focal airspace consolidation, pleural effusion, or pneumothorax. Trace focus of linear atelectasis seen in the lateral aspect of the left mid lung zone. Dictated by Mustapha Lawson MD @ 02/14/2025 1:19:40 PM (Electronically Signed)
[2025-02-14 12:30] VITALS: BP 177/99; PULSE 68; RESP 18; TEMP 36.8; O2SAT 96; BMI 31.5
--- NOTE | 2025-02-14 15:57 | ED.GENADULT ---
HPI - General Adult General Time Seen by Provider: 15:59 Date Seen: 02/14/25 Chief complaint: Rib Pain Stated complaint: Fall, ribs injured Time Seen by Provider: 02/14/25 15:57 Source: patient and RN notes reviewed Mode of arrival: ambulatory Limitations: no limitations Related Data Home Medications ?Medication ?Instructions ?Recorded ?Confirmed mirtazapine 7.5 mg tablet 7.5 mg PO QPM 08/04/23 04/18/24 sertraline 25 mg tablet 50 mg PO DAILY 08/04/23 04/18/24 tamsulosin 0.4 mg capsule 0.4 mg PO DAILY 08/04/23 04/18/24 carvedilol 6.25 mg tablet 3.125 mg PO BID 08/24/23 04/18/24 gabapentin 300 mg capsule 300 mg PO BID 08/24/23 04/18/24 colchicine 0.6 mg tablet mg PO 11/25/23 atorvastatin 20 mg tablet 20 mg PO DAILY 04/18/24 04/18/24 aspirin 81 mg tablet,delayed 81 mg PO DAILY 02/14/25 02/14/25 release Previous Rx's ?Medication ?Instructions ?Recorded digoxin 250 mcg (0.25 mg) tablet 250 mcg PO DAILY #30 tabs 08/25/23 folic acid 1 mg tablet 1 mg PO DAILY #30 tabs 08/25/23 gabapentin 300 mg capsule 300 mg PO TID #30 caps 08/25/23 oxycodone 5 mg tablet 5 mg PO Q6H PRN pain #10 tabs 02/14/25 Allergies Allergy/AdvReac Type Severity Reaction Status Date / Time No Known Drug Allergies Allergy Verified 04/18/24 13:20 [facility] Medical History Abnormal echocardiogram ?R93.1 - Abnormal findings on diagnostic imaging of heart and coronary circulation (ICD-10) COVID-19 (~08/04/23) ?U07.1 - COVID-19 (ICD-10) Nonischemic cardiomyopathy ?I42.8 - Other cardiomyopathies (ICD-10) Chronic obstructive pulmonary disease ?J44.9 - Chronic obstructive pulmonary disease, unspecified (ICD-10) Chronic insomnia ?F51.04 - Psychophysiologic insomnia (ICD-10) SONIA (obstructive sleep apnea) ?G47.33 - Obstructive sleep apnea (adult) (pediatric) (ICD-10) Closed fracture of hyoid bone ?S12.8XXA - Fracture of other parts of neck, initial encounter (ICD-10) Alcohol abuse ?F10.10 - Alcohol abuse, uncomplicated (ICD-10) Anxiety ?F41.9 - Anxiety disorder, unspecified (ICD-10) Adenomatous colon polyp ?D12.6 - Benign neoplasm of colon, unspecified (ICD-10) Dysthymia ?F34.1 - Dysthymic disorder (ICD-10) Esophageal reflux ?K21.9 - Gastro-esophageal reflux disease without esophagitis (ICD-10) Diverticulosis of colon (without mention of hemorrhage) ?K57.30 - Diverticulosis of large intestine without perforation or abscess without bleeding (ICD-10) BPH (benign prostatic hyperplasia) ?N40.0 - Benign prostatic hyperplasia without lower urinary tract symptoms (ICD-10) Paroxysmal atrial fibrillation ?I48.0 - Paroxysmal atrial fibrillation (ICD-10) Hypertension ?I10 - Essential (primary) hypertension (ICD-10) Surgical History History of partial colectomy ?Z90.49 - Acquired absence of other specified parts of digestive tract (ICD-10) H/O esophagogastroduodenoscopy ?Z98.890 - Other specified postprocedural states (ICD-10) Hx of colonoscopy ?Z98.890 - Other specified postprocedural states (ICD-10) Family History Aunt Breast cancer Father Coronary artery disease Diabetes Blood clot in vein Sister Fibromyalgia Brother Blood clot in vein Social History Narrative: . Lives independently with . Three grown children. Drinks 5-6 glasses of vodka a day, 8oz vodka in each glass. Quit smoking in 2000. Smokes marijuana daily, sometimes several times a day. Last smoked marijuana today. Denies any other recreational drugs recently. Wishes to be FULL CODE. What is your current living situation?: I presently have a place to live Problems where you live: no known problems Problems where you live details: N/A In the past 12 months, utilities in danger of being shut off: no In past 12 months, lack of transportation kept you from medical appts, meetings, work, or getting things needed for daily living: no In the past 12 mos, have been you worried that your food would run out before you had money to buy more?: never true In the past 12 mos, the food you bought just didn't last and you didn't have money to buy more?: never true Smoking Status: Former smoker Do you use any of these nicotine containing products: None Second hand tobacco smoke exposure: No How often do you have a drink containing alcohol: 2-3 times a week Alcohol type: hard liquor How many standard drinks containing alcohol do you have on a typical day: 3 or 4 How often do you have six or more drinks on one occasion: Weekly AUDIT-C Alcohol total score: 7 Non-prescribed substance use: marijuana (any form) Caffeine: No How often does anyone, including family, friends and others, physically hurt you: never How often does anyone, including family, friends and others, insult or talk down to you: never How often does anyone, including family, friends and others, threaten you with harm: never How often does anyone, including family, friends and others, scream or curse at you: never Gender Identity: male service: No Exam Const: Vital Signs, click to edit/add: Vital Signs - 24 hr 02/14/25 12:30 Temperature 98.2 F Pulse Rate [Pulse Oximeter] 68 Respiratory Rate 18 Blood Pressure [Ri ght Upper Arm] 177/99 H Pulse Oximetry 96 Oxygen Delivery Me thod Room Air This 64-year-old male is alert, interactive, no apparent distress. Sitting in the chair in exam room 8. With some movement he did seem to get some pain. Baseline, lungs are clear come good air entry, no wheezing or crackles, no tachypnea, no accessory muscle use. Neck thick but no masses, no jugular venous distension noted. CV regular rate and rhythm, no murmur, normal S1-S2, no S3-S4. Palpation of his left chest wall feels a small click along 1 rib as he breathes. Overall though there is no crepitus, no step-off. Abdomen is obese but soft, nontender. He has some bruising along his in her right upper arm which she states happened with the fall with these ribs. Documenting provider has reviewed patient's vital signs: yes Course Course ED Course: Patient is almost 8 days in from his injury, ongoing pain. We have discussed pain management, he believes he is taken pain medicines in the past without complication. He is not aware of any adverse issues. Will give him a dose of 5 mg oxycodone here. Will review this with [facility], make sure that he does not need to follow up or if they have any other recommendations for us regarding his injuries. Reevaluation(s) Time of Reevaluation #1: 16:57 Reevaluation #1: Have reviewed with patient discussion with [facility]. We also reviewed the need for alcohol cessation/minimization while on the narcotics to prevent respiratory suppression/respiratory cessation (). This was stressed to him and his . I do not feel that withholding pain management is appropriate in this situation. Consultations Consultation #1: Did speak with Dr. Thorpe from [facility]. She does think it would be appropriate to have him follow-up with [facility], make sure he is healing appropriately. She is not thinking that they would do any plating if these fractures are nondisplaced but still thinks it would be appropriate for him to follow up there. The appointment line for them to call would be [phone]. We will make sure he has this on discharge. Time: 16:18 Vital Signs Vital signs: Initial Vital Signs Temperature 98.2 F 02/14/25 12:30 Temperature Source Temporal Artery Scan 02/14/25 12:30 Pulse Rate 68 02/14/25 12:30 Pulse Rhythm Regular 02/14/25 12:30 Respiratory Rate 18 02/14/25 12:30 Blood Pressure 177/99 H 02/14/25 12:30 Blood Pressure Mean 125 H 02/14/25 12:30 Blood Pressure Position Sitting 02/14/25 12:30 Pulse Oximetry 96 02/14/25 12:30 Oxygen Delivery Method Room Air 02/14/25 12:30 Vital Signs Temperature 98.2 F 02/14/25 12:30 Pulse Rate 68 02/14/25 12:30 Respiratory Rate 18 02/14/25 12:30 Blood Pressure 177/99 H 02/14/25 12:30 Pulse Oximetry 96 02/14/25 12:30 Oxygen Delivery Method Room Air 02/14/25 12:30 Temperature 98.2 F 02/14/25 12:30 Pulse Rate 68 02/14/25 12:30 Respiratory Rate 18 02/14/25 12:30 Blood Pressure 177/99 H 02/14/25 12:30 Pulse Oximetry 96 02/14/25 12:30 Oxygen Delivery Method Room Air 02/14/25 12:30 Medications Administered Medications: Discontinued Medications Generic Name Dose Route Start Last Admin Trade Name Freq PRN Reason Stop Dose Admin Oxycodone HCl 5 mg 02/14/25 16:14 02/14/25 16:31 Oxycodone 5 Mg Tablet PO 02/14/25 16:15 5 mg ONCE ONE Administration Medical Decision Making Imaging Data Chest x-ray: Attestation: I have reviewed the pertinent imaging results. Radiologist's impression: Patient: MATEUS MURGUIA Facility:?[facility] Patient ID:?[id number] Site Patient ID:?[id number]. Site :?[id number] Study:?XRay-Chest 1V W/ 2V RIBS-02/14/2025 1:14:36 PM Ordering Physician:?PROVIDER TEMP Final Report: INDICATION: : Pain COMPARISON: None TECHNIQUE: Frontal view of the chest and frontal and oblique views of the left ribs. FINDINGS/IMPRESSION: Nondisplaced fracture of the left lateral 6th, 7th, and 8th ribs. The heart is normal in size. Left atrial appendage occlusion device. There is no focal airspace consolidation, pleural effusion, or pneumothorax. Trace focus of linear atelectasis seen in the lateral aspect of the left mid lung zone. Dictated by Mustapha Lawson MD @ 02/14/2025 1:19:40 PM (Electronic Signature) Discharge Plan Discharge Clinical Impression: Fall Qualifiers: Encounter type: initial encounter Qualified Code(s): W19.XXXA - Unspecified fall, initial encounter Multiple fractures of ribs Qualifiers: Encounter type: initial encounter Fracture type: closed Laterality: left Qualified Code(s): S22.42XA - Multiple fractures of ribs, left side, initial encounter for closed fracture Patient Disposition: Home, Self-Care Condition: Stable Instructions: Rib Fracture (ED), Fall Prevention for Older Adults (ED) Additional Instructions: Use splinting technique with movement, coughing, sneezing to help decrease pain and stabilize the chest wall. Tylenol 1000 mg 3 times a day baseline for pain management. Can use ibuprofen 600 mg up to 4 times a day with food as needed for extra pain management. Have written for oxycodone for help with sleep. Can use 5 mg every 6 hours overnight for sleeping. This is a narcotic, you cannot drive or operate machinery while on this. It can also be constipating, recommend MiraLax 17 g daily while using this, may need to add in senna 1-2 tablets up to a once to twice a day for a soft but formed stool daily while using narcotics. The appointment line to schedule a follow-up with [facility] is [phone]. The purpose of following up with them is to see if they feel there would be any needed surgical intervention, any complications developing with this injury. They can also follow you for non operative management for this injury. It is imperative that you do not use alcohol will using the narcotic. The additive affects of these 2 medicines together can increase risk for respiratory depression and even due to cessation of breathing if intoxicated and on narcotics. If you need narcotic refill, request that you follow up with your primary provider for refills, we cannot give refills out of the ED. Activity Level: Activity as Tolerated Prescriptions: New oxycodone 5 mg tablet 5 mg PO Q6H PRN (Reason: pain) Qty: 10 0RF Rx Instructions: Can use one tablet every 6 hours overnight as needed for pain and allow you to sleep No Action tamsulosin 0.4 mg capsule 0.4 mg PO DAILY sertraline 25 mg tablet 50 mg PO DAILY Patient Comments: Patient now up to 50 mg daily mirtazapine 7.5 mg tablet 7.5 mg PO QPM colchicine 0.6 mg tablet PO atorvastatin 20 mg tablet 20 mg PO DAILY aspirin 81 mg tablet,delayed release (DR/EC) 81 mg PO DAILY carvedilol 6.25 mg tablet 3.125 mg PO BID gabapentin 300 mg capsule 300 mg PO BID gabapentin 300 mg Capsule 300 mg PO TID Qty: 30 0RF folic acid 1 mg Tablet 1 mg PO DAILY Qty: 30 0RF digoxin 250 mcg (0.25 mg) tablet 250 mcg PO DAILY Qty: 30 2RF Follow Up/Referrals: Blane Peres MD [Primary Care Provider, Family Practice] Stand Alone Forms: [employer] Info Instructions
[2025-02-14] MEDS: OXYCODONE 5 MG TABLET PO (16:31)
== END 2025-02-14 17:03 | disposition home or self-care (01) ==
PROVIDERS: Emergency Provider Family Medicine; PCP Surgery
DX: S22.42XA Multiple fractures of ribs, left side, initial encounter for closed fracture (principal); W19.XXXA Unspecified fall, initial encounter
CPT/HCPCS: 71101; 99283; A9270

== ENCOUNTER 2025-07-21 19:46 | Outpatient (CLI) | payer MEDICARE, BC, SELFPAY | END 2025-07-21 19:47 | disposition home or self-care (01) | LOC: AMB 07-24 18:35 | PROVIDERS: PCP Surgery; Visit Provider Family Medicine | DX: S09.90XA Unspecified injury of head, initial encounter (principal); R41.82 Altered mental status, unspecified; W18.30XA Fall on same level, unspecified, initial encounter; Y92.008 Other place in unspecified non-institutional (private) residence as the place of occurrence of the external cause | CPT/HCPCS: A0998 ==

== ENCOUNTER 2025-07-21 20:36 | Inpatient (IN) | payer MEDICARE, BC, SELFPAY ==
--- OUTSIDE RECORDS SUMMARY | 2025-06-16 19:31 | XMS_ITS | Encounter Summary ---
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 [address] [place] [address] History Of Falling (Primary Dx); Alcohol Intoxication With Alcoholism (HCC); Dehydration Discharge Disposition: Home or Self Care Social History Tobacco Use Types Packs/Day Years Used Date Smoking Tobacco: Former Cigarettes 1 30 0 02/25/1969 - 02/25/1999 Smokeless Tobacco: Never Tobacco Cessation:Counseling Given: Not Answered Alcohol Use Standard Drinks/Week Comments Yes 30 (1 standard drink = 0.6 oz pu re alcohol) last drink today 1830 Depression Answer Date Recor ded PHQ-9 Total Score (max 27) 15 02/19 Sex and Gender Information Value Date Recorded Sex Assigned at Not on file Legal Sex Male 2:46 PM CDT Gender Identity Not on file Sexual Orientation Not on file documented as of this encounter Last Filed Vital Signs Vital Sign Reading Time Taken Comments Blood Pressure 111/78 06/16/2025 9:45 PM CDT Pulse 64 06/16/2025 10:15 PM CDT Temperature 36.7 C (98.1 F) 06/16/2025 8:46 PM CDT Respiratory Rate - - Oxygen Saturation 94% 06/16/2025 9:45 PM CDT Inhaled Oxygen Concentration - - Weight - - Height - - Body Mass Index - - documented in this encounter Discharge Instructions * Discharge Instructions* Charla Fiore M.D. - 06/16/2025 10:33 PM CDT You came in the emergency department today for multiple falls. You were evaluated here in his evaluation in his relatively reassuring. I do think this is secondary to dehydration and alcohol use. Youneed to stopped drinking alcohol. If you want help with the she has been that has come back to the e mergency department or reached out to your primary care provider for help with detox * Attachments The following attachments cannot be sent through Care Everywhere. * Alcohol Intoxication [id number] (Eritrean) * Alcohol Misuse and Dependence Information Adult (Eritrean) documented in this encounter Medications at Time of Discharge acetaminophen (TYLENOL) 500 mg capsule Take 500-1,000 mg by mouth every 8 (eight) hours as needed for pain. albuterol (Ventolin HFA) 90 mcg/actuation inhaler Inhale 1-2 puffs every 4 (four) hours as needed for wheezing. 09/21/2020 escitalopram (Lexapro) 10 mg tabletIndications :Depressive Disorder,Anxiety Disorder Unspecified Take 1 tablet (10 mg total) by mouth daily. 30 tablet 02/22/2021 fluticasone propion-salmetero L 250-50 mcg/dose diskus inhaler Inhale 1 puff 2 (two) times a day. 12/07/2020 gabapentin (NEURONTIN) 300 mg capsule Take 300 mg by mouth 2 (two) times a day. ibuprofen (ADVIL,MOTRIN) 200 mg tablet Take 400 mg by mouth every 6 (six) hours as needed for pain. melatonin-pyridox ine HCl, B6, 5-10 mg tablet extended release Take 5-10 mg by mouth at bedtime as needed. 01/29/2021 metoprolol succinate (TOPROL-XL) 25 mg 24 hr tablet Take 25 mg by mouth daily. 01/04/2021 miconazole nitrate (Lotrimin AF) 2 % aerosol,spray Apply 1 Dose topically as needed. Apply to inside of shoe as needed. miconazole nitrate, bulk, powder powder Apply 1 g topically as needed (itchy feet). Apply to feet as needed. miscellaneous medical supply [facility] CPAP machine for home use at pressure:9 cm/H2O, Heated humidifier x 1 every 5 years, Humidifier chamber x 1 every 6 months, nasal mask with cushion x 1 every 3 months, nasal cushion 2 every month, 1 headgear 1 every 6 month, Heated tubing x 1 every 3 months, Filters: Disposable filter x 2 a month, non-disposable filters x1 every 6 months; chinstrap 1 every 6 months Length of Need: 99 months, Frequency of use: Daily 10/17/2019 rivaroxaban (Xarelto) 20 mg tablet Take 20 mg by mouth daily with dinner. With evening meal 02/26/2021 traZODone (DESYREL) 50 mg tabletIndications :Insomnia Take 1 tablet (50 mg) to 2 tablets (100 mg) as needed for sleep. 30 tablet 03/15/2021 documented as of this encounter ED Notes * Charla Fiore M.D. - 06/16/2025 9:06 PM CDT SUBJECTIVE CHIEF COMPLAINT/REASON FOR VISIT Fall HISTORY OF PRESENT ILLNESS Antonio Santacruz is a 65 year old male with past medical history of atrial fibrillation s/p watchmen, COPD, hypertension, and alcohol use disorder who presents by EMS after multiple falls today. Patient reports a history of falls ongoing for the last year, previously attributed to orthostatic hypotension; although, these falls also occur in the setting of heavy alcohol use. Today patient fell 5 times. He reports getting up and walking approximately 10-15 feet before he feels lightheaded, uneasy, and his legs feel weak, wobbly, and then give out. On his last fall this evening, he hit his head on a chair. He denies any loss of consciousness. He denies any blurry vision, headaches, nausea, chest pain or palpitations. He is short of breath at baseline, and reports no change in this. In terms of his alcohol use, today he had approximately 8-10 vodka drinks. He typically drinks over a pint ofvodka daily. It is unclear what the longest stretch of time he's gone without drinking in the recent past. He denies any history of prior hospitalizations for withdrawal, but has previously completedan alcohol cessation program. He occasionally smokes marijuana and denies any other drug use. History provided by: Patient and significant other per diem interpreter needed/used: no REVIEW OF SYSTEMS - as noted above OBJECTIVE Initial Vitals Temperature 06/16/252045 36.7 ??C Pulse Rate 06/16/252037 70 Heart Rate -- Resp -- Blood Pressure 06/16/252037 (!) 158/94 SpO2 06/16/252037 95 % Pain Score 06/16/252040 0 - No pain PHYSICAL EXAMINATION Constitutional: He appears not lethargic. No distress. HENT: Head: Normocephalic. Eyes: EOM are normal. Pupils are equal, round, and reactive to light. Cardiovascular: Regular rhythm. Pulses are palpable. Edema: no edema noted Pulmonary/Chest: Effort normal. Abdominal: Firm. exhibits distension.There is no abdominal tenderness. There is no guarding. Musculoskeletal: General: No tenderness or edema. Cervical back: Normal range of motion. Comments: No tenderness to palpation along the spinous processes from the cervical spine to the lumbar. Neurological: Alert and oriented to person, place, and time. Cranial nerves: EOMI , PERRL, normal sensation with light touch in V1, V2, V3 distribution, symmetry with facial expressions, hearing intact to finger rub, tongue protrudes midline, uvula points leftward, appropriate strength with shoulder shrug. Motor upper extremity: Triceps, biceps, deltoids 5/5 bilaterally Motor lower extremity: Hamstrings, quads, dorsiflexion, plantar flexion 5/5 bilaterally Skin: Skin is warm, dry and intact. He is not diaphoretic. Bruising noted over the lower extremities. No skin abrasions. Evaluation of the scalp - no ecchymosis fluctuance, or erythema ASSESSMENT/PLAN Assessment and Plan Antonio Santacruz is a 65 year old male who presents after multiple falls. This appears to be a chronic issue ongoing for the past year and previously told this has been due to orthostatic hypotension. However, these falls also appear to be connected to intoxication from heavy alcohol consumption, and today patient hit his head on a chair after consuming 8-10 alcoholic beverages. Breath alcohol of 0.151. Last drink was around 6:30 pm. Physical exam is overall reassuring. Uvula deviates to the left, but no other focal neurologic deficits appreciated. Given the trauma to his head, we will obtainCT head. Additionally, we'll completed a basic lab work up and initiate [facility] protocol.. ED Course as of 06/17/25107Jun 16, 20252201 CBC with Differential, Blood(!): Hemoglobin 12.9(!) Hematocrit 38.7 Erythrocytes 3.93(!) MCV 98.5(!) RBC Distrib Width 12.4 Platelet Count 219 Leukocytes 7.7 Neutrophils 4.56 Lymphocytes 2.13 Monocytes 0.83(!) Eosinophils 0.11 Basophils 0.05 2201 Basic Metabolic Panel(!): Potassium, P 3.8 Sodium, P 142 Chloride, P 104 Bicarbonate, P 22 Anion Gap, P 16(!) BUN (Blood Urea Nitrogen), P 19 Creatinine 1.27 Estimated GFR (eGFR) 62 Calcium, Total, P 8.5(!) Glucose, P 104 2201 Breath Alcohol (ETOH), POCT - Nursing: Breath Alcohol, POCT 0.151 QC Pass/Fail Pass [employer] Attendant AIDAN ID [id number] 2201 CT Head without IV Contrast No intracranial hemorrhage or calvarial fracture. 2235 Work up has been negative for any acute pathology. Patient is stable and will be discharge home. Final Diagnoses: as of 06/17/25107 History Of Falling Alcohol Intoxication With Alcoholism (HCC) Dehydration Charla Fiore M.D. Resident 06/17/25107 * Festus Marquez M.D. - 06/16/2025 8:59 PM CDT I have personally seen and examined this patient. I have fully participated in the care of this patient. I have reviewed all clinical information including history, physical exam, orders, and plan. Iagree with the note of the resident. This is a 65 y.o. male patient with a PMH notable for asthma, obstructive sleep apnea, neuropathy, GERD, paroxysmal Afib who presents for evaluation of fall. Patient reports a history of falls ongoing for the last year, previously attributed to orthostatic hypotension; although, these falls also occur in the setting of heavy alcohol use. Today patient fell 5 times. He reports getting up and walking approximately 10-15 feet before he feels lightheaded, uneasy, and his legs feel weak, wobbly, and then give out. On his last fall this evening, he hit his head on a chair. He denies any loss of consciousness. He denies any blurry vision, headaches, nausea, chest pain or palpitations. He is short of breath at baseline, and reports no change in this. In terms of his alcohol use, today he had approximately 8-10 vodka drinks. He typically drinks over a pint of vodka daily. It is unclear what the longest stretch of time he's gone between drinking in the recent past. He denies any history of prior hospitalizations for withdrawal, but has previously completed an alcohol cessation program. He occasionally smokes marijuana and denies any other drug use. Notable Exam Findings: Vitals: 06/16/252045 BP: Pulse: Temp: 36.7 ??C SpO2: Resting comfortably in room, answering questions. Breathing comfortably on room air. Neurologic examination is completely unremarkable. He has no tenderness in his abdomen, chest, cervical, thoracic,or lumbar spine. Impression/Plan: Antonio Santacruz is a 65 year old male who presents after multiple falls. This appears to be a chronic issue ongoing for the past year and previously told this has been due to orthostatic hypotension Patient has had no symptoms occurring other than some lightheadedness and dizziness when he does have the feeling of falling. He does drink copious amounts of alcohol daily. I do think this is contributing to his ongoing falls and dizziness and lightheadedness. His breath alcohol was 0.151. Workup was grossly negative here with a mild anemia but no profound electrolyte derangements. Hepatic function was unremarkable. Magnesium was normal. CT of the head was also unremarkable. He had not been having any chest pain or discomfort. I do think that he is intoxicated and that has why he has been falling. We had started him on CIWA protocol. I offered the patient placement to the CRU to which he had declined. He is able to ambulate without any concerns. He denies any history of withdrawals otherthan some mild shaking but no seizures or delirium tremens. He reports that he wants to quit drinking on his own. I offered referral to primary care to which he had declined. He wanted to go home andhis was with him and felt safe with him being discharged. I have a very low suspicion for any acute cardiac causes of the patient's symptoms. We did have theintention of getting an EKG, but unfortunately this has not done prior to the patient being discharged. I did put a referral in for primary care follow up and I contacted our RN follow up nurse to call the patient tomorrow if he has any worsening symptoms or dizziness or lightheadedness that he should come back to the emergency department for re- evaluation or he can follow up with the primary care provider. Again I do not think this is cardiogenic in nature as the patient has a an ongoing history of multiple falls and concerns of dehydration and orthostatic hypotension within the past year that he has had outpatient workup including a Holter monitor that has not been concerning for cardiogenic causes of his syncope. Patient was able to ambulate well and he was saying that he is in his baseline and he felt much better after a L of fluids. After ambulation and he did not have any feelings of dizziness or lightheadedness and reports that he felt great. I do think that has symptoms were secondary to his heavy alcohol use. Patient was discharged home with return precautions. ED Course as of 06/16/252354Jun 16, [id number] CT Head without IV Contrast IMPRESSION: No intracranial hemorrhage or calvarial fracture. Final Diagnoses: as of 06/16/252354 History Of Falling Alcohol Intoxication With Alcoholism (HCC) Dehydration Festus Marquez M.D. 06/17/2530 Festus Marquez M.D. 06/17/2532 Festus Marquez M.D. 06/17/252111 * Charly Delgado M.S.Kinsey., R.N. - 06/16/2025 8:40 PM CDT Ptn presents to the ED via EMS after 5 falls per family. Ptn on Plavix and did hit head during one of the falls. Denies any pain, SOB, CP, headache, at this time. Charly Delgado M.S.Kinsey., R.N. 06/16/252040 documented in this encounter Plan of Treatment Not on file documented as of this encounter Procedures Procedure Name Priority Date/Time Associated Diagnosis Comments HEPATIC FUNCTION PANEL, S STAT 06/16/2025 9:[address] HEAD WITHOUT IV CONTRAST RAD - Semiurgent (Fast; most ED patients; some inpatients) 06/16/2025 9:31 PM CDT POCT BREATH ALCOHOL (ETOH) - NURSING STAT 06/16/2025 9:13 PM CDT CBC WITH DIFFERENTIAL, B STAT 06/16/2025 9:10 PM CDT PHOSPHORUS (INORGANIC), S STAT 06/16/2025 9:10 PM CDT MAGNESIUM, S STAT 06/16/2025 9:10 PM CDT BASIC METABOLIC PANEL, S/P STAT 06/16/2025 9:10 PM CDT documented in this encounter Results * (ABNORMAL) Hepatic Function Panel (06/16/2025 9:57 PM CDT) Bilirubin, Total, S 0.5 0.0 - 1.2 mg/dL 06/16/2025 10:52 PM CDT DTL Bilirubin, Direct, S 0.2 0.0 - 0.3 mg/dL 06/16/2025 10:52 PM CDT DTL Aspartate Aminotransferase (AST), S 26 8 - 48 U/L 06/16/2025 10:52 PM CDT DTL Alanine Aminotransferase (ALT), S 13 7 - 55 U/L 06/16/2025 10:52 PM CDT DTL Alkaline Phosphatase, S 76 40 - 129 U/L 06/16/2025 10:52 PM CDT DTL Albumin, S 3.6 3.5 - 5.0 g/dL 06/16/2025 10:52 PM CDT DTL Protein, Total, S 5.8(L) 6.3 - 7.9 g/dL 06/16/2025 10:52 PM CDT DTL Blood (Blood, Venous) 06/16/2025 9:57 PM CDT 06/16/2025 10:13 PM CDT us Charla Fiore M.D. LAB BLOOD ADD-ON Final Re sult [facility] [place] [address] [place] [address], [facility] DTL [facility] [address] [place] [address] * CT Head without IV Contrast (06/16/2025 9:31 PM CDT) Anatomical Region Laterality Modality Head, Neuroradiology RST LOS , Neuroradiology [facility], Neuroradiology FLA LOS N/A Computed Tomography, Compute d Tomography 06/16/2025 9:27 PM CDT Impressions 06/16/2025 9:56 PM CDT No intracranial hemorrhage or calvarial fracture. Narrative 06/16/2025 9:56 PM CDT EXAM: CT HEAD WITHOUT IV CONTRAST COMPARISON: None available. FINDINGS: No intracranial hemorrhage. No evidence of an acute infarct. Moderate leukoaraiosis. No midline shift or other significant intracranial mass effect. Mild retrocerebellar CSF prominence may represent anatomic variation or a small arachnoid cyst. No evidence of hydrocephalus. No calvarial fracture. No significant abnormality identified in the calvaria or skull base. Well-aerated paranasal sinuses and bilateral mastoid air cells. Procedure Note Josiah Rivers M.D. - 06/16/2025 EXAM: CT HEAD WITHOUT IV CONTRAST COMPARISON: None available. FINDINGS: No intracranial hemorrhage. No evidence of an acute infarct.Moderate leukoaraiosis. No midline shift or other significant intracranialmass effect. Mild retrocerebellar CSF prominence may represent anatomicvariation or a small arachnoid cyst. No evidence of hydrocephalus. No calvarial fracture. No significant abnormality identified in thecalvaria or skull base. Well-aerated paranasal sinuses and bilateralmastoid air cells. IMPRESSION: No intracranial hemorrhage or calvarial fracture. Charla Fiore M.D. IMG CT PROCEDURES Final R esult * Breath Alcohol (ETOH), POCT - Nursing (06/16/2025 9:13 PM CDT) [facility] Breath Alcohol, POCT 0.151 QC Pass/Fail Pass [employer] Attendant AIDAN ID [id number] Breath (Mouth) 06/16/2025 9: 13 PM CDT Charla Fiore M.D. LAB POCT ORDERABLES-MANUA L Final Result * Phosphorus Inorganic (06/16/2025 9:10 PM CDT) [facility] Phosphorus (Inorganic), P 2.6 2.5 - 4.5 mg/dL 06/16/2025 9:31 PM CDT [facility] Blood (Blood, Venous) 06/16/2025 9:10 PM CDT 06/16/2025 9:14 PM CDT Charla Fiore M.D. LAB BLOOD ADD-ON Final Re sult [facility] [place] [address] [place] [address], [facility] [address] [place] [address] * Magnesium (06/16/2025 9:10 PM CDT) [facility] Magnesium, P 1.9 1.7 - 2.3 mg/dL 06/16/2025 9:31 PM CDT [facility] Blood (Blood, Venous) 06/16/2025 9:10 PM CDT 06/16/2025 9:14 PM CDT Charla Fiore M.D. LAB BLOOD ADD-ON Final Re sult [facility] [place] [address] [place] [address], [facility] [address] [place] [address] * (ABNORMAL) CBC with Differential, Blood (06/16/2025 9:10 PM CDT) Pathologist [facility] Hemoglobin 12.9(L) 13.2 - 16.6 g/dL 06/16/2025 9:19 PM CDT [facility] Hematocrit 38.7 38.3 - 48.6 % 06/16/2025 9:19 PM CDT [facility] Erythrocytes 3.93(L) 4.35 - 5.65 x10(12)/L 06/16/2025 9:19 PM CDT [facility] MCV 98.5(H) 78.2 - 97.9 fL 06/16/2025 9:19 PM CDT [facility] RBC Distrib Width 12.4 11.8 - 14.5 % 06/16/2025 9:19 PM CDT [facility] Platelet Count 219 135 - 317 x10(9)/L 06/16/2025 9:19 PM CDT [facility] Leukocytes 7.7 3.4 - 9.6 x10(9)/L 06/16/2025 9:19 PM CDT [facility] Neutrophils 4.56 1.56 - 6.45 x10(9)/L 06/16/2025 9:19 PM CDT [facility] Lymphocytes 2.13 0.95 - 3.07 x10(9)/L 06/16/2025 9:19 PM CDT [facility] Monocytes 0.83(H) 0.26 - 0.81 x10(9)/L 06/16/2025 9:19 PM CDT [facility] Eosinophils 0.11 0.03 - 0.48 x10(9)/L 06/16/2025 9:19 PM CDT [facility] Basophils 0.05 0.01 - 0.08 x10(9)/L 06/16/2025 9:19 PM CDT [facility] Blood (Blood, Venous) 06/16/2025 9:10 PM CDT 06/16/2025 9:14 PM CDT us Charla Fiore M.D. LAB BLOOD ADD-ON Final Re sult [facility] [place] [address] [place] [address], [facility] STMA [facility] [address] [place] [address] DHPM [facility] [address] [place] [address] * (ABNORMAL) Basic Metabolic Panel (06/16/2025 9:10 PM CDT) Pathologist [facility] Potassium, P 3.8 3.6 - 5.2 mmol/L 06/16/2025 9:31 PM CDT [facility] Sodium, P 142 135 - 145 mmol/L 06/16/2025 9:31 PM CDT [facility] Chloride, P 104 98 - 107 mmol/L 06/16/2025 9:31 PM CDT [facility] Bicarbonate, P 22 22 - 29 mmol/L 06/16/2025 9:31 PM CDT [facility] Anion Gap, P 16(H) 7 - 15 06/16/2025 9:31 PM CDT [facility] BUN (Blood Urea Nitrogen), P 19 8 - 24 mg/dL 06/16/2025 9:31 PM CDT [facility] Creatinine 1.27 0.74 - 1.35 mg/dL 06/16/2025 9:31 PM CDT [facility] Estimated GFR (eGFR) 62 >=60 mL/min/BSA 06/16/2025 9:31 PM CDT [facility] Comment: Estimated GFR calculated using the 2020 CKD_EPI creatinine equation. Calcium, Total, P 8.5(L) 8.8 - 10.2 mg/dL 06/16/2025 9:31 PM CDT [facility] Glucose, P 104 70 - 140 mg/dL 06/16/2025 9:31 PM CDT [facility] Blood (Blood, Venous) 06/16/2025 9:10 PM CDT 06/16/2025 9:14 PM CDT Charla Fiore M.D. LAB BLOOD ADD-ON Final Re sult [facility] [place] [address] [place] [address], [place] STMA [facility] [address] [place] [address] documented in this encounter Visit Diagnoses Diagnosis History Of Falling- Primary Alcohol Intoxication With Alcoholism (HCC) Dehydration documented in this encounter Administered Medications Inactive Administered Medications - up to 3 most recent administrations Medication Order MAR Action Action Date Dose Rate Site diazePAM injection 10 mg (Valium) 10 mg, intravenous, Every 1 hour PRN, withdrawal, Starting on Thu06/16/25 at 2108, CIWA Score 18 or greater. Notify provider after 3 consecutive medication doses within a 3 hour period administered for a CIWA score 13 or greater OR a cumulative oral dose of 80 mg OR cumulative IV dose of 40 mg diazePAM injection 2.5 mg (Valium) 2.5 mg, intravenous, Every 1 hour PRN, withdrawal, Starting on Thu06/16/25 at 2108, CIWA Score 10-12. Notify provider after 3 consecutive medication doses within a 3 hour period administered for a CIWA score 13 or greater OR a cumulative oral dose of 80 mg OR cumulative IV dose of 40 mg diazePAM injection 5 mg (Valium) 5 mg, intravenous, Every 1 hour PRN, withdrawal, Starting on Thu06/16/25 at 2108, CIWA Score 13-14. Notify provider after 3 consecutive medication doses within a 3 hour period administered for a CIWA score 13 or greater OR a cumulative oral dose of 80 mg OR cumulative IV dose of 40 mg diazePAM injection 7.5 mg (Valium) 7.5 mg, intravenous, Every 1 hour PRN, withdrawal, Starting on Thu06/16/25 at 2108, CIWA Score 15-17. Notify provider after 3 consecutive medication doses within a 3 hour period administered for a CIWA score 13 or greater OR a cumulative oral dose of 80 mg OR cumulative IV dose of 40 mg diazePAM tablet 10 mg (Valium) 10 mg, oral, Every 1 hour PRN, withdrawal, Starting on Thu06/16/25 at 2108, CIWA Score 13-14. Notify provider after 3 consecutive medication doses within a 3 hour period administered for a CIWA score 13 or greater OR a cumulative oral dose of 80 mg OR cumulative IV dose of 40 mg diazePAM tablet 15 mg (Valium) 15 mg, oral, Every 1 hour PRN, withdrawal, Starting on Thu06/16/25 at 2108, CIWA Score 15-17. Notify provider after 3 consecutive medication doses within a 3 hour period administered for a CIWA score 13 or greater OR a cumulative oral dose of 80 mg OR cumulative IV dose of 40 mg diazePAM tablet 20 mg (Valium) 20 mg, oral, Every 1 hour PRN, withdrawal, Starting on Thu06/16/25 at 2108, CIWA Score 18 or greater. Notify provider after 3 consecutive medication doses within a 3 hour period administered for a CIWA score 13 or greater OR a cumulative oral dose of 80 mg OR cumulative IV dose of 40 mg diazePAM tablet 5 mg (Valium) 5 mg, oral, Every 1 hour PRN, withdrawal, Starting on Thu06/16/25 at 2108, CIWA Score 10-12. Notify provider after 3 consecutive medication doses within a 3 hour period administered for a CIWA score 13 or greater OR a cumulative oral dose of 80 mg OR cumulative IV dose of 40 mg folic acid tablet 1 mg 1 mg, oral, Once, On Thu06/16/25 at 2107, For 1 dose Given 06/16/2025 9:12 PM CDT 1 mg multivitamin/mineral-prenata l tablet 1 tablet 1 tablet, oral, Once, On Thu06/16/25 at 2107, For 1 dose Given 06/16/2025 9:12 PM CDT 1 tablet NaCl 0.9 % bolus 1,000 mL 1,000 mL, intravenous, at 2,000 mL/hr, Administer over 30 Minutes, Once, On Thu06/16/25 at 2107, For 1 dose New Bag 06/16/2025 9:15 PM CDT 1,000 mL 2000 mL/hr thiamine tablet 100 mg (Vitamin B-1) 100 mg, oral, Once, On Thu06/16/25 at 2107, For 1 dose Given 06/16/2025 9:12 PM CDT 100 mg documented in this encounter Active and Recently Administered Medications Times are shown in CDT. Scheduled Medication Order 06/14/2025 06/15/2025 06/16/2025 folic acid tablet 1 mg (COMPLETED) 1 mg, oral, Once, On Thu06/16/25 at 2107, For 1 dose 2111 (Given - Provid er: Malena Giordano.S.N., R.N.) multivitamin/mineral- tablet 1 tablet (COMPLETED) 1 tablet, oral, Once, On Thu06/16/25 at 2106, For 1 dose 2111 (Given - Provid er: Malena Giordano.S.N., R.N.) NaCl 0.9 % bolus 1,000 mL (COMPLETED) 1,000 mL, intravenous, at 2,000 mL/hr, Administer over 30 Minutes, Once, On Thu06/16/25 at 2106, For 1 dose 2114 (New Bag - Prov ider: Malena Giordano.S.N., R.N.)2230 (Stopped - Provider: Aleks Iverson RSandeeNSandee) thiamine tablet 100 mg (Vitamin B-1) (COMPLETED) 100 mg, oral, Once, On Thu06/16/25 at 2106, For 1 dose 2111 (Given - Provid er: Malena Giordano.S.N., R.N.) PRN Medication Order 06/14/2025 06/15/2025 06/16/2025 diazePAM injection 10 mg (Valium)(Linked Group 1) 10 mg, intravenous, Every 1 hour PRN, withdrawal, Starting on Thu06/16/25 at 2108, CIWA Score 18 or greater. Notify provider after 3 consecutive medication doses within a 3 hour period administered for a CIWA score 13 or greater OR a cumulative oral dose of 80 mg OR cumulative IV dose of 40 mg diazePAM injection 2.5 mg (Valium)(Linked Group 1) 2.5 mg, intravenous, Every 1 hour PRN, withdrawal, Starting on Thu06/16/25 at 2108, CIWA Score 10-12. Notify provider after 3 consecutive medication doses within a 3 hour period administered for a CIWA score 13 or greater OR a cumulative oral dose of 80 mg OR cumulative IV dose of 40 mg diazePAM injection 5 mg (Valium)(Linked Group 1) 5 mg, intravenous, Every 1 hour PRN, withdrawal, Starting on Thu06/16/25 at 2108, CIWA Score 13-14. Notify provider after 3 consecutive medication doses within a 3 hour period administered for a CIWA score 13 or greater OR a cumulative oral dose of 80 mg OR cumulative IV dose of 40 mg diazePAM injection 7.5 mg (Valium)(Linked Group 1) 7.5 mg, intravenous, Every 1 hour PRN, withdrawal, Starting on Thu06/16/25 at 2108, CIWA Score 15-17. Notify provider after 3 consecutive medication doses within a 3 hour period administered for a CIWA score 13 or greater OR a cumulative oral dose of 80 mg OR cumulative IV dose of 40 mg diazePAM tablet 10 mg (Valium)(Linked Group 1) 10 mg, oral, Every 1 hour PRN, withdrawal, Starting on Thu06/16/25 at 2108, CIWA Score 13-14. Notify provider after 3 consecutive medication doses within a 3 hour period administered for a CIWA score 13 or greater OR a cumulative oral dose of 80 mg OR cumulative IV dose of 40 mg diazePAM tablet 15 mg (Valium)(Linked Group 1) 15 mg, oral, Every 1 hour PRN, withdrawal, Starting on Thu06/16/25 at 2108, CIWA Score 15-17. Notify provider after 3 consecutive medication doses within a 3 hour period administered for a CIWA score 13 or greater OR a cumulative oral dose of 80 mg OR cumulative IV dose of 40 mg diazePAM tablet 20 mg (Valium)(Linked Group 1) 20 mg, oral, Every 1 hour PRN, withdrawal, Starting on Thu06/16/25 at 2108, CIWA Score 18 or greater. Notify provider after 3 consecutive medication doses within a 3 hour period administered for a CIWA score 13 or greater OR a cumulative oral dose of 80 mg OR cumulative IV dose of 40 mg diazePAM tablet 5 mg (Valium)(Linked Group 1) 5 mg, oral, Every 1 hour PRN, withdrawal, Starting on Thu06/16/25 at 2108, CIWA Score 10-12. Notify provider after 3 consecutive medication doses within a 3 hour period administered for a CIWA score 13 or greater OR a cumulative oral dose of 80 mg OR cumulative IV dose of 40 mg Linked Groups Order Group 1: diazePAM tablet 5 mg (Valium)Jump to med 5 mg, oral, Every 1 hour PRN, withdrawal, Starting on Thu06/16/25 at 2108, CIWA Score 10-12. Notify provider after 3 consecutive medication doses within a 3 hour period administered for a CIWA score 13 or greater OR a cumulative oral dose of 80 mg OR cumulative IV dose of 40 mg Or diazePAM injection 2.5 mg (Valium)Jump to med 2.5 mg, intravenous, Every 1 hour PRN, withdrawal, Starting on Thu06/16/25 at 2108, CIWA Score 10-12. Notify provider after 3 consecutive medication doses within a 3 hour period administered for a CIWA score 13 or greater OR a cumulative oral dose of 80 mg OR cumulative IV dose of 40 mg Or diazePAM tablet 10 mg (Valium)Jump to med 10 mg, oral, Every 1 hour PRN, withdrawal, Starting on Thu06/16/25 at 2108, CIWA Score 13-14. Notify provider after 3 consecutive medication doses within a 3 hour period administered for a CIWA score 13 or greater OR a cumulative oral dose of 80 mg OR cumulative IV dose of 40 mg Or diazePAM injection 5 mg (Valium)Jump to med 5 mg, intravenous, Every 1 hour PRN, withdrawal, Starting on Thu06/16/25 at 2108, CIWA Score 13-14. Notify provider after 3 consecutive medication doses within a 3 hour period administered for a CIWA score 13 or greater OR a cumulative oral dose of 80 mg OR cumulative IV dose of 40 mg Or diazePAM tablet 15 mg (Valium)Jump to med 15 mg, oral, Every 1 hour PRN, withdrawal, Starting on Thu06/16/25 at 2108, CIWA Score 15-17. Notify provider after 3 consecutive medication doses within a 3 hour period administered for a CIWA score 13 or greater OR a cumulative oral dose of 80 mg OR cumulative IV dose of 40 mg Or diazePAM injection 7.5 mg (Valium)Jump to med 7.5 mg, intravenous, Every 1 hour PRN, withdrawal, Starting on Thu06/16/25 at 2108, CIWA Score 15-17. Notify provider after 3 consecutive medication doses within a 3 hour period administered for a CIWA score 13 or greater OR a cumulative oral dose of 80 mg OR cumulative IV dose of 40 mg Or diazePAM tablet 20 mg (Valium)Jump to med 20 mg, oral, Every 1 hour PRN, withdrawal, Starting on Thu06/16/25 at 2108, CIWA Score 18 or greater. Notify provider after 3 consecutive medication doses within a 3 hour period administered for a CIWA score 13 or greater OR a cumulative oral dose of 80 mg OR cumulative IV dose of 40 mg Or diazePAM injection 10 mg (Valium)Jump to med 10 mg, intravenous, Every 1 hour PRN, withdrawal, Starting on Thu06/16/25 at 2108, CIWA Score 18 or greater. Notify provider after 3 consecutive medication doses within a 3 hour period administered for a CIWA score 13 or greater OR a cumulative oral dose of 80 mg OR cumulative IV dose of 40 mg documented in this encounter Additional Health Concerns Assessment Noted Time PHQ-9 Depression Total Score: 15 02/19/ 021 8:19 AM CDT documented as of this encounter Care Teams Jewelry Drill Operator Relationship Specialty Start Date End Date Elsewhere, Pcp PCP - General Internal Medicine 06/16/25 documented as of this encounter
[2025-07-21] VITALS (18 sets, daily range): BP systolic 102–130; BP diastolic 60–72; PULSE 52–60; RESP 13–24; TEMP 36.1–36.2; O2SAT 91–96; BMI 31.5
--- OUTSIDE RECORDS SUMMARY | 2025-07-21 20:38 | XMS_ITS | Clinical Summary ---
Author Organization [facility] Address [address] [place] [id number] Care Team Providers Care Head Of Ethics And Compliance Name Role Phone Elsewhere, Pcp Primary Care Provider Unavailabl e Source Comments Patient records contain information from all sites at [facility]. For routine questions regarding patient records, call [phone] during business hours, M-F 8:00 AM - 5:00 PM Central Time. Record requests for emergency care only can be directed to [phone] at any time.[facility] Allergies No known active allergies Medications * This document contains information received from the source organization and may not represent a complete record from that organization. [facility] for home use at pressure:9 [...] Need: 99 months, Frequency of use: Daily 0 Active albuterol (Ventolin HFA) 90 mcg/actuation inhaler Inhale 1-2 puffs every 4 (four) hours as needed for wheezing. 1 Active fluticasone propion-salmeter oL 250-50 mcg/dose diskus inhaler Inhale 1 puff 2 (two) times a day. 1 Active metoprolol succinate (TOPROL-XL) 25 mg 24 hr tablet Take 25 mg by mouth daily. 1 Active ibuprofen (ADVIL,MOTRIN) 200 mg tablet Take 400 mg by mouth every 6 (six) hours as needed for pain. Active melatonin-pyrido xine HCl, B6, 5-10 mg tablet extended release Take 5-10 mg by mouth at bedtime as needed. 1 Active gabapentin (NEURONTIN) 300 mg capsule Take 300 mg by mouth 2 (two) times a day. Active escitalopram (Lexapro) 10 mg tabletIndication s:Depressive Disorder,Anxiety Disorder Unspecified Take 1 tablet (10 mg total) by mouth daily. 30 tablet 1 Active rivaroxaban (Xarelto) 20 mg tablet Take 20 mg by mouth daily with dinner. With evening meal 1 Active acetaminophen (TYLENOL) 500 mg capsule Take 500-1,000 mg by mouth every 8 (eight) hours as needed for pain. Active miconazole nitrate (Lotrimin AF) 2 % aerosol,spray Apply 1 Dose topically as needed. Apply to inside of shoe as needed. Active miconazole nitrate, bulk, powder powder Apply 1 g topically as needed (itchy feet). Apply to feet as needed. Active traZODone (DESYREL) 50 mg tabletIndication s:Insomnia Take 1 tablet (50 mg) to 2 tablets (100 mg) as needed for sleep. 30 tablet 1 Active Active Problems Problem Noted Date Diagnosed Date Pain Shoulder Left 03/01/2021 Atrial Fibrillation Paroxysmal 02/25/2021 Asthma With History Of Tobacco Use 02/19/2021 Cannabis Moderate Or Severe Use Disorder (Dependence) Uncomplicated 02/19/2021 Alcohol Moderate Or Severe U se Disorder (Dependence) Uncomplicated 02/19/2021 Nicotine Dependence Cigarettes In Remission 01/30 Insomnia 02/19/2021 Obstructive Sleep Apnea Adult 02/19/2021 Elevated Blood Pressure 02/19/2021 Cardioversion Status Post 02/19/2021 Gastroesophageal Reflux Disease 02/19/2021 Neuropathy 02/19/2021 Anxiety Disorder Unspecified 02/19/2021 Depression Personal History 02/19/2021 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 06/16/2025 8:31 PM CDT - 06/16/2025 10:38 PM CDT Emergency [facility] Emergency Department [address] [place] [phone] Festus Marquez M.D. History Of Falling (Primary Dx); Alcohol Intoxication With Alcoholism (HCC); Dehydration Discharge Disposition: Home or Self Care from Last 3 Months Immunizations Immunization Administration Dates Next Due PPSV23 02/25/2021(Deferred: Parental de cision) RZV (SHINGRIX) 02/25/2021(Deferred: Patient jul) Td (Adult), adsorbed 10/05/2018 Tdap 03/01/2008 influenza vaccine quad (FLUZONE/FLUARIX) (6 months and older)(PF) 02/25/2021(Deferred: Patient decision) Family History Medical History Relation Name Comments Blood clot Brother No Known Problems Daughter 1 No Known Problems Daughter 2 Coronary artery bypass graft Father age 79 Diabetes Father No Known Problems Mother Fibromyalgia Sister No Known Problems Son Relation Name Status Comments Brother Alive Daughter 1 Alive Daughter 2 Alive Father Alive Mother Alive Sister Alive Son Alive Social History Tobacco Use Types Packs/Day Years [...] on file Sexual Orientation Not on file Last Filed Vital Signs Vital Sign Reading Time Taken Comments Blood Pressure 111/78 06/16/2025 9:45 PM CDT Pulse 64 06/16/2025 10:15 PM CDT Temperature 36.7 C (98.1 F) 06/16/2025 8:46 PM CDT Respiratory Rate 20 03/01/2021 9:35 AM CDT Oxygen Saturation 94% 06/16/2025 9:45 PM CDT Inhaled Oxygen Concentration - - Weight 84 kg (185 lb 3 oz) 03/01/2021 9:31 AM CD T Height 173 cm (5' 8.11) 03/01/2021 9:31 AM CDT Body Mass Index 28.07 03/01/2021 9:31 AM CDT Plan of Treatment Health Maintenance Due Date Last Done Comments Abdominal Aortic Aneurysm (AAA) Screen 1959 CT Colonography 1959 Cologuard 1959 Depression Monitoring (PHQ-9) 1959 FIT 1959 Hepatitis C Screening 1959 RSV vaccine - (32-36 weeks) or 50+ years (1 - Risk 50-74 years 1-dose series) 2009 Zoster Vaccines (1 of 2) 2009 Depression Monitoring (PHQ-9 for quality tracking) 08/31/2024 Fall Risk Screen (Annual) 08/31/2024 COVID-19 Vaccine ( season) 2025 06/14/2024, 05/22/2022, 01/18/2021, Additional history exists Influenza Vaccine (#1) 2025 07/11/2024 Fasting Glucose for Diabetes Screening 06/16/2028 06/16/2025, 12/13/2024, 12/14/2023, Additional history exists Colonoscopy 11/16/2028 11/16/2018 Colorectal Cancer Screening 11/16/2028 DTaP,Tdap,and Td Vaccines (4 - Td or Tdap) 05/02/2034 05/02/2024, 10/05/2018, 03/01/2008 Pneumococcal vaccine (50+ years) Completed 04/03/2025 IPV Vaccines Aged Out No longer eligi ble based on patient's age to complete this topic Procedures Procedure Name Priority Date/Time Associated Diagnosis Comments HEPATIC FUNCTION PANEL, S STAT 06/16/2025 9:[address] HEAD WITHOUT IV CONTRAST RAD - Semiurgent (Fast; most ED patients; some inpatients) 06/16/2025 9:31 PM CDT POCT BREATH ALCOHOL (ETOH) - NURSING STAT 06/16/2025 9:13 PM CDT PHOSPHORUS (INORGANIC), S STAT 06/16/2025 9:10 PM CDT MAGNESIUM, S STAT 06/16/2025 9:10 PM CDT CBC WITH DIFFERENTIAL, B STAT 06/16/2025 9:10 PM CDT BASIC METABOLIC PANEL, S/P STAT 06/16/2025 9:10 PM CDT from Last 3 Months Results * (ABNORMAL) Hepatic Function Panel (06/16/2025 [...] M.D. LAB BLOOD ADD-ON Final Re sult [facility] DirectRM [facility] [address] [place] [address], [facility] [address] [place] [address] * CT Head without IV Contrast (06/16/2025 9:31 PM CDT) Anatomical Region Laterality Modality Head, Neuroradiology RST LOS , Neuroradiology ARZ LOS, Neuroradiology FLA LOS N/A Computed Tomography, Compute [...] IMPRESSION: No intracranial hemorrhage or calvarial fracture. us Charla Fiore M.D. IMG CT PROCEDURES Final R esult * Breath Alcohol (ETOH), POCT - Nursing (06/16/2025 9:13 PM CDT) Breath Alcohol, POCT 0.151 QC Pass/Fail Pass [employer] T[employer] AIDAN ID [id number] Breath (Mouth) 06/16/2025 9: 13 PM CDT us Charla Fiore M.D. LAB POCT ORDERABLES-GUIDOA L Final Result * (ABNORMAL) CBC with Differential, Blood (06/16/2025 9:10 PM CDT) Pathologist [facility] Hemoglobin 12.9(L) 13.2 - 16.6 g/dL 06/16/2025 [...] M.D. LAB BLOOD ADD-ON Final Re sult [facility] [place] [address] [place] [address], [facility] [address] [place], [place] [id number] [place] [address] [address] [place] [address] * Phosphorus Inorganic (06/16/2025 9:10 PM CDT) [facility] Phosphorus (Inorganic), P 2.6 2.5 - 4.5 mg/dL 06/16/2025 9:31 PM CDT [facility] Blood (Blood, Venous) 06/16/2025 9:10 PM CDT 06/16/2025 9:14 PM CDT Charla Fiore M.D. LAB BLOOD ADD-ON Final Re sult Performing Organization Address City/[facility]/ZIP Co de Phone Number [facility] [place] [address] [place] [address], [facility] [address] [place] [address] * Magnesium (06/16/2025 9:10 PM CDT) [facility] Magnesium, P 1.9 1.7 - 2.3 mg/dL 06/16/2025 9:31 PM CDT [facility] Blood (Blood, Venous) 06/16/2025 9:10 PM CDT 06/16/2025 9:14 PM CDT Charla Fiore M.D. LAB BLOOD ADD-ON Final Re sult [facility] [place] [address] [place] [address], [facility] [address] [place] [address] * (ABNORMAL) Basic Metabolic Panel (06/16/2025 9:10 PM CDT) [facility] Potassium, P 3.8 3.6 - 5.2 mmol/L [...] M.D. LAB BLOOD ADD-ON Final Re sult [facility] [place] [address] [place] [address], [facility] [address] [place] [address] from Last 3 Months Insurance [facility] Care Teams Head Of Ethics And Compliance Relationship Specialty Start Date End Date Elsewhere, Pcp PCP - General Internal Medicine 06/16/25
--- OUTSIDE RECORDS SUMMARY | 2025-07-21 20:38 | XMS_ITS | Encounter Summary ---
Author Organization [facility] Address [address] [place] [address] Care Team Providers Care Medical Education Specialist Name Role Phone Elsewhere, Pcp Primary Care Provider Unavailabl e Encounter Details Date Type Department Care Team (Late st Contact Info) Description 06/17/2025 Clinical Communication [facility] Emergency Department [address] [place] [phone] Chelsie Sorenson M.S.N., R.N. Social History Tobacco Use Types Packs/Day Years Used Date Smoking Tobacco: Former Cigarettes 1 30 0 02/25/1969 - 02/25/1999 Smokeless Tobacco: Never Alcohol Use Standard Drinks/Week Comments Yes 30 [...] on file documented as of this encounter Miscellaneous Notes * Telephone Encounter - Chelsie Sorenson M.S.N., R.N. - 06/17/2025 11:32 AM CDT The ED Follow Up Office received the following message from Dr. Wiggins: Patient unfortunately did not receive and EKG on his visit when he should have had one. Could you call him tomorrow and see how he is doing and that he should have one with his PCP or if he is feeling unwell can he come back and have an EKG done in the emergency department. Thank you! I spoke with the patient and his and he doing well and will follow up with PCP. His states he has an ECHO coming up locally but will monitor for any worsening symptoms and will return to the ED should he experience and chest pain, shortness of breath, dizziness, light headedness, or otherwise feeling unwell. They appreciated the call and denied further questions or concerns at this time. Chelsie Sorenson M.S.N., R.N. 06/17/25 1132 Chelsie Sorenson M.S.N., R.N. 06/17/25 1133 documented in this encounter Plan of Treatment Not on file documented as of this encounter Visit Diagnoses Not on filedocumented in this encounter Additional Health Concerns Assessment Noted Time PHQ-9 Depression Total Score: 15 02/19/ 021 8:19 AM CDT documented as of this encounter Care Teams Medical Education Specialist Relationship Specialty Start Date End Date Elsewhere, Pcp PCP - General Internal Medicine 06/16/25 documented as of this encounter
--- OUTSIDE RECORDS SUMMARY | 2025-07-21 20:38 | XMS_ITS | Clinical Summary ---
Author Organization [facility] Address [address] [place] [address] Care Team Providers Care Head Sulfide Operator Name Role Phone Blane Perse MD Primary Care Provider [phone] Allergies No known active allergies Medications sildenafiL, pulm.hypertension, (REVATIO) 20 mg tabletIndications: Erectile dysfunction, unspecified erectile dysfunction type Take 1 Tablet (20 mg) by mouth once daily if needed (sexual activity). Take 1-5 pills (start at lower dose and increase next time if needed) 30 mins prior to sexual intercourse 30 Tablet 1 07/11/20 24 Active aspirin 81 mg enteric coated tabletIndications: Paroxysmal atrial fibrillation (HC) Take 1 Tablet (81 mg) by mouth once daily with a meal. 90 Tablet 3 02/02/20 25 Active budesonide-formote roL (SYMBICORT,BREYNA) 160-4.5 mcg/actuation (160-4.5 mcg each actuation) inhalerIndications :Chronic obstructive pulmonary disease, unspecified COPD type (HC) Inhale 2 Puffs by mouth two times daily. 1 Each 03/14/20 25 Active Additional Information Patient taking differently:2 Puff Inhalation BID,Using as needed, Reported on 07/14/2025 sertraline (ZOLOFT) 50 mg tabletIndications: Chronic insomnia Take 1 Tablet (50 mg) by mouth once daily. 90 Tablet 3 04/05/20 25 Active mirtazapine (REMERON) 7.5 mg tabletIndications: Chronic insomnia Take 1 pill orally at night 10 hours before planning on waking up 30 Tablet 3 07/09/20 25 Active albuterol HFA (PRO-AIR; VENTOLIN; PROVENTIL) 90 mcg/actuation inhalerIndications :Chronic obstructive pulmonary disease, unspecified COPD type (HC) Inhale 1-2 Puffs by mouth every 4 hours if needed for Shortness Of Breath or Wheezing. 16 g 3 07/14/20 25 Active carvediloL (COREG) 3.125 mg tabletIndications: Paroxysmal atrial fibrillation (HC),Nonischemic cardiomyopathy (HC) Take 1 Tablet (3.125 mg) by mouth two times daily. 180 Tablet 3 07/14/20 25 Active gabapentin (NEURONTIN) 300 mg capsuleIndications :Hip pain, left Take 1 Capsule (300 mg) by mouth two times daily. 180 Capsule 3 07/14/20 25 Active tamsulosin 0.4 mg capsuleIndications :BPH with urinary obstruction Take 1 Capsule (0.4 mg) by mouth once daily after a meal. 90 Capsule 3 07/14/20 25 Active tiotropium (SPIRIVA HANDIHALER) 18 mcg inhalation capsuleIndications :Chronic obstructive pulmonary disease, unspecified COPD type (HC) Inhale 1 Capsule (18 mcg) by mouth once daily. 30 Capsule 11 07/14/20 25 Active lisinopril-hydroch lorothiazide (10-12.5 mg) tablet (PRINZIDE; ZESTORETIC)Indicat ions:HTN (hypertension) Take 1 Tablet by mouth once daily. 90 Tablet 3 07/14/20 25 Active polyethylene glycol-electrolyte (GOLYTELY) 236-22.74-6.74 -5.86 gram suspensionIndicati ons:Encounter for screening colonoscopy Drink 2 liters (half the bottle) the day before colonoscopy and 2 liters (remaining prep) 6 hours prior to colonoscopy appointment. 4000 mL 07/19/20 25 Active atorvastatin (LIPITOR) 40 mg tabletIndications: Coronary artery disease, unspecified vessel or lesion type, unspecified whether angina present, unspecified whether [place] or transplanted heart Take 1 Tablet (40 mg) by mouth once daily. 90 Tablet 3 07/20/20 25 Active tamsulosin (FLOMAX) 0.4 mg capsuleIndications :BPH with urinary obstruction TAKE 1 CAPSULE(0.4 MG) BY MOUTH EVERY DAY AFTER A MEAL 90 Capsule 3 05/17/20 24 025 Discontin ued(Reord er (E-cancel not sent)) albuterol HFA (PRO-AIR; VENTOLIN; PROVENTIL) 90 mcg/actuation inhalerIndications :Chronic obstructive pulmonary disease, unspecified COPD type (HC) Inhale 1-2 Puffs by mouth every 4 hours if needed for Shortness Of Breath or Wheezing. 16 g 3 07/11/20 24 025 Discontin ued(Reord er (E-cancel not sent)) clopidogreL (Plavix) 75 mg tabletIndications: Paroxysmal atrial fibrillation (HC) Take 1 Tablet (75 mg) by mouth once daily. 90 Tablet 3 02/02/20 025 Discontin ued(*Med complete/ Regimen complete/ Level of care change) tiotropium (SPIRIVA HANDIHALER) 18 mcg inhalation capsuleIndications :Chronic obstructive pulmonary disease, unspecified COPD type (HC) Inhale 1 Capsule (18 mcg) by mouth once daily. 30 Capsule 11 04/03/20 025 Discontin ued(Reord er (E-cancel not sent)) carvediloL (COREG) 3.125 mg tabletIndications: Paroxysmal atrial fibrillation (HC),Nonischemic cardiomyopathy (HC) TAKE 1 TABLET (3.125 MG) BY MOUTH TWICE DAILY 180 Tablet 04/05/20 025 Discontin ued(Reord er (E-cancel not sent)) atorvastatin (LIPITOR) 20 mg tabletIndications: Coronary artery disease, unspecified vessel or lesion type, unspecified whether angina present, unspecified whether [place] or transplanted heart TAKE 1 TABLET BY MOUTH EVERY DAY 90 Tablet 04/05/20 25 025 Discontin ued(Reord er (E-cancel not sent)) gabapentin (NEURONTIN) 300 mg capsuleIndications :Hip pain, left TAKE 1 CAPSULE BY MOUTH THREE TIMES A DAY 270 Capsule 04/05/20 25 025 Discontin ued(Reord er (E-cancel not sent)) mirtazapine (REMERON) 7.5 mg tabletIndications: Chronic insomnia Take 1 pill orally at night 10 hours before planning on waking up 30 Tablet 3 04/05/20 25 025 Discontin ued(Reord er (E-cancel not sent)) atorvastatin (LIPITOR) 20 mg tabletIndications: Coronary artery disease, unspecified vessel or lesion type, unspecified whether angina present, unspecified whether [place] or transplanted heart Take 1 Tablet (20 mg) by mouth once daily. 90 Tablet 07/09/20 25 025 Discontin ued(Reord er (E-cancel not sent)) carvediloL (COREG) 3.125 mg tabletIndications: Paroxysmal atrial fibrillation (HC),Nonischemic cardiomyopathy (HC) Take 1 Tablet (3.125 mg) by mouth two times daily. 180 Tablet 07/09/20 25 025 Discontin ued(Reord er (E-cancel not sent)) gabapentin (NEURONTIN) 300 mg capsuleIndications :Hip pain, left Take 1 Capsule (300 mg) by mouth three times daily. 270 Capsule 07/09/20 025 Discontin ued(*Medi cation adjustmen t) atorvastatin (LIPITOR) 20 mg tabletIndications: Coronary artery disease, unspecified vessel or lesion type, unspecified whether angina present, unspecified whether [place] or transplanted heart Take 1 Tablet (20 mg) by mouth once daily. 90 Tablet 3 07/14/20 025 Discontin ued(*Medi cation adjustmen t) Active Problems Problem Noted Date Diagnosed Date Depression, recurrent 11/10/2023 Nonischemic cardiomyopathy 08/18/2023 Paroxysmal atrial fibrillation 02/25/2021 Chronic obstructive pulmonary disease 10/12/2020 Chronic insomnia 10/17/2019 SONIA 08/10/2019 AHI-36 08/15/2019 Closed fracture of hyoid bone 08/27/2015 Hypertension 03/16/2014 Alcohol abuse, in remission 03/16/2014 Anxiety 12/01/2013 Adenomatous colon polyp 06/06/2013 Overview (11/16/2018): Colonoscopy 05/2013 polyp repeat in 5 years Colonoscopy 10/2018 polyp, repeat in 5 years Esophageal reflux 01/09/2009 Overview (01/09/2009): EGD 12/2008 reflux Resolved Problems Problem Noted Date Diagnosed Date Resolved Date Alcoholic intoxication without complication 11/10/2023 07/14/2025 Dysthymia 04/12/2012 07/14/2025 Diverticulosis of colon (wit hout mention of hemorrhage) 01/09/2009 07/14/2025 Overview (01/09/2009): Colonoscopy 12/2008 diverticulosis repeat in 10 years Encounters Date Type Department Care Team Description 07/18/2025 Telephone [facility] [address] [place] [address] Landen Alanis MD Pre Procedure 07/14/2025 10:25 AM TIN CAN FEEDER Office Visit [facility] [address] [place] [address] Blane Peres MD Medicare ANNUAL (subsequent) Visit (no concerns) 07/13/2025 Travel 07/06/2025 Refill [facility] [address] [place] [address] Blane Peres MD Refill Request (Atorvastatin, Gabapentin, Carvedilol, Mirtazapine) 07/05/2025 Telephone [facility] [address] [place] [address] Klaudia Puentes, RN 06/06/2025 12:20 PM CDT Orders Only [facility] [address] [facility] [address] [place] [address] Lab 06/06/2025 11:15 AM CDT Office Visit [facility] [address] [facility] [address] [place] [phone] Chantelle Maat DO Consult (Dyspnea on exertion) 06/06/2025 Travel 06/03/2025 Telephone [facility] [place] [address] [facility] [address] [place] [address] Winnie Cage PA Cardiology Appointment 05/22/2025 Telephone [place] [address] [place] [address] Martin Martins MD Care Coordination 05/12/2025 Telephone [place] [id number] [facility] [place] [address] Martin Martins MD Procedure 05/04/2025 11:42 AM CDT - 05/04/2025 11:59 PM CDT Hospital Encounter Martin Martins MD 05/04/2025 Orders Only [address] [place] [phone] Martin Martins MD <No scans attached> 05/04/2025 Surgery [facility] [id number] [place] [address] [address] [place] [address] Martin Martins MD Drug Induced Sleep Endoscopy [address] from Last 3 Months Immunizations Immunization Administration Dates Next Due COVID-19 VACCINE SPIKEVAX (M ODERNA 50MCG/0.5ML) 12YO+ PFS 06/14/2024 COVID-19 vaccine (Moderna 100mcg/0.5mL) PF, MDV 01/18/2021,12/20/2020 Influenza, Inactivated IIV3 (Age 65+ Years) Preserv Free 07/11/2024 Pneumococcal Conj 20-valent (Prevnar 20) 025 Td (Age >=7 Years) 10/05/2018 Tdap 05/02/2024,03/01/2008 [...] 05/27/2001 Smokeless Tobacco: Never Tobacco Cessation:Counseling Given: No Alcohol Use Standard Drinks/Week Comments Yes 10 (1 standard drink = 0.6 oz pu re alcohol) Occ PHQ-2 Answer Date Recorded PHQ-2 TOTAL SCORE 0 07/14/2025 Social Connections Answer Date Recorded Do you often feel lonely or isolated from those around you? 0 11/22/2024 Alcohol Use Answer Date Recorded How often do you have a drink containing alcohol ? 3 07/14/2025 How many drinks containing a lcohol do you have on a typical day when you are drinking? 0 07/14/2025 How often do you have five or more drinks on one occasion? 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 Not on file Not on file Not on cinthia e Obstetrics History Last Filed Vital Signs Vital Sign Reading Time Taken Comments Blood Pressure 146/97 07/14/2025 10:36 AM TIN CAN FEEDER Pulse 59 07/14/2025 10:36 AM TIN CAN FEEDER Temperature 36.9 C (98.4 F) 04/19/2025 10:57 AM CDT Respiratory Rate 22 06/06/2025 11:30 AM CDT Oxygen Saturation 95% 07/14/2025 10:36 AM TIN CAN FEEDER Inhaled Oxygen Concentration - - Weight 99.1 kg (218 lb 6.4 oz) 07/14/2025 10:36 AM TIN CAN FEEDER Height 169.4 cm (5' 6.69) 07/14/2025 10:[address] Body Mass Index 34.52 07/14/2025 10:36 AM TIN CAN FEEDER Plan of Treatment Upcoming Encounters Date Type Department Care Team (Late st Contact Info) Description 08/15/2025 11:45 AM TIN CAN FEEDER Office Visit [facility] [address] [place] [address] Blane Peres MD [address] [place] [address] 08/16/2025 11:00 AM TIN CAN FEEDER Ancillary Procedure [facility] [address] [place] [phone] 08/17/2025 9:40 AM TIN CAN FEEDER Office Visit [facility] [address] [place] [address] William Caro MD [address] [place] [address] 08/18/2025 8:30 AM TIN CAN FEEDER Office Visit [facility] [address] [place] [address] Landen Alanis MD [address] [place] [address] 09/08/2025 1:30 PM TIN CAN FEEDER Office Visit [facility] [address] [place] [address] Adrián Paige MD [address] [facility] [address] [place] [address] 10/23/2025 9:00 AM TIN CAN FEEDER Office Visit [facility] [address] [place] [address] Fabian Samson MD [address] [place] [address] Scheduled Procedures Name Priority Associated Diagnoses Date/Ti me IMPLANT RESPONSIVE NEUROSTIMULATOR Tier 3: within 90 days SONIA (obstructive sleep apnea) Intolerance of continuous positive airway pressure (CPAP) ventilation Health Maintenance Due Date Last Done Comments RSV vaccine for adults or (1 - Risk 50-74 years 1-dose series) 2009 Zoster (shingles) series for age 50+ (1 of 2) 2009 Colonoscopy through age 75 11/17/202311/16, 11/15/2018, 11/15/2018, Additional history exists Influenza Vaccine (#1) 2025 07/11/2024 BMI (ht and wt on same day) for age 18+ 07/14/2026 07/14/2025, 06/06/2025, 03/28/2025, Additional history exists Depression screening for age 12+ 07/14/2026 07/14/2025, 06/17/2024, 06/14/2024, Additional history exists Medicare Wellness for age 65+ 07/15/2026 07/14/2025, 06/14/2024 Lipids for age 45-75 07/14/2030 07/14/2025, 05/17/2024, 10/05/2018, Additional history exists Tetanus booster 05/02/2034 05/02/2024, 12/2018, 03/01/2008 Hepatitis C screening for age 18-79 Completed 05/15/2016 AAA screening age 65-74 Completed 07/04/2024 Pneumococcal series for age 50+ Completed 04/03/2025 Hepatitis B series for 19+ Aged Out N o longer eligible based on patient's age to complete this topic Procedures Procedure Name Priority Date/Time Associated Diagnosis Comments PSA TOTAL Routine 07/14/2025 11:33 AM TIN CAN FEEDER Screening for prostate cancer LIPID PANEL Routine 07/14/2025 11:33 AM TIN CAN FEEDER Coronary artery disease, unspecified vessel or lesion type, unspecified whether angina present, unspecified whether [place] or transplanted heart VITAMIN B12 Routine 07/14/2025 11:33 AM TIN CAN FEEDER Cognitive impairment TSH WITH REFLEX Routine 07/14/2025 11:33 AM TIN CAN FEEDER Cognitive impairment Anxiety disorder, unspecified type BASIC METABOLIC PANEL Routine 07/14/2025 11:33 AM TIN CAN FEEDER Paroxysmal atrial fibrillation (HC) DOG DANDER COMPONENT PANEL ([facility] REFLEX ONLY) Routine 06/06/2025 12:26 PM CDT Chronic obstructive pulmonary disease, unspecified COPD type (HC) Non-seasonal allergic rhinitis, unspecified trigger CBC WITH AUTO DIFFERENTIAL Routine 06/06/2025 12:26 PM CDT Chronic obstructive pulmonary disease, unspecified COPD type (HC) [id number] PHENOTYPE Routine 06/06/2025 12:26 PM CDT Chronic obstructive pulmonary disease, unspecified COPD type (HC) CBC WITH AUTO DIFFERENTIAL Routine 06/06/2025 12:26 PM CDT Chronic obstructive pulmonary disease, unspecified COPD type (HC) RESPIRATORY DISEASE ALLERGY PROFILE Routine 06/06/2025 12:26 PM CDT Chronic obstructive pulmonary disease, unspecified COPD type (HC) Non-seasonal allergic rhinitis, unspecified trigger US ABD AORTA SCREENING Routine 07/04/2024 8:39 AM TIN CAN FEEDER Screening for AAA (aortic abdominal aneurysm) COLONOSCOPY SCREENING Routine 11/16/2018 12:00 PM CDT History of colon polyps ANTI HCV Routine 05/15/2016 2:38 PM CDT Need for hepatitis C screening test SURGICAL PROCEDURE (TYPE PROCEDURE DESCRIPTION BELOW) Tier 3: within 90 days SONIA (obstructive sleep apnea) from Last 3 Months or Most Recently Relevant to Health Maintenance Results * TSH WITH REFLEX (07/14/2025 11:33 AM TIN CAN FEEDER) TSH W/REFLEX TO FT4 2.15 0.40 - 4.50 mIU/L 07/15/2025 4:51 AM TIN CAN FEEDER [facility] Blood BLOOD SPECIMEN / Unknown [facility] Collect / Unknown 07/14/2025 11:33 AM TIN CAN FEEDER 07/14/2025 11:33 AM TIN CAN FEEDER us Blane Olman Hoffert MD CHEMISTRY Final Resu Performing Organization Address [facility] de Phone Number [facility] [address] [address], * PSA TOTAL (DIAG OR SCREEN) (07/14/2025 11:33 AM TIN CAN FEEDER) PSA, TOTAL 4.00 < OR = 4.00 ng/mL 07/15/2025 4:51 AM TIN CAN FEEDER [facility] Comment: The total PSA value from this assay system is standardized against the WHO standard. The test result will be approximately 20% lower when compared to the equimolar-standardized total PSA ([place]). Comparison of serial PSA results should be interpreted with this fact in mind. This test was performed using the Siemens chemiluminescent method. Values obtained from different assay methods cannot be used interchangeably. PSA levels, regardless of value, should not be interpreted as absolute evidence of the presence or absence of disease. Blood BLOOD SPECIMEN / Unknown [facility] / Unknown 07/14/2025 11:33 AM TIN CAN FEEDER 07/14/2025 11:33 AM TIN CAN FEEDER us Blane Peres MD CHEMISTRY Final Resu Performing Organization Address [facility] de Phone Number [facility] [address] [address], * VITAMIN B12 (07/14/2025 11:33 AM TIN CAN FEEDER) VITAMIN B12 290 200 - 1100 pg/mL 07/15/2025 4:52 AM TIN CAN FEEDER [facility] Comment: Please Note: Although the reference range for vitamin B12 is 200-1100 pg/mL, it has been reported that between 5 and 10% of patients with values between 200 and 400 pg/mL may experience neuropsychiatric and hematologic abnormalities due to occult B12 deficiency; less than 1% of patients with values above 400 pg/mL will have symptoms. Blood BLOOD SPECIMEN / Unknown [facility] / Unknown 07/14/2025 11:33 AM TIN CAN FEEDER 07/14/2025 11:33 AM TIN CAN FEEDER us Blane Peres MD CHEMISTRY Final Resu lt [facility] [address] [place] [address], * (ABNORMAL) LIPID PANEL (07/14/2025 11:33 AM TIN CAN FEEDER) CHOLESTEROL, TOTAL 199 <200 mg/dL 07/15/2025 5:22 AM TIN CAN FEEDER [facility] TRIGLYCERIDES 227(H) <150 mg/dL 07/15/2025 5:22 AM [facility] Comment: If a non-fasting specimen was collected, consider repeat triglyceride testing on a fasting specimen if clinically indicated. Luisito et al. J. of Clin. Lipidol. 2015;9:129-169. HDL CHOLESTEROL 62 > OR = 40 mg/dL 07/15/2025 5:22 AM [facility] NON HDL CHOLESTEROL 137(H) <130 mg/dL (calc) 07/15/2025 5:22 AM [facility] Comment: For patients with diabetes plus 1 major ASCVD risk factor, treating to a non-HDL-C goal of <100 mg/dL (LDL-C of <70 mg/dL) is considered a therapeutic option. CHOL/HDLC RATIO 3.2 <5.0 (calc) 07/15/2025 5:22 AM TIN CAN FEEDER [facility] LDL-CHOLESTEROL 103(H) mg/dL (calc) 07/15/2025 5:22 AM [facility] Comment: Reference range: <100 Desirable range <100 mg/dL for primary prevention; <70 mg/dL for patients with CHD or diabetic patients with > or = 2 CHD risk factors. LDL-C is now calculated using the Landen-Megan calculation, which is a validated novel method providing better accuracy than the Friedewald equation in the estimation of LDL-C. Landen SS et al. RAMA. 2013;310(19): 4303-9095 (http://education.[employer]usion.[employer]/faq/ALU597) Blood BLOOD SPECIMEN / Unknown [facility] / Unknown 07/14/2025 11:33 AM TIN CAN FEEDER 07/14/2025 11:33 AM TIN CAN FEEDER Blane Peres MD CHEMISTRY Final Resu lt Performing Organization Address City/[facility]/ZIP Co de Phone Number [facility] [address] [place] [address], [place] [phone] * BASIC METABOLIC PANEL (07/14/2025 11:33 AM TIN CAN FEEDER) SODIUM 141 135 - 146 mmol/L 07/15/2025 5:22 AM TIN CAN FEEDER [facility] POTASSIUM 4.5 3.5 - 5.3 mmol/L 07/15/2025 5:22 AM TIN CAN FEEDER [facility] CARBON DIOXIDE 28 20 - 32 mmol/L 07/15/2025 5:22 AM TIN CAN FEEDER [facility] GLUCOSE 91 65 - 99 mg/dL 07/15/2025 5:22 AM TIN CAN FEEDER [facility] Comment: Fasting reference interval CALCIUM 9.4 8.6 - 10.3 mg/dL 07/15/2025 5:22 AM TIN CAN FEEDER [facility] CREATININE 1.04 0.70 - 1.35 mg/dL 07/15/2025 5:22 AM TIN CAN FEEDER [facility] BUN/CREATININE RATIO SEE NOTE: 6 - 22 (calc) 07/15/2025 5:22 AM TIN CAN FEEDER [facility] Comment: Not Reported: BUN and Creatinine are within reference range. EGFR 79 > OR = 60 mL/min/1. 73m2 07/15/2025 5:22 AM TIN CAN FEEDER [facility] UREA NITROGEN (BUN) 12 7 - 25 mg/dL 07/15/2025 5:22 AM TIN CAN FEEDER [facility] ELECTROLYTE BALANCE 9 7 - 17 mmol/L (calc) 07/15/2025 5:22 AM TIN CAN FEEDER [facility] CHLORIDE 104 98 - 110 mmol/L 07/15/2025 5:22 AM TIN CAN FEEDER [facility] Blood BLOOD SPECIMEN / Unknown [facility] / Unknown 07/14/2025 11:33 AM TIN CAN FEEDER 07/14/2025 11:33 AM TIN CAN FEEDER Blane Peres MD CHEMISTRY Final Resu lt Performing Organization Address City/[facility]/ZIP Co de Phone Number [facility] [address] [address], [place] [phone] * DOG DANDER COMPONENT PANEL ([facility] REFLEX ONLY) (06/06/2025 12:26 PM CDT) CAN F 1 (E101) IGE <0.10 <0.10 kU/L 06/08/2025 11:11 AM CDT [facility] CAN F 2 (E102) IGE <0.10 <0.10 kU/L 06/08/2025 11:11 AM CDT [facility] CAN F 3 (E221) IGE <0.10 <0.10 kU/L 06/08/2025 11:11 AM CDT [facility] CAN F 4 (E229) IGE <0.10 <0.10 kU/L 06/08/2025 11:11 AM CDT [facility] CAN F 5 (E226) IGE <0.10 <0.10 kU/L 06/08/2025 11:11 AM CDT [facility] CAN F 6 (E230) IGE <0.10 <0.10 kU/L 06/08/2025 11:11 AM CDT [facility] Comment: Component testing for samples with positive extract results may help to rule out cross-reactivity and confirm that allergy is present. The more components a patient is sensitized to, the higher the likelihood of a reaction when exposed to dogs. Sensitization to Can f 5 only may indicate that the patient can tolerate female dogs. Blood BLOOD SPECIMEN / Unknown [facility] / Unknown 06/06/2025 12:26 PM CDT 06/06/2025 12:26 PM CDT Narrative [facility] - 06/08/2025 11:11 AM CDT FASTING:NO FASTING: NO Chantelle Mata DO LABORATORY Final Result [facility] [address] [place] [address], * (ABNORMAL) RESPIRATORY DISEASE ALLERGY PROFILE (06/06/2025 12:26 PM CDT) ALTERNARIA ALTERNATA (M6) IGE <0.10 kU/L 06/07/2025 2:01 PM CDT [facility] ALTERNARIA ALTERNATA (M6) IGE CLASS 0 06/07/2025 2:01 PM CDT [facility] ASPERGILLUS FUMIGATUS (M3) IGE <0.10 kU/L 06/07/2025 2:01 PM CDT [facility] ASPERGILLUS FUMIGATUS (M3) IGE CLASS 0 06/07/2025 2:01 PM CDT [facility] BIRCH (T3) IGE 0.58(H) kU/L 06/07/2025 2:01 PM CDT [facility] BIRCH (T3) IGE CLASS 1 03/2025 2:01 PM CDT [facility] CAT DANDER (E1) IGE <0.10 kU/L 06/07 2:01 PM CDT [facility] CAT DANDER (E1) IGE CLASS 0 06/07/2025 2:01 PM CDT [facility] CLADOSPORIUM HERBARUM (M2) IGE <0.10 kU/L 06/07/2025 2:01 PM CDT [facility] CLADOSPORIUM HERBARUM (M2) IGE CLASS 0 06/07/2025 2:01 PM CDT [facility] COCKROACH (I6) IGE 0.80(H) kU/L 2024 2:01 PM CDT [facility] COCKROACH (I6) IGE CLASS 2 06/07/2025 2:01 PM CDT [facility] COMMON RAGWEED (SHORT) (W1) IGE 0.75(H) kU/L 06/07/2025 2:01 PM CDT [facility] COMMON RAGWEED (SHORT) (W1) IGE CLASS 2 06/07/2025 2:01 PM CDT [facility] DERMATOPHAGOIDES FARINAE (D2) IGE 0.25(H) kU/L 06/07/2025 2:01 PM CDT [facility] DERMATOPHAGOIDES FARINAE (D2) IGE CLASS 0/1 06/07/2025 2:01 PM CDT [facility] DERMATOPHAGOIDES PTERONYSSINUS (D1) IGE 0.11(H) kU/L 06/07/2025 2:01 PM CDT [facility] DERMATOPHAGOIDES PTERONYSSINUS (D1) IGE CLASS 0/1 06/07/2025 2:01 PM CDT [facility] DOG DANDER (E5) IGE 0.15(H) kU/L 06/07 2:01 PM CDT [facility] DOG DANDER (E5) IGE CLASS 0/1 06/07/2025 2:01 PM CDT [facility] [place] (T8) IGE 0.65(H) kU/L 06/07/2025 2:01 PM CDT [facility] [place] (T8) IGE CLASS 1 2024 2:01 PM CDT [facility] IMMUNOGLOBULIN E 615(H) <OA=829 kU/L 06/07/2025 2:01 PM CDT [facility] [place] (BOX ELDER) (T1) IGE 0.61(H) kU/L 06/07/2025 2:01 PM CDT [facility] [place] (BOX ELDER) (T1) IGE CLASS 1 06/07/2025 2:01 PM CDT [facility] ROUGH PETTY ELDER (W16) IGE 0.72(H) kU/L 06/07/2025 2:01 PM CDT [facility] ROUGH PETTY ELDER (W16) IGE CLASS 2 06/07/2025 2:01 PM CDT [facility] [place] (T7) IGE 0.55(H) kU/L 06/07/2025 2:01 PM CDT [facility] [place] (T7) IGE CLASS 1 2024 2:01 PM CDT [facility] PENICILLIUM NOTATUM (M1) IGE <0.10 kU/L 06/07/2025 2:01 PM CDT [facility] PENICILLIUM NOTATUM (M1) IGE CLASS 0 06/07/2025 2:01 PM CDT [facility] [place] (T6) IGE 0.51(H) kU/L 06/07/2025 2:01 PM CDT [facility] [place] (T6) IGE CLASS 1 06/07/2025 2:01 PM CDT [facility] [place] (T14) IGE 0.62(H) kU/L 100 03/2025 2:01 PM CDT [facility] [place] (T14) IGE CLASS 1 06/07/2025 2:01 PM CDT [facility] [place] (T15) IGE 0.63(H) kU/L 06/07 2:01 PM CDT [facility] [place] (T15) IGE CLASS 1 06/07/2025 2:01 PM CDT [facility] [place] (T70) IGE 0.50(H) kU/L 06/07/2025 2:01 PM CDT [facility] [place] (T70) IGECLASS 1 06/07/2025 2:01 PM CDT [facility] [place] (G2) IGE 0.66(H) kU/L 06/07/2025 2:01 PM CDT [facility] [place] (G2) IGE CLASS 1 06/07/2025 2:01 PM CDT [facility] [place] (G6) IGE 0.60(H) kU/L 06/07/2025 2:01 PM CDT [facility] [place] (G6) IGE CLASS 1 06/07/2025 2:01 PM CDT [facility] [place] (W11) IGE 0.57(H) kU/L 06/07/2025 2:01 PM CDT [facility] [place] (W11) IGE CLASS 1 06/07/2025 2:01 PM CDT [facility] [place] (W20) IGE 0.63(H) kU/L 06/07/20 25 2:01 PM CDT [facility] [place] (W20) IGE CLASS 1 06/07/2025 2:01 PM CDT [facility] MOUSE URINE PROTEINS (E72) IGE <0.10 kU/L 06/07/2025 2:01 PM CDT [facility] MOUSE URINE PROTEINS (E72) IGE CLASS 0 06/07/2025 2:01 PM CDT [facility] INTERPRETATION SEE NOTE 06/07/2025 2:01 PM CDT [facility] Comment: Specific Level of Allergen IGE Class kU/L Specific IGE Antibody ----- --------- 0 <0.10 Absent/Undetectable 0/1 0.10-0.34 Very Low Level 1 0.35-0.69 Low Level 2 0.70-3.49 Moderate Level 3 3.50-17.4 High Level 4 17.5-49.9 Very High Level 5 50-100 Very High Level 6 >100 Very High Level The clinical relevance of allergen results of 0.10-0.34 kU/L are undetermined and intended for specialist use. Allergens denoted with a include results using one or more analyte specific reagents. In those cases, the test was developed and its analytical performance characteristics have been determined by [facility]. It has not been cleared or approved by the U.S. Food and Drug Administration. This assay has been validated pursuant to the CLIA regulations and is used for clinical purposes. Blood BLOOD SPECIMEN / Unknown [facility] / Unknown 06/06/2025 12:26 PM CDT 06/06/2025 12:26 PM CDT Narrative [facility] - 06/07/2025 2:01 PM CDT FASTING:NO FASTING: NO Chantelle Mata DO SEND OUTS Final Result [facility] [address] [place] [address], * [id number] PHENOTYPE (06/06/2025 12:26 PM CDT) [id number] IN QN 156 83 - 199 mg/dL 06/12/2025 1:31 PM CDT [facility] ALPHA 1 ANTITRYPSIN (AAT) PHENOTYPE SEE NOTE 06/12/2025 1:31 PM CDT [facility] Comment: THIS PATIENT'S HFRBO-8-CLEODCSVATS PHENOTYPE IS PI*MM. 90% of normal individuals have the MM phenotype, with normal quantitative AAT levels. Many phenotypic patterns have been described, including deficiency states with F, S, Z, or other alleles. As a general estimation, compared to M allele of 100% of normal K-3-Mnahsjlkwzp protein, the S allele produces approximately 60% and the Z allele 20%. For example, an MS phenotype would have about 80% of normal I-4-Ugihieihjhf protein level, a 50% contribution from the M allele and 30% from the S allele. A ZZ phenotype would have about 20% of normal levels, a 10% contribution from each Z gene. The F allele has normal A-6-Xqxfthgeyjg levels, but the kinetics of elastase inhibition is not as efficient as an M allele product; F alleles should be considered functionally mildly deficient. Other variants are identifiable by phenotypic analysis. These include CM, DP, EM, GM, IS, LM, M1M2, M3M3, MP, MT, XX, MY, and M1N. I, P, T and null alleles are considered deleterious. C, D, E, G, L, M1, M2, M3, X and Y alleles are generally considered normal variants. The MZ-Purcell phenotype is a normal variant; care should be taken to avoid confusion with the deficient MZ phenotype. Blood BLOOD SPECIMEN / Unknown [facility] / Unknown 06/06/2025 12:26 PM CDT 06/06/2025 12:26 PM CDT Narrative [facility] - 06/12/2025 1:31 PM CDT FASTING:NO FASTING: NO us Chantelle Mata DO SEND OUTS Final Result [facility] [address] [place] [address], * (ABNORMAL) CBC WITH AUTO DIFFERENTIAL (06/06/2025 12:26 PM CDT) [facility] WHITE BLOOD CELL COUNT 9.1 3.8 - 10.8 Thousand/ uL 06/07/2025 3:22 AM CDT [facility] RED BLOOD CELL COUNT 4.52 4.20 - 5.80 Million/u L 06/07/2025 3:22 AM CDT [facility] HEMOGLOBIN 14.9 13.2 - 17.1 g/dL 06/07/2025 3:22 AM CDT [facility] HEMATOCRIT 45.6 38.5 - 50.0 % 06/07/2025 3:22 AM CDT [facility] MCV 100.9(H) 80.0 - 100.0 fL 06/07/2025 3:22 AM CDT [facility] MCH 33.0 27.0 - 33.0 pg 06/07/2025 3:22 AM CDT [facility] MCHC 32.7 32.0 - 36.0 g/dL 06/07/2025 3:22 AM CDT [facility] Comment: For adults, a slight decrease in the calculated MCHC value (in the range of 30 to 32 g/dL) is most likely not clinically significant; however, it should be interpreted with caution in correlation with other red cell parameters and the patient's clinical condition. RDW 13.1 11.0 - 15.0 % 06/07/2025 3:22 AM CDT [facility] PLATELET COUNT 271 140 - 400 Thousand/ uL 06/07/2025 3:22 AM CDT [facility] MPV 9.5 7.5 - 12.5 fL 06/07/2025 3:22 AM CDT [facility] NEUTROPHILS 75 % 06/07/2025 3:22 AM CDT [facility] LYMPHOCYTES 16.0 % 06/07/2025 3:22 AM CDT [facility] MONOCYTES 7.5 % 06/07/2025 3:22 AM CDT [facility] EOSINOPHILS 1.1 % 06/07/2025 3:22 AM CDT [facility] BASOPHILS 0.4 % 06/07/2025 3:22 AM CDT [facility] ABSOLUTE NEUTROPHILS 6825 1500 - 7800 cells/uL 06/07/2025 3:22 AM CDT [facility] ABSOLUTE LYMPHOCYTES 1456 850 - 3900 cells/uL 06/07/2025 3:22 AM CDT [facility] ABSOLUTE MONOCYTES 683 200 - 950 cells/uL 06/07/2025 3:22 AM CDT [facility] ABSOLUTE EOSINOPHILS 100 15 - 500 cells/uL 06/07/2025 3:22 AM CDT [facility] ABSOLUTE BASOPHILS 36 0 - 200 cells/uL 06/07/2025 3:22 AM CDT [facility] Blood BLOOD SPECIMEN / Unknown [facility] / Unknown 06/06/2025 12:26 PM CDT 06/06/2025 12:26 PM CDT Narrative [facility] - 06/07/2025 3:22 AM CDT FASTING:NO FASTING: NO us Chantelle Mata DO HEMATOLOGY Final Result [facility] [address] [place] [address], [place] [phone] * US ABD AORTA SCREENING [[id number]] (07/04/2024 8:39 AM TIN CAN FEEDER) Anatomical Region Laterality Modality Abdomen, AORTA Ultrasound 07/04/2024 11:1 1 AM TIN CAN FEEDER Impressions 07/04/2024 11:11 AM TIN CAN FEEDER No aneurysm. Dictated by Domingo Farrar MD @ 07/04/2024 11:11:13 AM (Electronically Signed) Narrative 07/04/2024 11:11 AM TIN CAN FEEDER For Patients: As a result of the [...] Peres MD US Final Resu lt * COLONOSCOPY SCREENING (11/16/2018 12:00 PM CDT) us Blane Peres MD GI PROCEDURE ORD Final Res ult * ANTI HCV [[id number]] (05/15/2016 2:38 PM CDT) HEPATITIS C ANTIBODY Non-Reacti ve Non-Reacti ve 05/15/2016 8:09 PM CDT [facility] Blood BLOOD SPECIMEN / Unknown Venipuncture / Unknown 05/15/2016 2:38 PM CDT 05/15/2016 2:38 PM CDT Narrative [facility] - 05/15/2016 8:09 PM CDT Antibodies to HCV not detected; does not exclude the possibility of exposure to HCV. us Blane Peres MD SEND OUTS Final Resu lt [facility] [address] [place] [address], [place] from Last 3 Months or Most Recently Relevant to Health Maintenance Insurance [place] PB ONLY MEDICARE PART B HB ONLY MEDICARE PART A HB ONLY [place] BL[place] ONLY HC MEDICARE PPS [place] BL[place] HB ONLY Advance Directives * Full [...] Status Discussion: Not Discussed Care Teams Head Sulfide Operator Relationship Specialty Start Date End Date Blane Peres MD [address] [facility] [facility] [id number] PCP - General Family Practice 06/03/14
--- OUTSIDE RECORDS SUMMARY | 2025-07-21 20:38 | XMS_ITS | Patient Health Record ---
Author Organization [facility] Address [address] [place] [address] Care Team Providers Care Manager Outreach Name Role Phone Bashir Sherman Primary Care Provider SUSHILA Cardoza Unavailable [phone] Reason For Referral No Information Medications Medication SIG (Take, Route, Fr equency, Duration) Notes Start Date End Date Status Unknown BP medication Active Social History Tobacco Use: Social History Observation Description Date Details (start date - stop date) Former Smoker NA - NA Social History Recreational drug use Social Info Question Answer Notes Did you ever use recreational drugs? Answer: No Tobacco Use: Social Info Question Answer Notes Tobacco use/smoking Are you a former smoker Plan Of Treatment No Information Insurance Providers Payer Name Payer Address Payer Phone Subscriber Number Group Number Insured Name Patient Relationship to Insured Coverage Start Date Coverage End Date [facility] [address] [address] [place] [address] [phone] [id number] Antonio Santacruz Self - patient is the insured Medical (General) History Medical History History ICD Code hypertension Surgical History Surgery Date(Month/Year) colon resection 2011
--- NOTE | 2025-07-21 21:06 | ED.GENADULT ---
HPI - General Adult General Time Seen by Provider: 21:06 Date Seen: 07/21/25 Chief complaint: Unspecified Complaint, Adult Stated complaint: fell hit head Time Seen by Provider: 07/21/25 21:05 Source: patient, RN notes reviewed and old records reviewed Mode of arrival: ambulatory Limitations: no limitations History of Present Illness HPI narrative: 65-year-old male who comes in today after fall at home. Patient has history of frequent falls, today stood up, became lightheaded and fell, did pass out. No preceding palpitations or chest pains. His head, does not complain of pain anywhere else. Was initially evaluated by EMS at home, they report that his blood pressure was low and encouraged him to come the emergency department but he declined to come by EMS. He has been up and ambulatory since his fall. He reports he is on a blood thinner. He does note that he has had a couple alcoholic beverages today. Related Data Home Medications ?Medication ?Instructions ?Recorded ?Confirmed mirtazapine 7.5 mg tablet 7.5 mg PO QPM 08/04/23 07/21/25 sertraline 25 mg tablet 50 mg PO DAILY 08/04/23 07/21/25 tamsulosin 0.4 mg capsule 0.4 mg PO DAILY 08/04/23 07/21/25 carvedilol 6.25 mg tablet 3.125 mg PO BID 08/24/23 07/21/25 gabapentin 300 mg capsule 300 mg PO BID 08/24/23 07/21/25 atorvastatin 20 mg tablet 40 mg PO DAILY 04/18/24 07/21/25 aspirin 81 mg tablet,delayed 81 mg PO DAILY 02/14/25 07/21/25 release gabapentin 300 mg capsule 300 mg PO BID 07/21/25 07/21/25 Allergies Allergy/AdvReac Type Severity Reaction Status Date / Time No Known Drug Allergies Allergy Verified 04/18/24 13:20 [facility] Medical History (Updated 07/21/25 @ 22:38 by Alton Fields MD) Abnormal echocardiogram ?R93.1 - Abnormal findings on diagnostic imaging of heart and coronary circulation (ICD-10) COVID-19 (~08/04/23) ?U07.1 - COVID-19 (ICD-10) Nonischemic cardiomyopathy ?I42.8 - Other cardiomyopathies (ICD-10) Chronic obstructive pulmonary disease ?J44.9 - Chronic obstructive pulmonary disease, unspecified (ICD-10) Chronic insomnia ?F51.04 - Psychophysiologic insomnia (ICD-10) SONIA (obstructive sleep apnea) ?G47.33 - Obstructive sleep apnea (adult) (pediatric) (ICD-10) Closed fracture of hyoid bone ?S12.8XXA - Fracture of other parts of neck, initial encounter (ICD-10) Alcohol abuse ?F10.10 - Alcohol abuse, uncomplicated (ICD-10) Anxiety ?F41.9 - Anxiety disorder, unspecified (ICD-10) Adenomatous colon polyp ?D12.6 - Benign neoplasm of colon, unspecified (ICD-10) Dysthymia ?F34.1 - Dysthymic disorder (ICD-10) Esophageal reflux ?K21.9 - Gastro-esophageal reflux disease without esophagitis (ICD-10) Diverticulosis of colon (without mention of hemorrhage) ?K57.30 - Diverticulosis of large intestine without perforation or abscess without bleeding (ICD-10) BPH (benign prostatic hyperplasia) ?N40.0 - Benign prostatic hyperplasia without lower urinary tract symptoms (ICD-10) Paroxysmal atrial fibrillation ?I48.0 - Paroxysmal atrial fibrillation (ICD-10) Hypertension ?I10 - Essential (primary) hypertension (ICD-10) Surgical History (Updated 07/21/25 @ 22:10 by Zahra Brito MD) Presence of Watchman left atrial appendage closure device ?Z95.818 - Presence of other cardiac implants and grafts (ICD-10) History of partial colectomy ?Z90.49 - Acquired absence of other specified parts of digestive tract (ICD-10) H/O esophagogastroduodenoscopy ?Z98.890 - Other specified postprocedural states (ICD-10) Hx of colonoscopy ?Z98.890 - Other specified postprocedural states (ICD-10) Family History Aunt Breast cancer Father Coronary artery disease Diabetes Blood clot in vein Sister Fibromyalgia Brother Blood clot in vein Social History Narrative: . Lives independently with . Three grown children. Drinks 5-6 glasses of vodka a day, 8oz vodka in each glass. Quit smoking in 2000. Smokes marijuana daily, sometimes several times a day. Last smoked marijuana today. Denies any other recreational drugs recently. Wishes to be FULL CODE. What is your current living situation?: I presently have a place to live Problems where you live: no known problems Problems where you live details: N/A In the past 12 months, utilities in danger of being shut off: no In past 12 months, lack of transportation kept you from medical appts, meetings, work, or getting things needed for daily living: no In the past 12 mos, have been you worried that your food would run out before you had money to buy more?: never true In the past 12 mos, the food you bought just didn't last and you didn't have money to buy more?: never true Smoking Status: Former smoker Do you use any of these nicotine containing products: None Second hand tobacco smoke exposure: No How often do you have a drink containing alcohol: 2-3 times a week Alcohol type: hard liquor How many standard drinks containing alcohol do you have on a typical day: 3 or 4 How often do you have six or more drinks on one occasion: Weekly AUDIT-C Alcohol total score: 7 Non-prescribed substance use: marijuana (any form) Caffeine: No How often does anyone, including family, friends and others, physically hurt you: never How often does anyone, including family, friends and others, insult or talk down to you: never How often does anyone, including family, friends and others, threaten you with harm: never How often does anyone, including family, friends and others, scream or curse at you: never Gender Identity: male service: No Exam Narrative: Exam Narrative: General: Well-developed and well-nourished, no acute distress Head: 3 cm hematoma of the right occipital scalp Eyes: Pupils are equal reactive, extraocular motions intact, conjunctiva clear ENT: External nose and ears are normal, posterior pharynx without erythema or exudate. Numerous abrasions to the face that are old Neck: No midline cervical tenderness, full spontaneous range of motion the neck, trachea midline, no adenopathy Heart: Regular rate and rhythm no murmurs or thrills Lungs: Clear to auscultation bilaterally without wheezes or crackles Abdomen: Soft, nontender, nondistended with active bowel sounds Musculoskeletal: No tenderness, deformity, or edema. No midline lumbar thoracic tenderness. Neurologic: GCS 15. Awake, alert, and oriented x3, no gross focal neurologic deficits, cranial nerves intact as tested Psych: Mood and affect are appropriate Skin: No rashes Const: Vital Signs, click to edit/add: Vital Signs - 24 hr 07/21/25 20:51 Temperature 97.0 F L Pulse Rate [Left P ulse Oximeter] 56 L Respiratory Rate 18 Blood Pressure [Ri ght Upper Arm] 111/64 Pulse Oximetry 95 Oxygen Delivery Me thod Room Air Course Course ED Course: Additional records reviewed: Annual wellness exam on July 14, at that time was continued on carvedilol, continued on tamsulosin, and started on lisinopril/hydrochlorothiazide, blood pressure at that appointment 146/97 Additional history from: Care impacted by: Testing considered but not performed: See ED course Patient seen examined on arrival, presents today with episode lightheadedness and syncope, hit his head. He has numerous emergency department evaluations for falls and says he frequently does not come in when he has had falls, for example he says he had a fall yesterday and was not evaluated. Per EMS, patient was hypotensive on their initial arrival, in the emergency department he is normotensive. He did recently start a new blood pressure medication and has been drinking alcohol today, says he has not had much water. On exam he is finally stable, scalp hematoma on the right occipital area, head CT is ordered. Patient has no neck pain and no midline tenderness, full spontaneous range of motion the neck but given intoxication, CT scan cervical spine is ordered. No other injuries noted, labs ordered and anticipate discharge. Reevaluation(s) Time of Reevaluation #1: 21:36 Reevaluation #1: Labs independently interpreted by me with normal CBC, normal hemoglobin, normal platelets. Time of Reevaluation #2: 21:53 Reevaluation #2: Labs independently interpreted by me with potassium 3.5, creatinine is also 3.5, prior on July 14 was 1.04. Patient will need to be admitted due to acute kidney injury, this may be related to dehydration and medications. Time of Reevaluation #3: 22:37 Reevaluation #3: Care discussed with Dr. Brito in the emergency department who accepts patient for admission. Labs independently interpreted by me with alcohol 0.17. Vital Signs Vital signs: Initial Vital Signs Temperature 97.0 F L 07/21/25 20:51 Temperature Source Temporal Artery Scan 07/21/25 20:51 Pulse Rate 56 L 07/21/25 20:51 Pulse Rhythm Regular 07/21/25 20:51 Respiratory Rate 18 07/21/25 20:51 Blood Pressure 111/64 07/21/25 20:51 Blood Pressure Mean 79 07/21/25 20:51 Blood Pressure Position Sitting 07/21/25 20:51 Pulse Oximetry 95 07/21/25 20:51 Oxygen Delivery Method Room Air 07/21/25 20:51 Vital Signs Temperature 97.0 F L 07/21/25 20:51 Pulse Rate 56 L 07/21/25 20:51 Respiratory Rate 18 07/21/25 20:51 Blood Pressure 111/64 07/21/25 20:51 Pulse Oximetry 95 07/21/25 20:51 Oxygen Delivery Method Room Air 07/21/25 20:51 Temperature 97.0 F L 07/21/25 20:51 Pulse Rate 56 L 07/21/25 20:51 Respiratory Rate 18 07/21/25 20:51 Blood Pressure 111/64 07/21/25 20:51 Pulse Oximetry 95 07/21/25 20:51 Oxygen Delivery Method Room Air 07/21/25 20:51 Medical Decision Making Lab Data Labs: Lab Results 07/21/25 07/21/25 Range/Units 21:12 21:56 WBC 10.58 (4.50-11.00) K/uL RBC 4.28 L (4.30-5.90) m/uL Hgb 13.9 (13.5-17.5) gm/dL Hct 43.0 (37.0-53.0) % MCV 101 H (80-100) fL MCH 33 (26-34) pg MCHC 32 (32-36) gm/dL RDW Coeff of Nafisa 12.1 (11.5-15.5) % Plt Count 235 (140-440) K/uL Neut % (Auto) 71.3 (42.0-72.0) % Lymph % (Auto) 17.6 L (20-44) % [place] % (Auto) 9.2 (0.0-11.0) % Eos % (Auto) 1.0 (0.0-7.0) % Baso % (Auto) 0.4 (0.0-3.0) % Neut # (Auto) 7.55 H (1.7-7.0) K/uL Lymph # (Auto) 1.90 (0.90-2.90) K/uL [place] # (Auto) 1.00 H (0.00-0.90) K/UL Eos # (Auto) 0.11 (0.00-0.50) K/uL Baso # (Auto) 0.04 (0.00-0.30) K/uL Abs Immat Gran (auto) 0.05 (0.00-0.30) K/uL Imm/Tot Granulo (auto) 0.5 % Sodium 138 (135-149) mmol/L Potassium 3.5 L (3.6-5.1) mmol/L Chloride 99 (96-114) mmol/L Carbon Dioxide 22 (20-32) mmol/L Anion Gap 17 H (7-15) mEq/L BUN 31 H (7-30) mg/dL Creatinine 3.5 H (0.5-1.5) mg/dL Estimated Creat Clear 21.44 Estimated GFR 18 ml/min Glucose 106 (60-115) mg/dL Calcium 9.0 (8.4-10.6) mg/dL Ethyl Alcohol 0.17 H (0.01-0.03) % Lab Acknowledgement Test Added Discharge Plan Discharge Clinical Impression: Falls frequently, Syncope due to orthostatic hypotension, Alcohol dependence with acute alcoholic intoxication, VERONICA (acute kidney injury) Patient Disposition: Admitted As Inpatient Condition: Stable Activity Level: No Restrictions
--- NOTE | 2025-07-21 21:17 | CRLHL7_ITS ---
For Patients: As a result of the Cures Act, medical imaging exams and procedure reports are released immediately into your electronic medical record. You may view this report before your referring provider. If you have questions, please contact your health care provider. Indication: Fall, head trauma, intoxicated Technique: Noncontrast CT through the cervical spine with multiplanar reformats Comparison: Cervical spine CT performed 04/18/2024 Findings: Alignment: No acute malalignment appreciated. Bones: No acute fracture. No lytic or blastic lesion. Cervical levels: No acute abnormality appreciated. Moderate spondylosis. Soft tissues: No acute abnormality appreciated. Impression: No acute abnormality appreciated. Please note that all CT scans at this facility use dose modulation, iterative reconstruction, and/or weight-based dosing when appropriate to reduce radiation dose to as low as reasonably achievable. Dictated by Franko Carvalho MD @ 07/21/2025 9:56:42 PM (Electronically Signed)
--- NOTE | 2025-07-21 21:17 | CRLHL7_ITS ---
For Patients: As a result of the Century Cures Act, medical imaging exams and procedure reports are released immediately into your electronic medical record. You may view this report before your referring provider. If you have questions, please contact your health care provider. Indication: Fall, head trauma Technique: Noncontrast CT through the head with multiplanar reformats Comparison: CT head performed 04/18/2024 Findings: Brain: No acute hemorrhage. No acute infarct. No significant mass effect or midline shift. No gross evidence of a mass lesion or cerebral edema. Moderate to severe chronic senescent disease. Ventricles: No acute abnormality appreciated. Orbits, sinuses, mastoids: No acute abnormality appreciated. Calvarium and soft tissues: Right posterior scalp contusion. Impression: Right posterior scalp contusion, no other acute abnormality appreciated. Please note that all CT scans at this facility use dose modulation, iterative reconstruction, and/or weight-based dosing when appropriate to reduce radiation dose to as low as reasonably achievable. Dictated by Franko Carvalho MD @ 07/21/2025 9:55:32 PM (Electronically Signed)
[2025-07-21 21:20] LABS: Hematocrit* 43.0 % (37.0-53.0); Hemoglobin* 13.9 gm/dL (13.5-17.5); Immature Granulocytes Abs Auto 0.05 K/uL (0.00-0.30); Immature Granulocytes Pct Auto 0.5 %; Mean Corpuscular HGB Conc 32 gm/dL (32-36); Mean Corpuscular Hemoglobin 33 pg (26-34); Mean Corpuscular Volume 101 fL (80-100); RDW Coefficient of Variation % 12.1 % (11.5-15.5); Red Blood Count* 4.28 m/uL (4.30-5.90); White Blood Count* 10.58 K/uL (4.50-11.00)
[2025-07-21 21:21] LABS: Lymphocytes Absolute Auto 1.90 K/uL (0.90-2.90); Slide Review Reflex No
[2025-07-21 21:32] LABS: Chloride* 99 mmol/L (96-114)
[2025-07-21 21:33] LABS: Potassium* 3.5 mmol/L (3.6-5.1); Sodium* 138 mmol/L (135-149)
[2025-07-21 21:36] LABS: Anion Gap 17 mEq/L (7-15); Blood Urea Nitrogen* 31 mg/dL (7-30); Calcium* 9.0 mg/dL (8.4-10.6); Carbon Dioxide* 22 mmol/L (20-32); Creatinine* 3.5 mg/dL (0.5-1.5); Est. Creatinine Clearance* 21.44; Estimated Glomerular Filt Rate 18 ml/min; Glucose* 106 mg/dL (60-115)
[2025-07-21 22:25] LABS: Ethanol* 0.17 % (0.01-0.03)
--- NOTE | 2025-07-21 22:43 | PM.IMHP1 ---
Assessment and Plan Assessment and plan (1) VERONICA (acute kidney injury): Problem comment: - creatinine 3.5, baseline 1 (was 1.04 in clinic 07/14/25) - presumably prerenal in the setting of chronic alcohol use, dehydration. Will check bladder scan and Is/Os to evaluate for obstruction - K normal - IVFs, UA, recheck BMP in the morning, avoid nephrotoxins Status: Acute (2) Alcohol dependence with acute alcoholic intoxication: Problem comment: - last drink 1700 on 07/21, 1 pint of Vodka/day - ETOH 0.17 in ER 07/21 - CIWA protocol with Lorazepam, continue Gabapentin, consider addition of Phenobarbital pending clinical course - Has had mild withdrawal symptoms in the past at home, never hospitalized Status: Acute (3) Paroxysmal atrial fibrillation: Problem comment: - ASA 81mg daily, Watchman device 11/2024, currently in sinus rhythm - on Carvedilol Status: Acute (4) Syncope due to orthostatic hypotension: Problem comment: - likely, will obtain orthostatic VS in the morning after IVFs Status: Acute (5) Falls frequently: Problem comment: - likely combination of ETOH use and deconditioning - fell on 07/20 and 07/21 at home, reassuring head CT and C-Spine CT Status: Acute (6) SONIA (obstructive sleep apnea): Problem comment: - 08/10/2019 AHI-36 - Intolerant of CPAP, hoping to have Inspire procedure with ENT Status: Chronic (7) Cognitive impairment: Problem comment: - scored 2 on Mini-Cog 07/2025 during AWV with PCP - will request MOCA with OT Status: Acute (8) Chronic obstructive pulmonary disease: Problem comment: - severe per EPIC chart, follows with Dr. Mata of Pulmonology (last appt 05/2025) - on Symbicort and Spiriva, no home O2 Status: Acute Plan - per above - PPI, SCDs for ppx - anticipate 2 MN stay for VERONICA management, workup, evaluation for ETOH withdrawal and subsequent complications - updated bedside, questions answered Hospitalist- H&P: HPI History of Present Illness Date Seen: 07/21/25 Chief complaint: fell hit head Narrative: Antonio Santacruz is a 65 year old male who presented to the ER at the behest of his family after a fall at home. He endorses falling frequently; yesterday fell forward and cut his nose. Today he fell at home (sounds like he was presyncopal) and hit the back of his head. Family called the ambulance, who found that he was hypotensive and recommended transfer. He refused and presented to the ER by private vehicle. ER course and findings: - BP amelia 102/60 - reassuring head CT and C-spine CT - creatinine of 3.5 (was 1.0 on 07/14/2025 after visit with PCP), potassium of 3.5, BUN 31 - given 1000 mL bolus - ETOH 0.17 Antonio is admitted to the hospital for acute kidney injury requiring workup, monitoring, and aggressive IVF fluid resuscitation. His histories are reviewed and updated below. PCP is Dr. Peres locally. Review of Systems Narrative: - some discomfort on the back of his head - specifically denies chest pain or shortness of breath Medical Decision Making Medical Decision Making Code Status: Full Has patient completed a Health Care Directive: No During This Stay, Who Would You Like To Make Decisions For You In The Event You Are Unable To Make Them For Yourself?: Anjali [facility] Medical History (Updated 07/21/25 @ 23:39 by Zahra Brito MD) Abnormal echocardiogram ?R93.1 - Abnormal findings on diagnostic imaging of heart and coronary circulation (ICD-10) COVID-19 (~08/04/23) ?U07.1 - COVID-19 (ICD-10) Nonischemic cardiomyopathy ?I42.8 - Other cardiomyopathies (ICD-10) Chronic obstructive pulmonary disease ?J44.9 - Chronic obstructive pulmonary disease, unspecified (ICD-10) Chronic insomnia ?F51.04 - Psychophysiologic insomnia (ICD-10) SONIA (obstructive sleep apnea) ?G47.33 - Obstructive sleep apnea (adult) (pediatric) (ICD-10) Closed fracture of hyoid bone ?S12.8XXA - Fracture of other parts of neck, initial encounter (ICD-10) Alcohol abuse ?F10.10 - Alcohol abuse, uncomplicated (ICD-10) Anxiety ?F41.9 - Anxiety disorder, unspecified (ICD-10) Adenomatous colon polyp ?D12.6 - Benign neoplasm of colon, unspecified (ICD-10) Dysthymia ?F34.1 - Dysthymic disorder (ICD-10) Esophageal reflux ?K21.9 - Gastro-esophageal reflux disease without esophagitis (ICD-10) Diverticulosis of colon (without mention of hemorrhage) ?K57.30 - Diverticulosis of large intestine without perforation or abscess without bleeding (ICD-10) BPH (benign prostatic hyperplasia) ?N40.0 - Benign prostatic hyperplasia without lower urinary tract symptoms (ICD-10) Paroxysmal atrial fibrillation ?I48.0 - Paroxysmal atrial fibrillation (ICD-10) Hypertension ?I10 - Essential (primary) hypertension (ICD-10) Surgical History (Updated 07/21/25 @ 22:10 by Zahra Brito MD) Presence of Watchman left atrial appendage closure device ?Z95.818 - Presence of other cardiac implants and grafts (ICD-10) History of partial colectomy ?Z90.49 - Acquired absence of other specified parts of digestive tract (ICD-10) H/O esophagogastroduodenoscopy ?Z98.890 - Other specified postprocedural states (ICD-10) Hx of colonoscopy ?Z98.890 - Other specified postprocedural states (ICD-10) Family History Aunt Breast cancer Father Coronary artery disease Diabetes Blood clot in vein Sister Fibromyalgia Brother Blood clot in vein Social History (Updated 07/21/25 @ 23:04 by Zahra Brito MD) Narrative: . Lives independently with . Three grown children. Currently drinking 1 L of vodka daily Quit smoking in 2000. History of marijuana use. Denies any other recreational drugs recently. Wishes to be FULL CODE. What is your current living situation?: I presently have a place to live Problems where you live: no known problems Problems where you live details: N/A In the past 12 months, utilities in danger of being shut off: no In past 12 months, lack of transportation kept you from medical appts, meetings, work, or getting things needed for daily living: no In the past 12 mos, have been you worried that your food would run out before you had money to buy more?: never true In the past 12 mos, the food you bought just didn't last and you didn't have money to buy more?: never true Smoking Status: Former smoker Do you use any of these nicotine containing products: None Second hand tobacco smoke exposure: No How often do you have a drink containing alcohol: 2-3 times a week Alcohol type: hard liquor How many standard drinks containing alcohol do you have on a typical day: 3 or 4 How often do you have six or more drinks on one occasion: Weekly AUDIT-C Alcohol total score: 7 Non-prescribed substance use: marijuana (any form) Caffeine: No How often does anyone, including family, friends and others, physically hurt you: never How often does anyone, including family, friends and others, insult or talk down to you: never How often does anyone, including family, friends and others, threaten you with harm: never How often does anyone, including family, friends and others, scream or curse at you: never Gender Identity: male service: No Meds Home Medications and Allergies Home Medications ?Medication ?Instructions ?Recorded ?Confirmed ?Type mirtazapine 7.5 mg tablet 7.5 mg PO QPM 08/04/23 07/21/25 History sertraline 25 mg tablet 50 mg PO DAILY 08/04/23 07/21/25 History tamsulosin 0.4 mg capsule 0.4 mg PO DAILY 08/04/23 07/21/25 History carvedilol 6.25 mg tablet 3.125 mg PO BID 08/24/23 07/21/25 History gabapentin 300 mg capsule 300 mg PO BID 08/24/23 07/21/25 History atorvastatin 20 mg tablet 40 mg PO DAILY 04/18/24 07/21/25 History aspirin 81 mg tablet,delayed 81 mg PO DAILY 02/14/25 07/21/25 History release gabapentin 300 mg capsule 300 mg PO BID 07/21/25 07/21/25 History Allergies Allergy/AdvReac Type Severity Reaction Status Date / Time No Known Drug Allergies Allergy Verified 04/18/24 13:20 Exam Narrative: Exam Narrative: GEN: Alert and lying in bed, smells of alcohol, answering questions appropriately HEENT: EOMIs bilaterally, no scleral icterus CV: RRR (sinus, HR 50s), soft systolic murmur, no concerning features R: Mild expiratory wheeze, clears with a deep breath, air movement adequate Ext: wwp, no concerning edema Skin: Small abrasion over the bridge of his nose, scalp edema near right ear without any skin breakdown or bleeding Neuro: No focal deficits on limited exam, no resting tremor Psych: Appropriate Const: Vital Signs, click to edit/add: Vital Signs - 24 hr 07/21/25 20:51 Temperature 97.0 F L Pulse Rate [Left P ulse Oximeter] 56 L Respiratory Rate 18 Blood Pressure [Ri ght Upper Arm] 111/64 Pulse Oximetry 95 Oxygen Delivery Me thod Room Air Hospitalist - H&P: Result Labs Labs: Short CBC 07/21/25 Range/Units 21:12 WBC 10.58 (4.50-11.00) K/uL Hgb 13.9 (13.5-17.5) gm/dL Hct 43.0 (37.0-53.0) % Plt Count 235 (140-440) K/uL BMP 07/21/25 21:12 Sodium 138 Potassium 3.5 L Chloride 99 Carbon Dioxide 22 BUN 31 H Creatinine 3.5 H Glucose 106 Calcium 9.0
--- NOTE | 2025-07-21 23:06 | ED.NURSE ---
RN to RN report given. pt ready now CCU4
[2025-07-22] MEDS: GABAPENTIN 300 MG CAPSULE PO ×2 (00:02→09:13)
[2025-07-22 00:07] VITALS: BP 123/61; PULSE 60; RESP 22; TEMP 36.2; O2SAT 96; BMI 33.4; BMI 33.5
[2025-07-22 02:00] VITALS: BP 150/81; PULSE 68; RESP 22; O2SAT 93
[2025-07-22 03:00] VITALS: BP 135/80; PULSE 64; PULSE 68; RESP 22; O2SAT 92
[2025-07-22 04:00] VITALS: BP 170/84; PULSE 71; RESP 22; TEMP 36.4; O2SAT 93
[2025-07-22] MEDS: OMEPRAZOLE 20 MG CAPSULE DR 40 MG PO (06:16)
[2025-07-22 06:22] LABS: Hematocrit* 39.9 % (37.0-53.0); Hemoglobin* 13.1 gm/dL (13.5-17.5); Immature Granulocytes Abs Auto 0.08 K/uL (0.00-0.30); Immature Granulocytes Pct Auto 1.0 %; Lymphocytes Absolute Auto 1.30 K/uL (0.90-2.90); Mean Corpuscular HGB Conc 33 gm/dL (32-36); Mean Corpuscular Hemoglobin 33 pg (26-34); Mean Corpuscular Volume 100 fL (80-100); RDW Coefficient of Variation % 11.9 % (11.5-15.5); Red Blood Count* 4.01 m/uL (4.30-5.90); White Blood Count* 8.02 K/uL (4.50-11.00)
[2025-07-22 06:23] LABS: HCO3 VBG 24 mmol/L (21-28); PCO2 VBG 39 mmHG (40-50); PO2 VBG 90.8 mmHG (25-47); pH VBG 7.408 (7.32-7.43)
[2025-07-22 06:42] LABS: Potassium* 3.6 mmol/L (3.6-5.1); Sodium* 137 mmol/L (135-149)
[2025-07-22 06:45] LABS: Blood Urea Nitrogen* 28 mg/dL (7-30); Calcium* 8.3 mg/dL (8.4-10.6); Carbon Dioxide* 23 mmol/L (20-32); Creatinine* 1.6 mg/dL (0.5-1.5); Est. Creatinine Clearance* 43.94; Estimated Glomerular Filt Rate 47 ml/min; Glucose* 106 mg/dL (60-115)
[2025-07-22] MEDS: ONDANSETRON 2 MG/ML inj 4 MG IVP (06:46)
--- NOTE | 2025-07-22 06:53 | PC.NURSE ---
Patient admitted to the unit at 2315. Pleasant and cooperative. A&Ox3. , Anjali, at bedside and supportive. Abrasion to the nose and scattered bruising throughout from multiple falls at home. Denies pain. CIWAs unremarkable. Denies CP. Emesis x1 from coughing to hard. SBA.
[2025-07-22 06:57] LABS: Anion Gap 11 mEq/L (7-15); Chloride* 103 mmol/L (96-114)
[2025-07-22 07:00] VITALS: BP 167/88; PULSE 68; PULSE 71; RESP 18; TEMP 36.4; O2SAT 93
[2025-07-22 07:06] LABS: Slide Review Reflex No
[2025-07-22] MEDS: FOLIC ACID 1 MG TABLET PO (09:12)
[2025-07-22] MEDS: ATORVASTATIN CALCIUM 10 MG TABLET 40 MG PO (09:12)
[2025-07-22] MEDS: SERTRALINE 50 MG TABLET PO (09:13)
[2025-07-22] MEDS: TAMSULOSIN HCL 0.4 MG CAPSULE PO (09:13)
[2025-07-22] MEDS: SODIUM CHLORIDE 0.9 % (FLUSH) 10 ML SYRINGE 5 ML IVF (09:13)
[2025-07-22] MEDS: THIAMINE 100 MG TABLET 250 MG PO (09:13)
[2025-07-22] MEDS: MULTIVITAMIN/MINERALS 1 TABLET 1 TAB PO (09:13)
--- NOTE | 2025-07-22 09:42 | PM.DS1 ---
DS: Providers Provider Time Seen by Provider: 09:16 Date Seen: 07/22/25 Date of admission: 07/21/25 23:11 Primary care physician: Blane Peres MD Admitting Clinician: Zahra Brito MD Consults: 07/21/25 23:19 Consult to Occupational Therapy [CONS] Routine Comment: Reason(s) for OT Consult:: Evaluate and Treat Any Restrictions?:: No Restrictions Comment: MOCA would be great Consult to Physical Therapy [CONS] Routine Comment: Reason(s) for PT Consult:: Evaluate and Treat Any Restrictions?:: No Restrictions Attending Physician on discharge: Fiorella Lin MD Date of Discharge: 07/22/25 DS: Diagnosis Discharge Diagnosis (1) VERONICA (acute kidney injury): Status: Acute Problem details: - creatinine 3.5, baseline 1 (was 1.04 in clinic 07/14/25) - presumably prerenal in the setting of chronic alcohol use, dehydration. Will check bladder scan and Is/Os to evaluate for obstruction - K normal - IVFs, UA, recheck BMP in the morning, avoid nephrotoxins - 07/22 creatinine is 1.6 today, much improved from admission, suspect this was pre renal due to chronic alcohol use and dehydration. Okay to discharge home today, continue to hold lisinopril/hydrochlorothiazide this weekend and follow-up with his primary care provider early this week with labs. (2) Alcohol dependence with acute alcoholic intoxication: Status: Acute Problem details: - last drink 1700 on 07/21, 1 pint of Vodka/day - ETOH 0.17 in ER 07/21 - CIWA protocol with Lorazepam, continue Gabapentin, consider addition of Phenobarbital pending clinical course - Has had mild withdrawal symptoms in the past at home, never hospitalized - 07/22 recommended abstaining from alcohol, patient interested in outpatient treatment, I have asked our charge nurse to give him a list of resources for this, also discussed anxiety symptoms as he feels this is a trigger for alcohol use (3) Paroxysmal atrial fibrillation: Status: Acute Problem details: - ASA 81mg daily, Watchman device 11/2024, currently in sinus rhythm - on Carvedilol (4) Syncope due to orthostatic hypotension: Status: Acute Problem details: Resolved after IVFs, EKG obtained today and is reassuring (5) Falls frequently: Status: Acute Problem details: - likely combination of ETOH use and deconditioning - fell on 07/20 and 07/21 at home, reassuring head CT and C-Spine CT - 07/22 no syncope or falls here, no lightheadedness or dizziness here, suspect this is secondary to alcohol use in deconditioning, recommended abstaining from alcohol, patient has been evaluated by PT and OT, okay to discharge home (6) SONIA (obstructive sleep apnea): Status: Chronic Problem details: - 08/10/2019 AHI-36 - Intolerant of CPAP, hoping to have Inspire procedure with ENT (7) Cognitive impairment: Status: Acute Problem details: - scored 2 on Mini-Cog 07/2025 during AWV with PCP - MOCA with OT today before discharge (8) Chronic obstructive pulmonary disease: Status: Acute Problem details: - severe per EPIC chart, follows with Dr. Mata of Pulmonology (last appt 05/2025) - on Symbicort and Spiriva, no home O2 DS: Summary Hospital Course Hospital Course: Per H&P: Antonio Santacruz is a 65 year old male who presented to the ER at the behest of his family after a fall at home. He endorses falling frequently; yesterday fell forward and cut his nose. Today he fell at home (sounds like he was presyncopal) and hit the back of his head. Family called the ambulance, who found that he was hypotensive and recommended transfer. He refused and presented to the ER by private vehicle. ER course and findings: - BP amelia 102/60 - reassuring head CT and C-spine CT - creatinine of 3.5 (was 1.0 on 07/14/2025 after visit with PCP), potassium of 3.5, BUN 31 - given 1000 mL bolus - ETOH 0.17 Antonio is feeling better. Denies dizziness or lightheadedness with standing and moving around the room or using the bathroom. He has not had any fainting spells here. He notes that he has had other episodes of syncope while drinking alcohol in the recent past and tells me he is currently motivated to do outpatient treatment to stop all alcohol use. I encouraged him to do so and we discussed potential causes of alcoholism such as anxiety, which he identified as a problem for him. We also discussed breathing exercises and meditation to help with anxiety. His was there for this discussion as well. He is discharged home in improved and stable condition. Time Spent with Patient Time attestation: Total time spent providing and/or coordinating discharge services: Today I spent 40 minute seeing and discharging the patient, discussion with the patient and his , reviewing [facility]panse and EPIC notes/diagnostics/labs, discussing the care plan with our care team that includes social work, PT/OT, pharmacy, RT, senior living and documenting my impressions and plan in the medical record. Exam Narrative: Exam Narrative: General: No acute distress. Awake, alert, oriented. No pallor. No jaundice. Small abrasion on the bridge of nose, scabbed over. Oropharynx: Clear. Mucous membranes moist. Cardiovascular: Regular rate and rhythm. Grade 1/6 systolic murmur. Respiratory: Clear to auscultation bilaterally. No wheezes or crackles. Const: Vital Signs, click to edit/add: Vital Signs - 24 hr 07/21/25 20:51 07/21/25 21:31 07/21/25 21:32 Temperature 97.0 F L Pulse Rate 53 L 54 L Pulse Rate [Left P ulse Oximeter] 56 L Pulse Rate [Pulse Oximeter] Respiratory Rate 18 20 19 Blood Pressure 102/60 Blood Pressure [Ri ght Arm] Blood Pressure [Ri ght Upper Arm] 111/64 Pulse Oximetry 95 92 92 Oxygen Delivery Me thod Room Air 07/21/25 21:40 07/21/25 21:41 07/21/25 21:50 Temperature Pulse Rate 54 L 56 L 56 L Pulse Rate [Left P ulse Oximeter] Pulse Rate [Pulse Oximeter] Respiratory Rate 18 19 24 Blood Pressure 107/61 Blood Pressure [Ri ght Arm] Blood Pressure [Ri ght Upper Arm] Pulse Oximetry 93 92 92 Oxygen Delivery Me thod 07/21/25 21:51 07/21/25 22:00 07/21/25 22:01 Temperature Pulse Rate 57 L 57 L 52 L Pulse Rate [Left P ulse Oximeter] Pulse Rate [Pulse Oximeter] Respiratory Rate 15 13 19 Blood Pressure 109/63 113/61 Blood Pressure [Ri ght Arm] Blood Pressure [Ri ght Upper Arm] Pulse Oximetry 94 94 91 Oxygen Delivery Me thod 07/21/25 22:10 07/21/25 22:11 07/21/25 22:20 Temperature Pulse Rate 57 L 56 L 56 L Pulse Rate [Left P ulse Oximeter] Pulse Rate [Pulse Oximeter] Respiratory Rate 16 17 14 Blood Pressure 126/68 Blood Pressure [Ri ght Arm] Blood Pressure [Ri ght Upper Arm] Pulse Oximetry 94 94 93 Oxygen Delivery Me thod 07/21/25 22:22 07/21/25 22:30 07/21/25 22:31 Temperature Pulse Rate 55 L 55 L 55 L Pulse Rate [Left P ulse Oximeter] Pulse Rate [Pulse Oximeter] Respiratory Rate 17 15 13 Blood Pressure 130/67 128/72 Blood Pressure [Ri ght Arm] Blood Pressure [Ri ght Upper Arm] Pulse Oximetry 92 94 93 Oxygen Delivery Me thod 07/21/25 22:40 07/21/25 22:41 07/21/25 23:19 Temperature 97.1 F L Pulse Rate 56 L 55 L Pulse Rate [Left P ulse Oximeter] Pulse Rate [Pulse Oximeter] 60 Respiratory Rate 19 18 22 Blood Pressure 129/68 Blood Pressure [Ri ght Arm] 123/61 Blood Pressure [Ri ght Upper Arm] Pulse Oximetry 92 92 96 Oxygen Delivery Me thod Room Air 07/22/25 00:07 07/22/25 00:07 07/22/25 02:00 Temperature 97.1 F L Pulse Rate Pulse Rate [Left P ulse Oximeter] Pulse Rate [Pulse Oximeter] 60 68 Respiratory Rate 22 22 22 Blood Pressure Blood Pressure [Ri ght Arm] 123/61 150/81 H Blood Pressure [Ri ght Upper Arm] Pulse Oximetry 96 93 Oxygen Delivery Me thod Room Air Room Air 07/22/25 03:00 07/22/25 03:00 07/22/25 04:00 Temperature 97.5 F L Pulse Rate 64 Pulse Rate [Left P ulse Oximeter] Pulse Rate [Pulse Oximeter] 68 71 Respiratory Rate 22 22 Blood Pressure Blood Pressure [Ri ght Arm] 135/80 170/84 H Blood Pressure [Ri ght Upper Arm] Pulse Oximetry 92 93 Oxygen Delivery Me thod Room Air Room Air 07/22/25 04:00 07/22/25 07:00 07/22/25 07:00 Temperature 97.5 F L 97.6 F Pulse Rate Pulse Rate [Left P ulse Oximeter] Pulse Rate [Pulse Oximeter] 71 68 68 Respiratory Rate 22 18 18 Blood Pressure Blood Pressure [Ri ght Arm] 170/84 H 167/88 H Blood Pressure [Ri ght Upper Arm] Pulse Oximetry 93 93 Oxygen Delivery Me thod Room Air Room Air 07/22/25 07:00 Temperature Pulse Rate Pulse Rate [Left P ulse Oximeter] Pulse Rate [Pulse Oximeter] Respiratory Rate 18 Blood Pressure Blood Pressure [Ri ght Arm] Blood Pressure [Ri ght Upper Arm] Pulse Oximetry 93 Oxygen Delivery Me thod Room Air DS: Data Data Completed and Pending Completed studies during hospitalization: 07/22/2025 EKG: Normal sinus rhythm, 67 beats per minute, normal EKG. Ordering Physician: Alton Fields M.D. Date of Service: 07/21/25 Procedure(s): CT head/brain wo con Accession Number(s): [id number] cc: Blane Peres M.D.; Alton Fields M.D.~ For Patients: As a result of the Cures Act, medical imaging exams and procedure reports are released immediately into your electronic medical record. You may view this report before your referring provider. If you have questions, please contact your health care provider. Indication: Fall, head trauma Technique: Noncontrast CT through the head with multiplanar reformats Comparison: CT head performed 04/18/2024 Findings: Brain: No acute hemorrhage. No acute infarct. No significant mass effect or midline shift. No gross evidence of a mass lesion or cerebral edema. Moderate to severe chronic senescent disease. Ventricles: No acute abnormality appreciated. Orbits, sinuses, mastoids: No acute abnormality appreciated. Calvarium and soft tissues: Right posterior scalp contusion. Impression: Right posterior scalp contusion, no other acute abnormality appreciated. Please note that all CT scans at this facility use dose modulation, iterative reconstruction, and/or weight-based dosing when appropriate to reduce radiation dose to as low as reasonably achievable. Dictated by Franko Carvalho MD @ 07/21/2025 9:55:32 PM (Electronically Signed) Ordering Physician: Alton Fields M.D. Date of Service: 07/21/25 Procedure(s): CT cervical spine wo con Accession Number(s): [id number] cc: Blane Peres M.D.; Alton Fields M.D.~ For Patients: As a result of the Century Cures Act, medical imaging exams and procedure reports are released immediately into your electronic medical record. You may view this report before your referring provider. If you have questions, please contact your health care provider. Indication: Fall, head trauma, intoxicated Technique: Noncontrast CT through the cervical spine with multiplanar reformats Comparison: Cervical spine CT performed 04/18/2024 Findings: Alignment: No acute malalignment appreciated. Bones: No acute fracture. No lytic or blastic lesion. Cervical levels: No acute abnormality appreciated. Moderate spondylosis. Soft tissues: No acute abnormality appreciated. Impression: No acute abnormality appreciated. Please note that all CT scans at this facility use dose modulation, iterative reconstruction, and/or weight-based dosing when appropriate to reduce radiation dose to as low as reasonably achievable. Dictated by Franko Carvalho MD @ 07/21/2025 9:56:42 PM (Electronically Signed) Labs on day of discharge: Labs from last 24 hours 07/22/25 07/21/25 07/21/25 06:02 21:56 21:12 WBC 8.02 10.58 RBC 4.01 L 4.28 L Hgb 13.1 L 13.9 Hct 39.9 43.0 MCV 100 101 H MCH 33 33 MCHC 33 32 RDW Coeff of Nafisa 11.9 12.1 Plt Count 196 235 Neut % (Auto) 68.7 71.3 Lymph % (Auto) 16.2 L 17.6 L [place] % (Auto) 11.8 H 9.2 Eos % (Auto) 1.9 1.0 Baso % (Auto) 0.4 0.4 Neut # (Auto) 5.51 7.55 H Lymph # (Auto) 1.30 1.90 [place] # (Auto) 0.90 1.00 H Eos # (Auto) 0.15 0.11 Baso # (Auto) 0.03 0.04 Abs Immat Gran (auto) 0.08 0.05 Imm/Tot Granulo (auto) 1.0 0.5 VBG pH 7.408 VBG pCO2 39 L VBG pO2 90.8 H VBG HCO3 24 Sodium 137 138 Potassium 3.6 3.5 L Chloride 103 99 Carbon Dioxide 23 22 Anion Gap 11 17 H BUN 28 31 H Creatinine 1.6 H 3.5 H Estimated Creat Clear 43.94 21.44 Estimated GFR 47 18 Glucose 106 106 Calcium 8.3 L 9.0 Ethyl Alcohol 0.17 H Lab Acknowledgement Test Added Discharge Plan Discharge Disposition: Home, Self-Care Date of Admission: 07/21/25 23:11 Attending Provider on Discharge: Fiorella Lin Primary Care Provider: Blane Peres Condition: Stable Anticipated Discharge Date/Time: 07/22/25 09:50 Discharge Medications: Continued tamsulosin 0.4 mg capsule 0.4 mg PO DAILY mirtazapine 7.5 mg tablet 7.5 mg PO HS aspirin 81 mg tablet,delayed release (DR/EC) 81 mg PO DAILY gabapentin 300 mg Capsule 300 mg PO BID albuterol sulfate 90 mcg/actuation HFA aerosol inhaler 1 - 2 puff inhalation Q4H PRN atorvastatin 40 mg tablet 40 mg PO DAILY carvedilol 3.125 mg tablet 3.125 mg PO BID sertraline 50 mg tablet 50 mg PO DAILY tiotropium bromide 18 mcg capsule, w/inhalation device 1 cap inhalation DAILY Held lisinopril-hydrochlorothiazide 10-12.5 mg tablet 1 tab PO DAILY Hold Instructions: Resume on 07/25/25. hold until you f/u with your PCP Discharge Orders: Discharge Order (Routine); Ordered 07/22/25 Ordered By: Fiorella Lin Patient Education: Syncope (ED), Hypotension (ED) Additional Instructions: Stop taking lisinopril/hydrochlorothiazide until you follow-up with your primary care provider next week. Take Tylenol and ibuprofen as needed for pain Keep a journal about when you feel anxiety, what was happening beforehand, and any other symptoms you experience during these times. Use box breathing or other breathing techniques as we discussed daily to practice and use them if you feel anxiety or if you feel it might come on. Abstain from alcohol. Consider outpatient treatment program. Stay hydrated, drink 6-8 cups of fluid daily. Activity Level: No Restrictions Discharge Diet: Regular Follow Up Appointments: Blane Peres MD [Primary Care Provider, Family Practice] Referral Note: BMP Thursday or Thursday Forms: [employer] [place] Info Instructions
[2025-07-22 10:48] VITALS: BP 153/82; PULSE 66; O2SAT 94
--- NOTE | 2025-07-22 11:58 | PC.NURSE ---
Discharge: patients VSS, on RA afebrile this shift. NSR on tele. Denies N/V/SOB. patient alert and oriented x4 pleasant and cooperative. zero on CIWA. Patient discharged to home today at 1115 accompanied by spouse. IV removed tip intact. Discharge instructions signed and patient verbalized understanding of instructions. Belongings sheet signed.
--- NOTE | 2025-07-22 14:34 | PC.NURSE ---
Discharge to home accompanied by spouse at 1115. VSS, on RA tolerating a reg. diet. discharge instructions given and signed
== END 2025-07-22 11:15 | disposition home or self-care (01) | DRG 684 ==
LOC: ED 22:32 → MEDSURG 23:12
PROVIDERS: Admitting Provider Family Medicine; Emergency Provider Family Medicine; PCP Surgery; Visit Provider Family Medicine
DX: N17.9 Acute kidney failure, unspecified (principal); F10.229 Alcohol dependence with intoxication, unspecified; Y90.6 Blood alcohol level of 120-199 mg/100 ml; I95.1 Orthostatic hypotension; E86.0 Dehydration; F41.9 Anxiety disorder, unspecified; G31.84 Mild cognitive impairment of uncertain or unknown etiology; S01.21XA Laceration without foreign body of nose, initial encounter; Z91.81 History of falling; W19.XXXA Unspecified fall, initial encounter; Y92.009 Unspecified place in unspecified non-institutional (private) residence as the place of occurrence of the external cause; G47.33 Obstructive sleep apnea (adult) (pediatric); I48.0 Paroxysmal atrial fibrillation; J44.9 Chronic obstructive pulmonary disease, unspecified; F12.90 Cannabis use, unspecified, uncomplicated; I10 Essential (primary) hypertension
CPT/HCPCS: 36415; 51798; 70450; 72125; 80048; 82077; 82803; 85025; 93005; 97162; 97165; 99285; 99291; A9153; A9270; J2405; J7030

== ENCOUNTER 2025-08-18 08:40 | Outpatient (CLI) | payer MEDICARE, BC, SELFPAY ==
--- NOTE | 2025-08-18 09:37 | P.ANES_ITS ---
Anesthesia Charges Start Date/Time Anesthesia Start Date: 08/18/25 Anesthesia Start Time: 09:15 Stop Date/Time Anesthesia Stop Date: 08/18/25 Anesthesia Stop Time: 09:33 Coding CPT Codes CPT Codes: ANES LWR INTST NDSC NOS - 22281 ([id number]) P3 - PATIENT W/SEVERE SYS DISEASE, QK - [employer] 2-4 CNCRNT ANES PROC, QX - QUOTATION CLERK SVC W/ MD MED DIRECTION
--- NOTE | 2025-08-18 09:37 | W.ANESCHARGE ---
Anesthesia Charges Start Date/Time Anesthesia Start Date: 08/18/25 Anesthesia Start Time: 09:15 Stop Date/Time Anesthesia Stop Date: 08/18/25 Anesthesia Stop Time: 09:33 Coding CPT Codes CPT Codes: ANES LWR INTST NDSC NOS - [id number] ([id number]) P3 - PATIENT W/SEVERE SYS DISEASE, QK - MORTGAGE BANKER 2-4 CNCRNT ANES PROC, QX - RELIEF MAN SVC W/ MD MED DIRECTION
--- NOTE | 2025-08-18 11:46 | P.ANES_ITS ---
Anesthesia Charges Start Date/Time Anesthesia Start Date: 08/18/25 Anesthesia Start Time: 09:15 Stop Date/Time Anesthesia Stop Date: 08/18/25 Anesthesia Stop Time: 09:33 Coding CPT Codes CPT Codes: ANES LWR INTST NDSC NOS - [id number] ([id number]) QK - AUTOMOTIVE ELECTRICIAN HELPER 2-4 CNCRNT ANES PROC, QX - RN CHILD SVC W/ MED DIRECTION, P3 - PATIENT W/SEVERE SYS DISEASE
--- NOTE | 2025-08-18 11:46 | W.ANESCHARGE ---
Anesthesia Charges Start Date/Time Anesthesia Start Date: 08/18/25 Anesthesia Start Time: 09:15 Stop Date/Time Anesthesia Stop Date: 08/18/25 Anesthesia Stop Time: 09:33 Coding CPT Codes CPT Codes: ANES LWR INTST NDSC NOS - [id number] ([id number]) QK - GRADER MEAT 2-4 CNCRNT ANES PROC, QX - LICENSED MENTAL HEALTH PROFESSIONAL SVC W/ MED DIRECTION, P3 - PATIENT W/SEVERE SYS DISEASE
== END 2025-08-18 08:41 | disposition home or self-care (01) ==
LOC: OP CLINIC 08:41
PROVIDERS: PCP Surgery; Visit Provider Internal Medicine Gastroenterology
DX: D12.2 Benign neoplasm of ascending colon (principal); D12.4 Benign neoplasm of descending colon; K57.30 Diverticulosis of large intestine without perforation or abscess without bleeding; Z86.0101 Personal history of adenomatous and serrated colon polyps; Z98.0 Intestinal bypass and anastomosis status
CPT/HCPCS: 00811; 45385; J2704; J3490